=== PATIENT | male | born 1950 | race Caucasian/White ===

== ENCOUNTER → 2025-01-23 | Outpatient (CLI) | payer MEDICARE, SELFPAY ==
--- NOTE | 2025-01-23 08:01 | EKG12_ITS ---
Test Reason : PREOP Blood Pressure : */* mmHG Vent. Rate : 66 BPM Atrial Rate : 66 BPM P-R Int : 200 ms QRS Dur : 144 ms QT Int : 432 ms P-R-T Axes : 62 -61 56 degrees QTcB Int : 452 ms Normal sinus rhythm Right bundle branch block Left anterior fascicular block Bifascicular block Left ventricular hypertrophy with QRS widening Cannot rule out Septal infarct , age undetermined Abnormal ECG Confirmed by Job Cruz ([id number]), television news video editor PATTI LARIOS ([id number]) on 01/23/2025 11:05:52 AM Referred By: Son Calderon Confirmed By: Job Cruz
--- NOTE | 2025-01-23 08:02 | CT_ITS ---
PROCEDURE: EXTREMITY LOWER WITHOUT CONTRA 01/23/2025 REASON FOR EXAM: KNEE PAIN TECHNIQUE: Procedure Code: CTELWO Modality: CT Procedure: EXTREMITY LOWER WITHOUT CONTRA Coronal and Sagittal reconstruction series were provided. CONTRAST: Knee pain One or more dose reduction techniques were used (e.g., Automated exposure control, adjustment of the mA and/or kV according to patient size, use of iterative reconstruction technique). RADIATION DOSE SUMMARY: DLP: 1517 mGycm COMPARISON: None FINDINGS: There is osteoarthritis which is most severe in the medial compartment with a 1.3 x 2.1 cm developing osteochondral defect in the medial femoral condyle. There is no acute fracture or dislocation. There is a moderate joint effusion. There is no visible soft tissue abnormality or atherosclerosis. CT/Extremity Lower without Contra IMPRESSION: There is osteoarthritis which is most severe in the medial compartment with a 1 .3 x 2.1 cm developing osteochondral defect in the medial femoral condyle. There is a moderate joint effusion. Reading Location: [facility]
== END | disposition home or self-care (01) ==
PROVIDERS: PCP Internal Medicine; Referring Provider Orthopaedic Surgery; Visit Provider Orthopaedic Surgery
DX: Z01.818 Encounter for other preprocedural examination (principal); M17.12 Unilateral primary osteoarthritis, left knee
CPT/HCPCS: 73700; 93005

== ENCOUNTER 2025-02-24 09:20 | Emergency (ER) | payer MEDICARE, SELFPAY ==
[2025-02-24 09:20] VITALS: BP 125/100; PULSE 79; RESP 14; TEMP 36.6; O2SAT 99
[2025-02-24 09:33] VITALS: BMI 36.6
--- NOTE | 2025-02-24 09:45 | VDLE_ITS ---
Reason For Study Reason For Study: LLE PAIN Procedure LEFT This is a venous duplex using B-mode, color flow and GSV is normal. spectral Doppler. CFV is compressible, spontaneous, phasic, competent, A preliminary report was called and/or faxed to , and demonstrates normal augmentation. Danette @ 10:30 am. FV is compressible, spontaneous, phasic, competent and demonstrates normal augmentation. POP V is compressible, spontaneous, phasic, competent and demonstrates normal augmentation. T/P Trunk is compressible. PTV is compressible. LT PerV is compressible. VL/Venous Duplex US, Unilateral Interpretation Summary Deep veins of the left lower extremity are patent and compressible segmentally. There is no evidence of left lower extremity deep vein thrombosis. Valvular competence appears intact within the p roximal deep venous system on the left . The left great saphenous vein appears patent and compressible segmentally. Ordering Physician: Yevgeniy Samaniego Referring Physician: Mark Nova Performed By: Yolanda Rangel, RDCS, RVT
--- NOTE | 2025-02-24 09:47 | EX.ED.DYSGE1 ---
HPI History of Present Illness Chief Complaint: Lower Extremity Injury Narrative Narrative: Chief complaint and HPI: 74-year-old male with past medical history of depression, HTN, chronic pain presents for evaluation of pain in the left posterior thigh. Pain started after getting out of bed. States it feels like his muscle. He denies any trauma or fall. Patient states that he is scheduled to have a left knee replacement soon with Dr. Calderon. He takes gabapentin, baclofen, and recently started on Journavx by Dr. Calderon. Triage note states that he is having pain in the left leg and foot. He denies this to me. States it is all located in the left posterior thigh. States that 2 days ago he did have some shooting pain from the knee and to the left ankle and foot however this has resolved. He does have an excoriation proximal to the lateral malleolus which he states he has obtained due to itching. He denies any fever, chills, nausea, vomiting, lower extremity swelling, lower extremity redness or warmth. Did not take anything for the pain. Review of systems: See HPI Medications: As listed on the chart Allergies: As listed on the chart PFSH: Per chart Vital signs: As listed on the chart. Reviewed. Physical exam: Gen: A&O x3, NAD-sitting comfortably in the bed, chatty Head: Normocephalic, atraumatic Eyes: No sclera icterus, conjunctiva clear ENT: Moist mucous membranes CV: Regular rate Resp: Nonlabored respiration GI: Abd soft, non-distended, non-tender, no r/r/g Musc: Full ROM, no deformity, patient has mild tenderness to palpation of the left lower posterior thigh-no erythema/warmth/ecchymosis/crepitus, joints with full range of motion without any warmth or erythema, femoral/DP/PT pulses +2 bilaterally, no pulsatile masses, compartments soft, good capillary refill, sensation intact, varicose veins to the left lower calf, calf nontender, noninfectious excoriation to the left lateral lower calf above the malleolus-no lesions. No edema. Skin: Warm, dry Psych: Cooperative, appropriate mood and affect [facility] Medical History (Updated 02/24/25 @ 09:34 by Kevin Ford) Hypertension Depression Home Medications ?Medication ?Instructions ?Recorded ?Last Taken ?Type atorvastatin 20 mg tablet 20 mg PO DAILY 02/24/25 Unknown History baclofen 10 mg tablet 10 mg PO TID 02/24/25 Unknown History bupropion HCl 300 mg 24 hr tablet, 300 mg PO DAILY 02/24/25 Unknown History extended release diclofenac sodium 75 mg 75 mg PO BID 02/24/25 Unknown History tablet,delayed release duloxetine 60 mg capsule,delayed 60 mg PO DAILY 02/24/25 Unknown History release gabapentin 100 mg capsule 200 mg PO Q8H 02/24/25 Unknown History hydrochlorothiazide 25 mg tablet 25 mg PO DAILY 02/24/25 Unknown History lamotrigine 100 mg tablet 100 mg PO DAILY 02/24/25 Unknown History ofloxacin 0.3 % eye drops 1 drp LEFT EYE Q6H 02/24/25 Unknown History tizanidine 4 mg tablet 4 mg PO TID 02/24/25 Unknown History Allergy/AdvReac Type Severity Reaction Status Date / Time diphenhydramine (From AdvReac Other Verified 02/24/25 09:21 Benadryl) Social History Smoking Status: Former smoker EXAM Physical Exam Const Vital Signs: 02/24/25 09:20 Temperature 98 F Temperature Source Temporal Pulse Rate 79 Respiratory Rate 14 Blood Pressure 125/100 H Blood Pressure Mean 108 Pulse Ox 99 Oxygen Delivery Method Room Air MDM MDM MDM Narrative Medical decision making narrative: 74-year-old male with past medical history of depression, HTN, chronic pain presents for evaluation of pain in the left posterior thigh. Pain started after getting out of bed. States it feels like his muscle. He denies any trauma or fall. Patient states that he is scheduled to have a left knee replacement soon with Dr. Calderon. He takes gabapentin, baclofen, and recently started on Journavx by Dr. Calderon. Triage note states that he is having pain in the left leg and foot. He denies this to me. States it is all located in the left posterior thigh. States that 2 days ago he did have some shooting pain from the knee and to the left ankle and foot however this has resolved. He does have an excoriation proximal to the lateral malleolus which he states he has obtained due to itching. On presentation, patient no acute distress. Sitting comfortably in the bed. Chatty. Full range of motion of all the extremities. No signs of cellulitis. No signs of septic arthritis. Pulses palpable and intact bilaterally. Differential diagnosis includes but is not limited to myofascial spasm, muscle strain, DVT. IM Toradol ordered. Will obtain venous duplex ultrasound to assess for DVT. Given there was no trauma I do not think any imaging is needed at this time otherwise. Venous duplex ultrasound negative for DVT. Patient's pain is likely secondary to myofascial spasm or strain. Recommend Tylenol and ibuprofen as needed for pain. Gentle stretching. Heating pad as needed. RICE education. Follow-up with primary care physician and orthopedic physician as needed. He confirmed understand the plan. Take home pain medicine. Impression: 1. Left posterior thigh pain, suspect muscular Discharge Plan Triage Chief Complaint: Lower Extremity Injury ED Provider: Yevgeniy Samaniego Dx/Rx/DC Orders Prescriptions: No Action atorvastatin 20 mg tablet 20 mg PO DAILY baclofen 10 mg tablet 10 mg PO TID diclofenac sodium 75 mg tablet,delayed release (DR/EC) 75 mg PO BID gabapentin 100 mg capsule 200 mg PO Q8H bupropion HCl 300 mg tablet extended release 24 hr 300 mg PO DAILY duloxetine 60 mg capsule,delayed release(DR/EC) 60 mg PO DAILY ofloxacin 0.3 % drops 1 drp LEFT EYE Q6H hydrochlorothiazide 25 mg tablet 25 mg PO DAILY lamotrigine 100 mg tablet 100 mg PO DAILY tizanidine 4 mg tablet 4 mg PO TID Primary Care Provider: Mark Nova Referrals: Mark Nova MD [Primary Care Provider, Internal Medicine] Print Language: Syriac
--- OUTSIDE RECORDS SUMMARY | 2025-02-24 10:36 | XMS RPT_ITS | CCD ---
Author Organization [facility] Care Team Providers Care Chief Design Engineer Name Role Phone Avtar AVILA, Mark Pena Primary Care Provider Mark Nova MD Primary Care Provider [phone] Gena TURNER.Alexia RECINOS Unavailable MALENA DUKE Attending Unavailable AVTAR, MARK Pena Primary Care Unavailable AVTAR, MARK Pena Primary Care Unavailable PREBISH, MAUDE Attending Unavailable AVTAR, MARK Pena Primary Care Unavailable PREBISH, MAUDE Referring Unavailable LEI CLINTON Attending Unavailable AVTAR, MARK Pena Referring Unavailable NOVA, MARK Pena Primary Care Unavailable PREBISH, MAUDE Attending Unavailable ATVAR, MARK Pena Primary Care Unavailable PREOJSHMAUDE Attending Unavailable MARK NOVA Attending Unavailable MARK NOVA Primary Care Unavailable SELF Referring Unavailable ALEXIA COLEMAN Referring Unavailable AVTAR, MARK Pena Primary Care Unavailable AVTAR, MARK Pena Primary Care Unavailable MARK NOVA Primary Care Unavailable ALEXIA COLEMAN Referring Unavailable AVTAR, MARK Pena Primary Care Unavailable AVTAR, MARK Pena Attending Unavailable MARK NOVA Attending Unavailable AVTAR, MARK Pena Primary Care Unavailable AVTAR, MARK Pena Primary Care Unavailable MELINA BRITT Attending Unavailable AVTAR, MARK Pena Primary Care Unavailable AVTAR, MARK Pena Attending Unavailable AVTAR, MARK Pena Primary Care Unavailable DANA PAT Attending Unavailable AVTAR, MARK Pena Primary Care Unavailable MELINA BRITT Referring Unavailable MELINA BRITT Attending Unavailable MARK NOVA Referring Unavailable AVTAR, MARK Pena Primary Care Unavailable AVTAR, MARK Pena Primary Care Unavailable KATRINA WHYTE Attending Unavailable NOVA, OSMAN Primary Care Unavailable TALKARQUAN Referring Unavailable NOVA, OSMAN Primary Care Unavailable QUAN JEFFERS Attending Unavailable ALEXIA COLEMAN Attending Unavailable NOVA, OSMAN Primary Care Unavailable NOVA, OSMAN Attending Unavailable NOVA, OSMAN Primary Care Unavailable SELF Referring Unavailable NOVA, OSMAN Primary Care Unavailable NOVA, OSMAN Attending Unavailable NOVA, OSMAN Attending Unavailable NOVA, OSMAN Primary Care Unavailable NOVA, OSMAN Primary Care Unavailable NOVA, OSMAN Primary Care Unavailable NOVA, OSMAN Referring Unavailable SANDY LUZ Attending Unavailable NOVA, OSMAN Referring Unavailable NOVA, OSMAN Primary Care Unavailable NOVA, OSMAN Attending Unavailable MALENA DUKE Referring Unavailable NOVA, OSMAN Primary Care Unavailable NOVA, OSMAN Primary Care Unavailable NOVA, OSMAN Referring Unavailable NOVA, OSMAN Primary Care Unavailable NOVA, OSMAN Referring Unavailable Nova, Mark Primary Care Unavailable Son Calderon Referring Unavailable Son Calderon Attending Unavailable Allergies Allergy Classification Reported Allergen(s) Allergy Type Date of Onset Reaction(s) Facility diphenhydrAMINE (2 sources) diphenhydrAMINE Drug Allergy 2 Mental Status Change [facility] Work Phone: (20 sources) diphenhydrAMINE; Translations: [DIPHENHYDRAMINE] Drug Allergy 2 Mental Status Change [facility] Work Phone: Medications Current Medications Medication Drug Class(es) Dates Sig (Normalized) Sig (Original) atorvastatin 20 mg oral tablet (20 sources) HMG-CoA Reductase Inhibitor Start: 01-30-2022 End: 08-16-2024 take 1 tablet by mouth once daily at bedtime for hyperlipidemia atorvastatin (LIPITOR) 20 mg tablet Take 1 tablet by mouth daily at bedtime. For cholesterol. 90 tablet 1 08/16/2024 Active Comment on above: Take 1 tablet by dima th daily at bedtime. For cholesterol. baclofen 10 mg oral tablet (5 sources) gamma-Aminobutyr ic Acid-ergic Agonist Start: 11-16-2024 End: 11-21-2024 take 1 tablet by mouth three times daily baclofen 10 mg tablet Indications: Acute on chronic low back pain Take 1 tablet by mouth three times a day for 5 days. 15 tablet 11/16/2024 11/21/2024 Active Start: 06-16-2024 End: 06-23-2024 take 1 tablet by mouth three times daily baclofen 10 mg tablet Indications: Acute pain of left thigh Take 1 tablet by mouth three times a day for 7 days. 21 tablet 06/16/2024 06/20/2024 Discontinued (Lack of Efficacy) 24 hr buPROPion hydrochloride 300 mg extended release oral tablet (20 sources) Aminoketone Start: 06-29-2023 End: 06-03-2025 take 1 tablet by mouth once daily buPROPion XL (WELLBUTRIN XL) 300 mg 24 hr tablet Take 1 tablet by mouth once daily. 90 tablet 1 12/05/2024 06/03/2025 Active Start: 10-28-2021 take 1 tablet by dima th every twenty-four hours buPROPion XL (WELLBUTRIN XL) 300 mg 24 hr tablet Take 300 mg by mouth. 0 10/28/2021 Active Comment on above: Take 300 mg by mouth . Take 1 tablet by dima th once daily. diclofenac sodium 75 mg delayed release oral tablet (20 sources) Nonsteroidal Anti-inflammatory Drug Start: End: apply 2 g topically twice daily as needed diclofenac (VOLTAREN) 1 % topical gel Indications: Left leg pain Apply 2 g to affected area two times a day as needed for up to 7 days. 28 g 10/24/2024 10/31/2024 Active Start: 09-27-2024 End: 11-23-2024 take 1 tablet by mouth twice daily diclofenac, EC, (VOLTAREN) 75 mg EC tablet Indications: Primary osteoarthritis of left knee , Left low back pain, unspecified chronicity, unspecified whether sciatica present Take 1 tablet by mouth two times a day. 60 tablet 2 11/23/2024 Active Start: 06-26-2024 End: 09-25-2024 take 1 tablet by mouth twice daily diclofenac, EC, (VOLTAREN) 75 mg EC tablet Indications: Left low back pain, unspecified chronicity, unspecified whether sciatica present Take 1 tablet by mouth two times a day. 60 tablet 1 08/01/2024 09/25/2024 Discontinued DULoxetine 60 mg delayed release oral capsule (20 sources) Serotonin and Norepinephrine Reuptake Inhibitor Start: 06-29-2023 End: 06-03-2025 take 1 capsule by mouth once daily at bedtime DULoxetine DR (CYMBALTA) 60 mg capsule Take 1 capsule by mouth daily at bedtime. 90 capsule 1 12/05/2024 06/03/2025 Active Start: 06-29-2023 End: 12-06-2023 take 1 capsule by mouth once daily DULoxetine (CYMBALTA) 30 mg capsule Take 1 capsule by mouth once daily. Take with 60 mg dose. 90 capsule 0 09/07/2023 11/02/2023 Discontinued (Lack of Efficacy) Start: 10-28-2021 take 1 capsule by mo uth once daily DULoxetine (CYMBALTA) 60 mg capsule Take 60 mg by mouth once daily. 0 10/28/2021 Active Start: 10-27-2021 take 1 capsule by mo uth once daily DULoxetine (CYMBALTA) 30 mg capsule Take 30 mg by mouth once daily. 0 10/27/2021 Active Comment on above: Take 30 mg by mouth once daily. Take 60 mg by mouth once daily. Take 1 capsule by mo uth daily at bedtime. Take with 30 mg dose. Take 1 capsule by mo uth once daily. Take with 60 mg dose. gabapentin 100 mg oral capsule (20 sources) Anti-epileptic Agent Start: 08-16-2024 End: 02-12-2025 take 2 capsules by mouth three times daily gabapentin (NEURONTIN) 100 mg capsule Indications: Left low back pain, unspecified chronicity, unspecified whether sciatica present Take 2 capsules by mouth three times a day for 180 days. 180 capsule 5 08/16/2024 02/12/2025 Active Start: 06-20-2024 End: 09-18-2024 take 1 capsule by mouth three times daily gabapentin (NEURONTIN) 100 mg capsule Indications: Left low back pain, unspecified chronicity, unspecified whether sciatica present Take 1 capsule by mouth three times a day for 90 days. 90 capsule 2 06/20/2024 08/16/2024 Discontinued hydroCHLOROthiazide 25 mg oral tablet (20 sources) Thiazide Diuretic Start: 08-11-2021 End: 08-16-2024 take 1 tablet by mouth once daily hydroCHLOROthiazide 25 mg tablet Indications: Primary hypertension Take 1 tablet by mouth once daily. 90 tablet 1 08/16/2024 Active Comment on above: Take 1 tablet by dima th once daily. Take 25 mg by mouth once daily. hydrocortisone 5 mg/ml topical cream (2 sources) Corticosteroid Start: 11-02-2023 End: 12-02-2023 hydrocortisone 0.5 % cream Apply to affected area three times a day as needed (for itching). 28.4 g 1 11/02/2023 12/02/2023 Active lamoTRIgine 100 mg oral tablet (20 sources) Mood Stabilizer, Anti-epileptic Agent Start: 08-03-2023 End: 12-05-2024 take 1 tablet by mouth once daily lamoTRIgine (LAMICTAL) 100 mg tablet Take 1 tablet by mouth once daily. 90 tablet 1 12/05/2024 Active Start: 06-29-2023 End: 08-10-2023 take 1 tablet by mouth once daily, then take 2 tablets by mouth once daily, then take 3 tablets by mouth once daily lamoTRIgine (LAMICTAL) 25 mg tablet Take 1 tablet by mouth once daily for 14 days, THEN 2 tablets once daily for 14 days, THEN 3 tablets once daily for 14 days. 84 tablet 0 06/29/2023 08/03/2023 Discontinued Comment on above: Take 1 tablet by dima once daily for 14 days, THEN 2 tablets once daily for 14 days, THEN 3 tablets once daily for 14 days. tiZANidine 4 mg oral tablet (1 source) Central alpha-2 Adrenergic Agonist Start: take 1 tablet by mouth every eight hours as needed tiZANidine (ZANAFLEX) 4 mg tablet Take 1 tablet by mouth every 8 hours as needed. 30 tablet 12/12/2024 Active traMADol hydrochloride 50 mg oral tablet (2 sources) Opioid Agonist Start: End: take 1 tablet by mouth every six hours as needed for pain traMADol (ULTRAM) 50 mg tablet Indications: Fall, initial encounter , Acute pain of right shoulder , Acute midline low back pain without sciatica Take 1 tablet by mouth every 6 hours as needed for pain for up to 3 days. 12 tablet 06/07/2024 06/10/2024 Active Completed/Discontinued Medications Medication Drug Class(es) Dates Sig (Normalized) Sig (Original) ARIPiprazole 5 mg oral tablet (17 sources) Atypical Antipsychotic Start: 08-03-2023 End: 09-07-2023 take 0.5 tablet by mouth once daily ARIPiprazole (ABILIFY) 5 mg tablet Take 0.5 tablets by mouth once daily. 15 tablet 0 08/03/2023 09/07/2023 Discontinued (Side Effects) Start: 06-29-2023 End: 09-27-2023 take 1 tablet by mouth once daily ARIPiprazole (ABILIFY) 5 mg tablet Take 1 tablet by mouth once daily. 30 tablet 2 06/29/2023 08/03/2023 Discontinued Start: 10-28-2021 take 1 tablet by dima th once daily, then take 5 mg by mouth once daily ARIPiprazole (ABILIFY) 2 mg tablet Take 2 mg by mouth once daily. 5 mg per day 0 10/28/2021 Active Comment on above: Take 2 mg by mouth o nce daily. Take 2 mg by mouth o nce daily. 5 mg per day Take 1 tablet by dima th once daily. iohexol 300 mg injection (OMNIPAQUE 300) (2 sources) Start: 09-15-2024 End: 09-15-2024 iohexol 300 mg injection (OMNIPAQUE 300) Start: 09-15-2024 End: 09-15-2024 300 mg, OTHER, ONCE, 1 dose, On Wed09/15/24 at 0830 2 ml ketorolac tromethamine 30 mg/ml injection (4 sources) Nonsteroidal Anti-inflammatory Drug, Cyclooxygenase Inhibitor Start: 11-16-2024 End: 11-16-2024 keTORolac 60 mg injection (Toradol) Start: 11-16-2024 End: 11-16-2024 60 mg, INTRAMUSCULAR, ONCE, 1 dose, On Wed11/16/24 at 1700, Ketorolac (Toradol) is indicated for the short-term (up to 5 days) management of moderately severe acute pain. Continuation of ketorolac (Toradol) beyond 5 days increases the risk of developing serious adverse events. Please verify the duration of therapy for ketorolac (Toradol). Start: 06-05-2024 End: 06-05-2024 keTORolac 60 mg injection (T oradol) Start: 06-05-2024 End: 06-05-2024 60 mg, INTRAMUSCULAR, ONCE, 1 dose, On Wed06/05/24 at 1930, Ketorolac (Toradol) is indicated for the short-term (up to 5 days) management of moderately severe acute pain. Continuation of ketorolac (Toradol) beyond 5 days increases the risk of developing serious adverse events. Please verify the duration of therapy for ketorolac (Toradol). Lidocaine (2 sources) Antiarrhythmic, Amide Local Anesthetic Start: 09-15-2024 End: 09-15-2024 lidocaine 10 mg/mL (1 %) 100 mg injection (XYLOCAINE) Start: 09-15-2024 End: 09-15-2024 100 mg (10 mL), OTHER, ONCE, 1 dose, On Wed09/15/24 at 0830 methocarbamol 500 mg oral tablet (1 source) Muscle Relaxant Start: 12-12-2024 End: 12-12-2024 take 1 tablet by mouth three times daily methocarbamol (ROBAXIN) 500 mg tablet Take 1 tablet by mouth three times a day. 30 tablet 12/12/2024 12/12/2024 Discontinued (Other) 1 ml methylPREDNISolone acetate 40 mg/ml injection (2 sources) Corticosteroid Start: 09-15-2024 End: 09-15-2024 methylPREDNISolone acetate 40 mg injection (DEPO-Medrol) Start: 09-15-2024 End: 09-15-2024 40 mg, OTHER, ONCE, 1 dose, On Wed09/15/24 at 0830 5 ml sodium chloride 9 mg/ml injection (2 sources) Start: 09-15-2024 End: 09-15-2024 NaCl (PF) 0.9% 5 mL injectio n Start: 09-15-2024 End: 09-15-2024 5 mL, OTHER, ONCE, 1 dose, O n Wed09/15/24 at 0830 Problems Active Problems Problem Classification Problem Date Documented Date Episodic/Chronic Administrative/social admission (1 source) Encounter for issue of other medical certificate; Translations: [Encounter for issue of other medical certificate] Onset: 11-23-2024 Episodic Crushing injury or internal injury (1 source) Contusion of lung, unilateral, initial encounter; Translations: [Contusion of right lung, initial encounter] Onset: 06-07-2024 Episodic Disorders of lipid metabolism (20 sources) Hyperlipidemia; Translations: [Hyperlipidemia, unspecified] Onset: 08-12-2022 Chronic E Codes: Fall (2 sources) Fall; Translations: [Unspecified fall, initial encounter] Onset: 06-07-2024 06-05-2024 Episodic Essential hypertension (20 sources) Essential hypertension; Translations: [Essential (primary) hypertension] Onset: 10-30-2021 Chronic Mood disorders (20 sources) Major depressive disorder; Translations: [Major depressive disorder, single episode, unspecified] Onset: 10-30-2021 Chronic Nausea and vomiting (1 source) Nausea and vomiting; Translations: [Nausea with vomiting, unspecified] 07-12-2024 Episodic Osteoarthritis (20 sources) Osteoarthritis of left knee joint; Translations: [Unilateral primary osteoarthritis, left knee] Onset: 06-22-2024 06-22-2024 Chronic Other aftercare (2 sources) Long-term current use of drug therapy; Translations: [Other retirement (current) drug therapy] 06-20-2024 Episodic Other connective tissue disease (3 sources) Thigh pain; Translations: [Pain in left thigh] 06-16-2024 Episodic Other connective tissue disease (4 sources) Pain in left lower limb; Translations: [Pain in left leg] 10-24-2024 Episodic Other connective tissue disease (1 source) Spasm; Translations: [Other muscle spasm] 12-12-2024 Episodic Other connective tissue disease (1 source) Other muscle spasm; Translations: [Muscle spasm] Onset: 12-12-2024 Episodic Other ear and sense organ disorders (1 source) Hearing loss of right ear; Translations: [Impacted cerumen, right ear] 02-01-2024 Episodic Other inflammatory condition of skin (2 sources) Pruritus caused by drug; Translations: [Other pruritus] 11-02-2023 Episodic Other injuries and conditions due to external causes (1 source) Contusion; Translations: [Unspecified multiple injuries, initial encounter] 06-05-2024 Episodic Other lower respiratory disease (1 source) Snoring; Translations: [Snoring] Onset: 01-12-2025 Episodic Other nervous system disorders (2 sources) Other chronic pain; Translations: [Chronic pain of left knee] Onset: 11-16-2024 Chronic Other non-traumatic joint disorders (1 source) Pain in right shoulder; Translations: [Acute pain of right shoulder] Onset: 06-07-2024 Episodic Other non-traumatic joint disorders (2 sources) Pain in left knee; Translations: [Pain in joint, lower leg] Onset: 12-03-2024 12-03-2024 Episodic Other nutritional; endocrine; and metabolic disorders (20 sources) Obese class I; Translations: [Obesity, unspecified] Onset: 10-30-2021 Chronic Other nutritional; endocrine; and metabolic disorders (1 source) Body mass index 30+ - obesity; Translations: [Body mass index (BMI) 30.0-30.9, adult] 12-12-2024 Chronic Other nutritional; endocrine; and metabolic disorders (1 source) Body mass index (BMI) 30.0-30.9, adult; Translations: [Body mass index (BMI) 30.0-30.9, adult] Onset: 12-12-2024 Chronic Residual codes; unclassified (1 source) Other amnesia; Translations: [Memory disturbance] Onset: 01-12-2025 Episodic Screening and history of mental health and substance abuse codes (1 source) Encounter for screening examination for other mental health and behavioral disorders; Translations: [Encounter for screening examination for other mental health and behavioral disorders] Onset: 01-12-2025 Episodic Spondylosis; intervertebral disc disorders; other back problems (5 sources) Degeneration of lumbar intervertebral disc; Translations: [Degeneration of intervertebral disc of lumbar region with discogenic back pain and lower extremity pain] Onset: 10-12-2024 08-10-2024 Chronic Sprains and strains (1 source) Sprain of shoulder rotator cuff; Translations: [Sprain of right rotator cuff capsule, initial encounter] 11-25-2023 Episodic Superficial injury; contusion (1 source) Contusion of lower back and pelvis, initial encounter; Translations: [Lumbar contusion, initial encounter] Onset: 06-07-2024 Episodic Unclassified (1 source) Acute midline low back pain without sciatica; Translations: [Acute midline low back pain without sciatica] Onset: 06-07-2024 Unclassified (2 sources) Long-term current use of drug therapy 06-20-2024 Unclassified (1 source) Degeneration of intervertebral disc of lumbar region with discogenic back pain and lower extremity pain; Translations: [Degeneration of intervertebral disc of lumbar region with discogenic back pain and lower extremity pain] Onset: 10-12-2024 Unclassified (2 sources) Left low back pain, unspecified chronicity, unspecified whether sciatica present; Translations: [Left low back pain, unspecified chronicity, unspecified whether sciatica present] Onset: 06-26-2024 Unclassified (1 source) Acute bilateral low back pain without sciatica; Translations: [Acute bilateral low back pain without sciatica] Onset: 12-12-2024 Unclassified (1 source) Acute on chronic low back pain; Translations: [Acute on chronic low back pain] Onset: 11-16-2024 Viral infection (1 source) Disease caused by 2019-nCoV; Translations: [COVID-19] Episodic Past or Other Problems Problem Classification Problem Date Documented Da te Episodic/Chronic Heart valve disorders (20 sources) Heart murmur; Translations: [Cardiac murmur, unspecified] Onset: 10-30-2021 Episodic Other aftercare (1 source) Other retirement (current) drug therapy; Translations: [Encounter for long-term (current) use of medications] Onset: 06-20-2024 Episodic Other connective tissue disease (1 source) Pain in left leg; Translations: [Left leg pain] Onset: 10-24-2024 Episodic Other connective tissue disease (1 source) Pain in left thigh; Translations: [Acute pain of left thigh] Onset: 06-16-2024 Episodic Other screening for suspected conditions (not mental disorders or infectious disease) (6 sources) Patient encounter status; Translations: [Encounter for screening for malignant neoplasm of colon] Onset: 06-16-2024 Episodic Residual codes; unclassified (20 sources) Tobacco use and exposure - finding; Translations: [Tobacco use] Onset: 08-13-2022 Resolved: 05-26-2023 Episodic Spondylosis; intervertebral disc disorders; other back problems (20 sources) Acute low back pain; Translations: [Acute bilateral low back pain without sciatica] Onset: 06-26-2024 06-05-2024 Episodic Unclassified (2 sources) Patient encounter status 06-06-2024 Results Test Name Value Interpretation Reference Range Facility CT BRAIN WO IVCONon 01-25-20 CT BRAIN WO IVCON * * *Final Report* * * DATE OF EXAM: Jan 24 2025 12:10PM [facility] 0504 - CT BRAIN WO IVCON / PROCEDURE REASON: Memory disturbance * * * * Physician Interpretation * * * * EXAMINATION: CT BRAIN WO IVCON CLINICAL HISTORY: Memory disturbance. TECHNIQUE: Serial axial images without IV contrast were obtained from the vertex to the foramen magnum. MQ: CTBWO_3 CT Radiation dose: Integrated Dose-Length Product (DLP) for this visit = 719 mGy*cm CT Dose Reduction Employed: Automated exposure control(AEC) and iterative recon COMPARISON: None. RESULT: Localizer images: Noncontributory. Post-operative change: None. Acute change: No evidence of an acute infarct or other acute parenchymal process. Hemorrhage: No evidence of acute intracranial hemorrhage. ECASS hemorrhagic transformation score: Not Applicable Mass Lesion / Mass Effect: There is no evidence of an intracranial mass or extraaxial fluid collection. No significant mass effect. Chronic change: Minimal chronic change. Small remote lacunar infarct within LEFT basal ganglia. Parenchyma: There is moderate generalized volume loss. The brain parenchyma is otherwise within normal limits for age. Ventricles: Ventricular enlargement concordant with the degree of parenchymal volume loss. Paranasal sinuses and skull base: The visualized paranasal sinuses are grossly clear. The skull base and imaged soft tissues are unremarkable. IMPRESSION: No acute findings. Chronic changes. Press Pipe Inspector: PSCLola Transcribe Date/Time: Jan 24 2025 1:28P Dictated by : RUBEN BARBER MD This examination was interpreted and the report reviewed and electronically signed by: RUBEN BARBER MD on Jan 24 2025 1:31PM EST [id number] Normal [facility] 12 Lead EKGon 01-23-2025 12 Lead EKG [facility] Cardiovascular Services [address] [place] [address] 12 Lead EKG 01/23/25 0803 MR#: [id number] Acct: [id number] Name: JUAN KILLIAN Rep #: [id number] : 1950 74 From: Quan Cruz MD Attending Dr: Dr. Son Calderon MD Status: REG CLI Ordering Dr: Son Calderon MD Date: 01/23/25 Location: CT Sex: M C Admitted: Test Reason : PREOP Blood Pressure : */* mmHG Vent. Rate : 66 BPM Atrial Rate : 66 BPM P-R Int : 200 ms QRS Dur : 144 ms QT Int : 432 ms P-R-T Axes : 62 -61 56 degrees QTcB Int : 452 ms Normal sinus rhythm Right bundle branch block Left anterior fascicular block Bifascicular block Left ventricular hypertrophy with QRS widening Cannot rule out Septal infarct , age undetermined Abnormal ECG Confirmed by Quan Cruz ([id number]), editor newspaper PATTI LARIOS ([id number]) on 01/23/2025 11:05:52 AM Referred By: Son Calderon Confirmed By: Quan Cruz 01/23/25 1105 Date Quan Cruz MD CC: Dr. Son Calderon MD; Dr. Mark Nova MD Signed Normal [facility] Extremity Lower without Cont raon 01-23-2025 Extremity Lower without Contra [facility] Imaging Services [address] [place] [id number] Extremity Lower without Contra MR#: [id number] Acct: [id number] Name: JUAN KILLIAN Rep #: [id number] : 1950 M 74 From: Alex Harman MD PCP: Dr. Mark Nova MD Status: REG CLI Study: Extremity Lower without Contra Date of Exam: Exam# [id number] Ordering Dr: Son Calderon MD PROCEDURE: EXTREMITY LOWER WITHOUT CONTRA 01/23/2025 REASON FOR EXAM: KNEE PAIN TECHNIQUE: Procedure Code: CTELWO Modality: CT Procedure: EXTREMITY LOWER WITHOUT CONTRA Coronal and Sagittal reconstruction series were provided. CONTRAST: Knee pain One or more dose reduction techniques were used (e.g., Automated exposure control, adjustment of the mA and/or kV according to patient size, use of iterative reconstruction technique). RADIATION DOSE SUMMARY: DLP: 1517 mGycm COMPARISON: None FINDINGS: There is osteoarthritis which is most severe in the medial compartment with a 1.3 x 2.1 cm developing osteochondral defect in the medial femoral condyle. There is no acute fracture or dislocation. There is a moderate joint effusion. There is no visible soft tissue abnormality or atherosclerosis. CT/Extremity Lower without Contra IMPRESSION: There is osteoarthritis which is most severe in the medial compartment with a 1.3 x 2.1 cm developing osteochondral defect in the medial femoral condyle. There is a moderate joint effusion. Reading Location: [facility] CC: Dr. Son Calderon MD; Dr. Mark Nova MD Press Pipe Inspector: Signed Normal [facility] CBC panel Auto (Bld)on 01-12 Erythrocyte distribution width (RBC) [Ratio] 14.2 % Normal 11.5-15.0 [facility] Comment on above: Order Comment: Speci men Type: BLOOD SPECIMENOrdering Facility: [facility] Address: [address] [place] [address] Performed By: #### [id number] ####[facility] LABIA [id number] [place] [address] [place] Hematocrit (Bld) [Volume fraction] 37.5 % Low 39.0-51.0 [place] [facility] Comment on above: Order Comment: Speci men Type: BLOOD SPECIMENOrdering Facility: [facility] Address: [address] [place] [address] Performed By: #### 5 8410-2 ####[facility] LABIA [id number] [place] [address] [place] Hemoglobin (Bld) [Mass/Vol] 12.7 g/dL Low 13.0-17.0 [facility] Comment on above: Order Comment: Speci men Type: BLOOD SPECIMENOrdering Facility: [facility] Address: [address] [place] [address] Performed By: #### 5 8410-2 ####[facility] LABIA [id number] [place] [address] [place] MCH (RBC) [Entitic mass] 30.0 pg Normal 26.0-34.0 [facility] Comment on above: Order Comment: Speci men Type: BLOOD SPECIMENOrdering Facility: [facility] Address: [address] [place] [address] Performed By: #### 5 8410-2 ####[facility] LABIA [id number] [place] [address] [place] MCHC (RBC) [Mass/Vol] 33.9 g/dL Normal 30.5-36.0 [facility] Comment on above: Order Comment: Speci men Type: BLOOD SPECIMENOrdering Facility: [facility] Address: [address] [place] [address] Performed By: #### 5 8410-2 ####[facility] [id number] [place] [address] [place] MCV (RBC) [Entitic vol] 88.7 fL Normal 80.0-100.0 [facility] Comment on above: Order Comment: Speci men Type: BLOOD SPECIMENOrdering Facility: [facility] Address: [address] [place] [address] Performed By: #### 5 8410-2 ####[facility] [id number] [place] [address] [place] Nucleated RBC (Bld) [#/Vol] 10*3/uL Normal <0.01 [facility] Comment on above: Order Comment: Speci men Type: BLOOD SPECIMENOrdering Facility: [facility] Address: [address] [place] [address] Performed By: #### 5 8410-2 ####[facility] [id number] [place] [address] [place] Platelet mean volume (Bld) [Entitic vol] 9.8 fL Normal 9.0-12.7 [facility] Comment on above: Order Comment: Speci men Type: BLOOD SPECIMENOrdering Facility: [facility] Address: [address] [place] [address] Performed By: #### 5 8410-2 ####[facility] LABCLIA [id number] [place] [address] [place] Platelets (Bld) [#/Vol] 334 10*3/uL Normal 150-400 [facility] Comment on above: Order Comment: Speci men Type: BLOOD SPECIMENOrdering Facility: [facility] Address: [address] [place] [address] Performed By: #### 5 8410-2 ####[facility] LABIA [id number] [place] [address] [place] RBC (Bld) [#/Vol] 4.23 10*6/uL Normal 4.20-6.00 [facility] Comment on above: Order Comment: Speci men Type: BLOOD SPECIMENOrdering Facility: [facility] Address: [address] [place] [address] Performed By: #### 5 8410-2 ####[facility] LABIA [id number] [place] [address] [place] WBC (Bld) [#/Vol] 8.48 10*3/uL Normal 3.70-11.00 [facility] Comment on above: Order Comment: Speci men Type: BLOOD SPECIMENOrdering Facility: [facility] Address: [address] [place] [address] Performed By: #### 5 8410-2 ####[facility] LABIA [id number] [place] [address] [place] CNOVon 01-12-2025 CNOV Office Visit (INTMWS ) JUAN KILLIAN Bernard ([id number]) 1950 Date Time Provider Department 01/12/25 11:00 AM MARK NOVA INTTIA During your visit today, we recorded the following information about you: Temperature Pulse Respiration Blood pressure Normal [facility] JUAN KILLIAN Bernard ([id number]) 1950 Date Time Provider Department 01/12/25 MARK NOVA During your visit today, we recorded the following information about you: Ruth Callahan 01/12/2025 10:54 AM Signed Patient presented to the [facility] stating he has been having bouts of dementia - and they have been much worse today. I offered to get him an appointment and patient replied with the following: Please prescribe the strongest Vitamin E as well as any other medications that you think are proper. Convinced patient to take same day appointment with Dr. Nova. Allergies As of Date: 01/12/2025 Noted Allergy Reaction BENADRYL (DIPHENHYDRAMINE) 10/30/2021 1 - Mental Status Change Comments: Sends into severe depression Date Reviewed: 12/12/2024 Reviewed by: Sobeida Garcia MA - Fully Assessed Prescriptions as of 01/12/2025 - hydroCHLOROthiazide 25 mg tablet Take 1 tablet by mouth once daily. - tiZANidine (ZANAFLEX) 4 mg tablet Take 1 tablet by mouth every 8 hours as needed. - buPROPion XL (WELLBUTRIN XL) 300 mg 24 hr tablet Take 1 tablet by mouth once daily. - DULoxetine DR (CYMBALTA) 60 mg capsule Take 1 capsule by mouth daily at bedtime. - lamoTRIgine (LAMICTAL) 100 mg tablet Take 1 tablet by mouth once daily. - diclofenac, EC, (VOLTAREN) 75 mg EC tablet Take 1 tablet by mouth two times a day. - atorvastatin (LIPITOR) 20 mg tablet Take 1 tablet by mouth daily at bedtime. For cholesterol. - gabapentin (NEURONTIN) 100 mg capsule Take 2 capsules by mouth three times a day for 180 days. Problem List As Of Date 01/12/2025 Noted Resolved Major depression, chronic [F32.9] 10/30/2021 Primary hypertension [I10] 10/30/2021 Obesity, Class I, BMI 30-34.9 [E66.811] 10/30/2021 Heart murmur [R01.1] 10/30/2021 Hyperlipidemia [E78.5] 08/12/2022 Tobacco use [Z72.0] 08/13/2022 05/26/2023 Major depressive disorder, recurrent episode, m*06/06/2024 Primary osteoarthritis of left knee [M17.12] 06/22/2024 Left low back pain [M54.50] 06/26/2024 Encounter Status:Closed by MIHAELA CARNES on 01/12/25 Normal [facility] Comprehensive metabolic 2000 panelon 01-12-2025 Albumin [Mass/Vol] 4.6 g/dL Normal 3.9-4.9 [facility] Comment on above: Order Comment: Speci men Type: BLOOD SPECIMENOrdering Facility: [facility] Address: [address] [place] [address] Performed By: #### 2 4323-8, 2131-12 ####[facility] LABCLIA [id number] [place] [address] [place] ALP [Catalytic activity/Vol] 59 U/L Normal 38-113 [facility] Comment on above: Order Comment: Speci men Type: BLOOD SPECIMENOrdering Facility: [facility] Address: [address] [place] [address] Performed By: #### 2 432-8, 2131-12 ####[facility] LABCLIA [id number] [facility] [address] [place] [address] [place] ALT [Catalytic activity/Vol] 37 U/L Normal 10-54 [facility] Comment on above: Order Comment: Speci men Type: BLOOD SPECIMENOrdering Facility: [facility] Address: [address] [place] [address] Performed By: #### 2 4322-11, 2131-12 ####[facility] LABCLIA [id number] [facility] [address] [place] [address] [place] Anion gap [Moles/Vol] 15 mmol/L Normal 8-15 [facility] Comment on above: Order Comment: Speci men Type: BLOOD SPECIMENOrdering Facility: [facility] Address: [address] [place] [address] Performed By: #### 2 4322-11, 2131-12 ####[facility] LABCLIA [id number] [facility] [address] [place] [address] [place] AST [Catalytic activity/Vol] 27 U/L Normal 14-40 [facility] Comment on above: Order Comment: Speci men Type: BLOOD SPECIMENOrdering Facility: [facility] Address: [address] [place] [address] Performed By: #### 2 4328, 2131-12 ####[facility] LABCLIA [id number] [facility] [address] [place] [address] [place] Bilirubin [Mass/Vol] 0.4 mg/dL Normal 0.2-1.3 [facility] Comment on above: Order Comment: Speci men Type: BLOOD SPECIMENOrdering Facility: [facility] Address: [address] [place] [address] Performed By: #### 2 4323-8, 2131-12 ####[facility] LABCLIA [id number] [facility] [address] [place] [address] [place] Calcium [Mass/Vol] 9.9 mg/dL Normal 8.5-10.2 [facility] Comment on above: Order Comment: Speci men Type: BLOOD SPECIMENOrdering Facility: [facility] Address: [address] [place] [address] Performed By: #### 2 4328, 2131-12 ####[facility] LABCLIA [id number] [place] [facility] [address] [address] [place] Chloride [Moles/Vol] 103 mmol/L Normal 98-107 [facility] Comment on above: Order Comment: Speci men Type: BLOOD SPECIMENOrdering Facility: [facility] Address: [address] [place] [address] Performed By: #### 2 4322-11, 2131-12 ####[facility] LABCLIA [id number] [facility] [place] [id number] [place] CO2 [Moles/Vol] 21 mmol/L Low 22-30 [facility] Comment on above: Order Comment: Speci men Type: BLOOD SPECIMENOrdering Facility: [facility] Address: [address] [place] [address] Performed By: #### 2 4322-11, 2131-12 ####[facility] LABCLIA [id number] [facility] [address] [place] [address] [place] Creatinine [Mass/Vol] 1.14 mg/dL Normal 0.73-1.22 [facility] Comment on above: Order Comment: Speci men Type: BLOOD SPECIMENOrdering Facility: [facility] Address: [address] [place] [address] Performed By: #### 2 4322-11, 2131-12 ####[facility] LABCLIA [id number] [facility] [id number] [address] [place] eGFRcr SerPlBld CKD-EPI 2020 68 mL/min/1.73m??? Normal >=60 [facility] Comment on above: Order Comment: Speci men Type: BLOOD SPECIMENOrdering Facility: [facility] Address: [address] [place] [address] Result Comment: Shikha mated Glomerular Filtration Rate (eGFR) is calculated using the 2020 CKD-EPI creatinine equation. This equation utilizes serum creatinine, sex, and age as parameters. The creatinine assay has traceable calibration to isotope dilution-mass spectrometry. Refer to KDIGO guidelines for clinical interpretation. In patients with unstable renal function, e.g. those with acute kidney injury, the eGFR may not accurately reflect actual GFR. Performed By: #### 2 432-8, 2131-12 ####[facility] [id number] [address] [address] [place] Glucose [Mass/Vol] 102 mg/dL High 74-99 [facility] Comment on above: Order Comment: Kimberly lawrence Type: BLOOD SPECIMENOrdering Facility: [facility] Address: [address] [place] [address] Result Comment: The [place] Diabetes Association (ADA) provides guidance for cutoff values for fasting glucose and random glucose. The ADA defines fasting as no caloric intake for at least 8 hours. Fasting plasma glucose results between 100 to 125 mg/dL indicate increased risk for diabetes (prediabetes). Fasting plasma glucose results greater than or equal to 126 mg/dL meet the criteria for diagnosis of diabetes. In the absence of unequivocal hyperglycemia, results should be confirmed by repeat testing. In a patient with classic symptoms of hyperglycemia or hyperglycemic crisis, random plasma glucose results greater than or equal to 200 mg/dL meet the criteria for diagnosis of diabetes. Reference: Standards of Medical Care in Diabetes 2016, [place] [employer]. Diabetes Care. 2016.39(Suppl 1). Performed By: #### 2 4323-8, 2131-12 ####[facility] [id number] [address] [address] [place] Potassium [Moles/Vol] 4.4 mmol/L Normal 3.7-5.1 [facility] Comment on above: Order Comment: Kimberly lawrence Type: BLOOD SPECIMENOrdering Facility: [facility] Address: [address] [place] [address] Performed By: #### 2 4323-8, 2131-12 ####[facility] LABCLIA [id number] [place] [id number] [place] Protein [Mass/Vol] 7.2 g/dL Normal 6.3-8.0 [facility] Comment on above: Order Comment: Speci men Type: BLOOD SPECIMENOrdering Facility: [facility] Address: [address] [place] [address] Performed By: #### 2 4328, 2131-12 ####[facility] LABIA [id number] [place] [address] [place] Sodium [Moles/Vol] 139 mmol/L Normal 136-144 [facility] Comment on above: Order Comment: Speci men Type: BLOOD SPECIMENOrdering Facility: [facility] Address: [address] [place] [address] Performed By: #### 2 4328, 2131-12 ####[facility] LABIA [id number] [place] [address] [place] Urea nitrogen [Mass/Vol] 26 mg/dL High 9-24 [facility] Comment on above: Order Comment: Speci men Type: BLOOD SPECIMENOrdering Facility: [facility] Address: [address] [place] [address] Performed By: #### 2 43206-10, 2131-12 ####[facility] LABIA [id number] [place] [id number] [place] Gabapentin SerPlBld-mCncon 1 Gabapentin (S/P/Bld) [Mass/Vol] 3.8 ug/mL Normal 2.0-20.0 [facility] Comment on above: Order Comment: Speci men Type: BLOOD SPECIMENOrdering Facility: [facility] Address: [address] [place] [address] Result Comment: This test was developed, and its performance characteristics determined by the [facility] Department of Pathology and Laboratory Medicine. It has not been cleared or approved by the FDA. The [facility] Department of Pathology and Laboratory Medicine is regulated under CLIA as qualified to perform high-complexity testing. This test is used for clinical purposes. It should not be regarded as investigational or for research. Performed By: #### 9 738-6, 6948-4 ####[facility] LABIA [id number] [place] [id number] [place] Vit B12 SerPl-ncon 025 Cobalamin (Vitamin B12) [Mass/Vol] 460 pg/mL Normal 232-1245 [facility] Comment on above: Order Comment: Kimberly lawrence Type: BLOOD SPECIMENOrdering Facility: [facility] Address: [address] [place] [address] Performed By: #### 2 4323-8, 2132-9 ####[facility] [id number] [address] lamoTRIgine [facility] lamoTRIgine [Mass/Vol] 1.5 ug/mL Normal 1.0-13.0 [facility] Comment on above: Order Comment: Kimberly lawrence Type: BLOOD SPECIMENOrdering Facility: [facility] Address: [address] [place] [address] Result Comment: This test was developed, and its performance characteristics determined by the [facility] Department of Pathology and Laboratory Medicine. It has not been cleared or approved by the FDA. The [facility] Department of Pathology and Laboratory Medicine is regulated under CLIA as qualified to perform high-complexity testing. This test is used for clinical purposes. It should not be regarded as investigational or for research. Performed By: #### 9 738-6, 6948-4 ####[facility] [id number] [place] [id number] [facility] CNOVon 01-11-2025 CNOV Office Visit (SPAGWO ) MARIA DJUAN Lovelace ([id number]) 1950 M Date Time Provider Department 01/11/25 2:30 PM MAUDE TOWNSEND During your visit today, we recorded the following information about you: Pulse Respiration 80/minute 16/minute Krystal Cates LPN 01/11/2025 2:45 PM Signed Review of Systems Constitutional: Positive for activity change. Negative for chills, fever and unexpected weight change. Genitourinary: Negative for difficulty urinating. Musculoskeletal: Positive for arthralgias, back pain, gait problem, joint swelling and myalgias. Negative for neck pain. Neurological: Negative for weakness, numbness and headaches. Psychiatric/Behavioral: Positive for dysphoric mood. Negative for sleep disturbance and suicidal ideas. The patient is not nervous/anxious. Maude Townsend APRN.CNP 01/11/2025 2:45 PM Signed [facility] General Today's Date: 01/11/2025 Name: Juan Killian : 1950 Purpose: Follow-up Patient Evaluation - This is an established patient, returning today for continued evaluation and management of the chief complaint noted below Chief complaint: low back pain Referring Clinician: Mark Nova Pertinent Past Medical History: HTN, HLD, depression Pertinent Past Surgeries: none Plan at last visit: (Seen on 10/2024 by Maude Townsend CNP) IMPRESSION: 74 year old male presents with complaint(s) of Low back pain as described above. Patient stating his pain is better managed now after the injection stating that he is still is limited with some of his activities that he feels as long as he avoids things that increase his pain he does well. Diagnoses: (M48.062) Spinal stenosis, lumbar region with neurogenic claudication (primary encounter diagnosis) (M51.362) Degeneration of intervertebral disc of lumbar region with discogenic back pain and lower extremity pain (M54.50) Left low back pain, unspecified chronicity, unspecified whether sciatica present (M47.816) Lumbar spondylosis PLAN: Juan Killian would benefit from the following to reach personal goals for decreasing pain, improving function and work participation, and/or improving quality of life: Medications: No Changes - Continue Current Medications Interventional Procedures: none Studies: None Functional Mandaeism: NONE He Does Well. She Referrals: No additional considerations at present Follow-up: 1 month after injection Depending on response to the above plan, consider: TBD Interval History: Overall pain and functional disability since last visit: Better New Complaints since last visit: Susan Martinez is a 74-year-old male presenting for follow-up after a prior injection for back pain. Juan was last seen in October, at which time he reported that the injection had significantly improved his pain. He states that his upper back is 100% better, though his lower back has always been a problem. He reports that his pain is currently bearable, except for his knee. He rates his current back pain as none. He has been avoiding lifting heavy objects. 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 He reports that turning and twisting causes significant pain. He is currently temporarily disabled from work due to his knee pain. He reports that he is planning to have knee replacement surgery and is currently seeing a surgeon. He previously had an injection for his knee, which he believes was for his meniscus. - (October) - Knee X-ray: Mild to moderate arthritis with joint space narrowing. - Injection for lower back: Pain improved with better pain control. Current Pain Medications: Neuropathics: gabapentin NSAIDS: diclofenac Muscle Relaxants: Topicals: Other Prescription or OTC Pain Medications: Opioids (when applicable): Anti-depressants or Mood-Stabilizers: Cymbalta, Wellbutrin Anti-Coagulants: None Therapies Attended (Current or Most Recent): No Current Therapies 08/10/2024 [facility] Questionnaire GREENLIGHT Completed Date 08/10/2024 Questionnaire Opiod Risk Tool Completed Date 08/10/2024 Comments 1 - Low Risk No question data found. (All drug screens are appropriate unless indicated otherwise) Notable Events During Course of Treatment: History of Present Illness (HPI): 08/09/2024 - Initial HPI (Obtained by Maude Townsend [facility]). DURATION AND ONSET: The pain complaint has been present for approximately 2 months. The pain had a sudden onset. The mechanism of injury is known and is as follows: a fall. RED FLAG SYMPTOMS: denies red flags. PAIN (more content not included)... Normal [facility] 01-05-2025 [facility] Telephone (INTMWS) JUAN KILLIAN ([id number]) 1950 M Date Time Provider Department 01/05/25 MARK NOVA INTWS During your visit today, we recorded the following information about you: Bernard Cuellar, CLAUDE 01/05/2025 2:30 PM Signed [facility] [employer] [facility] asking if patient has been released to full duty for the allowed conditions. Please phone Jaida with reply: [phone] extension [phone]. Asking provider office to fax any medical notes related to this to fax # [phone] Mark Nova MD 01/05/2025 4:28 PM Signed Send copies of notes and letter for work. Mihaela Carnes MA 01/05/2025 5:20 PM Signed Faxed office note and letter from provider from 11/23/24 Mihaela Carnes MA Allergies As of Date: 01/05/2025 Noted Allergy Reaction BENADRYL (DIPHENHYDRAMINE) 10/30/2021 1 - Mental Status Change Comments: Sends into severe depression Date Reviewed: 12/12/2024 Reviewed by: Sobeida Garcia MA - Fully Assessed Reason for Visit: Workers Comp question [Other] Prescriptions as of 01/05/2025 - hydroCHLOROthiazide 25 mg tablet Take 1 tablet by mouth once daily. - tiZANidine (ZANAFLEX) 4 mg tablet Take 1 tablet by mouth every 8 hours as needed. - buPROPion XL (WELLBUTRIN XL) 300 mg 24 hr tablet Take 1 tablet by mouth once daily. - DULoxetine DR (CYMBALTA) 60 mg capsule Take 1 capsule by mouth daily at bedtime. - lamoTRIgine (LAMICTAL) 100 mg tablet Take 1 tablet by mouth once daily. - diclofenac, EC, (VOLTAREN) 75 mg EC tablet Take 1 tablet by mouth two times a day. - atorvastatin (LIPITOR) 20 mg tablet Take 1 tablet by mouth daily at bedtime. For cholesterol. - gabapentin (NEURONTIN) 100 mg capsule Take 2 capsules by mouth three times a day for 180 days. Problem List As Of Date 01/05/2025 Noted Resolved Major depression, chronic [F32.9] 10/30/2021 Primary hypertension [I10] 10/30/2021 Obesity, Class I, BMI 30-34.9 [E66.811] 10/30/2021 Heart murmur [R01.1] 10/30/2021 Hyperlipidemia [E78.5] 08/12/2022 Tobacco use [Z72.0] 08/13/2022 05/26/2023 Major depressive disorder, recurrent episode, m*06/06/2024 Primary osteoarthritis of left knee [M17.12] 06/22/2024 Left low back pain [M54.50] 06/26/2024 Encounter Status:Closed by MIHAELA CARNES on 01/05/25 [facility] 12-20-2024 CNPN Telephone (INTMWS) JUAN KILLIAN ([id number]) 1950 M Date Time Provider Department 12/20/24 MARK NOVA INTMWS During your visit today, we recorded the following information about you: Mihaela Carnes MA 12/20/2024 9:42 AM Signed [facility]. Forms were placed on provider desk INDER Oliver Victor H, MD 12/30/2024 1:47 PM Signed Done. Vickie Montelongo LPN 01/01/2025 8:35 AM Signed Completed and [facility] Allergies As of Date: 12/20/2024 Noted Allergy Reaction BENADRYL (DIPHENHYDRAMINE) 10/30/2021 1 - Mental Status Change Comments: Sends into severe depression Date Reviewed: 12/12/2024 Reviewed by: Sobeida Garcia MA - Fully Assessed Reason for Visit: Forms [913] Cmt: [facility] Prescriptions as of 01/01/2025 - hydroCHLOROthiazide 25 mg tablet Take 1 tablet by mouth once daily. - tiZANidine (ZANAFLEX) 4 mg tablet Take 1 tablet by mouth every 8 hours as needed. - buPROPion XL (WELLBUTRIN XL) 300 mg 24 hr tablet Take 1 tablet by mouth once daily. - DULoxetine DR (CYMBALTA) 60 mg capsule Take 1 capsule by mouth daily at bedtime. - lamoTRIgine (LAMICTAL) 100 mg tablet Take 1 tablet by mouth once daily. - diclofenac, EC, (VOLTAREN) 75 mg EC tablet Take 1 tablet by mouth two times a day. - atorvastatin (LIPITOR) 20 mg tablet Take 1 tablet by mouth daily at bedtime. For cholesterol. - gabapentin (NEURONTIN) 100 mg capsule Take 2 capsules by mouth three times a day for 180 days. Problem List As Of Date 12/20/2024 Noted Resolved Major depression, chronic [F32.9] 10/30/2021 Primary hypertension [I10] 10/30/2021 Obesity, Class I, BMI 30-34.9 [E66.811] 10/30/2021 Heart murmur [R01.1] 10/30/2021 Hyperlipidemia [E78.5] 08/12/2022 Tobacco use [Z72.0] 08/13/2022 05/26/2023 Major depressive disorder, recurrent episode, m*06/06/2024 Primary osteoarthritis of left knee [M17.12] 06/22/2024 Left low back pain [M54.50] 06/26/2024 Encounter Status:Closed by VICKIE MONTELONGO on 01/01/25 [facility] CNOVon 12-12-2024 CNOV Office Visit (FAMPWS ) JUAN KILLIAN ([id number]) 1950 M Date Time Provider Department 12/12/24 10:00 AM DANA PAT FAMPWS During your visit today, we recorded the following information about you: Pulse Blood pressure Weight 70/minute 126/74 93.2 kg Dana Pat PA-C 12/12/2024 10:29 AM Signed - Take the prescribed tizanidine (Xanaflex) for muscle tightness as needed, up to one dose every 8 hours (three times a day); take it when you?re at home and can rest--it may cause drowsiness and dizziness, so use your cane and avoid driving or operating machinery until you know how it affects you. - Continue your diclofenac (Voltaren) as directed for inflammation. - Use acetaminophen (Tylenol) as needed for extra pain relief. - Apply ice then heat (or heat then ice) to your lower back for 20 minutes each; always place ice over a towel or shirt and never fall asleep with a heating pad on. - Do gentle back stretches throughout the day: While sitting, slowly rotate your torso left and right. In bed, pull each knee toward your chest as far as comfortable. - Walk briefly around your home with Christie (dog) to keep your muscles moving and prevent stiffness. - Keep your physical therapy appointment tomorrow to address both your back and knee. - Follow a balanced weight-loss diet: Drink water instead of soda. Choose lean proteins like chicken or fish. Include non-starchy vegetables (fresh or low-sodium canned) roasted with a bit of olive oil. Limit chips, sweets, cookies, and frequent sandwiches--occasional treats are fine but avoid daily indulgences. - Continue using your cane for support to protect your knee and back. Dana Pat PA-C 12/13/2024 9:11 AM Signed Recording using [employer] software for draft documentation of the visit was discussed with the patient/authorized telephone services sales representative; all questions welcomed and answered. Patient/authorized telephone services sales representative agreed to proceed 12/13/2024 Lower Back Pain: - Diffuse lower back pain, described as tight. - Juan believes pain is due to compensatory mechanisms from using a cane for left knee pain. - Denies known trauma or injury to the back. - Pain is exacerbated by movement; avoids moving due to discomfort. - Has not tried stretching exercises. - Scheduled for physical therapy for both knee and back pain. - Using heat and ice on the knee; taking Tylenol and diclofenac with some relief for knee swelling. - Currently taking gabapentin 200 mg TID; tolerating well - Has a [place] Terrier that keeps him active, named Christie denies numbness/tingling, bladder retention, bowel or bladder incontinence. Left Knee Pain: - Diagnosed with a torn meniscus. - Seen by a surgeon recently; advised to address dental issues before scheduling a full knee replacement. Weight Gain: - Juan expresses concern about recent weight gain. - Previously consumed soda regularly; has recently switched to drinking water. room for improvement in his diet. limited with activity due to knee pain/torn meniscus Current Outpatient Medications on File Prior to Visit Medication Sig buPROPion XL (WELLBUTRIN XL) 300 mg 24 hr tablet Take 1 tablet by mouth once daily. DULoxetine DR (CYMBALTA) 60 mg capsule Take 1 capsule by mouth daily at bedtime. lamoTRIgine (LAMICTAL) 100 mg tablet Take 1 tablet by mouth once daily. diclofenac, EC, (VOLTAREN) 75 mg EC tablet Take 1 tablet by mouth two times a day. atorvastatin (LIPITOR) 20 mg tablet Take 1 tablet by mouth daily at bedtime. For cholesterol. gabapentin (NEURONTIN) 100 mg capsule Take 2 capsules by mouth three times a day for 180 days. hydroCHLOROthiazide 25 mg tablet Take 1 tablet by mouth once daily. No current facility-administered medications on file prior to visit. PAST MEDICAL HISTORY Diagnosis Date Anxiety 2008 Depressive type psychosis 2008 Diastasis of rectus abdominis 08/01/2012 Heart murmur 10/30/2021 Hydrocele 2009 Impaired fasting blood sugar 09/05/2013 Major depression, chronic 10/30/2021 Obesity, Class I, BMI 30-34.9 10/30/2021 Physiological tremor 11/14/2009 Primary hypertension 10/30/2021 Sleep apnea 2012 Tobacco use 08/13/2022 Allergies: Benadryl [Diphenhyd* Mental Status Change Comment:Sends into severe depression Constitutional: (+) weight gain Musculoskeletal: (+) lower back pain, (+) lumbar muscle tightness, (+) left knee pain, (+) left knee pain Neurological:(-) radiating leg pain BP 126/74 (BP Site: Left Arm, BP Position: Sitting, BP Cuff Size: Large Adult) Pulse 70 Wt 93.2 kg (205 lb 6.4 oz) SpO2 98% BMI 37.57 kg/m? GENERAL: NAD, alert and oriented. EXTREMITIES: Normal, no deformities, no skin discoloration, no edema. BACK: Tenderness noted in the paraspinal muscles of the lower back. no vertebral TTP. negative seated SLR WENDY. NEUR (more content not included)... Normal [facility] CNOVon 12-05-2024 CNOV Office Visit (PSWSTR ) JUAN KILLIAN ([id number]) 1950 [place] Date Time Provider Department 12/05/24 8:00 AM MELINA BRITT PSWSTR During your visit today, we recorded the following information about you: Pulse Respiration Blood pressure Weight 66/minute 16/minute 152/77 91.5 kg Melina Britt, DIRECTOR MEDICAL WRITING.COPY CENTER OPERATOR 12/05/2024 8:41 AM Signed FOLLOW UP - PSYCHIATRIC PROGRESS NOTE Visit Type:In person Recording using [employer] software for draft documentation of the visit was discussed with the patient/authorized telephone services sales representative; all questions welcomed and answered. Patient/authorized telephone services sales representative agreed to proceed CC: Outpatient follow-up and safety monitoring of previously prescribed psychiatric medication, psychotherapy or other treatment HPI: Juan Killian is a 74-year-old male with a history of depression, presenting for follow-up on psychiatric medication management. Juan reports chronic pain in his left knee and lower back, which has progressively worsened over the past 2-2.5 years. He describes the pain as constant but with intermittent exacerbations. He notes that twisting his knee results in audible cracking sounds and a sensation of heat and pain. He is scheduled to see a surgeon in two days for his knee pain, which he attributes to a torn meniscus diagnosed about 6-12 months ago. He also mentions arthritis visible on X-rays. For his back pain, he received an epidural injection that alleviated his upper back pain, but he continues to experience chronic lower back pain. 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 He has become accustomed to the discomfort and does not quantify it on a pain scale. Despite his chronic pain, Juan reports that his mood remains stable. He tries not to be overly introspective and deals with the pain as it comes. He is currently taking lamotrigine 100 mg, duloxetine 60 mg, and Wellbutrin 300 mg, and reports that these medications are effective in maintaining his stability. He denies any concerns with his current medication regimen and wishes to continue it. He mentions a persistent rash on his left arm that becomes itchy, particularly when his allergies flare up. He does not attribute this to his medications and describes it as manageable. Juan enjoys outdoor activities such as camping and canoeing, which he finds to be sources of relaxation and happiness. However, his knee pain has limited his ability to engage in these activities fully. He is currently on medical leave from work due to his inability to stand for extended periods, a requirement of his job. He has a doctor's note excusing him from work until after his upcoming surgical consultation. He expresses a desire to return to work if his condition improves post-surgery. Risks and benefits of the medication, including any black box warnings, were discussed with the patient. Interval Progress: Same PATIENT DATA: Generalized Anxiety Disorder Scale (GI-7) 11/02/2023 12/21/2023 08/10/2024 GI - 7 SCORES Score 0 0 2 (0-4) minimal anxiety, (5-9) mild anxiety, (10-14) moderate anxiety, (15-21) severe anxiety Patient Health Questionnaire (PHQ-9) 11/02/2023 12/21/2023 08/10/2024 PHQ-9 Score 4 2 2 (0-4) minimal depression, (5-9) mild depression, (10-14) moderate depression, (15-19) moderately severe depression, (20-27) severe depression PROMIS Global Health No data to display PAST MEDICAL HISTORY Diagnosis Date Anxiety 2009 Depressive type psychosis 2009 Diastasis of rectus abdominis 08/01/2012 Heart murmur 10/30/2021 Hydrocele 2010 Impaired fasting blood sugar 09/05/2013 Major depression, chronic 10/30/2021 Obesity, Class I, BMI 30-34.9 10/30/2021 Physiological tremor 11/14/2009 Primary hypertension 10/30/2021 Sleep apnea 2013 Tobacco use 08/13/2022 PAST SURGICAL HISTORY Procedure Laterality Date SEPTOPLASTY 1970 Current Outpatient Medications Medication Sig Dispense Refill diclofenac, EC, (VOLTAREN) 75 mg EC tablet Take 1 tablet by mouth two times a day. 60 tablet 2 atorvastatin (LIPITOR) 20 mg tablet Take 1 tablet by mouth daily at bedtime. For cholesterol. 90 tablet 1 gabapentin (NEURONTIN) 100 mg capsule Take 2 capsules by mouth three times a day for 180 days. 180 capsule 5 hydroCHLOROthiazide 25 mg tablet Take 1 tablet by mouth once daily. 90 tablet 1 buPROPion XL (WELLBUTRIN XL) 300 mg 24 hr tablet Take 1 tablet by mouth once daily. [address] (CYMBALTA) 60 mg capsule Take 1 capsule by mouth daily at bedtime. 90 capsule 1 lamoTRIgine (LAMICTAL) 100 mg tablet Take 1 tablet by mouth once daily. 90 tablet 1 No current facility-administered medications for this visit. ROS: See HPI PFSH: See HPI VITAL SIGNS: 12/05/24 0815 BP: 152/77 Pulse: 66 Resp: 16 SpO2: 97% Weigh (more content not included)... Normal [facility] CNOVon 12-03-2024 CNOV Office Visit (WODAVID) JUAN KILLIAN ([id number]) 1950 M Date Time Provider Department 12/03/24 9:45 AM KATRINA WHYTE During your visit today, we recorded the following information about you: Temperature Pulse Respiration Blood pressure 98.1 degrees 86/minute 16/minute 124/76 Weight 91.3 kg Katrina Whyte APRN.[facility] 12/03/2024 10:11 AM Signed [facility] Subjective Juan Killian is a 74 year old male. Patient presents with: Left Knee Pain HPI The patient is a 74-year-old male presenting for worsening knee pain. Knee Pain: - Chronic knee pain x1.5 years, progressively worsening. - Scheduled for a surgical consult on December 07. - Acute exacerbation today with shooting pains causing dizziness. - Knee occasionally kicks out, feeling like it will give way. - No new injuries or falls reported. - Began using a cane consistently x1-2 weeks; previously used intermittently 3-4 months ago. - Knee brace provided relief in the past, but not currently effective. 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 - History of a fall on ice in May, leading to back pain that was treated and is now resolved. Review of Systems Musculoskeletal: (+) knee pain, (+) knee instability, (+) gait difficulty Neurological: (+) dizziness PAST MEDICAL HISTORY Diagnosis Date Anxiety 2009 Depressive type psychosis 2009 Diastasis of rectus abdominis 08/01/2012 Heart murmur 10/30/2021 Hydrocele 2009 Impaired fasting blood sugar 09/05/2013 Major depression, chronic 10/30/2021 Obesity, Class I, BMI 30-34.9 10/30/2021 Physiological tremor 11/14/2009 Primary hypertension 10/30/2021 Sleep apnea 2012 Tobacco use 08/13/2022 PAST SURGICAL HISTORY Procedure Laterality Date SEPTOPLASTY 1970 ALLERGIES Benadryl [Diphenhydramine] MEDICATIONS diclofenac, EC, (VOLTAREN) 75 mg EC tablet Take 1 tablet by mouth two times a day. atorvastatin (LIPITOR) 20 mg tablet Take 1 tablet by mouth daily at bedtime. For cholesterol. gabapentin (NEURONTIN) 100 mg capsule Take 2 capsules by mouth three times a day for 180 days. hydroCHLOROthiazide 25 mg tablet Take 1 tablet by mouth once daily. lamoTRIgine (LAMICTAL) 100 mg tablet Take 1 tablet by mouth once daily. buPROPion XL (WELLBUTRIN XL) 300 mg 24 hr tablet Take 1 tablet by mouth once daily. DULoxetine (CYMBALTA) 60 mg capsule Take 1 capsule by mouth daily at bedtime. FAMILY HISTORY Problem Relation Age of Onset Lung Cancer Mother Colon Cancer Mother Dementia Father Heart Father murmur Hepatitis C Sister Pancreatic Cancer Brother No Known Problems Brother Obesity Brother SOCIAL HISTORY[1] Objective BP 124/76 Pulse 86 Temp 36.7 ?C (98.1 ?F) (Tympanic) Resp 16 Wt 91.3 kg (201 lb 4.5 oz) SpO2 97% BMI 36.81 kg/m? Physical Exam Constitutional: General: He is not in acute distress. Appearance: Normal appearance. He is normal weight. He is not ill-appearing or toxic-appearing. Cardiovascular: Rate and Rhythm: Normal rate and regular rhythm. Pulses: Normal pulses. Heart sounds: Normal heart sounds. Musculoskeletal: Left knee: Bony tenderness and crepitus present. No swelling, deformity, effusion, erythema, ecchymosis or lacerations. Decreased range of motion. Tenderness present over the medial joint line, MCL and patellar tendon. No lateral joint line tenderness. Legs: Neurological: Mental Status: He is alert. General: Ambulating with a cane. { 1. Chronic pain of left knee (M25.562) 2. Osteoarthritis of knee, unspecified (M17.9) - Chronic left knee pain worsening over 1.5 years; currently requiring cane for ambulation. - No recent injury or swelling reported; knee occasionally gives out. - Orthopedic surgery consult scheduled for December 07. - Provided work excuse for absence from today through December 08. - No concerns of neurovascular deficits, acute fracture, septic bursitis or joint effusion. - Continue cane, and keep schedule appointment with orthopedic. and Recording using [employer] software for draft documentation of the visit was discussed with the patient/authorized telephone services sales representative; all questions welcomed and answered. Patient/authorized telephone services sales representative agreed to proceed Disposition The patient was discharged. [1] Social History Tobacco Use Smoking status: Former Current packs/day: 1.00 Average packs/day: 1 pack/day for 3.0 years (3.0 ttl pk-yrs) Types: Cigarettes Smokeless tobacco: Never Tobacco comments: quit 15 years ago. Started age 30. Vaping Use Vaping status: Never Used Substance Use Topics Alcohol use: Not Currently Comment: 1 drink per year Drug use: Not Currently Types: Marijuana Comment: 16-23 years old Allergies As of Date: 12/03/2024 Noted Allergy Reaction BENADRYL (DIPHENHYDRAMINE) 10/04 (more content not included)... Normal [facility] Colin 11-27-2024 JORJEN Telephone (4CQ) JUAN KILLIAN ([id number]) 1950 M Date Time Provider Department 11/27/24 MARK NOVA 4CQ During your visit today, we recorded the following information about you: Julia Ballesteros 11/27/2024 2:13 PM Signed Pt states he lost all of his paperwork from last visit on 11/23. After visit summary, list of upcomming appointments, list of meds, and letter for work with restrictions. Pt is coming in tonight at 6:20 for another apts and would like for those to be printed for him again. Please advise, Thank you Naida Morrison LPN 11/28/2024 10:58 AM Signed AVS and letter taken to Medical Records for Patient to pickup. Naida Morrison LPN Allergies As of Date: 11/27/2024 Noted Allergy Reaction BENADRYL (DIPHENHYDRAMINE) 10/30/2021 1 - Mental Status Change Comments: Sends into severe depression Date Reviewed: 11/23/2024 Reviewed by: Evonne Mayo LPN - Fully Assessed Reason for Visit: Patient Question [7296] Prescriptions as of 11/28/2024 - diclofenac, EC, (VOLTAREN) 75 mg EC tablet Take 1 tablet by mouth two times a day. - atorvastatin (LIPITOR) 20 mg tablet Take 1 tablet by mouth daily at bedtime. For cholesterol. - gabapentin (NEURONTIN) 100 mg capsule Take 2 capsules by mouth three times a day for 180 days. - hydroCHLOROthiazide 25 mg tablet Take 1 tablet by mouth once daily. - lamoTRIgine (LAMICTAL) 100 mg tablet Take 1 tablet by mouth once daily. - buPROPion XL (WELLBUTRIN XL) 300 mg 24 hr tablet Take 1 tablet by mouth once daily. - DULoxetine (CYMBALTA) 60 mg capsule Take 1 capsule by mouth daily at bedtime. Problem List As Of Date 11/27/2024 Noted Resolved Major depression, chronic [F32.9] 10/30/2021 Primary hypertension [I10] 10/30/2021 Obesity, Class I, BMI 30-34.9 [E66.811] 10/30/2021 Heart murmur [R01.1] 10/30/2021 Hyperlipidemia [E78.5] 08/12/2022 Tobacco use [Z72.0] 08/13/2022 05/26/2023 Major depressive disorder, recurrent episode, m*06/06/2024 Primary osteoarthritis of left knee [M17.12] 06/22/2024 Left low back pain [M54.50] 06/26/2024 Encounter Status:Closed by NAIDA MORRISON on 11/28/24 Normal [facility] CNOVon 11-23-2024 CNOV Office Visit (INTMWS ) JUAN KILLIAN ([id number]) 1950 M Date Time Provider Department 11/23/24 6:00 PM MARK NOVA INTMWS During your visit today, we recorded the following information about you: Temperature Pulse Respiration Blood pressure 97.8 degrees 88/minute 14/minute 120/70 Weight Height 90.3 kg 1.575 m Mark Nova MD 11/24/2024 4:13 AM Signed Subjective Juan Killian is a 74 year old male. Patient presents with: Same Day Appointment: left knee pain Recording using [employer] software for draft documentation of the visit was discussed with the patient/authorized telephone services sales representative; all questions welcomed and answered. Patient/authorized telephone services sales representative agreed to proceed HPI Left Knee Pain: - Juan reports a meniscal tear diagnosed by a knee specialist in [place], who administered an injection. - Describes the knee as failing and expresses a desire for surgical intervention. - Pain is localized to the medial aspect of the knee, with associated swelling. - Denies knee instability or giving out. - Pain is exacerbated by bending the knee. - Utilizes a cane for ambulation. - Denies known trauma or injury. 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 - Requires frequent breaks during work due to pain. Review of Systems Constitutional: Negative for fever and unexpected weight change. Gastrointestinal: Negative. Genitourinary: Negative. Musculoskeletal: Positive for back pain and gait problem. Objective BP 120/70 Pulse 88 Temp 36.6 ?C (97.8 ?F) (Temporal) Resp 14 Ht 157.5 cm (5' 2) Wt 90.3 kg (199 lb 1.2 oz) SpO2 95% BMI 36.41 kg/m? Physical Exam Musculoskeletal: Right knee: Normal. Left knee: Swelling present. No deformity, effusion, erythema, bony tenderness or crepitus. Normal range of motion. Tenderness present over the medial joint line. No LCL laxity or MCL laxity.Normal alignment, normal meniscus and normal patellar mobility. Neurological: General: No focal deficit present. Mental Status: He is alert. Sensory: No sensory deficit. Motor: No weakness. Gait: Gait abnormal. Comments: Using a cane for stability. A/P 1. Primary osteoarthritis of left knee (M17.12) - Chronic, worsening left knee pain with known meniscal tear; prior intra-articular injection provided by knee specialist in [place]. - Refer to Dr. Son Calderon at [facility] for surgical evaluation. - Advised patient to avoid kneeling, bending the left knee, and picking up objects from the floor; instructed to use cane for ambulatory support until surgical intervention. - Recommended standing for no more than one hour at a time, followed by a 5-minute seated break. - Work restrictions to remain in place for one month, with extension as needed pending surgical evaluation and treatment. 2. Left low back pain, unspecified chronicity, unspecified whether sciatica present (M54.50) 3. Encounter for issue of other medical certificate (Z02.79) The following approved medication requests have been transmitted electronically. Requested Prescriptions Signed Prescriptions Disp Refills diclofenac, EC, (VOLTAREN) 75 mg EC tablet 60 tablet 2 Sig: Take 1 tablet by mouth two times a day. MD Avtar Montero Victor H, MD 11/23/2024 7:04 PM Signed Allergies As of Date: 11/23/2024 Noted Allergy Reaction BENADRYL (DIPHENHYDRAMINE) 10/30/2021 1 - Mental Status Change Comments: Sends into severe depression Date Reviewed: 11/23/2024 Reviewed by: Evonne Mayo LPN - Fully Assessed Reason for Visit: Same Day Appointment [255] Cmt: left knee pain Primary Visit Diagnosis:Primary osteoarthritis of left knee [M17.12] Other Visit Diagnoses:Left low back pain, unspecified chronicity, unspecified whether sciatica present [M54.50] Encounter for issue of other medical certificate [Z02.79] Order(s):CONSULT TO ORTHOPAEDICS [4599] Order #: [id number]: 1 FUTURE diclofenac, EC, (VOLTAREN) 75 mg EC tabletTake 1 tablet by mouth two times a day.Disp: 60 tabletRfl: 2 Prescriptions as of 11/24/2024 - diclofenac, EC, (VOLTAREN) 75 mg EC tablet Take 1 tablet by mouth two times a day. - atorvastatin (LIPITOR) 20 mg tablet Take 1 tablet by mouth daily at bedtime. For cholesterol. - gabapentin (NEURONTIN) 100 mg capsule Take 2 capsules by mouth three times a day for 180 days. - hydroCHLOROthiazide 25 mg tablet Take 1 tablet by mouth once daily. - lamoTRIgine (LAMICTAL) 100 mg tablet Take 1 tablet by mouth once daily. - buPROPion XL (WELLBUTRIN XL) 300 mg 24 hr tablet Take 1 tablet by mouth once daily. - DULoxetine (CYMBALTA) 60 mg capsule Take 1 capsule by mouth daily at bedtime. Problem List As Of Date 11/23/2024 Noted Resolved Major depression, chronic [F32.9] 10/30/2021 (more content not included)... Normal [facility] 11-22-2024 [facility] Telephone (INTMWS) JUAN KILLIAN ([id number]) 1950 M Date Time Provider Department 11/22/24 MARK NOVA INTMWS During your visit today, we recorded the following information about you: Benita Beltran 11/22/2024 4:41 PM Signed Patient called said his left knee is really hurting asking if there is anything that can be done to help Patient has apt for Mon 11/27 Please advise Naida Morrison LPN 11/23/2024 8:27 AM Signed Patient scheduled, 11/23/2024. Naida Morrison LPN Allergies As of Date: 11/22/2024 Noted Allergy Reaction BENADRYL (DIPHENHYDRAMINE) 10/30/2021 1 - Mental Status Change Comments: Sends into severe depression Date Reviewed: 11/16/2024 Reviewed by: Naida Morrison LPN - Fully Assessed Reason for Visit: Patient Question [5086] Cmt: Left knee pain Prescriptions as of 11/23/2024 - diclofenac, EC, (VOLTAREN) 75 mg EC tablet Take 1 tablet by mouth two times a day. - atorvastatin (LIPITOR) 20 mg tablet Take 1 tablet by mouth daily at bedtime. For cholesterol. - gabapentin (NEURONTIN) 100 mg capsule Take 2 capsules by mouth three times a day for 180 days. - hydroCHLOROthiazide 25 mg tablet Take 1 tablet by mouth once daily. - lamoTRIgine (LAMICTAL) 100 mg tablet Take 1 tablet by mouth once daily. - buPROPion XL (WELLBUTRIN XL) 300 mg 24 hr tablet Take 1 tablet by mouth once daily. - DULoxetine (CYMBALTA) 60 mg capsule Take 1 capsule by mouth daily at bedtime. Problem List As Of Date 11/22/2024 Noted Resolved Major depression, chronic [F32.9] 10/30/2021 Primary hypertension [I10] 10/30/2021 Obesity, Class I, BMI 30-34.9 [E66.811] 10/30/2021 Heart murmur [R01.1] 10/30/2021 Hyperlipidemia [E78.5] 08/12/2022 Tobacco use [Z72.0] 08/13/2022 05/26/2023 Major depressive disorder, recurrent episode, m*06/06/2024 Primary osteoarthritis of left knee [M17.12] 06/22/2024 Left low back pain [M54.50] 06/26/2024 Encounter Status:Closed by NAIDA MORRISON on 11/23/24 [facility] 11-16-2024 CNOV Office Visit (INTMWS ) JUAN KILLIAN ([id number]) 1950 M Date Time Provider Department 11/16/24 4:20 PM MARK NOVA INTMWS During your visit today, we recorded the following information about you: Pulse Blood pressure Weight 88/minute 124/74 90.6 kg Mark Nova MD 11/16/2024 5:09 PM Signed Subjective Juan Killian is a 74 year old male. Patient presents with: Back Pain Recording using [employer] software for draft documentation of the visit was discussed with the patient/authorized telephone services sales representative; all questions welcomed and answered. Patient/authorized telephone services sales representative agreed to proceed Back Pain:- Acute onset of back pain last night while sleeping.- Pain is localized to the lower back, described as sore and intense, rated 8/10.- Pain is radiating on each side of the spine, covering a pretty big area.- Aggravated by reaching up to put a samuels away.- Denies radiation of pain to other areas.- Denies fever.- Bowel movements are okay, with mild constipation noted.- Urination is normal.- Denies any strange long shooting pains experienced previously.- Has not taken any medication for the current pain episode.- Previous Toradol injection for back pain about 6-12 months ago.- Has taken muscle relaxers in the past, which were somewhat helpful.- Under the care of pain coordinator Maude.- Scheduled to start physical therapy soon but expresses fear due to the complexity of his condition.- Recent procedure on the left knee about 3-4 weeks ago. Review of Systems Constitutional: (-) fever Gastrointestinal: (+) constipation Genitourinary: (-) urinary difficulty Musculoskeletal: (+) low back pain Neurological: (-) radiating lower extremity pain ACTIVE PROBLEM LIST Major Depression, Chronic Primary Hypertension Obesity, Class I, Bmi 30-34.9 Heart Murmur Hyperlipidemia Major Depressive Disorder, Recurrent Episode, Moderate (Hcc) Primary Osteoarthritis of Left Knee Left Low Back Pain Current Outpatient Medications Medication Sig diclofenac, EC, (VOLTAREN) 75 mg EC tablet Take 1 tablet by mouth two times a day. atorvastatin (LIPITOR) 20 mg tablet Take 1 tablet by mouth daily at bedtime. For cholesterol. gabapentin (NEURONTIN) 100 mg capsule Take 2 capsules by mouth three times a day for 180 days. hydroCHLOROthiazide 25 mg tablet Take 1 tablet by mouth once daily. lamoTRIgine (LAMICTAL) 100 mg tablet Take 1 tablet by mouth once daily. buPROPion XL (WELLBUTRIN XL) 300 mg 24 hr tablet Take 1 tablet by mouth once daily. DULoxetine (CYMBALTA) 60 mg capsule Take 1 capsule by mouth daily at bedtime. baclofen 10 mg tablet Take 1 tablet by mouth three times a day for 5 days. No current facility-administered medications for this visit. Objective BP 124/74 (BP Site: Left Arm, BP Position: Standing, BP Cuff Size: Large Adult) Pulse 88 Wt 90.6 kg (199 lb 11.8 oz) BMI 36.53 kg/m? Physical Exam Constitutional: General: He is not in acute distress. Appearance: He is not ill-appearing or diaphoretic. Pulmonary: Effort: Pulmonary effort is normal. Abdominal: General: There is no distension. Palpations: Abdomen is soft. Musculoskeletal: Lumbar back: Spasms and tenderness present. No deformity or bony tenderness. Decreased range of motion. Negative right straight leg raise test and negative left straight leg raise test. Right hip: Normal strength. Left hip: Normal strength. Neurological: General: No focal deficit present. Mental Status: He is alert. Sensory: No sensory deficit. Motor: No weakness. Gait: Gait normal. 1. Acute on chronic low back pain (M54.50) - Acute exacerbation of chronic low back pain after twisting injury; pain rated 8/10, localized to bilateral paraspinal region at belt line, described as intense and sore. - No radicular symptoms, bowel or bladder dysfunction, or fever. - Previously received Toradol injection approximately 6-12 months ago with relief. - Administer Toradol injection for acute pain relief. - Start baclofen for muscle spasm; advised patient of potential sedation and to use caution with driving or operating machinery. - Patient under ongoing pain management with Maude and is scheduled to start physical therapy. ASSESSMENT/PLAN: 1. Acute on chronic low back pain - ICD9: 724.2, 338.19, 338.29, ICD10: M54.50, G89.29 - Acute exacerbation of chronic low back pain after twisting injury; pain rated 8/10, localized to bilateral paraspinal region at belt line, described as intense and sore. - No radicular symptoms, bowel or bladder dysfunction, or fever. - Previously received Toradol injection approximately 6-12 months ago with relief. - Administer Toradol injection for acute pain relief. - Start baclofen for muscle spasm; advised patient of potential sedation and to use caution with driving or ope (more content not included)... Normal [facility] CNOVon 11-10-2024 CNOV Office Visit (ORMDNA ) MARIA DJUAN Lovelace ([id number]) 1950 M Date Time Provider Department 11/10/24 11:30 AM SANDY LUZ During your visit today, we recorded the following information about you: Sandy Luz PA-C 11/10/2024 12:50 PM Signed HISTORY OF PRESENT ILLNESS: Juan is a 74 year old male. He is here for evaluation of Left knee pain. Patient was seen in [place] urgent care on 10/24/2024. At that time he reported left leg pain specifically in the popliteal fossa. Imaging showed moderate arthritis in the medial compartment. Patient was ordered an ultrasound which was not completed. Medial knee pain with radiation into distal thigh. Mild swelling. Wearing knee sleeve currently for support. Takes voltaren 75mg BID. PAIN EVALUATION 11/10/2024 1149 Pain Level: 8 Pain Location: Knee-Left Description: Stiffness;Dull;Aching Duration Amount of Time: 6 Duration Units: Months Frequency: Continuous Intervention/Comfort measure: Reposition;Relaxation;O ther: See comment KNEE BRACE MEDICATIONS Current Outpatient Medications on File Prior to Visit Medication Sig - diclofenac, EC, (VOLTAREN) 75 mg EC tablet Take 1 tablet by mouth two times a day. - atorvastatin (LIPITOR) 20 mg tablet Take 1 tablet by mouth daily at bedtime. For cholesterol. - gabapentin (NEURONTIN) 100 mg capsule Take 2 capsules by mouth three times a day for 180 days. - hydroCHLOROthiazide 25 mg tablet Take 1 tablet by mouth once daily. - lamoTRIgine (LAMICTAL) 100 mg tablet Take 1 tablet by mouth once daily. - buPROPion XL (WELLBUTRIN XL) 300 mg 24 hr tablet Take 1 tablet by mouth once daily. - DULoxetine (CYMBALTA) 60 mg capsule Take 1 capsule by mouth daily at bedtime. No current facility-administered medications on file prior to visit. ALLERGIES ALLERGIES Allergen Reactions - Benadryl [Diphenhyd* Mental Status Change Sends into severe depression PAST MEDICAL HISTORY PAST MEDICAL HISTORY Diagnosis Date - Anxiety 2008 - Depressive type psychosis 2008 - Diastasis of rectus abdominis 08/01/2012 - Heart murmur 10/30/2021 - Hydrocele 2009 - Impaired fasting blood sugar 09/05/2013 - Major depression, chronic 10/30/2021 - Obesity, Class I, BMI 30-34.9 10/30/2021 - Physiological tremor 11/14/2009 - Primary hypertension 10/30/2021 - Sleep apnea 2012 - Tobacco use 08/13/2022 PAST SURGICAL HISTORY PAST SURGICAL HISTORY Procedure Laterality Date - SEPTOPLASTY 1971 SOCIAL HISTORY Tobacco: Ex-smoker FAMILY HISTORY Does a similar condition to what you are experiencing run in your family? No REVIEW OF SYSTEMS: All other systems negative. PHYSICAL EXAM: PE: All other systems deferred. GENERAL: Appears healthy, well-nourished, no deformities. HABITUS: Normal Gait: Antalgic to the left Left: Alignment: Varus deformity, Correctable Range of motion is 0 degrees in extension and 120 degrees of flexion. Extension La degrees Pain with ROM: Yes Effusion: Mild Tender to the palpation of Medial femoral condyle and Medial joint line Pain with patellar compression: Yes Stability: Anterior/Posterior stable and Varus/Valgus stable Hip Exam: flexion to 100+ degrees, full extension, internal/external rotation adequate, and no pain with log roll Neurovascular Status: Sensation Intact, Moves foot and ankle up AND down, and 2+ dorsalis pedis Notable medial click/pop with valgus stress Strength: 5 Skin: Normal RADIOGRAPHS (personally reviewed): moderate medial compartment OA of left knee with small effusion MRI: none DIAGNOSIS Encounter Diagnosis ICD-10-CM 1. Primary osteoarthritis of left knee M17.12 PLAN Patient has left knee OA. Discussed ice, bracing, nsaids, and injections. Will move forward with left knee CSI today. Follow up PRN. I spent a total of approximately 35 minutes on the date of the service which included preparing to see the patient, [id number] patient care, completing clinical documentation, obtaining and/or reviewing separately obtained history, performing a medically appropriate examination, counseling and educating the patient/family/caregive r, ordering medications, tests, or procedures, communicating with other HCPs (not separately reported), independently interpreting results (not separately reported), communicating results to the patient/family/caregive r, and care coordination (not separately reported). PROCEDURE: Large Joint Arthro/Inj: L knee joint 11/10/2024 12:49 PM The procedure site was prepped in the usual sterile fashion. Site: L knee joint Medications: 12 mg betamethasone acetate-betamethasone sodium phosphate 6 mg/mL Anesthetics: 3 mL lidocaine (PF) 10 mg/mL (1 %) Outcome: Tolerated well, no immediate complications Post-injection instructions were reviewed with the patient and the patient voiced understanding of these (more content not included)... Normal [facility] CNOVon 10-24-2024 CNOV Office Visit (WOUCA) JUAN KILLIAN ([id number]) 1950 M Date Time Provider Department 10/24/24 10:30 AM QUAN JEFFERS During your visit today, we recorded the following information about you: Temperature Pulse Respiration Blood pressure 97.5 degrees 90/minute 16/minute 136/82 Weight 89.8 kg Quan Jeffers MD 10/24/2024 11:04 AM Signed [facility] Subjective Juan Bernard Killian is a 74 year old male. Patient presents with: left leg pain: X 1 day-behind knee Pt here with left anterior distal thigh pain above knee no injury has had in past seen by pcp now recurrence also some pain in popliteal area no swelling of knee no warmth no redness no calf pain or swelling no hx of Dvt no travel no surgeries hx of left sided LBP workmans comp Review of Systems Constitutional: Negative for fatigue and fever. Musculoskeletal: Positive for myalgias. Negative for arthralgias and joint swelling. Neurological: Negative for weakness and numbness. Objective BP 136/82 Pulse 90 Temp 36.4 ?C (97.5 ?F) (Tympanic) Resp 16 Wt 89.8 kg (197 lb 15.6 oz) SpO2 98% BMI 36.21 kg/m? Physical Exam Vitals and nursing note reviewed. Constitutional: Appearance: Normal appearance. He is not ill-appearing. Cardiovascular: Pulses: Normal pulses. Musculoskeletal: General: Tenderness present. No swelling or signs of injury. Normal range of motion. Skin: Capillary Refill: Capillary refill takes less than 2 seconds. Findings: No erythema or rash. Neurological: Mental Status: He is alert and oriented to person, place, and time. Sensory: No sensory deficit. Motor: No weakness. Coordination: Coordination normal. Deep Tendon Reflexes: Reflexes normal. {ASSESSMENT/PLAN: 1. Left leg pain - ICD9: 729.5, ICD10: M79.605 Will obtain an US assure no DVT pt is low risk - XR KNEE GENERAL 4V AP BOTH/PA BOTH/LAT/MERC LEFT - US DVT LOWER LEFT - US LEG VEIN DVT UNL VAS LAB Initial read of xray appears ok No appt available for US today so will need to send pt to the Ed for eval Quan Jeffers MD PT DECLINES TO GO TO THE ED ACCEPTS RESPONSIBILITY OF BAD OUTCOME OF FROM A PE WHICH WAS EXPLAINED IN DETAIL History and Record Review External record(s) reviewed: prior outpatient record. Differential Diagnoses - DVT is more likely for the following reason(s): suggested by HANDP - sprain is less likely for the following reason(s): HANDP not suggestive Disposition The patient was discharged. Procedures Quan Jeffers MD 10/24/2024 10:55 AM Signed YOU WILL NEED EVALUATION IN THE ED TO ASSURE THERE IS NO BLOOD CLOT Allergies As of Date: 10/24/2024 Noted Allergy Reaction BENADRYL (DIPHENHYDRAMINE) 10/30/2021 1 - Mental Status Change Comments: Sends into severe depression Date Reviewed: 10/24/2024 Reviewed by: Sheree Meza LPN - Fully Assessed Reason for Visit: left leg pain [Other] Cmt: X 1 day-behind knee Primary Visit Diagnosis:Left leg pain [M79.605] Order(s):XR KNEE GENERAL 4V AP BOTH/PA BOTH/LAT/MERC LEFT [[id number]] Order #: [id number]. #:[id number] US DVT LOWER LEFT [[id number]] Order #: [id number] US LEG VEIN DVT UNL VAS LAB [[id number]] Order #: [id number] diclofenac (VOLTAREN) 1 % topical gelApply 2 g to affected area two times a day as needed for up to 7 days.Disp: 28 gRfl: 0 Prescriptions as of 10/24/2024 - diclofenac (VOLTAREN) 1 % topical gel Apply 2 g to affected area two times a day as needed for up to 7 days. - diclofenac, EC, (VOLTAREN) 75 mg EC tablet Take 1 tablet by mouth two times a day. - atorvastatin (LIPITOR) 20 mg tablet Take 1 tablet by mouth daily at bedtime. For cholesterol. - gabapentin (NEURONTIN) 100 mg capsule Take 2 capsules by mouth three times a day for 180 days. - hydroCHLOROthiazide 25 mg tablet Take 1 tablet by mouth once daily. - lamoTRIgine (LAMICTAL) 100 mg tablet Take 1 tablet by mouth once daily. - buPROPion XL (WELLBUTRIN XL) 300 mg 24 hr tablet Take 1 tablet by mouth once daily. - DULoxetine (CYMBALTA) 60 mg capsule Take 1 capsule by mouth daily at bedtime. Problem List As Of Date 10/24/2024 Noted Resolved Major depression, chronic [F32.9] 10/30/2021 Primary hypertension [I10] 10/30/2021 Obesity, Class I, BMI 30-34.9 [E66.811] 10/30/2021 Heart murmur [R01.1] 10/30/2021 Hyperlipidemia [E78.5] 08/12/2022 Tobacco use [Z72.0] 08/13/2022 05/26/2023 Major depressive disorder, recurrent episode, m*06/06/2024 Primary osteoarthritis of left knee [M17.12] 06/22/2024 Left low back pain [M54.50] 06/26/2024 Other instructions from your clinician: YOU WILL NEED EVALUATION IN THE ED TO ASSURE THERE IS NO BLOOD CLOT Prescriptions ordered this encounter Disp Refills Start End DICLOFENAC 1 % TOPICAL GEL 28 g 0 10/24/2024 10/31/2024 Route: TOP Sig: Apply 2 g to affected area two times a day as needed for up to 7 days. (more content not included)... Normal [facility] XR KNEE 4V AP/PA BOTH+LAT/ME R LTon 10-24-2024 XR KNEE 4V AP/PA BOTH+LAT/JEANNINE LT * * *Final Report* * * DATE OF EXAM: Oct 24 2024 10:59AM WOX 5202 - XR KNEE 4V AP/PA BOTH+LAT/JEANNINE LT / PROCEDURE REASON: Left leg pain * * * * Physician Interpretation * * * * EXAMINATION: XR KNEE 4V AP/PA BOTH+LAT/JEANNINE LT TECHNOLOGIST PROVIDED HISTORY: Chronic worsening pain surrounding left knee, no known injury. CLINICAL INFORMATION: 74 years old Male with Left leg pain TECHNIQUE: XR KNEE 4V AP/PA BOTH+LAT/JEANNINE LT Laterality: LEFT Number of different views (projections): 4 COMPARISON: None RESULT: Small tricompartmental osteophytes with mild-moderate medial compartment joint space narrowing. Small joint effusion. No fracture. IMPRESSION: Mild-moderate medial compartment osteoarthritis LEFT knee. Press Pipe Inspector: SANKET Transcribe Date/Time: Oct 24 2024 11:10A Dictated by : AARTI HUNT DO This examination was interpreted and the report reviewed and electronically signed by: AARTI HUNT DO on Oct 24 2024 11:11AM EST [id number] Normal [facility] XR Knee - left 4 Viewson IMPRESSION: Mild-moderate medial compartment osteoarthritis LEFT knee. Press Pipe Inspector: SANKET Transcribe Date/Time: Oct 24 2024 11:10A Dictated by : AARTI HUNT DO This examination was interpreted and the report reviewed and electronically signed by: AARTI HUNT DO on Oct 24 2024 11:11AM EST DIVISION OF RADIOLOGY * * *Final Report* * * DATE OF EXAM: Oct 24 2024 10:59AM WOX 5202 - XR KNEE 4V AP/PA BOTH+LAT/JEANNINE LT / PROCEDURE REASON: Left leg pain * * * * Physician Interpretation * * * * EXAMINATION: XR KNEE 4V AP/PA BOTH+LAT/JEANNINE LT TECHNOLOGIST PROVIDED HISTORY: Chronic worsening pain surrounding left knee, no known injury. CLINICAL INFORMATION: 74 years old Male with Left leg pain TECHNIQUE: XR KNEE 4V AP/PA BOTH+LAT/JEANNINE LT Laterality: LEFT Number of different views (projections): 4 COMPARISON: None RESULT: Small tricompartmental osteophytes with mild-moderate medial compartment joint space narrowing. Small joint effusion. No fracture. DIVISION OF RADIOLOGY Provider, [facility] - 10/24/2024 * * *Final Report* * * DATE OF EXAM: Oct 24 2024 10:59AM WOX 5202 - XR KNEE 4V AP/PA BOTH+LAT/JEANNINE LT / PROCEDURE REASON: Left leg pain * * * * Physician Interpretation * * * * EXAMINATION: XR KNEE 4V AP/PA BOTH+LAT/JEANNINE LT TECHNOLOGIST PROVIDED HISTORY: Chronic worsening pain surrounding left knee, no known injury. CLINICAL INFORMATION: 74 years old Male with Left leg pain TECHNIQUE: XR KNEE 4V AP/PA BOTH+LAT/JEANNINE LT Laterality: LEFT Number of different views (projections): 4 COMPARISON: None RESULT: Small tricompartmental osteophytes with mild-moderate medial compartment joint space narrowing. Small joint effusion. No fracture. IMPRESSION IMPRESSION: Mild-moderate medial compartment osteoarthritis LEFT knee. Press Pipe Inspector: PSCB Transcribe Date/Time: Oct 24 2024 11:10A Dictated by : AARTI HUNT DO This examination was interpreted and the report reviewed and electronically signed by: AARTI HUNT DO on Oct 24 2024 11:11AM EST [facility] Radiology Study observation (narrative) [facility] XR Knee - left 4 ViewsOrdere d By: [facility] Provider on 10-24-2024 [facility] CNOVon 10-12-2024 CNOV Office Visit (SPAGWO ) MARIA DJUAN Lovelace ([id number]) 1950 M Date Time Provider Department 10/12/24 9:45 AM MAUDE TOWNSEND During your visit today, we recorded the following information about you: Pulse Respiration 77/minute 18/minute Yousif Stewart LPN 10/12/2024 12:41 PM Signed Review of Systems Constitutional: Negative for activity change, chills, fever and unexpected weight change. Genitourinary: Negative for difficulty urinating. Musculoskeletal: Positive for back pain. Negative for arthralgias, gait problem, joint swelling, myalgias, neck pain and neck stiffness. Neurological: Negative for weakness, numbness and headaches. Psychiatric/Behavioral: Negative for dysphoric mood, sleep disturbance and suicidal ideas. The patient is not nervous/anxious. Maude Townsend APRN.CNP 10/12/2024 12:41 PM Signed [facility] General Today's Date: 10/12/2024 Name: Juan Killian : 1950 Purpose: Follow-up Patient Evaluation - This is an established patient, returning today for continued evaluation and management of the chief complaint noted below Chief complaint: low back pain Referring Clinician: Mark Nova Pertinent Past Medical History: HTN, HLD, depression Pertinent Past Surgeries: none Plan at last visit: (Seen on 08/10/2024 by Maude Townsend CNP) IMPRESSION: 74 year old male presents with complaint(s) of Low back pain as described above. After review of the MRI the patient's pain pattern and his assessment, I am going to order an interlaminar epidural steroid injection from L4-L5 to see if the patient received relief. I also feel due to the patient's lack of exercise physical therapy would benefit this patient as well and he is in agreement to going to physical therapy. Diagnoses: (M54.50) Left low back pain, unspecified chronicity, unspecified whether sciatica present PLAN: Juan Killian would benefit from the following to reach personal goals for decreasing pain, improving function and work participation, and/or improving quality of life: Medications: No Changes - Continue Current Medications Interventional Procedures: Epidural Steroid Injection - Interlaminar Approach (ILESI) under fluoroscopic guidance NONE at L4-5 Digital Performance Analyst Needed: Epidural - YES Anticoagulant - Hold Needed: Lumbar Epidural (HOLD) Anticoagulant - Currently Taking: None Allergies (relevant): None Scheduling - Mobility (Can Patient independently transfer on/off an OR or Procedure table?): YES (May schedule at any location) Scheduling - Additional Info: None Studies: None Functional Mandaeism: Physical Therapy Consultation (Land-Based) Referrals: No additional considerations at present Follow-up: 1 month after injection Depending on response to the above plan, consider: TBD Interval History: Overall pain and functional disability since last visit: Better New Complaints since last visit: No On 09/15/2024 pt had a ILESI L4-L5. Patient reports 96% relief from procedure with pain score of 1/10 Patient reports improved quality of life and increase in ability to perform ADL's. Juan Killian is a 74-year-old male presenting for follow-up regarding back pain. Juan reports significant improvement in back pain following a recent injection, describing a 95-96% reduction in pain. He notes increased mobility and overall well-being. However, he experiences pain when reaching above arm's length, particularly when standing on tiptoe, which he describes as pulling on the nerves. He also reports fleeting pain when rising from a seated position. He is currently taking gabapentin and diclofenac, prescribed by Dr. Mercado, and is running low on diclofenac. He inquires about the continuation of this medication. 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 He requests a note for work to excuse him from reaching above arm's length. He mentions that a previous note advised him to avoid twisting movements. Current Pain Medications: Neuropathics: gabapentin NSAIDS: diclofenac Muscle Relaxants: Topicals: Other Prescription or OTC Pain Medications: Opioids (when applicable): Anti-depressants or Mood-Stabilizers: Cymbalta, Wellbutrin Anti-Coagulants: None Therapies Attended (Current or Most Recent): No Current Therapies 08/10/2024 [facility] Questionnaire GREENLIGHT Completed Date 08/10/2024 Questionnaire Opiod Risk Tool Completed Date 08/10/2024 Comments 1 - Low Risk No question data found. (All drug screens are appropriate unless indicated otherwise) Notable Events Du (more content not included)... [facility] 09-18-2024 [facility] Telephone (AGSPHWS) JUAN KILLIAN ([id number]) 1950 M Date Time Provider Department 09/18/24 [facility] During your visit today, we recorded the following information about you: Sary Durbin LPN 09/18/2024 11:50 AM Signed Spoke with patient following up from procedure. Patient states they are doing well, no questions or concerns at this time. Sary Durbin LPN Allergies As of Date: 09/18/2024 Noted Allergy Reaction BENADRYL (DIPHENHYDRAMINE) 10/30/2021 1 - Mental Status Change Comments: Sends into severe depression Date Reviewed: 09/15/2024 Reviewed by: Glory Cannon LPN - Fully Assessed Reason for Visit: Patient Update [1234] Cmt: RFA Prescriptions as of 12/11/2024 - buPROPion XL (WELLBUTRIN XL) 300 mg 24 hr tablet Take 1 tablet by mouth once daily. - DULoxetine DR (CYMBALTA) 60 mg capsule Take 1 capsule by mouth daily at bedtime. - lamoTRIgine (LAMICTAL) 100 mg tablet Take 1 tablet by mouth once daily. - diclofenac, EC, (VOLTAREN) 75 mg EC tablet Take 1 tablet by mouth two times a day. - atorvastatin (LIPITOR) 20 mg tablet Take 1 tablet by mouth daily at bedtime. For cholesterol. - gabapentin (NEURONTIN) 100 mg capsule Take 2 capsules by mouth three times a day for 180 days. - hydroCHLOROthiazide 25 mg tablet Take 1 tablet by mouth once daily. Problem List As Of Date 09/18/2024 Noted Resolved Major depression, chronic [F32.9] 10/30/2021 Primary hypertension [I10] 10/30/2021 Obesity, Class I, BMI 30-34.9 [E66.811] 10/30/2021 Heart murmur [R01.1] 10/30/2021 Hyperlipidemia [E78.5] 08/12/2022 Tobacco use [Z72.0] 08/13/2022 05/26/2023 Major depressive disorder, recurrent episode, m*06/06/2024 Primary osteoarthritis of left knee [M17.12] 06/22/2024 Left low back pain [M54.50] 06/26/2024 Encounter Status:Closed by SARY DURBIN on 12/11/24 [facility] Colin 09-06-2024 [facility] Telephone (INTMWS) JUAN KILLIAN ([id number]) 1950 M Date Time Provider Department 09/06/24 MARK NOVA INTMWS During your visit today, we recorded the following information about you: Vickie Montelongo LPN 09/06/2024 2:43 PM Signed Pcp rec'd and completed a physician's report of work ability (MEDCO 14) This was faxed back to [facility] pre access Allergies As of Date: 09/06/2024 Noted Allergy Reaction BENADRYL (DIPHENHYDRAMINE) 10/30/2021 1 - Mental Status Change Comments: Sends into severe depression Date Reviewed: 08/16/2024 Reviewed by: Naida Morrison LPN - Fully Assessed Reason for Visit: Forms [913] Cmt: [facility] Prescriptions as of 09/06/2024 - atorvastatin (LIPITOR) 20 mg tablet Take 1 tablet by mouth daily at bedtime. For cholesterol. - gabapentin (NEURONTIN) 100 mg capsule Take 2 capsules by mouth three times a day for 180 days. - hydroCHLOROthiazide 25 mg tablet Take 1 tablet by mouth once daily. - diclofenac, EC, (VOLTAREN) 75 mg EC tablet Take 1 tablet by mouth two times a day. - lamoTRIgine (LAMICTAL) 100 mg tablet Take 1 tablet by mouth once daily. - buPROPion XL (WELLBUTRIN XL) 300 mg 24 hr tablet Take 1 tablet by mouth once daily. - DULoxetine (CYMBALTA) 60 mg capsule Take 1 capsule by mouth daily at bedtime. Problem List As Of Date 09/06/2024 Noted Resolved Major depression, chronic [F32.9] 10/30/2021 Primary hypertension [I10] 10/30/2021 Obesity, Class I, BMI 30-34.9 [E66.811] 10/30/2021 Heart murmur [R01.1] 10/30/2021 Hyperlipidemia [E78.5] 08/12/2022 Tobacco use [Z72.0] 08/13/2022 05/26/2023 Major depressive disorder, recurrent episode, m*06/06/2024 Primary osteoarthritis of left knee [M17.12] 06/22/2024 Left low back pain [M54.50] 06/26/2024 Encounter Status:Closed by VICKIE MONTELONGO on 09/06/24 [facility] CNPNon 08-31-20[facility] (AGSPINE3[facility] MARIA DJUAN ([id number]) 1950 M Date Time Provider Department 08/31/24 MAUDE TOWNSENDPINE3 During your visit today, we recorded the following information about you: Lela Hogan 08/31/2024 3:45 PM Signed 08/31/24- Patient is approved for procedure , he is asking for it to be submit through workers comp . Workers comp said they wanted a C9 and/or referral for injection for them to approve it . Can anyone review this? Aba Werner 09/05/2024 1:47 PM Signed Until this patient has this changed over with billing for [facility] there is nothing more we can do. I had left him a message on 08/18/24 to call the billing department. Aba Bustillo Allergies As of Date: 08/31/2024 Noted Allergy Reaction BENADRYL (DIPHENHYDRAMINE) 10/30/2021 1 - Mental Status Change Comments: Sends into severe depression Date Reviewed: 08/16/2024 Reviewed by: Naida Morrison LPN - Fully Assessed Reason for Visit: Patient Question [9207] Prescriptions as of 09/05/2024 - atorvastatin (LIPITOR) 20 mg tablet Take 1 tablet by mouth daily at bedtime. For cholesterol. - gabapentin (NEURONTIN) 100 mg capsule Take 2 capsules by mouth three times a day for 180 days. - hydroCHLOROthiazide 25 mg tablet Take 1 tablet by mouth once daily. - diclofenac, EC, (VOLTAREN) 75 mg EC tablet Take 1 tablet by mouth two times a day. - lamoTRIgine (LAMICTAL) 100 mg tablet Take 1 tablet by mouth once daily. - buPROPion XL (WELLBUTRIN XL) 300 mg 24 hr tablet Take 1 tablet by mouth once daily. - DULoxetine (CYMBALTA) 60 mg capsule Take 1 capsule by mouth daily at bedtime. Problem List As Of Date 08/31/2024 Noted Resolved Major depression, chronic [F32.9] 10/30/2021 Primary hypertension [I10] 10/30/2021 Obesity, Class I, BMI 30-34.9 [E66.811] 10/30/2021 Heart murmur [R01.1] 10/30/2021 Hyperlipidemia [E78.5] 08/12/2022 Tobacco use [Z72.0] 08/13/2022 05/26/2023 Major depressive disorder, recurrent episode, m*06/06/2024 Primary osteoarthritis of left knee [M17.12] 06/22/2024 Left low back pain [M54.50] 06/26/2024 Encounter Status:Closed by LELA HOGAN on 08/31/24 [facility] CNPN Telephone (INTMWS) JUAN KILLIAN ([id number]) 1950 Date Time Provider Department 08/31/24 MARK NOVA INTMWS During your visit today, we recorded the following information about you: Tracy Marrero RN 08/31/2024 3:19 PM Signed Pt called in and wanted AVS brought to Medical records so he could pick it up. Took to medical records and let Pt know he would need to stop by the front end manager and let them know his name and birthday to get it for him. Tracy Marrero RN Allergies As of Date: 08/31/2024 Noted Allergy Reaction BENADRYL (DIPHENHYDRAMINE) 10/30/2021 1 - Mental Status Change Comments: Sends into severe depression Date Reviewed: 08/16/2024 Reviewed by: Naida Morrison LPN - Fully Assessed Reason for Visit: Patient Question [5505] Prescriptions as of 08/31/2024 - atorvastatin (LIPITOR) 20 mg tablet Take 1 tablet by mouth daily at bedtime. For cholesterol. - gabapentin (NEURONTIN) 100 mg capsule Take 2 capsules by mouth three times a day for 180 days. - hydroCHLOROthiazide 25 mg tablet Take 1 tablet by mouth once daily. - diclofenac, EC, (VOLTAREN) 75 mg EC tablet Take 1 tablet by mouth two times a day. - lamoTRIgine (LAMICTAL) 100 mg tablet Take 1 tablet by mouth once daily. - buPROPion XL (WELLBUTRIN XL) 300 mg 24 hr tablet Take 1 tablet by mouth once daily. - DULoxetine (CYMBALTA) 60 mg capsule Take 1 capsule by mouth daily at bedtime. Problem List As Of Date 08/31/2024 Noted Resolved Major depression, chronic [F32.9] 10/30/2021 Primary hypertension [I10] 10/30/2021 Obesity, Class I, BMI 30-34.9 [E66.811] 10/30/2021 Heart murmur [R01.1] 10/30/2021 Hyperlipidemia [E78.5] 08/12/2022 Tobacco use [Z72.0] 08/13/2022 05/26/2023 Major depressive disorder, recurrent episode, m*06/06/2024 Primary osteoarthritis of left knee [M17.12] 06/22/2024 Left low back pain [M54.50] 06/26/2024 Encounter Status:Closed by TRACY MARRERO on 08/31/24 [facility] 08-17-2024 [facility] Telephone (AGSPINE3) JUAN KILLIAN ([id number]) 1950 M Date Time Provider Department 08/17/24 MAUDE TOWNSEND3 During your visit today, we recorded the following information about you: Aba Bustillo 08/17/2024 9:41 AM Signed Received a request from [employer] on this patient. The request has been scanned into this patient's chart. It will need to be filled out and sent to [facility] to send out the Medical records. Aba Bustillo Aba 08/17/2024 10:15 AM Signed The message from Noemi has been sent back out to Anthony. Aba Pacheco 08/18/2024 11:17 AM Signed Received another fax back from [employer] stating that this is supposed to be under [facility]. I have scanned this into this patient's chart. I have attempted to contact this patient by phone, Left brief message on cell voicemail stating that it this is truly is under [facility] then he will need to call the billing department and have this changed over. I have given this patient the phone number for billing. Aba Keny Maude Townsend APRN.JORJE 08/29/2024 9:42 AM Signed Is there anything more I have to do with this issues at this time? Keny Aba 09/05/2024 1:46 PM Signed Until this patient has this changed over with billing for [facility] there is nothing more we can do. I had left him a message on 08/18/24 to call the billing department. Aba Bustillo Allergies As of Date: 08/17/2024 Noted Allergy Reaction BENADRYL (DIPHENHYDRAMINE) 10/30/2021 1 - Mental Status Change Comments: Sends into severe depression Date Reviewed: 08/16/2024 Reviewed by: Naida Morrison LPN - Fully Assessed Reason for Visit: Patient Update [1234] [facility] (Worker's Comp) [4136] Prescriptions as of 09/05/2024 - atorvastatin (LIPITOR) 20 mg tablet Take 1 tablet by mouth daily at bedtime. For cholesterol. - gabapentin (NEURONTIN) 100 mg capsule Take 2 capsules by mouth three times a day for 180 days. - hydroCHLOROthiazide 25 mg tablet Take 1 tablet by mouth once daily. - diclofenac, EC, (VOLTAREN) 75 mg EC tablet Take 1 tablet by mouth two times a day. - lamoTRIgine (LAMICTAL) 100 mg tablet Take 1 tablet by mouth once daily. - buPROPion XL (WELLBUTRIN XL) 300 mg 24 hr tablet Take 1 tablet by mouth once daily. - DULoxetine (CYMBALTA) 60 mg capsule Take 1 capsule by mouth daily at bedtime. Problem List As Of Date 08/17/2024 Noted Resolved Major depression, chronic [F32.9] 10/30/2021 Primary hypertension [I10] 10/30/2021 Obesity, Class I, BMI 30-34.9 [E66.811] 10/30/2021 Heart murmur [R01.1] 10/30/2021 Hyperlipidemia [E78.5] 08/12/2022 Tobacco use [Z72.0] 08/13/2022 05/26/2023 Major depressive disorder, recurrent episode, m*06/06/2024 Primary osteoarthritis of left knee [M17.12] 06/22/2024 Left low back pain [M54.50] 06/26/2024 Encounter Status:Closed by ABA BUSTILLO on 08/17/24 [facility] CNOVon 08-16-2024 CNOV Office Visit (INTMWS ) MARIA DJUAN ([id number]) 1950 M Date Time Provider Department 08/16/24 1:00 PM MARK NOVA INTMWS During your visit today, we recorded the following information about you: Pulse Respiration Blood pressure Weight 72/minute 12/minute 114/64 85.5 kg Mark Nova MD 08/16/2024 1:42 PM Signed This note was created using [employer]. Subjective Patient presents with: Back Pain Recording using [employer] software for draft documentation of the visit was discussed with the patient/authorized telephone services sales representative; all questions welcomed and answered. Patient/authorized telephone services sales representative agreed to proceed Juan is a 74-year-old male with a history of chronic pain, presenting for evaluation of inadequate pain control. Juan reports that his current pain management regimen, which includes diclofenac and gabapentin 100 mg TID, is insufficient to control his pain throughout the workday. He notes that while his pain is manageable in the mornings, it significantly increases by noon, particularly with activities such as lifting trays of glasses, leaning, and twisting. He estimates that he can only rotate his torso approximately 20-23 degrees before experiencing pain. He states, I can only do 15% of the job, I wrote out the other 85% of the job that gives me the pain. He expresses concern about increasing his pain medication, fearing it may mask symptoms and potentially cause further damage to the underlying issue. He is scheduled for a spinal procedure on September 15 and requests an increase in his pain medication to maintain his job until then. He denies experiencing any side effects from his current medication regimen. He also denies any recent illness, fever, or other new symptoms. Juan also reports ongoing arthritis pain in his left leg and mentions missing a recent physical therapy appointment. He has difficulty lifting objects weighing more than 20 pounds due to pain. Recent blood work showed a slight increase in cholesterol and blood glucose levels. He indicated his high consumption of regular soda. Review of Systems Constitutional: Negative for fatigue, fever and unexpected weight change. Respiratory: Negative. Gastrointestinal: Negative for abdominal pain, constipation and diarrhea. Genitourinary: Negative for difficulty urinating. Musculoskeletal: Positive for back pain. Neurological: Negative for weakness and numbness. ACTIVE PROBLEM LIST Major Depression, Chronic Primary Hypertension Obesity, Class I, Bmi 30-34.9 Heart Murmur Hyperlipidemia Major Depressive Disorder, Recurrent Episode, Moderate (Hcc) Primary Osteoarthritis of Left Knee Left Low Back Pain Social History Tobacco Use Smoking status: Former Current packs/day: 1.00 Average packs/day: 1 pack/day for 3.0 years (3.0 ttl pk-yrs) Types: Cigarettes Smokeless tobacco: Never Tobacco comments: quit 15 years ago. Started age 30. Vaping Use Vaping status: Never Used Substance Use Topics Alcohol use: Not Currently Comment: 1 drink per year Drug use: Not Currently Types: Marijuana Comment: 16-23 years old Current Outpatient Medications Medication Sig diclofenac, EC, (VOLTAREN) 75 mg EC tablet Take 1 tablet by mouth two times a day. lamoTRIgine (LAMICTAL) 100 mg tablet Take 1 tablet by mouth once daily. buPROPion XL (WELLBUTRIN XL) 300 mg 24 hr tablet Take 1 tablet by mouth once daily. DULoxetine (CYMBALTA) 60 mg capsule Take 1 capsule by mouth daily at bedtime. gabapentin (NEURONTIN) 100 mg capsule Take 1 capsule by mouth three times a day for 90 days. hydroCHLOROthiazide 25 mg tablet Take 1 tablet by mouth once daily. atorvastatin (LIPITOR) 20 mg tablet Take 1 tablet by mouth daily at bedtime. For cholesterol. No current facility-administered medications for this visit. Objective BP 114/64 (BP Site: Left Arm, BP Position: Sitting, BP Cuff Size: Large Adult) Pulse 72 Resp 12 Wt 85.5 kg (188 lb 7.9 oz) BMI 34.48 kg/m? Physical Exam Constitutional: General: He is not in acute distress. Pulmonary: Effort: Pulmonary effort is normal. Musculoskeletal: Lumbar back: Tenderness present. Decreased range of motion. Negative right straight leg raise test and negative left straight leg raise test. No scoliosis. Neurological: Mental Status: He is alert. Sensory: No sensory deficit. Motor: No weakness. Gait: Gait normal. Assessment and Plan 1. Left low back pain, unspecified chronicity, unspecified whether sciatica present - ICD9: 724.2, ICD10: M54.50 (primary diagnosis) - GABAPENTIN 100 MG CAPSULE. Dose increased to 200 MG TID. Discussed medication dosage, usage, goals of therapy, and side effects. 2. Primary hypertension - ICD9: 401.9, ICD10: I10 - Controlled - Continue current medications - HYDROCHLOROTHIAZIDE 25 MG TABLET 3. Hyperli (more content not included)... Normal [facility] 08-14-2024 JORJE Telephone (AGSPINE3) JUAN KILLIAN ([id number]) 1950 M Date Time Provider Department 08/14/24 MAUDE TOWNSEND3 During your visit today, we recorded the following information about you: Aba Bustillo 08/14/2024 1:00 PM Signed Received a voicemail from this patient's sister Mihaela asking for a call back from Maude at [phone]. Mihaela wanted to know what was discussed during this patient's appointment and what Maude thoughts were. We do not have a HIPAA signed by this patient to speak with anyone. I have left Mihaela a voicemail informing her of this and that until this is signed by the patient allowing us to speak with her we will not be able to give her any information. Aba Bustillo Allergies As of Date: 08/14/2024 Noted Allergy Reaction BENADRYL (DIPHENHYDRAMINE) 10/30/2021 1 - Mental Status Change Comments: Sends into severe depression Date Reviewed: 08/10/2024 Reviewed by: Maude Townsend APRN.COPY CENTER OPERATOR - Fully Assessed Reason for Visit: Patient Update [1234] Prescriptions as of 08/14/2024 - diclofenac, EC, (VOLTAREN) 75 mg EC tablet Take 1 tablet by mouth two times a day. - lamoTRIgine (LAMICTAL) 100 mg tablet Take 1 tablet by mouth once daily. - buPROPion XL (WELLBUTRIN XL) 300 mg 24 hr tablet Take 1 tablet by mouth once daily. - DULoxetine (CYMBALTA) 60 mg capsule Take 1 capsule by mouth daily at bedtime. - gabapentin (NEURONTIN) 100 mg capsule Take 1 capsule by mouth three times a day for 90 days. - hydroCHLOROthiazide 25 mg tablet Take 1 tablet by mouth once daily. - atorvastatin (LIPITOR) 20 mg tablet Take 1 tablet by mouth daily at bedtime. For cholesterol. Problem List As Of Date 08/14/2024 Noted Resolved Major depression, chronic [F32.9] 10/30/2021 Primary hypertension [I10] 10/30/2021 Obesity, Class I, BMI 30-34.9 [E66.811] 10/30/2021 Heart murmur [R01.1] 10/30/2021 Hyperlipidemia [E78.5] 08/12/2022 Tobacco use [Z72.0] 08/13/2022 05/26/2023 Major depressive disorder, recurrent episode, m*06/06/2024 Primary osteoarthritis of left knee [M17.12] 06/22/2024 Left low back pain [M54.50] 06/26/2024 Encounter Status:Closed by ABA BUSTILLO on 08/14/24 [facility] CNCOon 08-10-2024 CNCO Letter Text [facility] CNOVon 08-10-2024 CNOV Office Visit (SPAGWO ) JUAN KILLIAN ([id number]) 1950 Date Time Provider Department 08/10/24 10:00 AM MAUDE TOWNSEND During your visit today, we recorded the following information about you: Pulse Respiration [facility] CNPLauren 08-10-2024 JORJEN Telephone (SPAGWO) JUAN KILLIAN ([id number]) 1950 Date Time Provider Department 08/10/24 MAUDE TOWNSEND During your visit today, we recorded the following information about you: Scarlet Hoffman 08/10/2024 10:28 AM Signed Procedure(s) being scheduled: Lumbar ILESI 1.Are you diabetic No 2. Are you on any blood thinners? No 3. Are you taking any aspirin? No 4. Are you currently taking any antibiotics? No 5. Do you have any allergies to latex? No 6. Do you have any allergies to seafood or shellfish? No 7. Do you have any allergies to x-ray dye? No 8. Does this procedure require a electric mule driver? Yes If yes, has patient been notified that a electric mule driver is needed and must be present at check in? yes 9. Were the pre-procedure instructions explained and provided to the patient? Yes 10. Do you have a pacemaker? No 11. Do you have an internal stimulator of any kind? No Scarlet Hoffman Allergies As of Date: 08/10/2024 Noted Allergy Reaction BENADRYL (DIPHENHYDRAMINE) 10/30/2021 1 - Mental Status Change Comments: Sends into severe depression Date Reviewed: 08/10/2024 Reviewed by: Maude Townsend APRN.COPY CENTER OPERATOR - Fully Assessed Reason for Visit: Injection Questions [Other] Prescriptions as of 08/10/2024 - diclofenac, EC, (VOLTAREN) 75 mg EC tablet Take 1 tablet by mouth two times a day. - lamoTRIgine (LAMICTAL) 100 mg tablet Take 1 tablet by mouth once daily. - buPROPion XL (WELLBUTRIN XL) 300 mg 24 hr tablet Take 1 tablet by mouth once daily. - DULoxetine (CYMBALTA) 60 mg capsule Take 1 capsule by mouth daily at bedtime. - gabapentin (NEURONTIN) 100 mg capsule Take 1 capsule by mouth three times a day for 90 days. - hydroCHLOROthiazide 25 mg tablet Take 1 tablet by mouth once daily. - atorvastatin (LIPITOR) 20 mg tablet Take 1 tablet by mouth daily at bedtime. For cholesterol. Problem List As Of Date 08/10/2024 Noted Resolved Major depression, chronic [F32.9] 10/30/2021 Primary hypertension [I10] 10/30/2021 Obesity, Class I, BMI 30-34.9 [E66.811] 10/30/2021 Heart murmur [R01.1] 10/30/2021 Hyperlipidemia [E78.5] 08/12/2022 Tobacco use [Z72.0] 08/13/2022 05/26/2023 Major depressive disorder, recurrent episode, m*06/06/2024 Primary osteoarthritis of left knee [M17.12] 06/22/2024 Left low back pain [M54.50] 06/26/2024 Encounter Status:Closed by SCARLET HOFFMAN on 08/10/24 [facility] Colin 08-04-2024 JORJEN Telephone (INTMWS) JUAN KILLIAN ([id number]) 1950 M Date Time Provider Department 08/04/24 MARK NOVA During your visit today, we recorded the following information about you: Donna Arora RN 08/04/2024 3:04 PM Signed Krystal calling from [employer] requesting pt's completed [facility] C-9 form be faxed to them at FAX # [phone]. This triage nurse unable to locate this form. Will send message to provider's office for further assistance. Donna Arora RN Allergies As of Date: 08/04/2024 Noted Allergy Reaction BENADRYL (DIPHENHYDRAMINE) 10/30/2021 1 - Mental Status Change Comments: Sends into severe depression Date Reviewed: 07/12/2024 Reviewed by: Naida Morrison LPN - Fully Assessed Reason for Visit: C9 Form Request [Other] Prescriptions as of 08/16/2024 - diclofenac, EC, (VOLTAREN) 75 mg EC tablet Take 1 tablet by mouth two times a day. - lamoTRIgine (LAMICTAL) 100 mg tablet Take 1 tablet by mouth once daily. - buPROPion XL (WELLBUTRIN XL) 300 mg 24 hr tablet Take 1 tablet by mouth once daily. - DULoxetine (CYMBALTA) 60 mg capsule Take 1 capsule by mouth daily at bedtime. - gabapentin (NEURONTIN) 100 mg capsule Take 1 capsule by mouth three times a day for 90 days. - hydroCHLOROthiazide 25 mg tablet Take 1 tablet by mouth once daily. - atorvastatin (LIPITOR) 20 mg tablet Take 1 tablet by mouth daily at bedtime. For cholesterol. Problem List As Of Date 08/04/2024 Noted Resolved Major depression, chronic [F32.9] 10/30/2021 Primary hypertension [I10] 10/30/2021 Obesity, Class I, BMI 30-34.9 [E66.811] 10/30/2021 Heart murmur [R01.1] 10/30/2021 Hyperlipidemia [E78.5] 08/12/2022 Tobacco use [Z72.0] 08/13/2022 05/26/2023 Major depressive disorder, recurrent episode, m*06/06/2024 Primary osteoarthritis of left knee [M17.12] 06/22/2024 Left low back pain [M54.50] 06/26/2024 Encounter Status:Closed by DONNA ARORA on 08/16/24 [facility] CNPLauren 07-18-2024 CNP Telephone (INTMWS) JUAN KILLIAN ([id number]) 1950 Date Time Provider Department 07/18/24 MARK NOVA INTWS During your visit today, we recorded the following information about you: Naida Morrison LPN 07/18/2024 11:42 AM Signed Patient stopped into office, his company is working with Worker's Comp, they want to comply with Dr. Nova's instructions. Needs a letter saying that he CAN NOT lift 50 lbs, he CAN lift 40,30 or 20 lbs. Please send updated weight restrictions please contact Patient to pickup. Please notify Patient when letter is ready for pickup. Barbara Cortes LPN 07/18/2024 6:45 PM Signed Pt called in asking if the note was completed. I let them know that Dr. Nova had just gotten it today and paperwork needs to have at least 3-5 business days. Mark Nova MD 07/20/2024 8:15 AM Signed Letter printed. Naida Morrison LPN 07/20/2024 8:52 AM Signed Patient notified, letter is ready for pickup after noon today in Medical Records. Naida Morrison LPN Allergies As of Date: 07/18/2024 Noted Allergy Reaction BENADRYL (DIPHENHYDRAMINE) 10/30/2021 1 - Mental Status Change Comments: Sends into severe depression Date Reviewed: 07/12/2024 Reviewed by: Naida Morrison LPN - Fully Assessed Prescriptions as of 07/20/2024 - diclofenac, EC, (VOLTAREN) 75 mg EC tablet Take 1 tablet by mouth two times a day. - lamoTRIgine (LAMICTAL) 100 mg tablet Take 1 tablet by mouth once daily. - buPROPion XL (WELLBUTRIN XL) 300 mg 24 hr tablet Take 1 tablet by mouth once daily. - DULoxetine (CYMBALTA) 60 mg capsule Take 1 capsule by mouth daily at bedtime. - gabapentin (NEURONTIN) 100 mg capsule Take 1 capsule by mouth three times a day for 90 days. - hydroCHLOROthiazide 25 mg tablet Take 1 tablet by mouth once daily. - atorvastatin (LIPITOR) 20 mg tablet Take 1 tablet by mouth daily at bedtime. For cholesterol. Problem List As Of Date 07/18/2024 Noted Resolved Major depression, chronic [F32.9] 10/30/2021 Primary hypertension [I10] 10/30/2021 Obesity, Class I, BMI 30-34.9 [E66.811] 10/30/2021 Heart murmur [R01.1] 10/30/2021 Hyperlipidemia [E78.5] 08/12/2022 Tobacco use [Z72.0] 08/13/2022 05/26/2023 Major depressive disorder, recurrent episode, m*06/06/2024 Primary osteoarthritis of left knee [M17.12] 06/22/2024 Left low back pain [M54.50] 06/26/2024 Letter Text Encounter Status:Closed by NAIDA MORRISON on 07/20/24 [facility] Colin 07-13-2024 [facility] Telephone (INTMWS) JUAN KILLIAN ([id number]) 1950 M Date Time Provider Department 07/13/24 MARK NOVA INTMWS During your visit today, we recorded the following information about you: Bernard Cuellar, RN 07/13/2024 2:34 PM Signed Pt reports pcp wrote him a work excuse, and 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 Pt asking office to phone Julianna Artur @ [phone] with pcp reply. Mark Nova MD 07/13/2024 7:35 PM Signed There is no weight restriction stated in his letter. Shelby Palacios LPN 07/14/2024 8:44 AM Signed Phoned patient went over notes from Dr Nova with understanding. 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 Patient needs current excuse note to list weight lifting restrictions (documented on the note form the patient. Note and business card will be put on nurse's desk momentarily. Please assist. Ruth Callahan Allergies As of Date: 07/13/2024 Noted Allergy Reaction BENADRYL (DIPHENHYDRAMINE) 10/30/2021 1 - Mental Status Change Comments: Sends into severe depression Date Reviewed: 07/12/2024 Reviewed by: Naida Morrison LPN - Fully Assessed Reason for Visit: Patient Question [0277] Prescriptions as of 07/18/2024 - diclofenac, EC, (VOLTAREN) 75 mg EC tablet Take 1 tablet by mouth two times a day. - lamoTRIgine (LAMICTAL) 100 mg tablet Take 1 tablet by mouth once daily. - buPROPion XL (WELLBUTRIN XL) 300 mg 24 hr tablet Take 1 tablet by mouth once daily. - DULoxetine (CYMBALTA) 60 mg capsule Take 1 capsule by mouth daily at bedtime. - gabapentin (NEURONTIN) 100 mg capsule Take 1 capsule by mouth three times a day for 90 days. - hydroCHLOROthiazide 25 mg tablet Take 1 tablet by mouth once daily. - atorvastatin (LIPITOR) 20 mg tablet Take 1 tablet by mouth daily at bedtime. For cholesterol. Problem List As Of Date 07/13/2024 Noted Resolved Major depression, chronic [F32.9] 10/30/2021 Primary hypertension [I10] 10/30/2021 Obesity, Class I, BMI 30-34.9 [E66.811] 10/30/2021 Heart murmur [R01.1] 10/30/2021 Hyperlipidemia [E78.5] 08/12/2022 Tobacco use [Z72.0] 08/13/2022 05/26/2023 Major depressive disorder, recurrent episode, m*06/06/2024 Primary osteoarthritis of left knee [M17.12] 06/22/2024 Left low back pain [M54.50] 06/26/2024 Encounter Status:Closed by SHELBY PALACIOS on 07/14/24 [facility] CNOVmer 07-12-2024 CNOV Office Visit (INTMWS ) JUAN KILLIAN ([id number]) 1950 M Date Time Provider Department 07/12/24 11:20 AM MARK NOVA INTMWS During your visit today, we recorded the following information about you: Temperature Pulse Respiration Blood pressure 98.7 degrees 76/minute 12/minute 118/64 Weight 83.9 kg Mark Nova MD 07/12/2024 1:00 PM Signed This note was created using [employer]. Subjective Patient presents with: Vomiting Back Pain Juan Killian is a 74 year old male. The patient consented to the use of [employer] software for draft documentation of the visit consistent with [facility]?s Notice of Privacy Practices. Juan is a 74-year-old male, with a history of chronic low back pain, presenting for evaluation of exacerbated low back pain and discussion of work restrictions. Juan reports an exacerbation of chronic low back pain secondary to overexertion at work today. 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 Today, he performed the work of 2-3 people for 2 hours, which involved repetitive twisting and lifting, leading to increased pain. His job had short-staffing issues. The pain became so severe that it induced emesis, prompting him to leave work early. He denies fever or abdominal pain, attributing the emesis to pain. Juan is currently taking gabapentin and diclofenac for pain management. He reported taking an extra tablet daily once in a while for pain, but seemed to be taking medications as needed. He was vague if he took an extra gabapentin or diclofenac. He is unsure of the prescribed dosage and requests clarification. He has a scheduled appointment with a pain specialist on September 18 at 0930. He inquires about the possibility of work restrictions, specifically requesting longer breaks to manage his pain. He currently receives a 10-minute break at 0830, a 30 minute lunch break at 1100, and another 10-minute break between 1300 and 1430. He suggests that extending these breaks to 15 minutes would allow him to recuperate better. Review of Systems Constitutional: Negative for chills and fever. HENT: Negative for congestion. Respiratory: Positive for cough. Negative for shortness of breath and wheezing. Gastrointestinal: Negative for abdominal pain, blood in stool, constipation and diarrhea. Genitourinary: Negative for difficulty urinating and dysuria. Neurological: Negative for weakness and numbness. ACTIVE PROBLEM LIST Major Depression, Chronic Primary Hypertension Obesity, Class I, Bmi 30-34.9 Heart Murmur Hyperlipidemia Major Depressive Disorder, Recurrent Episode, Moderate (Hcc) Primary Osteoarthritis of Left Knee Left Low Back Pain Social History Tobacco Use Smoking status: Former Current packs/day: 1.00 Average packs/day: 1 pack/day for 3.0 years (3.0 ttl pk-yrs) Types: Cigarettes Smokeless tobacco: Never Tobacco comments: quit 15 years ago. Started age 30. Vaping Use Vaping status: Never Used Substance Use Topics Alcohol use: Not Currently Comment: 1 drink per year Drug use: Not Currently Types: Marijuana Comment: 16-23 years old Current Outpatient Medications Medication Sig diclofenac, EC, (VOLTAREN) 75 mg EC tablet Take 1 tablet by mouth two times a day. lamoTRIgine (LAMICTAL) 100 mg tablet Take 1 tablet by mouth once daily. buPROPion XL (WELLBUTRIN XL) 300 mg 24 hr tablet Take 1 tablet by mouth once daily. DULoxetine (CYMBALTA) 60 mg capsule Take 1 capsule by mouth daily at bedtime. gabapentin (NEURONTIN) 100 mg capsule Take 1 capsule by mouth three times a day for 90 days. hydroCHLOROthiazide 25 mg tablet Take 1 tablet by mouth once daily. atorvastatin (LIPITOR) 20 mg tablet Take 1 tablet by mouth daily at bedtime. For cholesterol. No current facility-administered medications for this visit. Objective BP 118/64 (BP Site: Left Arm, BP Position: Sitting, BP Cuff Size: Large Adult) Pulse 76 Temp 37.1 ?C (98.7 ?F) (Temporal) Resp 12 Wt 83.9 kg (184 lb 15.5 oz) BMI 33.83 kg/m? Physical Exam Constitutional: General: He is not in acute distress. Appearance: He is not ill-appearing. HENT: Mouth/Throat: Mouth: Mucous membranes are moist. Eyes: Conjunctiva/sclera: Conjunctivae normal. Cardiovascular: Heart sounds: Normal heart sounds. Pulmonary: Breath sounds: Normal breath sounds. No wheezing, rhonchi or rales. Abdominal: General: There is no distension. Palpations: Abdomen is soft. There is no mass. Tenderness: There is no abdominal tenderness. Musculoskeletal: Lumbar back: No spasms or tenderness. Decreased range of motion. Negative right straight leg raise test and negative left straight leg raise test. Neurological: General: No focal deficit present. Mental Status: He is eze (more content not included)... 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 Patient states that PCP office can give any information to [employer] company. Donna Arora RN Allergies As of Date: 07/03/2024 Noted Allergy Reaction BENADRYL (DIPHENHYDRAMINE) 10/30/2021 1 - Mental Status Change Comments: Sends into severe depression Date Reviewed: 06/20/2024 Reviewed by: Leticia Conde MA - Fully Assessed Reason for Visit: Worker's Compensation: Update [Other] Prescriptions as of 07/03/2024 - diclofenac, EC, (VOLTAREN) 75 mg EC tablet Take 1 tablet by mouth two times a day. - lamoTRIgine (LAMICTAL) 100 mg tablet Take 1 tablet by mouth once daily. - buPROPion XL (WELLBUTRIN XL) 300 mg 24 hr tablet Take 1 tablet by mouth once daily. - DULoxetine (CYMBALTA) 60 mg capsule Take 1 capsule by mouth daily at bedtime. - gabapentin (NEURONTIN) 100 mg capsule Take 1 capsule by mouth three times a day for 90 days. - hydroCHLOROthiazide 25 mg tablet Take 1 tablet by mouth once daily. - atorvastatin (LIPITOR) 20 mg tablet Take 1 tablet by mouth daily at bedtime. For cholesterol. Problem List As Of Date 07/03/2024 Noted Resolved Major depression, chronic [F32.9] 10/30/2021 Primary hypertension [I10] 10/30/2021 Obesity, Class I, BMI 30-34.9 [E66.811] 10/30/2021 Heart murmur [R01.1] 10/30/2021 Hyperlipidemia [E78.5] 08/12/2022 Tobacco use [Z72.0] 08/13/2022 05/26/2023 Major depressive disorder, recurrent episode, m*06/06/2024 Primary osteoarthritis of left knee [M17.12] 06/22/2024 Left low back pain [M54.50] 06/26/2024 Encounter Status:Closed by DONNA ARORA on 07/03/24 [facility] MARIA DJUAN ([id number]) 1950 M Date Time Provider Department 06/26/24 MARK NOVA INTMWS During your visit today, we recorded the following information about you: Merry Casas 06/26/2024 9:15 AM Signed Juan is calling Mark Nova MD today to request Medication Request. Patient is requesting a pain medication for his back. Patient has been identified by name and birthdate. Duration of symptoms: N/A Person calling: self Call patient at: at home [phone] (home) [phone] (cell) Was an appointment scheduled: No Closing statement: Merry Bernard Mark Kemp MD 06/26/2024 7:22 PM Signed The following approved medication requests have been transmitted electronically. Requested Prescriptions Signed Prescriptions Disp Refills diclofenac, EC, (VOLTAREN) 75 mg EC tablet 60 tablet 0 Sig: Take 1 tablet by mouth two times a day. Authorizing Provider: MARK NOVA MD Zollinger, Helen E, LPN 06/26/2024 7:24 PM Signed Patient notified. Naida Morrison LPN Allergies As of Date: 06/26/2024 Noted Allergy Reaction BENADRYL (DIPHENHYDRAMINE) 10/30/2021 1 - Mental Status Change Comments: Sends into severe depression Date Reviewed: 06/20/2024 Reviewed by: Leticia Conde MA - Fully Assessed Reason for Visit: Medication Request [138] Primary Visit Diagnosis:Left low back pain, unspecified chronicity, unspecified whether sciatica present [M54.50] Order(s):diclofenac, EC, (VOLTAREN) 75 mg EC tabletTake 1 tablet by mouth two times a day.Disp: 60 tabletRfl: 0 Prescriptions as of 06/26/2024 - diclofenac, EC, (VOLTAREN) 75 mg EC tablet Take 1 tablet by mouth two times a day. - lamoTRIgine (LAMICTAL) 100 mg tablet Take 1 tablet by mouth once daily. - buPROPion XL (WELLBUTRIN XL) 300 mg 24 hr tablet Take 1 tablet by mouth once daily. - DULoxetine (CYMBALTA) 60 mg capsule Take 1 capsule by mouth daily at bedtime. - gabapentin (NEURONTIN) 100 mg capsule Take 1 capsule by mouth three times a day for 90 days. - hydroCHLOROthiazide 25 mg tablet Take 1 tablet by mouth once daily. - atorvastatin (LIPITOR) 20 mg tablet Take 1 tablet by mouth daily at bedtime. For cholesterol. Problem List As Of Date 06/26/2024 Noted Resolved Major depression, chronic [F32.9] 10/30/2021 Primary hypertension [I10] 10/30/2021 Obesity, Class I, BMI 30-34.9 [E66.811] 10/30/2021 Heart murmur [R01.1] 10/30/2021 Hyperlipidemia [E78.5] 08/12/2022 Tobacco use [Z72.0] 08/13/2022 05/26/2023 Major depressive disorder, recurrent episode, m*06/06/2024 Primary osteoarthritis of left knee [M17.12] 06/22/2024 Left low back pain [M54.50] 06/26/2024 Prescriptions ordered this encounter Disp Refills Start End DICLOFENAC SODIUM 75 MG TABLET,DELAY* 60 t* 0 06/26/2024 Route: ORAL Sig: Take 1 tablet by mouth two times a day. Encounter Status:Closed by NAIDA MORRISON on 06/26/24 [facility] Izaiah 06-20-2024 CNOV Office Visit (INTMWS ) JUAN KILLIAN ([id number]) 1950 Bernard Date Time Provider Department 06/20/24 10:40 AM MARK NOVA INTMWS During your visit today, we recorded the following information about you: Temperature Pulse Blood pressure Weight 98.2 degrees 88/minute 102/62 80.2 kg Height 1.575 m Mark Nova MD 06/21/2024 1:18 AM Signed This note was created using [employer]. Subjective Patient presents with: Pain Juan Killian is a 74 year old male. His left low back pain was worse again and 01/12. His left leg pain was less but they seem to alternate in severity. Baclofen lost its efficacy. Ibuprofen was not helping. Pain started when he fell on ice mid May. His sacro coocygeal xray was negative. He was seen in the ED as well and CT of the chest and lumbar spine showed no acute process. US for abdominal aortic aneurysm was negative. I was waiting on xray of his femur. His left leg pain was not referred pain. He felt some relief using a cane. Review of Systems Constitutional: Negative for chills, diaphoresis and fever. Respiratory: Negative for shortness of breath. Cardiovascular: Negative. Gastrointestinal: Negative for abdominal pain, constipation and diarrhea. Genitourinary: Negative for difficulty urinating. Musculoskeletal: Positive for arthralgias, back pain and gait problem. Skin: Negative for rash. Neurological: Negative for weakness and numbness. ACTIVE PROBLEM LIST Major Depression, Chronic Primary Hypertension Obesity, Class I, Bmi 30-34.9 Heart Murmur Hyperlipidemia Major Depressive Disorder, Recurrent Episode, Moderate (Hcc) Social History Tobacco Use Smoking status: Former Current packs/day: 1.00 Average packs/day: 1 pack/day for 3.0 years (3.0 ttl pk-yrs) Types: Cigarettes Smokeless tobacco: Never Tobacco comments: quit 15 years ago. Started age 30. Vaping Use Vaping status: Never Used Substance Use Topics Alcohol use: Not Currently Comment: 1 drink per year Drug use: Not Currently Types: Marijuana Comment: 16-23 years old Current Outpatient Medications Medication Sig lamoTRIgine (LAMICTAL) 100 mg tablet Take 1 tablet by mouth once daily. buPROPion XL (WELLBUTRIN XL) 300 mg 24 hr tablet Take 1 tablet by mouth once daily. DULoxetine (CYMBALTA) 60 mg capsule Take 1 capsule by mouth daily at bedtime. baclofen 10 mg tablet Take 1 tablet by mouth three times a day for 7 days. hydroCHLOROthiazide 25 mg tablet Take 1 tablet by mouth once daily. atorvastatin (LIPITOR) 20 mg tablet Take 1 tablet by mouth daily at bedtime. For cholesterol. No current facility-administered medications for this visit. Objective BP 102/62 Pulse 88 Temp 36.8 ?C (98.2 ?F) Ht 157.5 cm (5' 2) Wt 80.2 kg (176 lb 12.9 oz) SpO2 97% BMI 32.34 kg/m? Physical Exam Constitutional: General: He is not in acute distress. Appearance: He is not diaphoretic. Cardiovascular: Heart sounds: Normal heart sounds. Pulmonary: Breath sounds: Normal breath sounds. Abdominal: General: There is no distension. Palpations: Abdomen is soft. There is no mass. Tenderness: There is no abdominal tenderness. There is no right CVA tenderness or left CVA tenderness. Musculoskeletal: Lumbar back: Tenderness present. No deformity, spasms or bony tenderness. Decreased range of motion. Negative right straight leg raise test and negative left straight leg raise test. Right hip: No deformity. Normal range of motion. Left hip: No deformity, tenderness, bony tenderness or crepitus. Normal range of motion. Normal strength. Right upper leg: Normal. Left upper leg: Tenderness present. No swelling, edema or deformity. Left knee: No swelling or deformity. No tenderness. Neurological: Mental Status: He is alert. Sensory: No sensory deficit. Motor: No weakness. Gait: Gait abnormal. Deep Tendon Reflexes: Reflexes normal. Comments: Ambulatory with cane. Psychiatric: Attention and Perception: Attention normal. Mood and Affect: Mood is depressed. Speech: Speech normal. Assessment and Plan 1. Left low back pain, unspecified chronicity, unspecified whether sciatica present - ICD9: 724.2, ICD10: M54.50 Shared medical decision making was done. - CONSULT TO PAIN MGT - GABAPENTIN 100 MG CAPSULE Discussed medication dosage, usage, goals of therapy, and side effects. Mark Nova MD Allergies As of Date: 06/20/2024 Noted Allergy Reaction BENADRYL (DIPHENHYDRAMINE) 10/30/2021 1 - Mental Status Change Comments: Sends into severe depression Date Reviewed: 06/20/2024 Reviewed by: Leticia Conde MA - Fully Assessed Reason for Visit: Pain [78] Primary Visit Diagnosis:Left low back pain, unspecified chronicity, unspecified whether sciatica present [M54.50] Order(s):CONSULT TO PAIN MGT [[id number]] Order #: [id number]: 1 FUTURE gabape (more content not included)... Normal [facility] CNOV Office Visit (PSWSTR ) JUAN KILLIAN ([id number]) 1950 M Date Time Provider Department 06/20/24 8:00 AM MELINA BRITT PSWSTR During your visit today, we recorded the following information about you: Pulse Respiration Blood pressure Weight 75/minute 16/minute 140/78 80.2 kg Melina Britt, DIRECTOR MEDICAL WRITING.COPY CENTER OPERATOR 06/20/2024 8:31 AM Signed FOLLOW UP - PSYCHIATRIC PROGRESS NOTE PATIENT: Juan Killian DATE: June 20, 2024 Visit Type:In person All information is from Patient report except when noted. This evaluation is NOT intended for forensic, disability or child custody purposes. CC: Presenting today for follow up regarding psychiatric medication management. HPI: Treatment Plan from Last Visit on 12/21/2023: TREATMENT PLAN: Continue psychiatric medications at the same dose. Reviewed medications in detail. Provided information in writing per patient request. Encouraged patient to utilize topical anti-histamine to manage any itching on the hand. He reports adjusting more to the Lamictal at the 100 mg dose. Lab work has been ordered by PCP for the patient to complete prior to the next appointment. Continue engagement in coping skills. Follow up in 6 months Today Juan shares that he fell on ice 5 weeks ago. Has been struggling with pain in left leg. He didn't go to the ED the day of the fall but then gradually his pain became worse. Reports that he continues to experience pain in his back and left leg. Has noticed just some minor benefit from the baclofen. Patient thought that he had an appointment scheduled this week with this PCP but he doesn't till November. Was encouraged to schedule an appointment today. Sleeping on the floor is no longer helping him manage the back pain. His mood is still good. He is still going to work. Discussed how he is going to try to work as long as he can. Shares that it is good for his mental health. Discusses that he needs to get a new couch as it is not helpful for his pain. Enjoys spending time with his dog. Shares that he is no longer experiencing itching or rashes related to Lamictal. Appears that his body has gotten used to the medication. Consistent in taking his psychiatric medications and reports getting the same level of benefit without any new side effects. The lab work was reviewed and it was WNL. Interval Progress: Slightly worse due to the pain. PATIENT DATA: Generalized Anxiety Disorder Scale (GI-7) 09/07/2023 11/02/2023 12/21/2023 GI - 7 SCORES Score 1 0 0 (0-4) minimal anxiety, (5-9) mild anxiety, (10-14) moderate anxiety, (15-21) severe anxiety Patient Health Questionnaire (PHQ-9) 09/07/2023 11/02/2023 12/21/2023 PHQ-9 Score 1 4 2 (0-4) minimal depression, (5-9) mild depression, (10-14) moderate depression, (15-19) moderately severe depression, (20-27) severe depression PAST MEDICAL HISTORY Diagnosis Date Anxiety 2009 Depressive type psychosis 2009 Diastasis of rectus abdominis 08/01/2012 Heart murmur 10/30/2021 Hydrocele 2010 Impaired fasting blood sugar 09/05/2013 Major depression, chronic 10/30/2021 Obesity, Class I, BMI 30-34.9 10/30/2021 Physiological tremor 11/14/2009 Primary hypertension 10/30/2021 Sleep apnea 2013 Tobacco use 08/13/2022 PAST SURGICAL HISTORY Procedure Laterality Date SEPTOPLASTY 1970 ALLERGIES Allergen Reactions Benadryl [Diphenhyd* Mental Status Change Sends into severe depression Current Outpatient Medications on File Prior to Visit Medication Sig baclofen 10 mg tablet Take 1 tablet by mouth three times a day for 7 days. buPROPion XL (WELLBUTRIN XL) 300 mg 24 hr tablet Take 1 tablet by mouth once daily. hydroCHLOROthiazide 25 mg tablet Take 1 tablet by mouth once daily. atorvastatin (LIPITOR) 20 mg tablet Take 1 tablet by mouth daily at bedtime. For cholesterol. lamoTRIgine (LAMICTAL) 100 mg tablet Take 1 tablet by mouth once daily. DULoxetine (CYMBALTA) 60 mg capsule Take 1 capsule by mouth daily at bedtime. No current facility-administered medications on file prior to visit. ROS: See HPI PFSH: See HPI VITAL SIGNS: 06/20/24 0756 BP: 140/78 Pulse: 75 Resp: 16 SpO2: 99% Weight: 80.2 kg (176 lb 12.8 oz) Last 3 Encounter BP Readings: Date: BP: 06/20/2024 140/78 06/16/2024 114/62 06/07/2024 111/56 MENTAL STATUS EXAMINATION: Appearance: Casually dressed and groomed Behavior: Behaves appropriately during the encounter Social relatedness: Euthymic Speech/Language: The patient demonstrates appropriate tone, prosody, jacobo, phonetics, and syntax Mood: euthymic Affect: Full and appropriate to topic Orientation: Person, Place, Time and Situation Associations: Intact and linear Hallucinations: None Delusions: None Suicidal Ideation: No suicidal ideation, intent or plan. Homicidal Ideation: No homicidal ideation, intent or (more content not included)... Normal [facility] CNOVon 06-16-2024 CNOV Office Visit (INTMWS ) JUAN KILLIAN ([id number]) 1950 M Date Time Provider Department 06/16/24 1:20 PM MARK NOVA INTMWS During your visit today, we recorded the following information about you: Temperature Pulse Respiration Blood pressure 98.2 degrees 73/minute 18/minute 114/62 Weight 80.1 kg Mark Nova MD 06/16/2024 1:51 PM Signed This note was created using [employer]. Subjective Patient presents with: ED Follow-up: [facility] 06/07/2024 after fall; continues with pain to left leg and tailbone Juan Killian is a 74 year old male. His back and tailbone pain was much better. His US of the aorta was negative for abdominal aortic aneurysm, and CT of his lumbar spine showed no acute injury. He was now experiencing moderate to severe sharp pain of his left thigh above the knee. This was aggravated by walking. Review of Systems Constitutional: Negative for fever. Cardiovascular: Negative for leg swelling. Musculoskeletal: Negative for gait problem and joint swelling. Skin: Negative for color change. Neurological: Negative for weakness and numbness. ACTIVE PROBLEM LIST Major Depression, Chronic Primary Hypertension Obesity, Class I, Bmi 30-34.9 Heart Murmur Hyperlipidemia Major Depressive Disorder, Recurrent Episode, Moderate (Hcc) Social History Tobacco Use Smoking status: Former Current packs/day: 1.00 Average packs/day: 1 pack/day for 3.0 years (3.0 ttl pk-yrs) Types: Cigarettes Smokeless tobacco: Never Tobacco comments: quit 15 years ago. Started age 30. Vaping Use Vaping status: Never Used Substance Use Topics Alcohol use: Not Currently Comment: 1 drink per year Drug use: Not Currently Types: Marijuana Comment: 16-23 years old Current Outpatient Medications Medication Sig buPROPion XL (WELLBUTRIN XL) 300 mg 24 hr tablet Take 1 tablet by mouth once daily. hydroCHLOROthiazide 25 mg tablet Take 1 tablet by mouth once daily. atorvastatin (LIPITOR) 20 mg tablet Take 1 tablet by mouth daily at bedtime. For cholesterol. lamoTRIgine (LAMICTAL) 100 mg tablet Take 1 tablet by mouth once daily. DULoxetine (CYMBALTA) 60 mg capsule Take 1 capsule by mouth daily at bedtime. No current facility-administered medications for this visit. Objective BP 114/62 Pulse 73 Temp 36.8 ?C (98.2 ?F) Resp 18 Wt 80.1 kg (176 lb 9.4 oz) SpO2 95% BMI 31.68 kg/m? Physical Exam Constitutional: General: He is not in acute distress. Appearance: He is not ill-appearing. Cardiovascular: Pulses: Normal pulses. Musculoskeletal: Right shoulder: No tenderness. Left shoulder: No tenderness. Cervical back: No tenderness. Lumbar back: No deformity, spasms or tenderness. Negative right straight leg raise test and negative left straight leg raise test. Right hip: No tenderness or crepitus. Normal range of motion. Left hip: No tenderness or crepitus. Normal range of motion. Left upper leg: Tenderness present. No swelling, deformity or bony tenderness. Left knee: Normal. No deformity or effusion. No tenderness. Left lower leg: No swelling or tenderness. Neurological: Mental Status: He is alert. Sensory: No sensory deficit. Motor: No weakness. Gait: Gait normal. ER results reviewed. Assessment and Plan 1. Acute pain of left thigh - ICD9: 729.5, ICD10: M79.652 Likely muscular. - XR FEMUR GENERAL 2V AP/LAT LEFT - BACLOFEN 10 MG TABLET Mark Nova MD Referring Provider: MALENA DUKE [[id number]] Allergies As of Date: 06/16/2024 Noted Allergy Reaction BENADRYL (DIPHENHYDRAMINE) 10/30/2021 1 - Mental Status Change Comments: Sends into severe depression Date Reviewed: 06/16/2024 Reviewed by: Rola Santoro LPN - Fully Assessed Reason for Visit: ED Follow-up [821] Cmt: [facility] 06/07/2024 after fall; continues with pain to left leg and tailbone Primary Visit Diagnosis:Acute pain of left thigh [M79.652] Order(s):XR FEMUR GENERAL 2V AP/LAT LEFT [[id number]] Order #: [id number] FUTURE baclofen 10 mg tabletTake 1 tablet by mouth three times a day for 7 days.Disp: 21 tabletRfl: 0 Prescriptions as of 06/16/2024 - baclofen 10 mg tablet Take 1 tablet by mouth three times a day for 7 days. - buPROPion XL (WELLBUTRIN XL) 300 mg 24 hr tablet Take 1 tablet by mouth once daily. - hydroCHLOROthiazide 25 mg tablet Take 1 tablet by mouth once daily. - atorvastatin (LIPITOR) 20 mg tablet Take 1 tablet by mouth daily at bedtime. For cholesterol. - lamoTRIgine (LAMICTAL) 100 mg tablet Take 1 tablet by mouth once daily. - DULoxetine (CYMBALTA) 60 mg capsule Take 1 capsule by mouth daily at bedtime. Problem List As Of Date 06/16/2024 Noted Resolved Major depression, chronic [F32.9] 10/30/2021 Primary hypertension [I10] 10/30/2021 Obesity, Class I, BMI 30-34.9 [E66.811] 10/30/2021 Heart murmur [R01.1] 10/30/2021 Hyperlip (more content not included)... Normal [facility] Abdominal Aorta for babar baeza 06-16-2024 IMPRESSION: Negative study for abdominal aortic aneurysm. Press Pipe Inspector: SANKET Transcribe Date/Time: Jun 16 2024 8:48A Dictated by : GODFREY BARNES MD This examination was interpreted and the report reviewed and electronically signed by: GODFREY BARNES MD on Jun 16 2024 8:49AM [facility] DIVISION OF RADIOLOGY * * *Final Report* * * DATE OF EXAM: Jun 16 2024 7:56AM WRU 1028 - US SCREENING AAA / PROCEDURE REASON: Screening for abdominal aortic aneurysm * * * * Physician Interpretation * * * * EXAMINATION: SCREENING ABDOMINAL AORTA ULTRASOUND HISTORY: Screening evaluation for abdominal aortic aneurysm. Risk factor for aortic aneurysm. TECHNIQUE: Sonography of the abdominal aorta was performed. Images were obtained and stored in a permanent archive. MQ: USAOS_1 COMPARISON: None RESULT: AORTA (AP x TV): Proximal: 1.9 cm x 2.3 cm Mid (level of renal arteries): 1.6 cm x 1.9 cm Distal:1.5 cm x 1.9 cm Common Iliac Arteries (AP x TV): Right:1.2 cm x 1.3 cm Left: 1.4 cm x 1.1 cm Atherosclerotic plaque: present DIVISION OF RADIOLOGY Provider, [facility] - 06/16/2024 * * *Final Report* * * DATE OF EXAM: Jun 16 2024 7:56AM WRU 1028 - US SCREENING AAA / PROCEDURE REASON: Screening for abdominal aortic aneurysm * * * * Physician Interpretation * * * * EXAMINATION: SCREENING ABDOMINAL AORTA ULTRASOUND HISTORY: Screening evaluation for abdominal aortic aneurysm. Risk factor for aortic aneurysm. TECHNIQUE: Sonography of the abdominal aorta was performed. Images were obtained and stored in a permanent archive. MQ: USAOS_1 COMPARISON: None RESULT: AORTA (AP x TV): Proximal: 1.9 cm x 2.3 cm Mid (level of renal arteries): 1.6 cm x 1.9 cm Distal:1.5 cm x 1.9 cm Common Iliac Arteries (AP x TV): Right:1.2 cm x 1.3 cm Left: 1.4 cm x 1.1 cm Atherosclerotic plaque: present IMPRESSION IMPRESSION: Negative study for abdominal aortic aneurysm. Press Pipe Inspector: [facility] Transcribe Date/Time: Jun 16 2024 8:48A Dictated by : GODFREY BARNES MD This examination was interpreted and the report reviewed and electronically signed by: GODFREY BARNES MD on Jun 16 2024 8:49AM EST [facility] Radiology Study observation (narrative) [facility] US Abdominal Aorta for babar Barrientosrdered By: [facility] Provider on 06-16-2024 [facility] US SCREENING AAAon US SCREENING AAA * * *Final Report* * * DATE OF EXAM: Jun 16 2024 7:56AM WRU 1028 - US SCREENING AAA / PROCEDURE REASON: Screening for abdominal aortic aneurysm * * * * Physician Interpretation * * * * EXAMINATION: SCREENING ABDOMINAL AORTA ULTRASOUND HISTORY: Screening evaluation for abdominal aortic aneurysm. Risk factor for aortic aneurysm. TECHNIQUE: Sonography of the abdominal aorta was performed. Images were obtained and stored in a permanent archive. MQ: USAOS_1 COMPARISON: None RESULT: AORTA (AP x TV): Proximal: 1.9 cm x 2.3 cm Mid (level of renal arteries): 1.6 cm x 1.9 cm Distal:1.5 cm x 1.9 cm Common Iliac Arteries (AP x TV): Right:1.2 cm x 1.3 cm Left: 1.4 cm x 1.1 cm Atherosclerotic plaque: present IMPRESSION: Negative study for abdominal aortic aneurysm. Press Pipe Inspector: [facility] Transcribe Date/Time: Jun 16 2024 8:48A Dictated by : GODFREY BARNES MD This examination was interpreted and the report reviewed and electronically signed by: GODFREY BARNES MD on Jun 16 2024 8:49AM EST [id number] Normal [facility] XR FEMUR 2V AP/LAT LTon 06-03 XR FEMUR 2V AP/LAT LT * * *Final Report* * * DATE OF EXAM: Jun 16 2024 1:59PM WOX [id number] - XR FEMUR 2V AP/LAT LT / PROCEDURE REASON: Acute pain of left thigh * * * * Physician Interpretation * * * * EXAMINATION: XR FEMUR 2V AP/LAT LT HISTORY: slipped on ice 4-5 weeks ago pain lower third of left femur Acute pain of left thigh . TECHNIQUE: XR FEMUR 2V AP/LAT LT Laterality: LEFT Number of different views (projections): 2 M: XB_1 COMPARISON: None RESULT/ IMPRESSION: Moderate left knee osteoarthritis with medial joint compartment narrowing and osteophytes. Mild left hip osteoarthritis is also noted. No acute fracture or dislocation. No other significant abnormality. Press Pipe Inspector: PSCB Transcribe Date/Time: Jun 21 2024 12:55P Dictated by : JAZZ MEZA MD This examination was interpreted and the report reviewed and electronically signed by: JAZZ MEZA MD on Jun 21 2024 1:38PM EST [id number] Normal [facility] CNOVon 06-07-2024 CNOV Office Visit (WSTR ) JUAN KILLIAN ([id number]) 1950 M Date Time Provider Department 06/07/24 7:00 AM DEVON THOMAS [facility] During your visit today, we recorded the following information about you: Temperature Pulse Respiration Blood pressure 98.6 degrees 86/minute 16/minute 122/86 Weight 83.5 kg Devon Thomas MD 06/07/2024 2:46 PM Addendum Patient presents with: Low Back Pain: right side injection yesterday HPI: Back pain: Duration: slipped on ice and fell 2-3 weeks ago and landed on the right hip. He started having pain the next day which has progressively worsened since. He was seen by his PCP for this 2 days ago had imaging and a Toradol shot. He had a wellness visit with primary care yesterday. Pain was so intense he almost called the ambulance last night. Character: 01/12 the last 3 days, radiating ache Location: point at left sacrum Radiation: some into the right lumbosacral junction, sometimes between the upper shoulder blades. No radiation to the legs Aggravating: sitting, lying down, bending Relieving: Pain relievers: taking 400mg ibuprofen per dose up to 1200mg/day, linament, pain patch Associated: mild constipation, bruise right hip Pertinent negatives: Denies numbness or weakness, fever, loss of bladder or bowel control, blood in stool, chest pain, shortness of breath, palpitations, cough, blood in stool, muscle spasms. Imaging: Had x-ray of sacrum 2 days ago final report is not complete MEDICATIONS: buPROPion XL (WELLBUTRIN XL) 300 mg 24 hr tablet Take 1 tablet by mouth once daily. hydroCHLOROthiazide 25 mg tablet Take 1 tablet by mouth once daily. atorvastatin (LIPITOR) 20 mg tablet Take 1 tablet by mouth daily at bedtime. For cholesterol. lamoTRIgine (LAMICTAL) 100 mg tablet Take 1 tablet by mouth once daily. DULoxetine (CYMBALTA) 60 mg capsule Take 1 capsule by mouth daily at bedtime. ALLERGIES: ALLERGIES Allergen Reactions Benadryl [Diphenhyd* Mental Status Change Sends into severe depression VITALS: BP 122/86 Pulse 86 Temp 37 ?C (98.6 ?F) Resp 16 Wt 83.5 kg (184 lb 1.4 oz) SpO2 98% BMI 33.03 kg/m? PHYSICAL EXAM: GEN: somewhat nervous but otherwise pleasant, alert, no acute distress, standing for comfort HEENT: PERRL, EOMI, MMM HEART: regular rate, regular rhythm, systolic murmurs LUNGS: clear to auscultation, no wheezes or crackles, no increased WOB ABD: Soft, non-distended, non-tender, no masses BACK: Normal curvature of spine. Discomfort at left sacral border. No coccyx pain. No midline tenderness. No paraspinal tenderness. Normal gait and lower extremity strength. ASSESSMENT/PLAN: 1. Acute left-sided low back pain without sciatica - ICD9: 724.2, ICD10: M54.50 Pain out of proportion to exam. I see no severe abnormality on plain film of the sacrum and coccyx. I requested radiologist read to be completed this morning. CT imaging may be indicated to rule out compression fracture or pelvic source of pain such as retrocardiac bleed or dissection. He will drive himself to [facility]; report called. Devon Thomas MD Allergies As of Date: 06/07/2024 Noted Allergy Reaction BENADRYL (DIPHENHYDRAMINE) 10/30/2021 1 - Mental Status Change Comments: Sends into severe depression Date Reviewed: 06/07/2024 Reviewed by: Sobia Caldera RN - Fully Assessed Reason for Visit: Low Back Pain [126] Cmt: right side injection yesterday Primary Visit Diagnosis:Acute left-sided low back pain without sciatica [M54.50] Prescriptions as of 06/07/2024 - traMADol (ULTRAM) 50 mg tablet Take 1 tablet by mouth every 6 hours as needed for pain for up to 3 days. - buPROPion XL (WELLBUTRIN XL) 300 mg 24 hr tablet Take 1 tablet by mouth once daily. - hydroCHLOROthiazide 25 mg tablet Take 1 tablet by mouth once daily. - atorvastatin (LIPITOR) 20 mg tablet Take 1 tablet by mouth daily at bedtime. For cholesterol. - lamoTRIgine (LAMICTAL) 100 mg tablet Take 1 tablet by mouth once daily. - DULoxetine (CYMBALTA) 60 mg capsule Take 1 capsule by mouth daily at bedtime. Problem List As Of Date 06/07/2024 Noted Resolved Major depression, chronic [F32.9] 10/30/2021 Primary hypertension [I10] 10/30/2021 Obesity, Class I, BMI 30-34.9 [E66.811] 10/30/2021 Heart murmur [R01.1] 10/30/2021 Hyperlipidemia [E78.5] 08/12/2022 Tobacco use [Z72.0] 08/13/2022 05/26/2023 Major depressive disorder, recurrent episode, m*06/06/2024 Level of Service: OFFICE/OUTPATIENT ESTABLISHED MOD [facility] 30 MIN [10355] Encounter Status:Closed by DEVON THOMAS on 06/07/24 Normal [facility] CT CHEST WO IVCONon 06-08-19 CT CHEST WO IVCON * * *Final Report* * * DATE OF EXAM: Jun 07 2024 9:32AM [facility] [place] / PROCEDURE REASON: Chest trauma, blunt * * * * Physician Interpretation * * * * EXAMINATION: CHEST CT WITHOUT CONTRAST HISTORY: Clinical information: Chest trauma, blunt 10/10 back pain. Had a slip on the ice 2 weeks ago pain is middle to lower back pain. Was seen at [facility] and they sent him here for MRI he states. His pain began 2 days after he fall and has gotten worse. He denies loss of bowel or bladder Technique: Spiral CT acquisition of the chest from the thoracic inlet to the upper abdomen without contrast. MQ: CTCWO_ CT Radiation dose: Integrated Dose-length product (DLP) for this visit = 1412 mGy*cm CT Dose Reduction Employed: Automated exposure control(AEC) and iterative recon Comparison: None RESULT: Limitations: None. Lines, tubes, and devices: None. Lung parenchyma and airways: * Patchy alveolar consolidation throughout the RIGHT midlung field.: No other consolidation. No suspicious pulmonary nodule. The central airways are patent. Pleural space: No pleural effusion. No pleural thickening. Lower neck, lymph nodes, and mediastinum: The imaged thyroid gland is normal. No lymphadenopathy in the supraclavicular, axillary, mediastinal, or hilar regions. Heart, pericardium, and thoracic vessels: The thoracic aorta and main pulmonary artery are normal in caliber. The cardiac chambers are normal in size. No coronary artery atherosclerotic calcifications are noted, although the study is not optimized for coronary assessment. No pericardial effusion or thickening. Bones and soft tissues: * Remote healed rib fracture RIGHT third rib anteriorly No destructive bone lesion. Chest wall is unremarkable. Upper abdomen: No abnormality in the imaged upper abdomen. Localizer images: No additional findings. IMPRESSION: 1. Patchy alveolar consolidation RIGHT midlung field this could be on an infectious or inflammatory basis. Could possibly also be due to contusion. 2. No other acute findings are seen Press Pipe Inspector: SANKET Transcribe Date/Time: Jun 07 2024 9:51A Dictated by : TYRESE TOMLIN DO This examination was interpreted and the report reviewed and electronically signed by: TYRESE TOMLIN DO on Jun 07 2024 10:05AM EST [id number] [facility] CT LUMBAR SPINE WO IVCONon 0 06-07-2024 CT LUMBAR SPINE WO IVCON * * *Final Report* * * DATE OF EXAM: Jun 07 2024 9:32AM [facility] [place] LUMBAR SPINE WO IVCON / PROCEDURE REASON: Spine fracture, lumbar, traumatic * * * * Physician Interpretation * * * * EXAMINATION: CT LUMBAR SPINE WO IVCON CLINICAL HISTORY: Fall, concern for fracture. TECHNIQUE: Spiral, high resolution axial unenhanced images were obtained from the thoracolumbar junction to the sacrum with sagittal and coronal planar reconstructions. MQ: [id number]_3 CT Radiation dose: Integrated Dose-Length Product (DLP) for this visit = 1412 mGy*cm. CT Dose Reduction Employed: Automated exposure control(AEC) and iterative recon COMPARISON: None. RESULT: Counting reference: Lumbosacral junction. For the purposes of this report, L4-5 is considered the level of the iliac crest and assume there are 5 lumbar-type vertebrae. Anatomic variant: None. Switchboard Mechanic (topogram) images: None provided Alignment: Alignment is anatomic. Minimal dextroscoliotic curve. Minimal retrolisthesis of L4 on L5 and L1-L2. Bone marrow /fracture: No evidence of a lytic or blastic process in the visualized spine. No evidence of acute or chronic fracture or traumatic subluxations. Vertebral body heights are maintained. Multilevel disc space height loss, moderate at sequential levels L1-L4, and severe at L5-S1. Endplate degenerative changes with bulky osteophytes. Paraspinal soft tissues: The paraspinal soft tissues planes are maintained. Lower thoracic spine: The visualized lower thoracic bony canal and foramina are patent. L1-L2: Slight retrolisthesis of L1-L2, with posterior disc bulge resulting in mild foraminal stenosis bilaterally. The canal is patent. L2-L3: Posterior disc bulging with ligamentum hypertrophy and facet arthropathic change resulting in moderate bilateral foraminal stenosis. The canal is patent. L3-L4: Posterior disc bulging, ligamentum flavum hypertrophy, facet arthropathic changes resulting in moderate right and mild left foraminal stenosis, and mild canal stenosis. L4-L5: Posterior disc bulging, ligamentum flavum hypertrophy, facet arthropathic changes resulting in moderate right and mild left foraminal stenosis and mild canal stenosis. L5-S1: Posterior disc bulging with posteriorly directed osteophytes, ligamentum hypertrophy, facet arthropathic changes resulting in mild right foraminal stenosis. The canal and left neural foramen is patent. Sacrum and iliac wings: The visualized sacrum and iliac wings are within normal limits. IMPRESSION: No acute osseous abnormalities. Degenerative changes of the lumbar spine resulting in up to mild canal stenosis at L3-L4 and L4-L5, and up to moderate foraminal stenosis at L2-L3, right L3-L4 neural foramen, and right L4-L5 neural foramen. Anatomic Lumbar Variant: None. L4-5 is considered the level of the iliac crest and assume there are 5 lumbar-type vertebrae. Press Pipe Inspector: SANKET Transcribe Date/Time: Jun 07 2024 9:52A Dictated by : BABAK CURRY DO This examination was interpreted and the report reviewed and electronically signed by: LINDY REEVES MD on Jun 07 2024 10:34AM EST [id number] [facility] ED NOTEon 06-07-2024 ED NOTE HNO ID: [id number] Author: DEWEY TAN RN Service: ? Author Type: Registered Nurse Type: ED Notes Filed: 06/07/2024 10:43 Note Text: Pt lying on right side. Sts this is lowest pain has been. Sts finally found more comfortable position [facility] ED PROV NOTEon 06-07-2024 ED PROV NOTE HNO ID: [id number] Author: MALENA DUKE MD Service: Emergency Medicine Author Type: Physician Type: ED Provider Notes Filed: 06/07/2024 10:46 Note Text: ED Provider Note Patient Name: Juan Killian : 1950 SERVICE DATE: 06/07/24 History Patient presents with: Back Pain: 10/10 back pain. Had a slip on the ice 2 weeks ago pain is middle to lower back pain. Was seen at [facility] and they sent him here for MRI he states. His pain began 2 days after he fall and has gotten worse. He denies loss of bowel or bladder This is a 74-year-old male who fell about 2 weeks ago. He was walking with his girlfriend. He slipped on ice and fell backwards. He is complaining of right scapular pain and lower lumbar pain. Patient had a sacrococcygeal x-ray yesterday which was reviewed is negative. Patient had a CBC on 26 May as well as a CMP and a lipid panel yesterday which were negative. Patient was seen in urgent care. Patient was sent here by the urgent care physician Dr. Thomas for further evaluation. Patient states he has been taking ibuprofen. Has been taking approximately 1400 mg a day. He denies any loss of bowel or bladder function. No numbness or weakness. 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 08/01/2012 Heart murmur 10/30/2021 Hydrocele 2009 Impaired fasting blood sugar 09/05/2013 Major depression, chronic 10/30/2021 Obesity, Class I, BMI 30-34.9 10/30/2021 Physiological tremor 11/14/2009 Primary hypertension 10/30/2021 Sleep apnea 2012 Tobacco use 08/13/2022 PAST SURGICAL HISTORY Procedure Laterality Date SEPTOPLASTY 1971 FAMILY HISTORY Problem Relation Age of Onset Lung Cancer Mother Colon Cancer Mother Dementia Father Heart Father murmur Hepatitis C Sister Pancreatic Cancer Brother No Known Problems Brother Obesity Brother Social History Tobacco Use Smoking status: Former Current packs/day: 1.00 Average packs/day: 1 pack/day for 3.0 years (3.0 ttl pk-yrs) Types: Cigarettes Smokeless tobacco: Never Tobacco comments: quit 15 years ago. Started age 30. Vaping Use Vaping status: Never Used Substance and Sexual Activity Alcohol use: Not Currently Comment: 1 drink per year Drug use: Not Currently Types: Marijuana Comment: 16-23 years old Sexual activity: Not Currently Partners: Female ALLERGIES Allergen Reactions Benadryl [Diphenhyd* Mental Status Change Sends into severe depression Review of Systems Musculoskeletal: Positive for back pain. Physical Exam Vitals [06/07/24 0846] BP Pulse Temp Temp src Resp SpO2 Weight Height 149/66 (!) 91 36.7 ?C (98.1 ?F) Oral 18 97 % 83.4 kg (183 lb 13.8 oz) -- Physical Exam Vitals and nursing note reviewed. Constitutional: Comments: Pupils are 5 mm round react light extraocular movements tact there is no Guo's or raccoon sign there is no hemotympanums there is no evidence of facial or skull trauma. He has no midline cervical or thoracic pain he has some lower lumbar pain. He has pain in the medial aspect of the right scapula but full range of motion about the shoulder. He has 5-5 strength in the arms and the legs. DTRs are 2+ and equal patellar and Achilles tendons. 2+ radial DP pulses. He complains of some xiphoid pain. No abdominal pain tenderness rebound guarding bruising or ecchymosis is noted. He has no pain on palpation of pelvis. He has full flexion extension internal/external rotation of the hips. The patient is ambulatory without any difficulty. GCS is 15. There is no facial drooping. His speech is fluent. Sensation is intact. Motor strength and coordination are intact. The patient was ambulated today without any difficulty. Diagnostic Testing ED Labs Ordered and Reviewed - No data to display Procedures ED Course / Clinical Impression Clinical Impressions as of 06/07/24 1046 Fall, initial encounter Acute pain of right shoulder Acute midline low back pain without sciatica Contusion of right lung, initial encounter Lumbar contusion, initial encounter MDM / Disposition / Plan This is a male with a fall with a possible posterior right thoracic rib fracture scapular fracture. He could have a lumbar sacral compression. He has no signs of an VT PE or dissection. I do not think this is a AAA. History and Record Review External record(s) reviewed: prior labs/imaging. Findings from review of prior labs/imaging: Sacral x-ray from yesterday negative Previous Renal Function Panel Reviewed 06/06/2024: BUN 27 (H); Creatinine 0.87; Estimated Glomerular Filtration Rate 92 Previous CBC Reviewed No results within last 365 days. Differential Diagnoses - Fall is more likely for the following reason(s): suggested by HANDP - Lumbar contusion is more likely for the following reason(s): suggested by HANDP - Right shoulder contusi (more content not included)... [facility] JUAN KILLIAN ([id number]) 1950 M Date Time Provider Department 06/06/24 8:00 AM ALEXIA COLEMAN IN[facility] During your visit today, we recorded the following information about you: Pulse Respiration Blood pressure Weight 95/minute 16/minute 134/71 83 kg Height 1.59 m Alexia Coleman APRN.CNP 06/06/2024 8:48 AM Signed Juan Killian is a 74 year old male here for a Medicare wellness visit. Medicare Health Risk Assessment General Health Very good Exercise: Minutes/Day 30 min Exercise: Days/Week 7 days Alcohol: Daily Use Never Alcohol: Drinks/Day Patient does not drink Alcohol: 6 or more drinks Never Feel off balance No Concerns: Teeth/Dentures No Concerns: Sexual function No Troubled by feelings None of the above Frequency: Eating healthy diet Nearly every day ADLs requiring help None of the above Safety precautions in home/vehicle Yes Smoke, vape, chews tobacco No Difficulty hearing No Difficulty seeing No Current Providers Specialists: I have reviewed specialist-related care of the patient in the medical record. Current care team: Patient Care Team: Mark Nova MD as PCP - General (Internal Medicine) Alexia Coleman APRN.CNP as Conference Producer (Internal Medicine) Melina Britt APRN-psychiatry [facility] Medical/Family history review Reviewed and updated problem list, medical/surgical/family /social history, medications, and allergies. Opioid use review Opioid Medications (last 90 days) No data to display Anxiety/Depression screening PHQ-2 Score: 0 (Lower risk for depression) Recommendation: no further intervention at this time Cognitive screening Mini Cog Score: 5 Cognitive screening reviewed and No further action needed (score 3-5). Functional Observation Was the patient's Timed Up AND Go test unsteady or >= 12 seconds? No Advance Care Planning Patient was not able to provide a surrogate decision maker or written advance directives Measurements BP 134/71 Pulse 95 Resp 16 Ht 159 cm (5' 2.6) Wt 83 kg (182 lb 15.7 oz) BMI 32.83 kg/m? Vision Screening: Follows with optometry/ophthalmology Assessment/Plan Medicare annual wellness visit, subsequent () - Counseled on healthy diet and regular exercise - Fall avoidance information provided - Personalized prevention plan provided - Discussed need for and benefit of weight loss. BMI 32.83 kg/(m2) Additional Concerns The following concerns were also discussed with the patient: HTN-Medication changes:No Taking all medications as prescribed: Yes Side effects: No Home BP's: No Denies: headache, chest pain, palpitations, dyspnea, and peripheral edema. Last 3 Encounter BP Readings: Date: BP: 06/06/2024 134/71 06/05/2024 130/74 02/01/2024 130/78 Anxiety/depression: Patient is currently taking Cymbalta, Wellbutrin, Lamictal; medications managed by psychiatry Feels medication is working well: yes Persistent/bothersome symptoms: none Side effects: None Denies suicidal thoughts or plan. Taking statin as prescribed. Denies side effects. BP 134/71 Pulse 95 Resp 16 Ht 159 cm (5' 2.6) Wt 83 kg (182 lb 15.7 oz) BMI 32.83 kg/m? Physical Exam Vitals reviewed. Constitutional: Appearance: Normal appearance. Cardiovascular: Rate and Rhythm: Normal rate and regular rhythm. Heart sounds: Murmur heard. Pulmonary: Effort: Pulmonary effort is normal. Breath sounds: No wheezing, rhonchi or rales. Skin: General: Skin is warm and dry. Neurological: Mental Status: He is alert. Psychiatric: Mood and Affect: Mood normal. ASSESSMENT/PLAN: 1. Medicare annual wellness visit, subsequent - ICD9: V70.0, ICD10: Z.00 (primary diagnosis) See medicare wellness plan 2. Major depressive disorder, recurrent episode, moderate (HCC) - ICD9: 296.32, ICD10: F33.1 Stable on medication. Follow-up with psychiatry as scheduled 3. Hyperlipidemia, unspecified hyperlipidemia type - ICD9: 272.4, ICD10: E78.5 - Control undetermined, due for labs - Continue current medications - LIPID PANEL, NONFASTING 4. Primary hypertension - ICD9: 401.9, ICD10: I10 - Controlled - Continue current medications - Recommend home blood pressure monitoring, to bring results to next visit - Encouraged sodium restriction, DASH or Mediterranean diet 5. Screening for abdominal aortic aneurysm - ICD9: V81.2, ICD10: Z13.6 - US SCREENING FOR AAA Alexia Coleman APRN.CNP Medical Decision Making: Problems: Moderate: 2+ stable chronic illnesses Data: Unique test result(s) reviewed: 1 Unique test(s) ordered: 1 Risk: Low: Low risk from testing/treatment Moderate: Drug management Medical Decision Making Level: 4 - Moderate Alexia Coleman APRN.CNP 06/06/2024 8:21 AM Addendum Screening schedule The following prevention plan is recommended: (more content not included)... [facility] JUAN KILLIAN ([id number]) 1950 M Date Time Provider Department 06/06/24 [facility] During your visit today, we recorded the following information about you: Cece Shaikh LPN 06/06/2024 11:48 AM Signed Pt is calling to ask if he can take Aleve for his lower back pain. Pt reports tylenol is not helping and he needs something stronger. Pt reports provider knows all about him falling on the ice and lower back hurting. Pt had appt with pcp yesterday. ASHIA Lora Naz M, APRN.CNP 06/06/2024 3:21 PM Signed Yes he can take Aleve (naproxen) or ibuprofen (Motrin, Advil) JOSE FRANCISCO Newberry Elizabeth, MA 06/07/2024 8:39 AM Signed Left detailed message on Mihaela Carnes MA Allergies As of Date: 06/06/2024 Noted Allergy Reaction BENADRYL (DIPHENHYDRAMINE) 10/30/2021 1 - Mental Status Change Comments: Sends into severe depression Date Reviewed: 06/06/2024 Reviewed by: Alexia Coleman APRN.COPY CENTER OPERATOR - Fully Assessed Reason for Visit: medication question [Other] Prescriptions as of 06/07/2024 - buPROPion XL (WELLBUTRIN XL) 300 mg 24 hr tablet Take 1 tablet by mouth once daily. - hydroCHLOROthiazide 25 mg tablet Take 1 tablet by mouth once daily. - atorvastatin (LIPITOR) 20 mg tablet Take 1 tablet by mouth daily at bedtime. For cholesterol. - lamoTRIgine (LAMICTAL) 100 mg tablet Take 1 tablet by mouth once daily. - DULoxetine (CYMBALTA) 60 mg capsule Take 1 capsule by mouth daily at bedtime. Problem List As Of Date 06/06/2024 Noted Resolved Major depression, chronic [F32.9] 10/30/2021 Primary hypertension [I10] 10/30/2021 Obesity, Class I, BMI 30-34.9 [E66.811] 10/30/2021 Heart murmur [R01.1] 10/30/2021 Hyperlipidemia [E78.5] 08/12/2022 Tobacco use [Z72.0] 08/13/2022 05/26/2023 Major depressive disorder, recurrent episode, m*06/06/2024 Encounter Status:Closed by MIHAELA CARNES on 06/07/24 Normal [facility] Comprehensive metabolic 2000 panelon 06-06-2024 Albumin [Mass/Vol] 4.2 g/dL Normal 3.9-4.9 [facility] Comment on above: Order Comment: Speci men Type: BLOOD SPECIMENOrdering Facility: [facility] Address: [address] [place], [place] [address] [address] Performed By: #### 2 4323-8 ####[facility] [id number] [place] [address] [place]#### 30805-9 ####[facility]ORATORYCLIA [id number] [place] [address] [place] [facility] ALIREZA MILLTOWNCLIA [id number] [place] [address] [place] ALP [Catalytic activity/Vol] 56 U/L Normal 38-113 [facility] Comment on above: Order Comment: Speci men Type: BLOOD SPECIMENOrdering Facility: [facility] Address: [address] [place] [address] Performed By: #### 2 4323-8 ####[facility] MILLTOWNCLIA [id number] [place] [address] [place]#### 38964-2 ####[facility]ORATORYCLIA [id number] [place] [address] [place] [facility]IT[facility] [id number] [place] [address] [place] ALT [Catalytic activity/Vol] 30 U/L Normal 10-54 [facility] Comment on above: Order Comment: Speci men Type: BLOOD SPECIMENOrdering Facility: [facility] Address: [address] [place] [address] Performed By: #### 2 4323-8 ####[facility] CENTERLIA [id number] [place] [address] [place]#### 47091-0 ####[facility]ATORYCLIA [id number] [place] [address] [place] AMERICAPHYSICIANS REG[facility] BOULEVARDWMDLIA [id number] [place] [address] [place] Anion gap [Moles/Vol] 11 mmol/L Normal 8-15 [facility] Comment on above: Order Comment: Speci men Type: BLOOD SPECIMENOrdering Facility: [facility] Address: [address] [place] [address] Performed By: #### 2 4323-8 ####[facility]UL[facility]OWNCLIA [id number] [place] [address] [place]#### 45136-1 ####[facility]ORATORYCLIA [id number] [place], [place] [address] [place] [address] OF [facility] MILLTOWNCLIA [id number] [place] [address] [place] AST [Catalytic activity/Vol] 27 U/L Normal 14-40 [facility] Comment on above: Order Comment: Speci men Type: BLOOD SPECIMENOrdering Facility: [facility] Address: [address] [place] [address] Performed By: #### 2 4323-8 ####[facility] MILLTOWNCLIA [id number] [place] [address] [place]#### 11610-9 ####[facility]ATORYCLIA [id number] [address] STATES OF [facility]ITALL[facility] [id number] [place] [address] [place] Bilirubin [Mass/Vol] 0.5 mg/dL Normal 0.2-1.3 [facility] Comment on above: Order Comment: Speci men Type: BLOOD SPECIMENOrdering Facility: [facility] Address: [address] [place] [address] Performed By: #### 2 4323-8 ####[facility] MILLTOWNCLIA [id number] [place] [address] [place]#### 77321-2 ####[facility]ORATORYCLIA [id number] [address] STATES OF AMERICAWILSON HEALTH MILLTOWNCLIA [id number] [place] [address] [place] Calcium [Mass/Vol] 9.4 mg/dL Normal 8.5-10.2 [facility] Comment on above: Order Comment: Speci men Type: BLOOD SPECIMENOrdering Facility: [facility] Address: [address] [facility] [place] [address] Performed By: #### 2 4323-8 ####[facility] MILLTOWNCLIA [id number] [place] [address] [place]#### 33432-9 ####[facility]ORATORYCLIA [id number] [place] [address] [place] [facility]OH[facility] ALIREZA MILLWMDLIA [id number] [place] [address] [place] Chloride [Moles/Vol] 102 mmol/L Normal 98-107 [facility] Comment on above: Order Comment: Speci men Type: BLOOD SPECIMENOrdering Facility: [facility] Address: [facility] [place] [address] Performed By: #### 2 4323-8 ####[facility] MILLTOWNCLIA [id number] [place] [address] [place]#### 66230-3 ####[facility]ORATORYCLIA [id number] [place] [address] [place] [facility] ALIREZA MILLTOWNCLIA [id number] [place] [address] [place] CO2 [Moles/Vol] 23 mmol/L Normal 22-30 [facility] Comment on above: Order Comment: Speci men Type: BLOOD SPECIMENOrdering Facility: [facility] Address: [address] [place] [address] Performed By: #### 2 4323-8 ####[facility] MILLTOWNCLIA [id number] [place] [address] [place]#### 43783-3 ####[facility]ORATORYCLIA [id number] [address] [id number] [place] [address] [place] Creatinine [Mass/Vol] 0.87 mg/dL Normal 0.73-1.22 [facility] Comment on above: Order Comment: Speci men Type: BLOOD SPECIMENOrdering Facility: [facility] Address: [address] [place] [address] Performed By: #### 2 4323-8 ####[facility] CENTERLIA [id number] [address]#### 64[address]-6 ####[facility] HOSPITALCLIA [id number] [address] [id number] [place] [address] STATES [facility] Creatinine and Glomerular filtration rate.predicted panel (S/P/Bld) 92 mL/min/1.73m??? Normal >=60 [facility] Comment on above: Order Comment: Speci men Type: BLOOD SPECIMENOrdering Facility: [facility] Address: [address] [place] [address] Result Comment: Shikha mated Glomerular Filtration Rate (eGFR) is calculated using the 2020 CKD-EPI creatinine equation. This equation utilizes serum creatinine, sex, and age as parameters. The creatinine assay has traceable calibration to isotope dilution-mass spectrometry. Refer to KDIGO guidelines for clinical interpretation. In patients with unstable renal function, e.g. those with acute kidney injury, the eGFR may not accurately reflect actual GFR. Performed By: #### 2 4323-8 ####[facility] BOULEVARDWMDLIA [id number] [address]#### [address]-5 ####[facility] LABORATORYCLIA [id number] [address] [id number] [place] [address] [place] Glucose [Mass/Vol] 102 mg/dL High 74-99 [facility] Comment on above: Order Comment: Speci men Type: BLOOD SPECIMENOrdering Facility: [facility] Address: [address] [place] [address] Result Comment: The [place] Diabetes Association (ADA) provides guidance for cutoff values for fasting glucose and random glucose. The ADA defines fasting as no caloric intake for at least 8 hours. Fasting plasma glucose results between 100 to 125 mg/dL indicate increased risk for diabetes (prediabetes). Fasting plasma glucose results greater than or equal to 126 mg/dL meet the criteria for diagnosis of diabetes. In the absence of unequivocal hyperglycemia, results should be confirmed by repeat testing. In a patient with classic symptoms of hyperglycemia or hyperglycemic crisis, random plasma glucose results greater than or equal to 200 mg/dL meet the criteria for diagnosis of diabetes. Reference: Standards of Medical Care in Diabetes 2016, [place] Diabetes Association. Diabetes Care. 2016.39(Suppl 1). Performed By: #### 2 4323-8 ####[facility] B[facility]ARDWMDLIA [id number] [place] [address] [place]#### 78202-0 ####[facility]ORATORYCLIA [id number] [place] [address] [place] AMERICAOHIOHEALTH NELSONVILLE HEALTH CENTERLIA [id number] [place] [address] [place] Potassium [Moles/Vol] 4.2 mmol/L Normal 3.7-5.1 [facility] Comment on above: Order Comment: Speci men Type: BLOOD SPECIMENOrdering Facility: [facility] Address: [address] [place] [address] Performed By: #### 2 4323-8 ####[facility] BOULEVARDWNCLIA [id number] [place] [address] [place]#### 08635-6 ####[facility]ORATORYCLIA [id number] [place] [address] [place] [facility] MILLTOWNCLIA [id number] [place] [address] [place] Protein [Mass/Vol] 7.0 g/dL Normal 6.3-8.0 [facility] Comment on above: Order Comment: Speci men Type: BLOOD SPECIMENOrdering Facility: [facility] Address: [address] [place] [address] Performed By: #### 2 4323-8 ####[facility] MILLTOWNCLIA [id number] [place] [address] [place]#### 72604-0 ####[facility] LABORATORYCLIA [id number] [address] STATES OF [facility]ITALLIA [id number] [place] [address] [place] Sodium [Moles/Vol] 136 mmol/L Normal 136-144 [facility] Comment on above: Order Comment: Speci men Type: BLOOD SPECIMENOrdering Facility: [facility] Address: [address] [place] [address] Performed By: #### 2 4323-8 ####[facility] BOULEVARDWNCLIA [id number] [place] [address] [place]#### 97901-4 ####[facility]ORATORYCLIA [id number] [place] [address] [place] AMERICAW[facility] MILLTOWNCLIA [id number] [place] [address] [place] Urea nitrogen [Mass/Vol] 27 mg/dL High 9-24 [facility] Comment on above: Order Comment: Speci men Type: BLOOD SPECIMENOrdering Facility: [facility] Address: [address] [place] [address] Performed By: #### 2 4323-8 ####[facility] EMERGENCYNCLIA [id number] [place] [address] [place]#### 27601-5 ####[facility]ORATORYCLIA [id number] [address] [id number] [place] [address] [place] Lipid 1996 panelon 5 Cholesterol [Mass/Vol] 155 mg/dL Normal <200 [facility] Comment on above: Order Comment: Speci men Type: BLOOD SPECIMENOrdering Facility: [facility] Address: [address] [place] [address] Result Comment: <200 mg/dL, Desirable 200-239 mg/dL, Borderline high >239 mg/dL, High Performed By: #### 2 4323-8 ####[facility] CENTERLIA [id number] [place] [address] [place]#### 82764-0 ####[facility]ORATORYCLIA [id number] [address] [id number] [place] [address] [place] Cholesterol in HDL [Mass/Vol] 49 mg/dL Normal >39 [facility] Comment on above: Order Comment: Speci men Type: BLOOD SPECIMENOrdering Facility: [facility] Address: [address] [place] [address] Result Comment: 40-5 9 mg/dL, Acceptable >59 mg/dL, High: Negative risk factor for coronary heart disease <40 mg/dL, Low: Positive risk factor for coronary heart disease Performed By: #### 2 4323-8 ####[facility]ILLTOWNCLIA [id number] [address] STATES [place]#### 83523-0 ####[facility]ORATORYCLIA [id number] [address] [id number] [address] STATES [facility] Cholesterol in LDL [Mass/Vol] 89 mg/dL Normal <100 [facility] Comment on above: Order Comment: Speci men Type: BLOOD SPECIMENOrdering Facility: [facility] Address: [address] [place] [address] Result Comment: <100 mg/dL, Optimal 100-129 mg/dL, Near optimal/above optimal 130-159 mg/dL, Borderline high 160-189 mg/dL, High >189 mg/dL, Very high Secondary prevention optimal LDL Cholesterol levels are recommended to be < 70 mg/dL Performed By: #### 2 4323-8 ####[facility] [id number] [address] OF [place]#### 98154-5 ####[facility] LABORATORYCLIA [id number] [address] [id number] [place] [address] [place] Cholesterol in LDL/Cholesterol in HDL [Mass ratio] 1.82 {ratio} Normal <2.54 [facility] Comment on above: Order Comment: Speci men Type: BLOOD SPECIMENOrdering Facility: [facility] Address: [address] [place] [address] Result Comment: Leatha pineda: 1. National Cholesterol Education Program ATP III Guideline At-A-Glance Quick Desk Reference: National Heart, Lung, and Blood [place]. National Institutes of Health. 2001: NIH Publication No. 01-3305. 2. An International Atherosclerosis Society position paper: global recommendations for the management of dyslipidemia: executive summary, Atherosclerosis. 2014: 232(2):410-413. Performed By: #### 2 4323-8 ####[facility] [id number] [address] STATES [place]#### 84577-5 ####[facility]ORATORYCLIA [id number] [place], [place] [address] [place] [id number] Cholesterol in VLDL [Mass/Vol] 17 mg/dL Normal <30 [facility] Comment on above: Order Comment: Speci men Type: BLOOD SPECIMENOrdering Facility: [facility] Address: [address] [place] [address] Performed By: #### 2 4323-8 ####[facility] HOSPITALA [id number] [address]#### 50280-3 ####[facility]ORATORYCLIA [id number] [address] [id number] [address] [place] Cholesterol non HDL [Mass/Vol] 106 mg/dL Normal <130 [facility] Comment on above: Order Comment: Speci men Type: BLOOD SPECIMENOrdering Facility: [facility] Address: [address] [place] [address] Result Comment: <130 mg/dL, Optimal 130-159 mg/dL, Near optimal/above optimal 160-189 mg/dL, Borderline high 190-219 mg/dL, High >219 mg/dL, Very high Secondary prevention optimal non HDL Cholesterol levels are recommended to be <100 mg/dL Performed By: #### 2 4323-8 ####[facility] BOU[facility]ARDWNCLIA [id number] [address] [place]#### 99926-6 ####[facility]ATORYCLIA [id number] [place], [place] [address] [place] [id number] [place] Cholesterol.total/Cho lesterol in HDL [Mass ratio] 3.16 {ratio} Normal <5.10 [facility] Comment on above: Order Comment: Speci men Type: BLOOD SPECIMENOrdering Facility: [facility] Address: [address] [place] [address] Performed By: #### 2 4323-8 ####[facility] MILLTOWNCLIA [id number] [place] [address] [place]#### 13146-2 ####[facility]ORATORYCLIA [id number] [address] [id number] [address] OF [place] FASTING TIME 12 hrs Normal [facility] Comment on above: Order Comment: Speci men Type: BLOOD SPECIMENOrdering Facility: [facility] Address: [address] [place] [address] Performed By: #### 2 4323-8 ####[facility] MILLWNCLIA [id number] [address] [place]#### 63509-0 ####[facility]ORATORYCLIA [id number] [address] ALIREZA MILLWNCLIA [id number] [address] [place] Triglyceride [Mass/Vol] 87 mg/dL Normal <150 [facility] Comment on above: Order Comment: Speci men Type: BLOOD SPECIMENOrdering Facility: [facility] Address: [address] [place] [address] Result Comment: <150 mg/dL, Normal 150-199 mg/dL, Borderline high 200-499 mg/dL, High >499 mg/dL, Very high Performed By: #### 2 4323-8 ####[facility]ILLTOWNCLIA [id number] [address] [place]#### 43229-3 ####[facility] LABORATORYCLIA [id number] [place] [address] [place] OF [facility] ALIREZA MILLTOWNCLIA [id number] [place] [address] [place] [address] STATES OF [facility] XR SACRUM/COCCYX 3V AP/LATon 06-06-2024 XR SACRUM/COCCYX 3V AP/LAT * * *Final Report* * * DATE OF EXAM: Jun 06 2024 8:49AM WOX [id number] - XR SACRUM/COCCYX 3V AP/LAT / PROCEDURE REASON: Acute bilateral low back pain without sciatica * * * * Physician Interpretation * * * * EXAMINATION: XR SACRUM/COCCYX 3V AP/LAT PATIENT/TECHNOLOGIST PROVIDED HISTORY: Pt fell on ice 2 weeks ago, tailbone pain ever since. CLINICAL INFORMATION: 74 years old Male with Acute bilateral low back pain without sciatica TECHNIQUE: XR SACRUM/COCCYX 3V AP/LAT Laterality: NOT APPLICABLE Number of different views (projections): 3 COMPARISON: None RESULT: No definite radiographic evidence of acute fracture. Sacroiliac joints are symmetric and maintained. Mild degenerative change at the pubic symphysis. Hip joint spaces appear maintained. Degenerative changes in the lumbar spine. IMPRESSION: No definite radiographic evidence of acute fracture. Press Pipe Inspector: PSCB Transcribe Date/Time: Jun 07 2024 8:15A Dictated by : AARTI HUNT DO This examination was interpreted and the report reviewed and electronically signed by: AARTI HUNT DO on Jun 07 2024 8:18AM EST [id number] Normal [facility] CNOVon 06-05-2024 CNOV Office Visit (INTMWS ) JUAN KILLIAN ([id number]) 1950 M Date Time Provider Department 06/05/24 6:40 PM MARK NOVA INTMWS During your visit today, we recorded the following information about you: Temperature Pulse Respiration Blood pressure 98.4 degrees 76/minute 16/minute 130/74 Weight 83.2 kg Mark Nova MD 06/05/2024 7:18 PM Signed FASTING BLOOD WORK ORDERED. Mark Nova MD 06/05/2024 7:37 PM Signed This note was created using [employer]. Subjective Patient presents with: Candis Killian is a 74 year old male. 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 He landed on his right buttock, right hip, and right upper back. He continued to work but pain has worsened with time, associated with general stiffness and insomnia. He was taking ibuprofen 1000 to 1200 mg daily and applying pain patches with decreasing relief. He denied head injury. He gave a history of a welt on his right hip. He had a pain patch in the right upper back, and 2 pain patches left sacral area. Review of Systems Constitutional: Negative for appetite change, fatigue and fever. HENT: Negative. Respiratory: Negative for cough, chest tightness and shortness of breath. Cardiovascular: Negative for chest pain and palpitations. Gastrointestinal: Negative for abdominal pain, nausea and vomiting. Genitourinary: Negative for difficulty urinating and dysuria. ACTIVE PROBLEM LIST Major Depression, Chronic Primary Hypertension Obesity, Class I, Bmi 30-34.9 Heart Murmur Hyperlipidemia Social History Tobacco Use Smoking status: Former Current packs/day: 1.00 Average packs/day: 1 pack/day for 3.0 years (3.0 ttl pk-yrs) Types: Cigarettes Smokeless tobacco: Never Tobacco comments: quit 15 years ago. Started age 30. Vaping Use Vaping status: Never Used Substance Use Topics Alcohol use: Yes Comment: 1 drink per year Drug use: Not Currently Types: Marijuana Comment: 16-23 years old Current Outpatient Medications Medication Sig buPROPion XL (WELLBUTRIN XL) 300 mg 24 hr tablet Take 1 tablet by mouth once daily. hydroCHLOROthiazide 25 mg tablet Take 1 tablet by mouth once daily. atorvastatin (LIPITOR) 20 mg tablet Take 1 tablet by mouth daily at bedtime. For cholesterol. lamoTRIgine (LAMICTAL) 100 mg tablet Take 1 tablet by mouth once daily. DULoxetine (CYMBALTA) 60 mg capsule Take 1 capsule by mouth daily at bedtime. No current facility-administered medications for this visit. Objective BP 130/74 (BP Site: Left Arm, BP Position: Sitting, BP Cuff Size: Large Adult) Pulse 76 Temp 36.9 ?C (98.4 ?F) (Temporal) Resp 16 Wt 83.2 kg (183 lb 6.8 oz) BMI 30.52 kg/m? Physical Exam Constitutional: General: He is not in acute distress. Appearance: He is not ill-appearing or diaphoretic. HENT: Head: Atraumatic. Pulmonary: Breath sounds: Normal breath sounds. Chest: Chest wall: No tenderness. Abdominal: Palpations: Abdomen is soft. Tenderness: There is no abdominal tenderness. Musculoskeletal: Right shoulder: Tenderness present. No deformity or bony tenderness. Normal range of motion. Left shoulder: Normal. Right upper arm: Normal. Left upper arm: Normal. Right elbow: Normal. Left elbow: Normal. Cervical back: Neck supple. No rigidity or tenderness. Thoracic back: No deformity or tenderness. Normal range of motion. Lumbar back: Bony tenderness present. No deformity, signs of trauma or tenderness. Negative right straight leg raise test and negative left straight leg raise test. Right hip: No deformity, tenderness or crepitus. Normal range of motion. Normal strength. Left hip: No deformity, tenderness or crepitus. Normal range of motion. Normal strength. Right upper leg: Normal. Right knee: Normal. Left knee: Normal. Comments: 1) Right medial upper scapular soft tissue tenderness. 2) Sacral tenderness. No coccygeal tenderness. Skin: Findings: No bruising, erythema or rash. Neurological: Mental Status: He is alert. Sensory: No sensory deficit. Motor: No weakness. Gait: Gait abnormal. Assessment and Plan 1. Fall, initial encounter - ICD9: E888.9, ICD10: W19.XXXA (primary diagnosis) 2. Multiple contusions - ICD9: 924.8, ICD10: T07.XXXA - KETOROLAC 60 MG/2 ML INTRAMUSCULAR SOLUTION Discussed medication dosage, usage, goals of therapy, and side effects. 3. Acute bilateral low back pain without sciatica - ICD9: 724.2, 338.19, ICD10: M54.50 Mainly in sacral area. - KETOROLAC 60 MG/2 ML INTRAMUSCULAR SOLUTION - XR SACRUM/COCCYX 3V AP/LAT Mark Nova MD Referring Provider: SELF [[id number]] Allergies As of Date: 06/05/2024 Noted Allergy Reaction BENADRYL (DIPHENHYDRAMINE) 10/30/2021 1 - Mental Status Change Comments: Sends into severe depression Date Reviewed: 06/05/2024 Reviewed by: Brayan (more content not included)... Normal [facility] CNPNon 04-27-2024 CNPN Telephone (INTMWS) JUAN KILLIAN ([id number]) 1950 Date Time Provider Department 04/27/24 MARK NOVA INTALYSSIA During your visit today, we recorded the following information about you: Tracy Marrero, CLAUDE 04/27/2024 5:50 PM Signed Pt called in asking about getting his medications refilled. I let Pt know he has refills on them. I removed [facility] from his pharmacy list for the future. I told Pt to call [facility] and have them transfer all of his prescriptions to [facility]. Allergies As of Date: 04/27/2024 Noted Allergy Reaction BENADRYL (DIPHENHYDRAMINE) 10/30/2021 1 - Mental Status Change Comments: Sends into severe depression Date Reviewed: 12/21/2023 Reviewed by: Monica Conteh LPN - Fully Assessed Reason for Visit: Medication Question [6058] Prescriptions as of 04/27/2024 - lamoTRIgine (LAMICTAL) 100 mg tablet Take 1 tablet by mouth once daily. - buPROPion XL (WELLBUTRIN XL) 300 mg 24 hr tablet Take 1 tablet by mouth once daily. - DULoxetine (CYMBALTA) 60 mg capsule Take 1 capsule by mouth daily at bedtime. - hydroCHLOROthiazide 25 mg tablet Take 1 tablet by mouth once daily. - atorvastatin (LIPITOR) 20 mg tablet Take 1 tablet by mouth daily at bedtime. For cholesterol. Problem List As Of Date 04/27/2024 Noted Resolved Major depression, chronic [F32.9] 10/30/2021 Primary hypertension [I10] 10/30/2021 Obesity, Class I, BMI 30-34.9 [E66.811] 10/30/2021 Heart murmur [R01.1] 10/30/2021 Hyperlipidemia [E78.5] 08/12/2022 Tobacco use [Z72.0] 08/13/2022 05/26/2023 Encounter Status:Closed by TRACY MARRERO on 04/27/24 [facility] ([id number]) 1950 M Date Time Provider Department 03/09/24 MELINA BRITT PSWSTR During your visit today, we recorded the following information about you: Monica Conteh LPN 03/09/2024 8:15 AM Signed Message left notifying patient of Jury Duty 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 Monica Conteh LPN Allergies As of Date: 03/09/2024 Noted Allergy Reaction BENADRYL (DIPHENHYDRAMINE) 10/30/2021 1 - Mental Status Change Comments: Sends into severe depression Date Reviewed: 12/21/2023 Reviewed by: Monica Conteh LPN - Fully Assessed Prescriptions as of 03/09/2024 - lamoTRIgine (LAMICTAL) 100 mg tablet Take 1 tablet by mouth once daily. - buPROPion XL (WELLBUTRIN XL) 300 mg 24 hr tablet Take 1 tablet by mouth once daily. - DULoxetine (CYMBALTA) 60 mg capsule Take 1 capsule by mouth daily at bedtime. - hydroCHLOROthiazide 25 mg tablet Take 1 tablet by mouth once daily. - atorvastatin (LIPITOR) 20 mg tablet Take 1 tablet by mouth daily at bedtime. For cholesterol. Problem List As Of Date 03/09/2024 Noted Resolved Major depression, chronic [F32.9] 10/30/2021 Primary hypertension [I10] 10/30/2021 Obesity, Class I, BMI 30-34.9 [E66.811] 10/30/2021 Heart murmur [R01.1] 10/30/2021 Hyperlipidemia [E78.5] 08/12/2022 Tobacco use [Z72.0] 08/13/2022 05/26/2023 Encounter Status:Closed by MONICA CONTEH on 03/09/24 [facility] CNCOon 03-07-2024 CNCO Letter Text [facility]03[facility]20[facility] ([id number]) 1950 M Date Time Provider Department 03/03/24 MARK NOVA [facility] During your visit today, we recorded the following information about you: Nery Bridges LPN 03/03/2024 9:27 AM Signed Pt would like letter for Jury duty. He states he has memory issues and cannot serve. Please advise. Shelby Palacios LPN 03/03/2024 3:21 PM Signed Patient would like called when letter is ready for him to citrus picker. Patient did not remember that he had called already for this note. Melina Britt APRN.COPY CENTER OPERATOR 03/06/2024 4:24 PM Signed Please provide the patient with a letter to excuse him from Jury Duty. I can sign the letter tomorrow when I am in the office. Hough[place]oyda 03/08/2024 3:59 PM Signed Patient arriving tomorrow, 03/09/24, to citrus picker jury duty excuse letter. Please notify provider if letter is still needing to be signed. Allergies As of Date: 03/03/2024 Noted Allergy Reaction BENADRYL (DIPHENHYDRAMINE) 10/30/2021 1 - Mental Status Change Comments: Sends into severe depression Date Reviewed: 12/21/2023 Reviewed by: Monica Conteh LPN - Fully Assessed Reason for Visit: Excuse Letter [Other] Cmt: Jury Duty Prescriptions as of 04/11/2024 - lamoTRIgine (LAMICTAL) 100 mg tablet Take 1 tablet by mouth once daily. - buPROPion XL (WELLBUTRIN XL) 300 mg 24 hr tablet Take 1 tablet by mouth once daily. - DULoxetine (CYMBALTA) 60 mg capsule Take 1 capsule by mouth daily at bedtime. - hydroCHLOROthiazide 25 mg tablet Take 1 tablet by mouth once daily. - atorvastatin (LIPITOR) 20 mg tablet Take 1 tablet by mouth daily at bedtime. For cholesterol. Problem List As Of Date 03/03/2024 Noted Resolved Major depression, chronic [F32.9] 10/30/2021 Primary hypertension [I10] 10/30/2021 Obesity, Class I, BMI 30-34.9 [E66.811] 10/30/2021 Heart murmur [R01.1] 10/30/2021 Hyperlipidemia [E78.5] 08/12/2022 Tobacco use [Z72.0] 08/13/2022 05/26/2023 Encounter Status:Closed by NERY BRIDGES LPN on 04/11/24 [facility] Colin 02-16-2024 RIYA Telephone (FAMPWS) JUAN KILLIAN ([id number]) 1950 Date Time Provider Department 02/16/24 MARK NOVA During your visit today, we recorded the following information about you: Aram Garcia 02/16/2024 7:13 PM Signed Patient called in to alert [facility] providers of change of pharmacy to [facility] in [facility]. He would like all future prescriptions to be sent there. Naida Morrison LPN 02/17/2024 8:49 AM Signed [facility] pharmacy selected for future. Naida Morrison LPN Allergies As of Date: 02/16/2024 Noted Allergy Reaction BENADRYL (DIPHENHYDRAMINE) 10/30/2021 1 - Mental Status Change Comments: Sends into severe depression Date Reviewed: 12/21/2023 Reviewed by: Monica Conteh LPN - Fully Assessed Reason for Visit: Medication Problem [65] Cmt: Patient just calling to alert change of pharmacy Prescriptions as of 02/17/2024 - lamoTRIgine (LAMICTAL) 100 mg tablet Take 1 tablet by mouth once daily. - buPROPion XL (WELLBUTRIN XL) 300 mg 24 hr tablet Take 1 tablet by mouth once daily. - DULoxetine (CYMBALTA) 60 mg capsule Take 1 capsule by mouth daily at bedtime. - hydroCHLOROthiazide 25 mg tablet Take 1 tablet by mouth once daily. - atorvastatin (LIPITOR) 20 mg tablet Take 1 tablet by mouth daily at bedtime. For cholesterol. Problem List As Of Date 02/16/2024 Noted Resolved Major depression, chronic [F32.9] 10/30/2021 Primary hypertension [I10] 10/30/2021 Obesity, Class I, BMI 30-34.9 [E66.811] 10/30/2021 Heart murmur [R01.1] 10/30/2021 Hyperlipidemia [E78.5] 08/12/2022 Tobacco use [Z72.0] 08/13/2022 05/26/2023 Encounter Status:Closed by NAIDA MORRISON on 02/17/24 [facility] CNOVon 02-01-2024 CNOV Office Visit (UCWSTR ) JUAN KILLIAN ([id number]) 1950 M Date Time Provider Department 02/01/24 3:45 PM TRENT JONES [facility] During your visit today, we recorded the following information about you: Temperature Pulse Respiration Blood pressure 98.5 degrees 85/minute 16/minute 130/78 Weight 84.6 kg Trent Jones, MILIND 02/01/2024 4:10 PM Signed This note was created using [employer]. Subjective Juan Killian is a 73 year old male. HPI Presents with right ear pain and hearing loss over the past 4 to 5 hours. He had a similar thing happen last year and had cerumen impaction in the left ear. Denies headache. No cough or runny nose. No sore throat. No fever. No recent swimming. No drainage out of the ear. Review of Systems HENT: Positive for ear pain and hearing loss. Negative for congestion, ear discharge, rhinorrhea, sinus pain, sneezing and sore throat. Cardiovascular: Negative. Gastrointestinal: Negative. Genitourinary: Negative. Musculoskeletal: Negative. All other systems reviewed and are negative. 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 90 tablet 1 buPROPion XL (WELLBUTRIN XL) 300 mg 24 hr tablet Take 1 tablet by mouth once daily. 90 tablet 1 DULoxetine (CYMBALTA) 60 mg capsule Take 1 capsule by mouth daily at bedtime. 90 capsule 1 hydroCHLOROthiazide 25 mg tablet Take 1 tablet by mouth once daily. 90 tablet 3 atorvastatin (LIPITOR) 20 mg tablet Take 1 tablet by mouth daily at bedtime. For cholesterol. 90 tablet 3 No current facility-administered medications for this visit. PAST SURGICAL HISTORY Procedure Laterality Date SEPTOPLASTY 1971 FAMILY HISTORY Problem Relation Age of Onset Lung Cancer Mother Colon Cancer Mother Dementia Father Heart Father murmur Hepatitis C Sister Pancreatic Cancer Brother No Known Problems Brother Obesity Brother Social History Tobacco Use Smoking status: Former Current packs/day: 1.00 Average packs/day: 1 pack/day for 3.0 years (3.0 ttl pk-yrs) Types: Cigarettes Smokeless tobacco: Never Tobacco comments: quit 15 years ago. Started age 30. Vaping Use Vaping status: Never Used Substance Use Topics Alcohol use: Yes Comment: 1 drink per year Drug use: Not Currently Types: Marijuana Comment: 16-23 years old Objective BP 130/78 Pulse 85 Temp 36.9 ?C (98.5 ?F) (Tympanic) Resp 16 Wt 84.6 kg (186 lb 8.2 oz) SpO2 96% BMI 31.04 kg/m? Physical Exam Vitals reviewed. Constitutional: Appearance: Normal appearance. HENT: Head: Normocephalic and atraumatic. Right Ear: There is impacted cerumen. Left Ear: Tympanic membrane, ear canal and external ear normal. Nose: Nose normal. Mouth/Throat: Mouth: Mucous membranes are moist. Pharynx: Oropharynx is clear. Skin: General: Skin is warm and dry. Neurological: General: No focal deficit present. Mental Status: He is alert and oriented to person, place, and time. Assessment and Plan ASSESSMENT/PLAN: 1. Hearing loss due to cerumen impaction, right - ICD9: 389.8, 380.4, ICD10: H61.21 Patient cerumen impaction flushed by nursing staff. Upon reexamination he is able to hear and feels improved. No TM perforation on reexamination. SUSHANT Ortiz-C Allergies As of Date: 02/01/2024 Noted Allergy Reaction BENADRYL (DIPHENHYDRAMINE) 10/30/2021 1 - Mental Status Change Comments: Sends into severe depression Date Reviewed: 12/21/2023 Reviewed by: Weeman, Monica, BOARDING KENNEL OR CATTERY OPERATOR - Fully Assessed Reason for Visit: Ear Pain [817] Cmt: Right ear pain x 4 hours Primary Visit Diagnosis:Hearing loss due to cerumen impaction, right [H61.21] Prescriptions as of 02/01/2024 - lamoTRIgine (LAMICTAL) 100 mg tablet Take 1 tablet by mouth once daily. - buPROPion XL (WELLBUTRIN XL) 300 mg 24 hr tablet Take 1 tablet by mouth once daily. - DULoxetine (CYMBALTA) 60 mg capsule Take 1 capsule by mouth daily at bedtime. - hydroCHLOROthiazide 25 mg tablet Take 1 tablet by mouth once daily. - atorvastatin (LIPITOR) 20 mg tablet Take 1 tablet by mouth daily at bedtime. For cholesterol. Problem List As Of Date 02/01/2024 Noted Resolved Major depression, chronic [F32.9] 10/30/2021 Primary hypertension [I10] 10/30/2021 Obesity, Class I, BMI 30-34.9 [E66.811] 10/30/2021 Heart murmur [R01.1] 10/30/2021 Hyperlipidemia [E78.5] 08/12/2022 Tobacco use [Z72.0] 08/13/2022 05/26/2023 (more content not included)... Normal [facility] CBC panel Auto (Bld)on 05-26 Erythrocyte distribution width (RBC) [Ratio] 13.7 % 11.5 - 15.0 % [facility] Hematocrit (Bld) [Volume fraction] 42.4 % 39.0 - 51.0 % [facility] Hemoglobin (Bld) [Mass/Vol] 14.8 g/dL 13.0 - 17.0 g/dL [facility] MCH (RBC) [Entitic mass] 30.2 pg 26.0 - 34.0 pg [facility] MCHC (RBC) [Mass/Vol] 34.9 g/dL 30.5 - 36.0 g/dL [facility] MCV (RBC) [Entitic vol] 86.5 fL 80.0 - 100.0 fL [facility] Nucleated RBC (Bld) [#/Vol] <0.01 k/uL [facility] Platelet mean volume (Bld) [Entitic vol] 9.6 fL 9.0 - 12.7 fL [facility] Platelets (Bld) [#/Vol] 306 10*3/uL 150 - 400 k/uL [facility] RBC (Bld) [#/Vol] 4.90 10*6/uL 4.20 - 6.0 0 m/uL [facility] WBC (Bld) [#/Vol] 7.84 10*3/uL 3.70 - 11. 00 k/uL [facility] Comprehensive metabolic 2000 panelon 05-26-2023 Albumin [Mass/Vol] 4.4 g/dL 3.9 - 4.9 g/dL [facility] ALP [Catalytic activity/Vol] 60 U/L 38 - 113 U/L [facility] ALT [Catalytic activity/Vol] 35 U/L 10 - 54 U/L [facility] Anion gap [Moles/Vol] 13 mmol/L 9 - 18 mmol/L [facility] AST [Catalytic activity/Vol] 34 U/L 14 - 40 U/L [facility] Bilirubin [Mass/Vol] 0.6 mg/dL 0.2 - 1 .3 mg/dL [facility] Calcium [Mass/Vol] 10.2 mg/dL 8.5 - 10. 2 mg/dL [facility] Chloride [Moles/Vol] 101 mmol/L 97 - 10 5 mmol/L [facility] CO2 [Moles/Vol] 26 mmol/L 22 - 30 mmol/L [facility] Creatinine [Mass/Vol] 0.86 mg/dL 0.73 - 1.22 mg/dL [facility] Estimated Glomerular Filtration Rate 93 mL/min/1.73m >=60 mL/min/1.73m [facility] Glucose [Mass/Vol] 95 mg/dL 74 - 99 mg/dL [facility] Potassium [Moles/Vol] 4.1 mmol/L 3.7 - 5.1 mmol/L [facility] Protein [Mass/Vol] 7.2 g/dL 6.3 - 8.0 g/dL [facility] Sodium [Moles/Vol] 140 mmol/L 136 - 144 mmol/L [facility] Urea nitrogen [Mass/Vol] 20 mg/dL 9 - 24 mg/dL [facility] Lipid 1996 panelon Cholesterol [Mass/Vol] 127 mg/dL <200 mg/dL [facility] Cholesterol in HDL [Mass/Vol] 45 mg/dL >39 mg/dL [facility] Cholesterol in LDL [Mass/Vol] 68 mg/dL <100 mg/dL [facility] Cholesterol in LDL/Cholesterol in HDL [Mass ratio] 1.51 {ratio} <2.54 [facility] Cholesterol in VLDL [Mass/Vol] 14 mg/dL <30 mg/dL [facility] Cholesterol non HDL [Mass/Vol] 82 mg/dL <130 mg/dL [facility] Cholesterol.total/Cho lesterol in HDL [Mass ratio] 2.82 {ratio} <5.10 [facility] Fasting Time 8 hrs [facility] Triglyceride [Mass/Vol] 70 mg/dL <150 mg/dL [facility] LIPID PANEL - EXTERNALon Cholesterol - Intl [facility] HDL Cholesterol Bld - Intl 48 [facility] LDL Chol Calc - Intl 131 [facility] Non-HDL Cholesterol PL - Intl [facility] Total Chol/HDL Ratio - Intl [facility] Triglycerides Bld - Intl 109 [facility] VITAMIN D 25 (OH)on 07-19-19 20 Vitamin D 25 [place] 56.6 ng/mL 30 - 100 ng/mL [facility] LIPID PANEL - EXTERNALon Cholesterol - Intl 217 [facility] HDL Cholesterol Bld - Intl 48 [facility] LDL Chol Calc - Intl 148 [facility] Non-HDL Cholesterol PL - Intl [facility] Total Chol/HDL Ratio - Intl [facility] Triglycerides Bld - Intl 106 [facility] TSH (EXTERNAL)on 01-21-2019 TSH 1.130 IU/ml 0.2 - 5.6 IU/ml [facility] Vital Signs Date Time Vital Sign Value Performing Clinician Yonny goodson 12-12-2024 10:05040 Body mass index (BMI) [Ratio] 37.57 kg/m2 Dana Pat PA-C Work Phone: [facility] 12-12-2024 10:05040 Body weight 93.17 kg Dana Pat PA-C Work Phone: [facility] 12-12-2024 10:05040 Diastolic blood pressure 74 mm[Hg] Dana Pat PA-C Work Phone: [facility] 12-12-2024 10:05-0400 Heart rate 70 /min Dana Bogner PA-C Work Phone: [facility] 12-12-2024 10:05-0400 SaO2% (BldA) [Mass fraction] 98 % Dana Bogner PA-C Work Phone: [facility] 12-12-2024 10:05-0400 Systolic blood pressure 126 mm[Hg] Dana Bogner PA-C Work Phone: [facility] 12-05-2024 08:15-0400 Body mass index (BMI) [Ratio] 36.91 kg/m2 Melina Rajguru DIRECTOR MEDICAL WRITING.COPY CENTER OPERATOR Work Phone: [facility] 12-05-2024 08:15-0400 Body weight 91.54 kg Melina Maritaru DIRECTOR MEDICAL WRITING.COPY CENTER OPERATOR Work Phone: [facility] 12-05-2024 08:15-0400 Diastolic blood pressure 77 mm[Hg] Melina Ilyaguru DIRECTOR MEDICAL WRITING.COPY CENTER OPERATOR Work Phone: [facility] 12-05-2024 08:15-0400 Heart rate 66 /min Melina Rajguru DIRECTOR MEDICAL WRITING.COPY CENTER OPERATOR Work Phone: [facility] 12-05-2024 08:15-0400 Respiratory rate 16 /min Melina Rajguru DIRECTOR MEDICAL WRITING.COPY CENTER OPERATOR Work Phone: [facility] 12-05-2024 08:15-0400 SaO2% (BldA) [Mass fraction] 97 % Melina Maritaru DIRECTOR MEDICAL WRITING.COPY CENTER OPERATOR Work Phone: [facility] 12-05-2024 08:15-0400 Systolic blood pressure 152 mm[Hg] Melina Rajguru DIRECTOR MEDICAL WRITING.COPY CENTER OPERATOR Work Phone: [facility] 12-03-2024 09:49-0400 Body mass index (BMI) [Ratio] 36.81 kg/m2 Katrina Whyte DIRECTOR MEDICAL WRITING.COPY CENTER OPERATOR Work Phone: [facility] 12-03-2024 09:49-0400 Body temperature 98.1 [degF] Katrina Swank DIRECTOR MEDICAL WRITING.COPY CENTER OPERATOR Work Phone: [facility] 12-03-2024 09:49-0400 Body weight 91.3 kg Katrina Swank DIRECTOR MEDICAL WRITING.COPY CENTER OPERATOR Work Phone: [facility] 12-03-2024 09:49-0400 Diastolic blood pressure 76 mm[Hg] Katrina Swank DIRECTOR MEDICAL WRITING.COPY CENTER OPERATOR Work Phone: [facility] 12-03-2024 09:49-0400 Heart rate 86 /min Katrina Swank DIRECTOR MEDICAL WRITING.COPY CENTER OPERATOR Work Phone: [facility] 12-03-2024 09:49-0400 Respiratory rate 16 /min Katrina Swank DIRECTOR MEDICAL WRITING.COPY CENTER OPERATOR Work Phone: [facility] 12-03-2024 09:49-0400 SaO2% (BldA) [Mass fraction] 97 % Katrina Swank DIRECTOR MEDICAL WRITING.COPY CENTER OPERATOR Work Phone: [facility] 12-03-2024 09:49-0400 Systolic blood pressure 124 mm[Hg] Katrina Swank DIRECTOR MEDICAL WRITING.COPY CENTER OPERATOR Work Phone: [facility] 11-23-2024 18:14-0400 Body height 157.5 cm Mark Nova MD Work Phone: [facility] 11-23-2024 18:14-0400 Body mass index (BMI) [Ratio] 36.41 kg/m2 Mark Nova MD Work Phone: [facility] 11-23-2024 18:14-0400 Body temperature 97.81 [degF] Mark Nova MD Work Phone: [facility] 11-23-2024 18:14-0400 Body weight 90.3 kg Mark Nova MD Work Phone: [facility] 11-23-2024 18:14-0400 Diastolic blood pressure 70 mm[Hg] Mark Nova MD Work Phone: [facility] 11-23-2024 18:14-0400 Heart rate 88 /min Mark Nova MD Work Phone: [facility] 11-23-2024 18:14-0400 Respiratory rate 14 /min Mark Nova MD Work Phone: [facility] 11-23-2024 18:14-0400 SaO2% (BldA) [Mass fraction] 95 % Mark Nova MD Work Phone: [facility] 11-23-2024 18:14-0400 Systolic blood pressure 120 mm[Hg] Mark Nova MD Work Phone: [facility] 11-16-2024 16:26-0400 Body mass index (BMI) [Ratio] 36.53 kg/m2 Mark Nova MD Work Phone: [facility] 11-16-2024 16:26-0400 Body weight 90.6 kg Mark Nova MD Work Phone: [facility] 11-16-2024 16:26-0400 Diastolic blood pressure 74 mm[Hg] Mark Nova MD Work Phone: [facility] 11-16-2024 16:26-0400 Heart rate 88 /min Mark Nova MD Work Phone: [facility] 11-16-2024 16:26-0400 Systolic blood pressure 124 mm[Hg] Mark Nova MD Work Phone: [facility] 10-24-2024 10:27-0400 Body mass index (BMI) [Ratio] 36.21 kg/m2 Quan Jeffers MD Work Phone: [facility] 10-24-2024 10:27-0400 Body temperature 97.5 [degF] Quan Jeffers MD Work Phone: [facility] 10-24-2024 10:27-0400 Body weight 89.8 kg Quan Jeffers MD Work Phone: [facility] 10-24-2024 10:27-0400 Diastolic blood pressure 82 mm[Hg] Quan Jeffers MD Work Phone: [facility] 10-24-2024 10:27-0400 Heart rate 90 /min Quan Jeffers MD Work Phone: [facility] 10-24-2024 10:27-0400 Respiratory rate 16 /min Quan Jeffers MD Work Phone: [facility] 10-24-2024 10:27-0400 SaO2% (BldA) [Mass fraction] 98 % Quan Jeffers MD Work Phone: [facility] 10-24-2024 10:27-0400 Systolic blood pressure 136 mm[Hg] Quan Jeffers MD Work Phone: [facility] 10-12-2024 09:35-0400 Heart rate 77 /min Maude Prebish DIRECTOR MEDICAL WRITING.COPY CENTER OPERATOR Work Phone: [facility] 10-12-2024 09:35-0400 Respiratory rate 18 /min Maude Prebish DIRECTOR MEDICAL WRITING.COPY CENTER OPERATOR Work Phone: [facility] 10-12-2024 09:35-0400 SaO2% (BldA) [Mass fraction] 96 % Maude Prebish DIRECTOR MEDICAL WRITING.COPY CENTER OPERATOR Work Phone: [facility] 09-15-2024 08:36-0400 Diastolic blood pressure 68 mm[Hg] Lei Clinton MD, PhD Work Phone: [facility] 09-15-2024 08:36-0400 Heart rate 57 /min Lei Clinton MD, PhD Work Phone: [facility] 09-15-2024 08:36-0400 Respiratory rate 18 /min Lei Clinton MD, PhD Work Phone: [facility] 09-15-2024 08:36-0400 SaO2% (BldA) [Mass fraction] 98 % Lei Clinton MD, PhD Work Phone: [facility] 09-15-2024 08:36-0400 Systolic blood pressure 114 mm[Hg] Lei Clinton MD, PhD Work Phone: [facility] 08-16-2024 13:00-0400 Body mass index (BMI) [Ratio] 34.48 kg/m2 Mark Nova MD Work Phone: [facility] 08-16-2024 13:00-0400 Body weight 85.5 kg Mark Nova MD Work [facility] [facility] 08-16-2024 13:00-0400 Diastolic blood pressure 64 mm[Hg] Mark Nova MD Work Phone: [facility] 08-16-2024 13:00-0400 Heart rate 72 /min Mark Nova MD Work Phone: [facility] 08-16-2024 13:00-0400 Respiratory rate 12 /min Mark Nova MD Work Phone: [facility] 08-16-2024 13:00-0400 Systolic blood pressure 114 mm[Hg] Mark Nova MD Work Phone: [facility] 08-10-2024 09:56-0400 Heart rate 87 /min Maude Prebish DIRECTOR MEDICAL WRITING.COPY CENTER OPERATOR Work Phone: [facility] 08-10-2024 09:56-0400 Respiratory rate 14 /min Maude Prebish DIRECTOR MEDICAL WRITING.COPY CENTER OPERATOR Work Phone: [facility] 08-10-2024 09:56-0400 SaO2% (BldA) [Mass fraction] 97 % Maude Prebish DIRECTOR MEDICAL WRITING.COPY CENTER OPERATOR Work Phone: [facility] 07-12-2024 11:06-0400 Body mass index (BMI) [Ratio] 33.83 kg/m2 Mark Nova MD Work Phone: [facility] 07-12-2024 11:06-0400 Body temperature 98.71 [degF] Mark Nova MD Work Phone: [facility] 07-12-2024 11:06-0400 Body weight 83.9 kg Mark Nova MD Work Phone: [facility] 07-12-2024 11:06-0400 Diastolic blood pressure 64 mm[Hg] Mark Nova MD Work Phone: [facility] 07-12-2024 11:06-0400 Heart rate 76 /min Mark Nova MD Work Phone: [facility] 07-12-2024 11:06-0400 Respiratory rate 12 /min Mark Nova MD Work Phone: [facility] 07-12-2024 11:06-0400 Systolic blood pressure 118 mm[Hg] Mark Nova MD Work Phone: [facility] 06-20-2024 10:38-0400 Body height 157.5 cm Mark Nova MD Work Phone: [facility] 06-20-2024 10:38-0400 Body mass index (BMI) [Ratio] 32.34 kg/m2 Mark Nova MD Work Phone: [facility] 06-20-2024 10:38-0400 Body temperature 98.2 [degF] Mark Nova MD Work Phone: [facility] 06-20-2024 10:38-0400 Body weight 80.2 kg Mark Nova MD Work Phone: [facility] 06-20-2024 10:38-0400 Diastolic blood pressure 62 mm[Hg] Mark Nova MD Work Phone: [facility] 06-20-2024 10:38-0400 Heart rate 88 /min Mark Nova MD Work Phone: [facility] 06-20-2024 10:38-0400 SaO2% (BldA) [Mass fraction] 97 % Mark Nova MD Work Phone: [facility] 06-20-2024 10:38-0400 Systolic blood pressure 102 mm[Hg] Mark Nova MD Work Phone: [facility] 06-20-2024 07:56-0400 Body mass index (BMI) [Ratio] 31.72 kg/m2 Melina Kirklandru DIRECTOR MEDICAL WRITING.COPY CENTER OPERATOR Work Phone: [facility] 06-20-2024 07:56-0400 Body weight 80.2 kg Melina Rajguru DIRECTOR MEDICAL WRITING.COPY CENTER OPERATOR Work Phone: [facility] 06-20-2024 07:56-0400 Diastolic blood pressure 78 mm[Hg] Melina Rajguru DIRECTOR MEDICAL WRITING.COPY CENTER OPERATOR Work Phone: [facility] 06-20-2024 07:56-0400 Heart rate 75 /min Melina Rajguru DIRECTOR MEDICAL WRITING.COPY CENTER OPERATOR Work Phone: [facility] 06-20-2024 07:56-0400 Respiratory rate 16 /min Melina Rajguru DIRECTOR MEDICAL WRITING.COPY CENTER OPERATOR Work Phone: [facility] 06-20-2024 07:56-0400 SaO2% (BldA) [Mass fraction] 99 % Melina Rajguru DIRECTOR MEDICAL WRITING.COPY CENTER OPERATOR Work Phone: [facility] 06-20-2024 07:56-0400 Systolic blood pressure 140 mm[Hg] Melina Rajguru DIRECTOR MEDICAL WRITING.COPY CENTER OPERATOR Work Phone: [facility] 06-16-2024 13:13-0400 Body mass index (BMI) [Ratio] 31.68 kg/m2 Mark Nova MD Work Phone: [facility] 06-16-2024 13:13-0400 Body temperature 98.2 [degF] Mark Nova MD Work Phone: [facility] 06-16-2024 13:13-0400 Body weight 80.1 kg Mark Nova MD Work Phone: [facility] 06-16-2024 13:13-0400 Diastolic blood pressure 62 mm[Hg] Mark Nova MD Work Phone: [facility] 06-16-2024 13:13-0400 Heart rate 73 /min Mark Nova MD Work Phone: [facility] 06-16-2024 13:13-0400 Respiratory rate 18 /min Mark Nova MD Work Phone: [facility] 06-16-2024 13:13-0400 SaO2% (BldA) [Mass fraction] 95 % Mark Nova MD Work Phone: [facility] 06-16-2024 13:13-0400 Systolic blood pressure 114 mm[Hg] Mark Nova MD Work Phone: [facility] 06-07-2024 07:14-0500 Body mass index (BMI) [Ratio] 33.03 kg/m2 Devon Thomas MD Work Phone: [facility] 06-07-2024 07:14-0500 Body temperature 98.6 [degF] Devon Thomas MD Work Phone: [facility] 06-07-2024 07:14-0500 Body weight 83.5 kg Devon Thomas MD Work Phone: [facility] 06-07-2024 07:14-0500 Diastolic blood pressure 86 mm[Hg] Devon Thomas MD Work Phone: [facility] 06-07-2024 07:14-0500 Heart rate 86 /min Devon Thomas MD Work Phone: [facility] 06-07-2024 07:14-0500 Respiratory rate 16 /min Devon Thomas MD Work Phone: [facility] 06-07-2024 07:14-0500 SaO2% (BldA) [Mass fraction] 98 % Devon Thomas MD Work Phone: [facility] 06-07-2024 07:14-0500 Systolic blood pressure 122 mm[Hg] Devon Thomas MD Work Phone: [facility] 06-06-2024 08:03-0500 Diastolic blood pressure 71 mm[Hg] Alexia Coleman DIRECTOR MEDICAL WRITING.COPY CENTER OPERATOR Work Phone: [facility] 06-06-2024 08:03-0500 Heart rate 95 /min Alexia Gena DIRECTOR MEDICAL WRITING.COPY CENTER OPERATOR Work Phone: [facility] 06-06-2024 08:03-0500 Systolic blood pressure 134 mm[Hg] Alexia Gena DIRECTOR MEDICAL WRITING.COPY CENTER OPERATOR Work Phone: [facility] 06-06-2024 08:00-0500 Body height 159 cm Alexia Gena DIRECTOR MEDICAL WRITING.COPY CENTER OPERATOR Work Phone: [facility] 06-06-2024 08:00-0500 Body mass index (BMI) [Ratio] 32.83 kg/m2 Alexia Gena DIRECTOR MEDICAL WRITING.COPY CENTER OPERATOR Work Phone: [facility] 06-06-2024 08:00-0500 Body weight 83 kg Alexia Gena DIRECTOR MEDICAL WRITING.COPY CENTER OPERATOR Work Phone: [facility] 06-06-2024 08:00-0500 Respiratory rate 16 /min Alexia Gena DIRECTOR MEDICAL WRITING.COPY CENTER OPERATOR Work Phone: [facility] 06-05-2024 18:44-0500 Body mass index (BMI) [Ratio] 30.52 kg/m2 Mark Nova MD Work Phone: [facility] 06-05-2024 18:44-0500 Body temperature 98.4 [degF] Mark Nova MD Work Phone: [facility] 06-05-2024 18:44-0500 Body weight 83.2 kg Mark Nova MD Work Phone: [facility] 06-05-2024 18:44-0500 Diastolic blood pressure 74 mm[Hg] Mark Nova MD Work Phone: [facility] 06-05-2024 18:44-0500 Heart rate 76 /min Mark Nova MD Work Phone: [facility] 06-05-2024 18:44-0500 Respiratory rate 16 /min Mark Nova MD Work Phone: [facility] 06-05-2024 18:44-0500 Systolic blood pressure 130 mm[Hg] Mark Nova MD Work Phone: [facility] 02-01-2024 15:40-0400 Body mass index (BMI) [Ratio] 31.04 kg/m2 Trent Athy PA-C Work Phone: [facility] 02-01-2024 15:40-0400 Body temperature 98.49 [degF] Trent Athy PA-C Work Phone: [facility] 02-01-2024 15:40-0400 Body weight 84.6 kg Trent Athy PA-C Work Phone: [facility] 02-01-2024 15:40-0400 Diastolic blood pressure 78 mm[Hg] Trent Athy PA-C Work Phone: [facility] 02-01-2024 15:40-0400 Heart rate 85 /min Trent Athy PA-C Work Phone: [facility] 02-01-2024 15:40-0400 Respiratory rate 16 /min Trent Athy PA-C Work Phone: [facility] 02-01-2024 15:40-0400 SaO2% (BldA) [Mass fraction] 96 % Trent Athy PA-C Work Phone: [facility] 02-01-2024 15:40-0400 Systolic blood pressure 130 mm[Hg] Trent Athy PA-C Work Phone: [facility] 12-21-2023 08:04-0400 Body mass index (BMI) [Ratio] 31.82 kg/m2 Melina Britt APRN.COPY CENTER OPERATOR Work Phone: [facility] 12-21-2023 08:04-0400 Body weight 86.73 kg Melina Britt APRN.COPY CENTER OPERATOR Work Phone: [facility] 12-21-2023 08:04-0400 Diastolic blood pressure 62 mm[Hg] Melina Britt APRN.COPY CENTER OPERATOR Work Phone: [facility] 12-21-2023 08:04-0400 Heart rate 76 /min Melina Rajguru DIRECTOR MEDICAL WRITING.COPY CENTER OPERATOR Work Phone: [facility] 12-21-2023 08:04-0400 Respiratory rate 20 /min Melina Britt DIRECTOR MEDICAL WRITING.COPY CENTER OPERATOR Work Phone: [facility] 12-21-2023 08:04-0400 Systolic blood pressure 118 mm[Hg] Melina Britt DIRECTOR MEDICAL WRITING.COPY CENTER OPERATOR Work Phone: [facility] 11-25-2023 08:45-0400 Body mass index (BMI) [Ratio] 30.96 kg/m2 Mark Nova MD Work Phone: [facility] 11-25-2023 08:45-0400 Body temperature 97.59 [degF] Mark Nova MD Work Phone: [facility] 11-25-2023 08:45-0400 Body weight 84.4 kg Mark Nova MD Work Phone: [facility] 11-25-2023 08:45-0400 Diastolic blood pressure 64 mm[Hg] Mark Nova MD Work Phone: [facility] 11-25-2023 08:45-0400 Heart rate 80 /min Mark Nova MD Work Phone: [facility] 11-25-2023 08:45-0400 Respiratory rate 16 /min Mark Nova MD Work Phone: [facility] 11-25-2023 08:45-0400 Systolic blood pressure 114 mm[Hg] Mark Nova MD Work Phone: [facility] 11-02-2023 13:26-0400 Body mass index (BMI) [Ratio] 30.95 kg/m2 Melina Britt DIRECTOR MEDICAL WRITING.COPY CENTER OPERATOR Work Phone: [facility] 11-02-2023 13:26-0400 Body weight 84.37 kg Melina Britt DIRECTOR MEDICAL WRITING.COPY CENTER OPERATOR Work Phone: [facility] 11-02-2023 13:26-0400 Diastolic blood pressure 84 mm[Hg] Melina Rajguru DIRECTOR MEDICAL WRITING.COPY CENTER OPERATOR Work Phone: [facility] 11-02-2023 13:26-0400 Heart rate 88 /min Melina Rajguru DIRECTOR MEDICAL WRITING.COPY CENTER OPERATOR Work Phone: [facility] 11-02-2023 13:26-0400 Respiratory rate 16 /min Melina Rajguru DIRECTOR MEDICAL WRITING.COPY CENTER OPERATOR Work Phone: [facility] 11-02-2023 13:26-0400 Systolic blood pressure 122 mm[Hg] Melina Rajguru DIRECTOR MEDICAL WRITING.COPY CENTER OPERATOR Work Phone: [facility] 09-07-2023 11:16-0400 Body mass index (BMI) [Ratio] 31.12 kg/m2 Melina Rajguru DIRECTOR MEDICAL WRITING.COPY CENTER OPERATOR Work Phone: [facility] 09-07-2023 11:16-0400 Body weight 84.82 kg Melina Rajguru DIRECTOR MEDICAL WRITING.COPY CENTER OPERATOR Work Phone: [facility] 09-07-2023 11:16-0400 Diastolic blood pressure 68 mm[Hg] Melina Rajguru DIRECTOR MEDICAL WRITING.COPY CENTER OPERATOR Work Phone: [facility] 09-07-2023 11:16-0400 Heart rate 84 /min Melina Rajguru DIRECTOR MEDICAL WRITING.COPY CENTER OPERATOR Work Phone: [facility] 09-07-2023 11:16-0400 Systolic blood pressure 126 mm[Hg] Melina Rajguru DIRECTOR MEDICAL WRITING.COPY CENTER OPERATOR Work Phone: [facility] 08-03-2023 09:49-0400 Body mass index (BMI) [Ratio] 30.62 kg/m2 Melina Rajguru DIRECTOR MEDICAL WRITING.COPY CENTER OPERATOR Work Phone: [facility] 08-03-2023 09:49-0400 Body weight 83.46 kg Melina Rajguru DIRECTOR MEDICAL WRITING.COPY CENTER OPERATOR Work Phone: [facility] 08-03-2023 09:49-0400 Diastolic blood pressure 64 mm[Hg] Melina Rajguru DIRECTOR MEDICAL WRITING.COPY CENTER OPERATOR Work Phone: [facility] 08-03-2023 09:49-0400 Heart rate 80 /min Melina Raj DIRECTOR MEDICAL WRITING.COPY CENTER OPERATOR Work Phone: [facility] 08-03-2023 09:49-0400 Systolic blood pressure 122 mm[Hg] Melina Rajguru DIRECTOR MEDICAL WRITING.COPY CENTER OPERATOR Work Phone: [facility] 05-26-2023 09:52-0500 Body height 165.1 cm Alexia Gena DIRECTOR MEDICAL WRITING.COPY CENTER OPERATOR Work Phone: [facility] 05-26-2023 09:52-0500 Body weight 82.56 kg Alexia Gena DIRECTOR MEDICAL WRITING.COPY CENTER OPERATOR Work Phone: [facility] 05-26-2023 09:52-0500 Diastolic blood pressure 77 mm[Hg] Alexia Gena DIRECTOR MEDICAL WRITING.COPY CENTER OPERATOR Work Phone: [facility] 05-26-2023 09:52-0500 Heart rate 66 /min Alexia Gena DIRECTOR MEDICAL WRITING.COPY CENTER OPERATOR Work Phone: [facility] 05-26-2023 09:52-0500 Respiratory rate 16 /min Alexia Gena DIRECTOR MEDICAL WRITING.COPY CENTER OPERATOR Work Phone: [facility] 05-26-2023 09:52-0500 Systolic blood pressure 124 mm[Hg] Alexia Gena DIRECTOR MEDICAL WRITING.COPY CENTER OPERATOR Work Phone: [facility] 08-12-2022 11:13-0400 Body weight 85.28 kg Mark Nova MD Work Phone: [facility] 08-12-2022 11:13-0400 Diastolic blood pressure 74 mm[Hg] Mark Nova MD Work Phone: [facility] 08-12-2022 11:13-0400 Heart rate 68 /min Mark Nova MD Work Phone: [facility] 08-12-2022 11:13-0400 Respiratory rate 16 /min Mark Nova MD Work Phone: [facility] 08-12-2022 11:13-0400 Systolic blood pressure 126 mm[Hg] Mark Nova MD Work Phone: [facility] 01-30-2022 08:36-0400 Diastolic blood pressure 76 mm[Hg] Alexia Older DIRECTOR MEDICAL WRITING.COPY CENTER OPERATOR Work Phone: [facility] 01-30-2022 08:36-0400 Systolic blood pressure 122 mm[Hg] Alexia Older DIRECTOR MEDICAL WRITING.COPY CENTER OPERATOR Work Phone: [facility] 01-30-2022 08:17-0400 Body weight 90.27 kg Alexia Older DIRECTOR MEDICAL WRITING.COPY CENTER OPERATOR Work Phone: [facility] 01-30-2022 08:17-0400 Heart rate 67 /min Alexia Older DIRECTOR MEDICAL WRITING.COPY CENTER OPERATOR Work Phone: [facility] 01-30-2022 08:17-0400 Respiratory rate 16 /min Alexia Older DIRECTOR MEDICAL WRITING.COPY CENTER OPERATOR Work Phone: [facility] 12-19-2021 13:10-0400 Body temperature 97.11 [degF] Trent Athy PA-C Work Phone: [facility] 12-19-2021 13:10-0400 Body weight 88.54 kg Trent Athy PA-C Work Phone: [facility] 12-19-2021 13:10-0400 Diastolic blood pressure 74 mm[Hg] Trent Athy PA-C Work Phone: [facility] 12-19-2021 13:10-0400 Heart rate 89 /min Trent Athy PA-C Work Phone: [facility] 12-19-2021 13:10-0400 Respiratory rate 18 /min Trent Athy PA-C Work Phone: [facility] 12-19-2021 13:10-0400 SaO2% (BldA) [Mass fraction] 98 % Trent Athy PA-C Work Phone: [facility] 12-19-2021 13:10-0400 Systolic blood pressure 112 mm[Hg] Trent Athy PA-C Work Phone: [facility] 10-30-2021 15:34-0400 Body height 160 cm Mark Nova MD Work Phone: [facility] 10-30-2021 15:34-0400 Body temperature 97.2 [degF] Mark Nova MD Work Phone: [facility] 10-30-2021 15:34-0400 Body weight 89.18 kg Mark Nova MD Work Phone: [facility] 10-30-2021 15:34-0400 Diastolic blood pressure 74 mm[Hg] Mark Nova MD Work Phone: [facility] 10-30-2021 15:34-0400 Heart rate 76 /min Mark Nova MD Work Phone: [facility] 10-30-2021 15:34-0400 Respiratory rate 16 /min Mark Nova MD Work Phone: [facility] 10-30-2021 15:34-0400 Systolic blood pressure 130 mm[Hg] Mark Nova MD Work Phone: [facility] Encounters Encounter Date Encounter Type Care Provider Facility Start: 01-29-2025 Encounter for other preprocedural examination Son Calderon [facility] Start: 01-24-2025 ambulatory MARK NOVA Faci lity:[facility] Start: 01-23-2025 End: 01-23-2025 ambulatory Mark Nova Facility:[facility] Start: 01-12-2025 End: 01-12-2025 ambulatory MARK NOVA Facility:[facility] Start: 01-12-2025 End: 01-12-2025 ambulatory MARK NOVA Facility:[facility] Start: 01-11-2025 End: 01-11-2025 ambulatory MARK NOVA Facility:[facility] Start: 12-12-2024 End: 12-12-2024 Office outpatient visit 25 minutes Dana Pat PA-C Work Phone: [facility] [place] Comment on above: Acute bilateral low back pain without sciatica; Muscle spasm; Body mass index (BMI) 30.0-30.9, adult Start: 12-12-2024 End: 12-12-2024 ambulatory MARK NOVA Facility:[facility] Start: 12-05-2024 End: 12-05-2024 Office outpatient visit 25 minutes Melina Britt APRN.COPY CENTER OPERATOR Work Phone: Psychiatry Comment on above: Recurrent major depr essive disorder, in full remission; Encounter for long-term (current) use of medications Start: 12-05-2024 End: 12-05-2024 ambulatory MARK NOVA Facility:[facility] Start: 12-03-2024 End: 12-03-2024 Patient encounter procedure Katrina Whyte APRN.COPY CENTER OPERATOR Work Phone: [facility] [place] Comment on above: Chronic pain of left knee (Primary Dx); Osteoarthritis of knee, unspecified Start: 12-03-2024 End: 12-04-2024 ambulatory MARK NOVA Facility:[facility] Start: 11-27-2024 End: 11-28-2024 Telephone encounter Mark Nova MD Work Phone: [address] [place] [address] Comment on above: Patient Question Start: 11-23-2024 End: 11-23-2024 Patient encounter procedure Mark Nova MD Work Phone: [facility] [place] Comment on above: Primary osteoarthrit is of left knee (Primary Dx); Left low back pain, unspecified chronicity, unspecified whether sciatica present; Encounter for issue of other medical certificate Start: 11-23-2024 End: 11-23-2024 ambulatory MARK NOVA Facility:[facility] Start: 11-22-2024 End: 11-23-2024 Telephone encounter Mark Nova MD Work Phone: [facility] [place] Comment on above: Patient Question (Le ft knee pain) Start: 11-16-2024 End: 11-16-2024 Office outpatient visit 25 minutes Mark Nova MD Work Phone: [facility] [place] Comment on above: Acute on chronic low back pain (Primary Dx) Start: 11-16-2024 End: 11-16-2024 ambulatory MARK NOVA Facility:[facility] Start: 11-10-2024 End: 11-10-2024 ambulatory MARK NOVA Facility:[facility] Start: 10-24-2024 End: 10-24-2024 Subsequent hospital visit by physician Juventino [facility] Work Phone: Radiology Comment on above: Left leg pain [M79.6 05] Start: 10-24-2024 End: 10-24-2024 Office outpatient visit 40 minutes Quan Jeffers MD Work Phone: [facility] Comment on above: Left leg pain (Prima ry Dx) Start: 10-24-2024 End: 10-24-2024 ambulatory MARK NOVA Facility:[facility] Start: 10-12-2024 End: 10-12-2024 Patient encounter procedure Maude Townsend APRN.CNP Work Phone: [facility] Comment on above: Spinal stenosis, lum bar region with neurogenic claudication (Primary Dx); Degeneration of intervertebral disc of lumbar region with discogenic back pain and lower extremity pain; Left low back pain, unspecified chronicity, unspecified whether sciatica present; Lumbar spondylosis Start: 10-12-2024 End: 10-12-2024 ambulatory MARK NOVA Facility:[facility] Start: 09-25-2024 End: 09-27-2024 Refill Mark Nova MD Work Phone: [facility] [place] Comment on above: Refill Request Start: 09-18-2024 End: 12-11-2024 Telephone encounter Lei Clinton MD, PhD Work Phone: [facility] [place] Comment on above: Patient Update (RFA) Start: 09-15-2024 End: 09-15-2024 ambulatory Lei Clinton MD, PhD Work Phone: [facility] [place] Comment on above: Procedure (ILESI L4/ 5) Start: 09-15-2024 End: 09-15-2024 Patient encounter procedure Lei Clinton MD, PhD Work Phone: [facility] [place] Start: 09-15-2024 End: 09-15-2024 ambulatory MARK NOVA Facility:[facility] Start: 09-06-2024 End: 09-06-2024 Telephone encounter Mark Nova MD Work Phone: [facility] [place] Comment on above: Forms ([facility]) Start: 08-31-2024 End: 08-31-2024 Telephone encounter Mark Nova MD Work Phone: [facility] [place] Comment on above: Patient Question Start: 08-17-2024 End: 08-17-2024 Telephone encounter Maude Townsend APRN.COPY CENTER OPERATOR Work Phone: [facility] [place] Comment on above: Patient Update; [facility] (Worker's Comp) Start: 08-16-2024 End: 08-16-2024 Office outpatient visit 25 minutes Mark Nova MD Work Phone: [facility] [place] Comment on above: Left low back pain, unspecified chronicity, unspecified whether sciatica present (Primary Dx); Primary hypertension; Hyperlipidemia, unspecified hyperlipidemia type Start: 08-16-2024 End: 08-16-2024 ambulatory MARK NOVA Facility:[facility] Start: 08-14-2024 End: 08-14-2024 Telephone encounter Maude Townsend APRN.COPY CENTER OPERATOR Work Phone: [facility] [place] Comment on above: Patient Update Start: 08-10-2024 End: 08-10-2024 Telephone encounter Maude Townsend APRN.COPY CENTER OPERATOR Work Phone: [facility] Comment on above: Injection Questions Start: 08-10-2024 End: 08-10-2024 Patient encounter procedure Maude Townsend APRN.COPY CENTER OPERATOR Work Phone: [facility] Comment on above: Spinal stenosis, lum bar region with neurogenic claudication (Primary Dx); Left low back pain, unspecified chronicity, unspecified whether sciatica present; Degeneration of intervertebral disc of lumbar region with discogenic back pain and lower extremity pain; Lumbar spondylosis Start: 08-10-2024 End: 08-10-2024 ambulatory MARK NOVA Facility:[facility] Start: 08-04-2024 End: 08-16-2024 Telephone encounter Mark Nova MD Work Phone: [facility] [place] Comment on above: C9 Form Request Start: 08-01-2024 End: 08-01-2024 Refill Mark Nova MD Work Phone: [facility] [place] Comment on above: Refill Request Start: 07-18-2024 End: 07-20-2024 Telephone encounter Mark Nova MD Work Phone: [facility] [place] Start: 07-13-2024 End: 07-14-2024 Telephone encounter Mark Nova MD Work Phone: [facility] [place] Comment on above: Patient Question Start: 07-12-2024 End: 07-12-2024 ambulatory MARK NOVA Facility:[facility] Start: 07-12-2024 End: 07-12-2024 Office outpatient visit 15 minutes Mark Nova MD Work Phone: [facility] [place] Comment on above: Nausea and vomiting, unspecified vomiting type (Primary Dx); Left low back pain, unspecified chronicity, unspecified whether sciatica present Start: 07-03-2024 End: 07-03-2024 Telephone encounter Mark Nova MD Work Phone: [facility] [place] Comment on above: Worker's Compensatio n: Update Start: 06-26-2024 End: 06-26-2024 Telephone encounter Mark Nova MD Work Phone: [facility] [place] Comment on above: Medication Request Start: 06-22-2024 End: 08-22-2024 Follow-up encounter Mark Nova MD Work Phone: [facility] [place] Start: 06-20-2024 End: 06-20-2024 ambulatory MARK NOVA Facility:[facility] Start: 06-20-2024 End: 06-20-2024 Office outpatient visit 25 minutes Melina Britt APRN.COPY CENTER OPERATOR Work Phone: Psychiatry Comment on above: Recurrent major depr essive disorder, in full remission (HCC) (Primary Dx); Encounter for long-term (current) use of medications Left low back pain, unspecified chronicity, unspecified whether sciatica present (Primary Dx) Start: 06-20-2024 End: 06-20-2024 ambulatory MARK NOVA Facility:[facility] Start: 06-16-2024 End: 08-16-2024 Follow-up encounter Alexia Coleman APRN.COPY CENTER OPERATOR Work Phone: Internal Medicine [place] Start: 06-16-2024 End: 06-16-2024 Subsequent hospital visit by physician [facility] [place] Work Phone: Radiology Comment on above: Acute pain of left t high [M79.652] Start: 06-16-2024 End: 06-16-2024 ambulatory MARK NOVA Facility:[facility] Start: 06-16-2024 End: 06-16-2024 Office outpatient visit 25 minutes Mark Nova MD Work Phone: Internal Medicine [place] Comment on above: Acute pain of left t high (Primary Dx) Start: 06-16-2024 End: 06-16-2024 ambulatory ALEXIA COLEMAN Facility:[facility] Start: 06-16-2024 End: 06-16-2024 Subsequent hospital visit by physician [facility] [place] [facility] Work Phone: Radiology Comment on above: Screening for abdomi nal aortic aneurysm [Z13.6] Start: 06-09-2024 End: 06-09-2024 Follow-up encounter Mark Nova MD Work Phone: Internal Medicine [place] Start: 06-08-2024 End: 06-08-2024 Follow-up encounter Mark Nova MD Work Phone: Internal Medicine [place] Start: 06-07-2024 End: 06-07-2024 Patient encounter procedure Merry Elise RN NURSE RAIL SWITCHMAN Comment on above: Clinical Update Start: 06-07-2024 End: 06-07-2024 Emergency department patient visit MALENA REYES SRIKANTH Facility:[facility] Start: 06-07-2024 End: 06-07-2024 ambulatory Merry Olivares RN NURSE RAIL SWITCHMAN Start: 06-07-2024 End: 06-07-2024 Office outpatient visit 25 minutes Devon Thomas MD Work Phone: [facility] [facility] Comment on above: Acute left-sided low back pain without sciatica (Primary Dx) Start: 06-06-2024 End: 06-06-2024 Subsequent hospital visit by physician [facility] [place] Work Phone: Radiology Comment on above: Acute bilateral low back pain without sciatica [M54.50] Start: 06-06-2024 End: 06-06-2024 ambulatory MARK NOVA Facility:[facility] Start: 06-06-2024 End: 06-06-2024 Patient encounter procedure Alexia Coleman APRN.COPY CENTER OPERATOR Work Phone: Internal Medicine [place] Comment on above: Medicare annual well ness visit, subsequent (Primary Dx); Major depressive disorder, recurrent episode, moderate (HCC); Hyperlipidemia, unspecified hyperlipidemia type; Primary hypertension; Screening for abdominal aortic aneurysm Start: 06-05-2024 End: 06-05-2024 ambulatory MARK NOVA Facility:[facility] Start: 06-05-2024 End: 06-05-2024 Office outpatient visit 25 minutes Mark Nova MD Work Phone: Internal Medicine [place] Comment on above: Fall, initial encoun ter (Primary Dx); Multiple contusions; Acute bilateral low back pain without sciatica Start: 04-28-2024 End: 04-28-2024 Refill Mark Nova MD Work Phone: Internal Medicine [place] Comment on above: Refill Request Start: 04-27-2024 End: 04-27-2024 Telephone encounter Mark Nova MD Work Phone: Internal Medicine [place] Comment on above: Medication Question Start: 03-09-2024 End: 03-09-2024 Telephone encounter Melina Britt APRN.CNP Work Phone: Psychiatry Start: 03-05-2024 End: 03-05-2024 ambulatory Peri Wright RN NURSE RAIL SWITCHMAN Comment on above: Information Start: 03-03-2024 End: 04-11-2024 Telephone encounter Mark Nova MD Work Phone: Family Medicine [place] Comment on above: Excuse Letter (Jury Duty) Start: 02-16-2024 End: 02-17-2024 Telephone encounter Mark Nova MD Work Phone: Family [facility] [place] Comment on above: Medication Problem ( Patient just calling to alert change of pharmacy) Start: 02-01-2024 End: 02-01-2024 ambulatory MARK NOVA Facility:[facility] Start: 02-01-2024 End: 02-01-2024 Patient encounter procedure Trent Jones PA-C Work Phone: [place] [facility] Comment on above: Hearing loss due to cerumen impaction, right (Primary Dx) Start: 12-21-2023 End: 12-21-2023 Patient encounter procedure Melina Britt APRN.COPY CENTER OPERATOR Work Phone: Psychiatry Comment on above: Recurrent major depr essive disorder, in full remission (HCC) (Primary Dx); Itching due to drug Start: 11-25-2023 End: 11-25-2023 Office outpatient visit 15 minutes Mark Nova MD Work Phone: Internal Medicine [place] Comment on above: Primary hypertension (Primary Dx); Encounter for screening examination for other mental health and behavioral disorders; Hyperlipidemia, unspecified hyperlipidemia type; Sprain of right rotator cuff capsule, initial encounter Start: 11-02-2023 End: 11-02-2023 Patient encounter procedure Melina Britt APRN.COPY CENTER OPERATOR Work Phone: Psychiatry Comment on above: Itching due to drug (Primary Dx); Recurrent major depressive disorder, in partial remission (HCC) Start: 10-06-2023 Refill Mark lopez MD Work Phone: [facility] Comment on above: Refill Request Start: 09-07-2023 End: 09-07-2023 Patient encounter procedure Melina Britt DIRECTOR MEDICAL WRITING.COPY CENTER OPERATOR Work Phone: Psychiatry Comment on above: Recurrent major depr essive disorder, in partial remission (HCC) (Primary Dx) Start: 08-29-2023 Refill Melina thomas DIRECTOR MEDICAL WRITING.COPY CENTER OPERATOR Work Phone: Psychiatry Comment on above: Med Change Request Start: 08-03-2023 End: 08-03-2023 Patient encounter procedure Melina Britt DIRECTOR MEDICAL WRITING.COPY CENTER OPERATOR Work Phone: Psychiatry Comment on above: Recurrent major depr essive disorder, in partial remission (HCC) (Primary Dx) Start: 07-07-2023 Refill Mark lopez MD Work Phone: Internal Medicine [place] Comment on above: Refill Request Start: 05-28-2023 Telephone encounter Merry barajas [facility] Work Phone: Psychology Comment on above: bh consult Start: 05-26-2023 Telephone encounter Merry barajas [facility] Work Phone: Psychology Comment on above: bh consult Start: 05-26-2023 End: 05-26-2023 Patient encounter procedure Alexia Coleman DIRECTOR MEDICAL WRITING.COPY CENTER OPERATOR Work Phone: Internal Medicine [place] Comment on above: Medicare annual well ness visit, subsequent (Primary Dx); Major depression, chronic; Primary hypertension; Hyperlipidemia, unspecified hyperlipidemia type; Heart murmur Start: 08-12-2022 End: 08-12-2022 Patient encounter procedure Mark Nova MD Work Phone: Internal Medicine [place] Comment on above: Major depression, ch ronic (Primary Dx); Primary hypertension; Hyperlipidemia, unspecified hyperlipidemia type; Tobacco use Start: 07-22-2022 Refill Mark lopez MD Work Phone: Internal Medicine [place] Comment on above: Refill Request Start: 04-27-2022 Refill Mark lopez MD Work Phone: Internal [facility] [place] Comment on above: Refill Request Start: 01-30-2022 End: 01-30-2022 Patient encounter procedure Alexia Regalado DIRECTOR MEDICAL WRITING.COPY CENTER OPERATOR Work Phone: Internal Medicine [place] Comment on above: Primary hypertension (Primary Dx); Hyperlipidemia, unspecified hyperlipidemia type Start: 12-20-2021 Telephone encounter Krystal Kirk garcia DIRECTOR MEDICAL WRITING.COPY CENTER OPERATOR Work Phone: [place] [facility] Comment on above: Results Start: 12-19-2021 End: 12-19-2021 Patient encounter procedure Trent De Leon Alhaji PA-C Work Phone: [place] [facility] Comment on above: COVID-19 (Primary Dx ) Start: 11-10-2021 Telephone encounter Mark armenta MD Work Phone: Internal Medicine [place] Comment on above: Results Start: 11-05-2021 Chart abstracting Mark Villanueva MD Work Phone: Internal [facility] [place] Start: 10-30-2021 End: 10-30-2021 Patient encounter procedure Mark Nova MD Work Phone: Internal Medicine [place] Comment on above: Encounter for Medica re annual wellness exam (Primary Dx); Major depression, chronic; Primary hypertension; Obesity, Class I, BMI 30-34.9; Heart murmur; Screening for colon cancer Procedures Date Procedure Procedure Detail Performing Clinician Start: 10-24-2024 Radiologic exam knee complete 4/more views Quan Jeffers MD Work Phone: Start: 06-16-2024 Us abdominal aorta r eal time screen study aaa Alexia Coleman DIRECTOR MEDICAL WRITING.COPY CENTER OPERATOR Work Phone: Start: 06-06-2024 Lipid 1995 panel - S charly or Plasma Xr [place] Work Phone: Start: 05-26-2023 Lipid 1996 panel - S charly or Plasma Alexia Coleman APRN.COPY CENTER OPERATOR Work Phone: Start: 10-30-2021 Ecg routine ecg w/le ast 12 lds w/i&r [facility] Provider Start: 07-19-2019 LIPID PANEL - EXTERNAL [facility] Provider Start: 07-19-2019 VITAMIN D 25 ([place]) [facility] Astrid darryl Start: 01-21-2019 PSA screening [facility] Provi binh Start: 01-21-2019 Thyrotropin [Units/volume] in Serum or Plasma [facility] Provider Start: 01-12-2019 LIPID PANEL - EXTERNAL [facility] Provider Plan of Treatment Date Care Activity Detail Author Start: 06-06-2029 Lipid panel Lipid Screening [facility] Start: 05-26-2028 Lipid panel Lipid Screening [facility] Start: 06-07-2027 Diabetes Screening Diabetes Screenin g [facility] Start: 2027 RSV Vaccine (1 - 1-d ose 75+ series) RSV Vaccine (1 - 1-dose 75+ series) [facility] Start: 12-06-2026 Lipid panel Lipid Screening [facility] Start: 12-06-2026 LIPID SCREEN LIPID SCREEN [facility] Start: 05-26-2026 Diabetes Screening Diabetes Screenin g [facility] Start: 12-12-2025 Annual PCP Team Water Operator octavio Disease Visit Annual PCP Team Chronic Disease Visit [facility] Start: 11-23-2025 Annual PCP Team Water Operator octavio Disease Visit Annual PCP Team Chronic Disease Visit [facility] Start: 11-16-2025 Annual PCP Team Water Operator octavio Disease Visit Annual PCP Team Chronic Disease Visit [facility] Start: 08-16-2025 Annual PCP Team Water Operator octavio Disease Visit Annual PCP Team Chronic Disease Visit [facility] Start: 08-16-2025 BP Controlled (<130/80) BP Controlle d (<130/80) [facility] Start: 07-12-2025 Annual PCP Team Water Operator octavio Disease Visit Annual PCP Team Chronic Disease Visit [facility] Start: 07-12-2025 BP Controlled (<130/80) BP Controlle d (<130/80) [facility] Start: 06-20-2025 Annual PCP Team Water Operator octavio Disease Visit Annual PCP Team Chronic Disease Visit [facility] Start: 06-20-2025 BP Controlled (<130/80) BP Controlle d (<130/80) [facility] Start: 06-16-2025 Annual PCP Team Water Operator octavio Disease Visit Annual PCP Team Chronic Disease Visit [facility] Start: 06-16-2025 BP Controlled (<130/80) BP Controlle d (<130/80) [facility] Start: 06-06-2025 Annual PCP Team Water Operator octavio Disease Visit Annual PCP Team Chronic Disease Visit [facility] Start: 06-06-2025 BP Controlled (<130/80) BP Controlle d (<130/80) [facility] Start: 06-06-2025 Pneumococcal Vaccine : 50+ (1 of 1 - PCV) Pneumococcal Vaccine: 50+ (1 of 1 - PCV) [facility] Comment on above: Postponed from 04/25 (Declined at this time) Start: 06-06-2025 Shingrix Vaccine (2 of 2) Shingrix Vaccine (2 of 2) [facility] Comment on above: Postponed from 04/02 (Declined at this time) Start: 06-06-2025 Urine microalbumin profile DTaP,Tdap,Td Vaccine (1 - Tdap) [facility] Comment on above: Postponed from 02/06 (Declined at this time) Start: 06-05-2025 Annual PCP Team Water Operator octavio Disease Visit Annual PCP Team Chronic Disease Visit [facility] Start: 06-05-2025 Covid-19 Vaccine ( season) Covid-19 Vaccine ( season) [facility] Comment on above: Postponed from 12/04 (Declined at this time) Start: 05-22-2025 End: 05-22-2025 Patient encounter procedure 05/22/2025 8:00 AM EST Office Visit Psychiatry [address] [place] [address] Melina Britt, DIRECTOR MEDICAL WRITING.COPY CENTER OPERATOR [address] [place] [phone] Psychiatry Start: 02-26-2025 End: 02-26-2025 Patient encounter procedure 02/26/2025 5:20 PM EST Office Visit Internal Medicine [place] [address] [place], [place] [id number] Mark Nova MD [address] [place], [place] [id number] 3 month follow-up [facility] [place] Comment on above: 3 month follow-up Start: 01-11-2025 End: 01-11-2025 Patient encounter procedure 01/11/2025 2:30 PM EDT Office Visit [facility] [address] [place] [address] Maude Townsend APRN.COPY CENTER OPERATOR [address] [place] [address] 3 mo follow up [facility] Comment on above: 3 mo follow up Start: 01-11-2025 End: 01-11-2025 Patient encounter procedure 01/11/2025 9:30 AM EDT Office Visit [facility] [address] [place] [address] Maude Townsend, YUE.COPY CENTER OPERATOR [address] [place] [address] 3 mo follow up [facility] Comment on above: 3 mo follow up Start: 12-20-2024 BP Controlled (<130/80) BP Controlle d (<130/80) [facility] Start: 12-06-2024 DIABETES SCREEN DIABETES SCREEN [facility] Start: 12-06-2024 Diabetes Screening Diabetes Screenin g [facility] Start: 12-05-2024 End: 12-05-2024 Patient encounter procedure 12/05/2024 8:00 AM EDT Office Visit Psychiatry [address] [place] [phone] Melina Britt, DIRECTOR MEDICAL WRITING.COPY CENTER OPERATOR [address] [place] [phone] Psychiatry Start: 12-04-2024 Influenza vaccination [facility] Start: 11-27-2024 End: 11-27-2024 Patient encounter procedure 11/27/2024 6:20 PM EDT Office Visit Internal Medicine [place] [address] [facility] [place] [address] Mark Nova MD [address] [facility] [place], [place] [phone] 6 month follow-up [facility] [place] Comment on above: 6 month follow-up Start: 11-24-2024 Annual PCP Team Water Operator octavio Disease Visit Annual PCP Team Chronic Disease Visit [facility] Start: 11-24-2024 Anxiety Screening Anxiety Screening [facility] Start: 11-24-2024 BP Controlled (<130/80) BP Controlle d (<130/80) [facility] Start: 11-24-2024 End: 11-24-2024 Patient encounter procedure 11/24/2024 9:00 AM EDT Office Visit Internal Medicine [place] [address] [facility] [place] [address] Mark Nova MD [address] [place] [address] 6 month follow-up [facility] [place] Comment on above: 6 month follow-up Start: 11-23-2024 End: 11-23-2024 Patient encounter procedure 11/23/2024 6:00 PM EDT Office Visit [facility] [place] [address] [facility] [place] [address] Mark Nova MD [address] [facility] [place], [place] [phone] c/o left knee pain [facility] [place] Comment on above: c/o left knee pain Start: 11-18-2024 COLOGUARD (FIT-DNA) COLOGUARD (FIT-D NA) [facility] Start: 11-18-2024 COLORECTAL CANCER SCREENING COLORECTAL CANCER SCREENING [facility] Start: 11-18-2024 Screening for malign ant neoplasm of colon [facility] Start: 11-14-2024 End: 11-14-2024 ambulatory 11/14/2024 4:30 PM EDT [facility] [address] [place], [place] [phone] Pineda Caldera, PT [address] [place] [address] Spinal stenosis, lumbar region with neurogenic claudication [M48.062] [place] [facility] Comment on above: Spinal stenosis, lum bar region with neurogenic claudication [M48.062] Start: 10-12-2024 End: 10-12-2024 Patient encounter procedure 10/12/2024 9:45 AM EDT Office Visit [facility] [address] [place] [address] Maude Townsend APRN.COPY CENTER OPERATOR [address] [place] [address] ILESI follow up [facility] Comment on above: ILESI follow up Start: 10-02-2024 Influenza vaccination Influenza Vacc ine (#1) [facility] Comment on above: Postponed from 12/04 (Declined at this time) Start: 09-18-2024 End: 09-18-2024 Patient encounter procedure 09/18/2024 9:30 AM EDT Office Visit Orthopaedics [address] [place] [address] Tasha Jovel PA-C [address] [place] [address] Primary osteoarthritis of left knee [M17.12] Orthopaedics Comment on above: Primary osteoarthrit is of left knee [M17.12] Start: 09-15-2024 End: 09-15-2024 ambulatory [facility] [place] Comment on above: Epidural Steroid Inj ection - Interlaminar Approach (ILESI) under fluoroscopic guidance NONE at L4-5; no restrictions AUTH GOOD SR (ILESI) under fluoroscopic guidance NONE at L4-5; no restrictions Start: 09-06-2024 BP Controlled (<130/80) BP Controlle d (<130/80) [facility] Start: 08-25-2024 End: 08-25-2024 Patient encounter procedure 08/25/2024 8:40 AM EDT Office Visit [facility] [place] [address] [place] [address] Mark Nova MD [address] [place] [address] follow up 2 months [facility] [place] Comment on above: follow up 2 months Start: 08-15-2024 End: 08-15-2024 ambulatory 08/15/2024 10:00 AM EDT OT/PT/Speech Visit [facility] [address] [place] [address] Sami Bonds, PT M48.062 (ICD-10-CM) - Spinal stenosis, lumbar region with neurogenic claudication [facility] Comment on above: M48.062 (ICD-10-CM) - Spinal stenosis, lumbar region with neurogenic claudication Start: 08-10-2024 End: 08-10-2024 Patient encounter procedure [facility] Comment on above: Left low back pain, unspecified chronicity, unspecified whether sciatica present [M54.50] Start: 08-02-2024 BP Controlled (<130/80) BP Controlle d (<130/80) [facility] Start: 07-18-2024 LIPID SCREEN LIPID SCREEN [facility] Start: 06-28-2024 BP Controlled (<130/80) BP Controlle d (<130/80) [facility] Start: 06-20-2024 End: 06-20-2024 Patient encounter procedure Psychiatry Comment on above: 6 month follow up Start: 06-16-2024 End: 06-16-2024 Patient encounter procedure 06/16/2024 1:20 PM EDT Office Visit [facility] [place] [address] [facility] [place] [address] Mark Nova MD [address] [place] [address] ED follow up- Fall with back contusion [facility] [place] Comment on above: ED follow up- Fall w ith back contusion Start: 06-16-2024 End: 06-16-2024 Patient encounter procedure 06/16/2024 7:30 AM EDT Appointment Radiology [address] [place] [address] Screening for abdominal aortic aneurysm [Z13.6] Radiology Comment on above: Screening for abdomi nal aortic aneurysm [Z13.6] Start: 06-06-2024 End: 09-05-2024 LIPID PANEL, NONFASTING LIPID PANEL, NONFASTING Lab Routine Hyperlipidemia, unspecified hyperlipidemia type Expected: 06/06/2024, Expires: 09/05/2024 [facility] Comment on above: Expected: 06/06/2024 , Expires: 09/05/2024 Start: 06-06-2024 End: 06-06-2024 Patient encounter procedure 06/06/2024 8:00 AM EST Office Visit [facility] [place] [address] [place] [address] Alexia Coleman, DIRECTOR MEDICAL WRITING.COPY CENTER OPERATOR [address] [place] [address] Annual Medicare Wellness w/6 month follow-up [facility] [place] Comment on above: Annual Medicare Well ness w/6 month follow-up Start: 05-29-2024 End: 05-29-2024 Patient encounter procedure 05/29/2024 9:00 AM EST Office Visit [facility] [place] [address] [place] [address] Alexia Coleman, DIRECTOR MEDICAL WRITING.COPY CENTER OPERATOR [address] [place] [address] Annual Medicare Wellness w/6 month follow-up [facility] [place] Comment on above: Annual Medicare Well ness w/6 month follow-up Start: 05-26-2024 Abdominal aortic aneurysm screening Abdominal Aortic Aneurysm Screening [facility] Comment on above: Postponed from 04/25 (Declined at this time) Start: 05-26-2024 Annual PCP Team Water Operator octavio Disease Visit Annual PCP Team Chronic Disease Visit [facility] Start: 05-26-2024 BP Controlled (<130/80) BP Controlle d (<130/80) [facility] Start: 05-26-2024 Covid-19 Vaccine ( season) Covid-19 Vaccine ( season) [facility] Comment on above: Postponed from 12/04 (Declined at this time) Start: 05-26-2024 Pneumococcal Vaccine : 50+ (1 of 1 - PCV) Pneumococcal Vaccine: 50+ (1 of 1 - PCV) [facility] Comment on above: Postponed from 04/25 (Declined at this time) Start: 05-26-2024 Pneumococcal Vaccine : 65+ (1 of 1 - PCV) Pneumococcal Vaccine: 65+ (1 of 1 - PCV) [facility] Comment on above: Postponed from 04/25 (Declined at this time) Start: 05-26-2024 RSV Vaccine (1 - 1-d ose 60+ series) RSV Vaccine (1 - 1-dose 60+ series) [facility] Comment on above: Postponed from 04/25 (Declined at this time) Start: 05-26-2024 Shingrix Vaccine (2 of 2) Shingrix Vaccine (2 of 2) [facility] Comment on above: Postponed from 04/02 (Declined at this time) Start: 05-26-2024 Urine microalbumin profile DTaP,Tdap,Td Vaccine (1 - Tdap) [facility] Comment on above: Postponed from 02/06 (Declined at this time) Start: 05-15-2024 End: 08-14-2024 Comprehensive metabolic 2000 panel - Serum or Plasma COMPREHENSIVE METABOLIC PANEL Lab Routine Hyperlipidemia, unspecified hyperlipidemia type Expected: 05/15/2024, Expires: 08/14/2024 [facility] Work Phone: Comment on above: Expected: 05/15/2024 , Expires: 08/14/2024 Start: 05-15-2024 End: 08-14-2024 Lipid 1996 panel - Serum or Plasma LIPID PANEL BASIC Lab Routine Hyperlipidemia, unspecified hyperlipidemia type Expected: 05/15/2024, Expires: 08/14/2024 [facility] Comment on above: Expected: 05/15/2024 , Expires: 08/14/2024 Start: 04-05-2024 Advance Directive Discussion Advance Directive Discussion [facility] Start: 12-21-2023 End: 12-21-2023 Patient encounter procedure 12/21/2023 8:00 AM EDT Office Visit Psychiatry [address] [place] [phone] Melina Britt, DIRECTOR MEDICAL WRITING.COPY CENTER OPERATOR [address] [place] [phone] follow up Psychiatry Comment on above: follow up Start: 12-05-2023 Covid-19 Vaccine () Covid-19 Vaccine () [facility] Start: 12-05-2023 Covid-19 Vaccine () Covid-19 Vaccine () [facility] Start: 12-05-2023 Influenza vaccination [facility] Start: 11-24-2023 End: 11-24-2023 Patient encounter procedure 11/24/2023 11:00 AM EDT Office Visit [facility] [place] [address] [place], [place] [phone] Alexia Coleman, DIRECTOR MEDICAL WRITING.COPY CENTER OPERATOR [address], [place] [phone] 6 month follow up [facility] [place] Comment on above: 6 month follow up Start: 11-02-2023 End: 11-02-2023 Patient encounter procedure 11/02/2023 1:30 PM EDT Office Visit Psychiatry [address] [place] [phone] Melina Britt, DIRECTOR MEDICAL WRITING.COPY CENTER OPERATOR [address] [place] [phone] FOLLOW UP Psychiatry Comment on above: FOLLOW UP Start: 10-03-2023 Influenza vaccination Influenza Vacc ine (#1) [facility] Comment on above: Postponed from 12/04 (Declined at this time) Start: 09-07-2023 End: 09-07-2023 Patient encounter procedure 09/07/2023 11:30 AM EDT Office Visit Psychiatry [address] [place] [phone] Melina Britt, DIRECTOR MEDICAL WRITING.COPY CENTER OPERATOR [address] [place] [phone] FOLLOW UP Psychiatry Comment on above: FOLLOW UP Start: 08-13-2023 ANNUAL PCP TEAM HR RECRUITER OCTAVIO DISEASE VISIT ANNUAL PCP TEAM CHRONIC DISEASE VISIT [facility] [facility] Start: 08-13-2023 BP CONTROLLED (<130/80) BP CONTROLLE D (<130/80) [facility] Start: 01-30-2023 ABDOMINAL AORTIC ANEURYSM SCREENING ABDOMINAL AORTIC ANEURYSM SCREENING [facility] Comment on above: Postponed from 04/25 (Declined at this time) Start: 01-30-2023 ANNUAL PCP TEAM HR RECRUITER OCTAVIO DISEASE VISIT ANNUAL PCP TEAM CHRONIC DISEASE VISIT [facility] Start: 01-30-2023 BP CONTROLLED (<130/80) BP CONTROLLE D (<130/80) [facility] Start: 01-30-2023 COVID-19 VACCINE (4 - Booster for Pfizer series) COVID-19 VACCINE (4 - Booster for Pfizer series) [facility] Comment on above: Postponed from 06/06 (Declined at this time) Start: 01-30-2023 PNEUMOCOCCAL: 65+ (1 - PCV) PNEUMOCOCCAL: 65+ (1 - PCV) [facility] Comment on above: Postponed from 04/25 (Declined at this time) Start: 01-30-2023 SHINGRIX VACCINE (2 of 2) SHINGRIX VACCINE (2 of 2) [facility] Comment on above: Postponed from 04/02 (Declined at this time) Start: 01-30-2023 Urine microalbumin profile DTAP,TDAP,TD (1 - Tdap) [facility] Comment on above: Postponed from 02/06 (Declined at this time) Start: 12-19-2022 BP CONTROLLED (<130/80) BP CONTROLLE D (<130/80) [facility] Start: 12-13-2022 End: 02-12-2023 CBC panel - Blood by Automated count CBC Lab Routine Primary hypertension Expected: 12/13/2022, Expires: 02/12/2023 [facility] Work Phone: Comment on above: Expected: 12/13/2022 , Expires: 02/12/2023 Start: 12-13-2022 End: 02-12-2023 Comprehensive metabolic 2000 panel - Serum or Plasma COMP METABOLIC PANEL Lab Routine Hyperlipidemia, unspecified hyperlipidemia type Expected: 12/13/2022, Expires: 02/12/2023 [facility] Work Phone: Comment on above: Expected: 12/13/2022 , Expires: 02/12/2023 Start: 12-13-2022 End: 02-12-2023 Lipid 1996 panel - Serum or Plasma LIPID PANEL BASIC Lab Routine Hyperlipidemia, unspecified hyperlipidemia type Expected: 12/13/2022, Expires: 02/12/2023 [facility] Work Phone: Comment on above: Expected: 12/13/2022 , Expires: 02/12/2023 Start: 12-04-2022 Influenza vaccination INFLUENZ A (Season Ended) [facility] Start: 10-30-2022 ANNUAL PCP TEAM HR RECRUITER OCTAVIO DISEASE VISIT ANNUAL PCP TEAM CHRONIC DISEASE VISIT [facility] Start: 10-30-2022 COLORECTAL CANCER SCREENING COLORECTAL CANCER SCREENING [facility] Comment on above: Postponed from 04/25 (Declined at this time) Start: 10-02-2022 Influenza vaccination INFLUENZA (#1) [facility] Comment on above: Postponed from 12/04 (Declined at this time) Start: 05-02-2022 End: 07-02-2022 Lipid 1996 panel - Serum or Plasma LIPID PANEL BASIC Lab Routine Hyperlipidemia, unspecified hyperlipidemia type Expected: 05/02/2022 (Approximate), Expires: 07/02/2022 [facility] Work Phone: Comment on above: Expected: 05/02/2022 (Approximate), Expires: 07/02/2022 Start: 04-05-2022 ADVANCE DIRECTIVE DISCUSSION ADVANCE DIRECTIVE DISCUSSION [facility] Start: 12-19-2021 End: 01-02-2022 SARS-CoV-2 (COVID-19) RNA [Presence] in Respiratory specimen by DUYEN with probe detection [facility] Work Phone: Comment on above: Expected: 12/19/2021 , Expires: 01/02/2022 Start: 12-04-2021 Influenza vaccination INFLUENZA (#1) [facility] Start: 10-31-2021 End: 12-31-2021 CBC panel - Blood by Automated count CBC Lab Routine Primary hypertension Expected: 10/31/2021, Expires: 12/31/2021 [facility] Work Phone: Comment on above: Expected: 10/31/2021 , Expires: 12/31/2021 Start: 10-31-2021 End: 12-31-2021 Comprehensive metabolic 2000 panel - Serum or Plasma COMP METABOLIC PANEL Lab Routine Primary hypertension Expected: 10/31/2021, Expires: 12/31/2021 [facility] Work Phone: Comment on above: Expected: 10/31/2021 , Expires: 12/31/2021 Start: 10-31-2021 End: 12-31-2021 Lipid 1996 panel - Serum or Plasma LIPID PANEL BASIC Lab Routine Primary hypertension Expected: 10/31/2021, Expires: 12/31/2021 [facility] Work Phone: Comment on above: Expected: 10/31/2021 , Expires: 12/31/2021 Start: 08-09-2021 COVID-19 VACCINE (4 - Booster for Pfizer series) COVID-19 VACCINE (4 - Booster for Pfizer series) [facility] Start: 04-02-2018 SHINGRIX VACCINE (2 of 2) SHINGRIX VACCINE (2 of 2) [facility] Start: 02-07-2016 Urine microalbumin profile [facility] Start: 2002 Pneumococcal Vaccine : 50+ (1 of 1 - PCV) Pneumococcal Vaccine: 50+ (1 of 1 - PCV) [facility] Start: 2002 SHINGRIX VACCINE (1 of 2) SHINGRIX VACCINE (1 of 2) [facility] Start: 1997 COLOGUARD (FIT-DNA) COLOGUARD (FIT-D NA) [facility] Start: 1997 Colonoscopy COLONOSCOPY [facility] Start: [address] COLONOGRAPHY [facility] Start: 1997 DIABETES SCREEN DIABETES SCREEN [facility] Start: 1997 FECAL OCCULT BLOOD FECAL OCCULT BLOO D [facility] Start: 1997 Screening for malign ant neoplasm of colon [facility] Start: [address] [facility] Start: 1987 LIPID SCREEN LIPID SCREEN [facility] Start: 1971 Urine microalbumin profile DTAP,TDAP,TD (1 - Tdap) [facility] Start: 1970 Anxiety Screening Anxiety Screening [facility] Start: 1970 BP CONTROLLED (<130/80) BP CONTROLLE D (<130/80) [facility] Start: 1970 HEPATITIS C SCREENING HEPATITIS C SC REENING [facility] Start: 1958 PNEUMOCOCCAL: 65+ (1 - PCV) PNEUMOCOCCAL: 65+ (1 - PCV) [facility] Start: 1952 ABDOMINAL AORTIC ANEURYSM SCREENING ABDOMINAL AORTIC ANEURYSM SCREENING [facility] Start: 1950 Abdominal aortic aneurysm screening Abdominal Aortic Aneurysm Screening [facility] COLOGUARD COLOGUARD Lab Ro utine Screening for colon cancer Ordered: 10/30/2021 [facility] Work Phone: Comment on above: Ordered: 10/30/2021 End: 10-30-2022 ECG COMPLETE ECG COMPLETE ECG Routine Primary hypertension Heart murmur 1 Occurrences starting 10/30/2021 until 10/30/2022 [facility] Work Phone: Comment on above: 1 Occurrences starti ng 10/30/2021 until 10/30/2022 ECG COMPLETE ECG COMPLETE ECG 10/30/2021 4:20 PM EDT [facility] Njx dx/ther sbst intrlmnr lmbr/sac w/img gdn EPI LUMBAR OR SACRAL W/IMAGING Procedures Routine Spinal stenosis, lumbar region with neurogenic claudication Left low back pain, unspecified chronicity, unspecified whether sciatica present Ordered: 09/15/2024 [facility] Work Phone: Comment on above: Ordered: 09/15/2024 End: 07-06-2025 US Abdominal Aorta for screening US SCREENING FOR AAA Radiology Routine Screening for abdominal aortic aneurysm 1 Occurrences starting 06/06/2024 until 07/06/2025 [facility] Work Phone: Comment on above: 1 Occurrences starti ng 06/06/2024 until 07/06/2025 US Lower extremity vein US LEG V EIN DVT UNL VAS LAB Vascular Lab STAT Left leg pain Ordered: 10/24/2024 [facility] Comment on above: Ordered: 10/24/2024 US Lower extremity v ein - left US DVT LOWER LEFT Radiology STAT Left leg pain Ordered: 10/24/2024 [facility] Work Phone: Comment on above: Ordered: 10/24/2024 End: 07-16-2025 XR Femur - left AP and Lateral XR FEMUR GENERAL 2V AP/LAT LEFT Radiology Routine Acute pain of left thigh 1 Occurrences starting 06/16/2024 until 07/16/2025 [facility] Work Phone: Comment on above: 1 Occurrences starti ng 06/16/2024 until 07/16/2025 XR Femur - left AP a nd Lateral XR FEMUR GENERAL 2V AP/LAT LEFT Radiology Routine Acute pain of left thigh 06/16/2024 1:59 PM EDT [facility] End: 07-05-2025 XR Sacrum and Coccyx 3 Views XR SACRUM/COCCYX 3V AP/LAT Radiology Routine Acute bilateral low back pain without sciatica 1 Occurrences starting 06/05/2024 until 07/05/2025 [facility] Work Phone: Comment on above: 1 Occurrences starti ng 06/05/2024 until 07/05/2025 XR Sacrum and Coccyx 3 Views XR SACRUM/COCCYX 3V AP/LAT Radiology Routine Acute bilateral low back pain without sciatica 06/06/2024 8:49 AM EST [facility] Work Phone: [facility] Immunizations Immunization Date Immunization Notes Care Provider Fa cilismiley 04-11-2021 COVID-19 vaccine, ag e 12+ yr (Insiders@ Project-InfectiousNTNveloped - PURPLE TOP) Mark Nova MD Work Phone: [facility] Work Phone: 07-03-2020 COVID-19 vaccine, ag e 12+ yr (PFIZER-BIONTECH - PURPLE TOP) Mark Nova MD Work Phone: [facility] Work Phone: 06-11-2020 COVID-19 vaccine, ag e 12+ yr (PFIZER-BIONTECH - PURPLE TOP) Mark Nova MD Work Phone: [facility] Work Phone: 02-05-2018 zoster vaccine recombinant Mark Nova MD Work Phone: [facility] Work Phone: 08-10-2017 influenza, seasonal, injectable Mark Nova MD Work Phone: [facility] Work Phone: 08-10-2017 influenza virus vaccine, unspecified formulation Alexia Coleman APRN.COPY CENTER OPERATOR Work Phone: [facility] 02-06-2016 TD(adult) unspecifie d formulation Mark Nova MD Work Phone: [facility] Work Phone: Payers Date Payer Category Payer Self-pay 2024 [facility] (not [facility] or Medicaid) [facility] [place] [place] Address: [address] [place], [place] [id number] 2024 Medicare (Managed Care) O LEA DVANTAGE O [id number] 2024 Unknown [id number] 2023 Medicare [id number] 2021 Private Health Insurance [facility] AARP SUPPLEMENT [id number] 2021-Present [phone] [address] [place] [address] Indemnity [id number] 2021 Private Health Insurance [facility] AARP SUPPLEMENT [id number] 2021-Present [phone] [address] [place] [address] Indemnity [id number] 2017 Medicare MEDICARE MEDICAR E A AND B [id number] 2017-Present [phone] [place] [address] Medicare [id number] 2017 Medicare [id number] Unknown [id number] Social History Date Type Detail Facility Start: 10-30-2021 End: 12-19-2021 Tobacco smoking status NHIS Smokes tobacco daily [facility] Work Phone: History of tobacco use Cigarette Smoker [facility] Work Phone: Start: 10-30-2021 End: 08-12-2022 Cigarettes smoked current (pack per day) - Reported 1 [facility] Work Phone: Start: 10-30-2021 End: 11-25-2023 Tobacco use and exposure Smokeless tobacco non-user [facility] Work Phone: Start: 10-30-2021 End: 06-06-2024 Alcohol intake Current drinker of alcohol (finding) [facility] Start: 10-30-2021 History SDOH Alcohol Frequency 2 [facility] Start: 10-30-2021 History SDOH Alcohol Std Drinks 1 [facility] Start: 10-30-2021 History SDOH Alcohol Comment 1 drink per year [facility] Start: 10-30-2021 History SDOH Social Connections Phone 5 [facility] Start: 10-30-2021 History SDOH Physica l Activity DPW 7 [facility] Start: 10-30-2021 History SDOH Physica l Activity MPS 3 [facility] Start: 10-30-2021 End: 12-19-2021 Tobacco Comment quit 15 years ago. Started age 30. [facility] Start: 1950 Sex Assigned At Not on file [facility] Start: 10-20-2021 End: 12-19-2021 Exposure to SARS-CoV-2 (event) Not sure [facility] Work Phone: Start: 05-26-2023 End: 11-25-2023 Tobacco smoking status NHIS Ex-smoker [facility] Work Phone: History of tobacco use Current smoker [facility] Work Phone: Start: 10-30-2021 End: 08-12-2022 Social connection and isolation panel [facility] Work Phone: Do you belong to any clubs or organizations such as methodist groups, unions, fraternal or athletic groups, or school groups? No [facility] Work Phone: Are you now , , , , never or living with a partner? [facility] Work Phone: How often to you hav e a drink containing alcohol? Never [facility] Work Phone: Start: 04-11-[address] inks containing alcohol do you have on a typical day? Patient does not drink [facility] Work Phone: Do you feel stress - tense, restless, nervous, or anxious, or unable to sleep at night because your mind is troubled all the time - these days [OSQ] Only a little [facility] Work Phone: Start: 06-07-2024 End: 12-12-2024 Alcoholic beverage intake Ex-drinker (finding) [facility] octavio Functional Status Date Assessment Result Facility 06-06-2024 Total score [AUDIT-C] 0 06/07/19 8:04 AM EST Ligia Lomax LPN [facility] Clinical Notes 10-30-2021 to 01-24-2025 Dana Pat PA-C - 12/13/2024 9:11 AM EDTPatient InstructionsPatient InstructionsRaMelina hickman APRN.COPY CENTER OPERATOR - 12/05/2024 8:19 AM Katrina Valero APRN.COPY CENTER OPERATOR - 12/03/2024 9:59 AM EDT Note Date & Type Note Facility 01-24-2025 Note HNO ID: [id number] Author: FORTINO PALACIOS RT(R) Service: ? Author Type: Cath Lab Nurse Type: Progress Notes Filed: 01/24/2025 12:09 Note Text: Radiology Service Progress Note PATIENT NAME: Juan Killian DATE OF SERVICE: January 24, 2025 TIME: 12:09 PM PATIENT IDENTITY VERIFICATION COMPLETED USING TWO (2) IDENTIFIERS: Name and Date of confirmed by patient verbally. FALL SCREENING: Has the patient had 2 falls in the last year or 1 fall with injury or currently using an Ambulatory Assistive Device (Walker, Cane, Wheelchair, Crutches, etc.)? No PATIENT GENDER DATA: Assigned male at PATIENT RELEVANT IMPLANT DATA REVIEWED: Yes PATIENT PRESENTS WITH AN IMPLANTABLE OR ATTACHED DOUBLE END SEWER: No RADIOLOGY DEPARTMENT: CT; Exam(s) Completed: Brain . Anesthesia: No PERIPHERAL IV DATA: Not applicable SIGNED BY: CHAVO Estrada) January 24, 2025 12:09 PM [facility] 01-12-2025 Note HNO ID: [id number] Author: MARK NOVA MD Service: ? Author Type: Physician Type: Progress Notes Filed: 01/12/2025 14:08 Note Text: Subjective Juan Killian is a 74 year old male. He noted lapses in memory today. He described as wanting to do something then forgetting about it until a minute or two later. He had minor forgetful spells the past 2 years, but became concerned with dementia. He will go into a room and forget why he went there. He had no acute symptoms or recent illness. His medications were unchanged. He just saw Dr. Son Calderon and there was discussion about knee surgery. He also gave a longstanding history of loud snoring. He lived alone so no one has ever mentioned apnea. At times he work himself up from snoring. Review of Systems Constitutional: Negative for chills, fatigue and fever. HENT: Negative for congestion, hearing loss, sore throat and trouble swallowing. Eyes: Negative for pain and visual disturbance. Respiratory: Negative for cough, shortness of breath and wheezing. Cardiovascular: Negative for chest pain and palpitations. Gastrointestinal: Negative for diarrhea, nausea and vomiting. Genitourinary: Negative for dysuria. Musculoskeletal: Positive for arthralgias. Skin: Negative for rash and wound. Neurological: Negative for dizziness, tremors, seizures, syncope, facial asymmetry, speech difficulty, weakness, numbness and headaches. ACTIVE PROBLEM LIST Major Depression, Chronic Primary Hypertension Obesity, Class I, Bmi 30-34.9 Heart Murmur Hyperlipidemia Major Depressive Disorder, Recurrent Episode, Moderate (Hcc) Primary Osteoarthritis of Left Knee Left Low Back Pain Social History Tobacco Use Smoking status: Former Current packs/day: 1.00 Average packs/day: 1 pack/day for 3.0 years (3.0 ttl pk-yrs) Types: Cigarettes Smokeless tobacco: Never Tobacco comments: quit 15 years ago. Started age 30. Vaping Use Vaping status: Never Used Substance Use Topics Alcohol use: Not Currently Comment: 1 drink per year Drug use: Not Currently Types: Marijuana Comment: 16-23 years old Current Outpatient Medications Medication Sig hydroCHLOROthiazide 25 mg tablet Take 1 tablet by mouth once daily. tiZANidine (ZANAFLEX) 4 mg tablet Take 1 tablet by mouth every 8 hours as needed. buPROPion XL (WELLBUTRIN XL) 300 mg 24 hr tablet Take 1 tablet by mouth once daily. DULoxetine DR (CYMBALTA) 60 mg capsule Take 1 capsule by mouth daily at bedtime. lamoTRIgine (LAMICTAL) 100 mg tablet Take 1 tablet by mouth once daily. diclofenac, EC, (VOLTAREN) 75 mg EC tablet Take 1 tablet by mouth two times a day. atorvastatin (LIPITOR) 20 mg tablet Take 1 tablet by mouth daily at bedtime. For cholesterol. gabapentin (NEURONTIN) 100 mg capsule Take 2 capsules by mouth three times a day for 180 days. No current facility-administered medications for this visit. 1) Snoring? Yes. 2) Tired? No. 3) Observed apnea? No. 4) Pressure (Hypertension)? Yes. 5) BMI>45? No. 6) Age>50? Yes. 7) Neck circumference >40cm? Yes. 8) Gender male? Yes. Conclude: Total 3 or more positive responses? Yes.. Objective BP 128/78 Pulse 86 Temp 36.8 ?C (98.3 ?F) Resp 16 Wt 91.6 kg (201 lb 15.1 oz) BMI 36.94 kg/m? Physical Exam Constitutional: General: He is not in acute distress. Appearance: He is not ill-appearing or diaphoretic. HENT: Head: Atraumatic. Right Ear: Tympanic membrane normal. Left Ear: Tympanic membrane normal. Nose: No congestion or rhinorrhea. Mouth/Throat: Mouth: Mucous membranes are moist. Pharynx: Oropharynx is clear. Eyes: General: No scleral icterus. Extraocular Movements: Extraocular movements intact. Conjunctiva/sclera: Conjunctivae normal. Pupils: Pupils are equal, round, and reactive to light. Neck: Vascular: No carotid bruit. Cardiovascular: Rate and Rhythm: Normal rate and regular rhythm. Heart sounds: No murmur heard. No gallop. Pulmonary: Breath sounds: Normal breath sounds. No wheezing or rales. Abdominal: Palpations: Abdomen is soft. There is no mass. Tenderness: There is no abdominal tenderness. Musculoskeletal: Cervical back: Neck supple. Right lower leg: No edema. Left lower leg: No edema. Lymphadenopathy: Cervical: No cervical adenopathy. Neurological: General: No focal deficit present. Mental Status: He is alert and oriented to person, place, and time. Cranial Nerves: No cranial nerve deficit. Sensory: No sensory deficit. Motor: No weakness. Coordination: Coordination normal. Gait: Gait normal. Deep Tendon Reflexes: Reflexes normal. Comments: Ambulatory with cane. Psychiatric: Mood and Affect: Mood normal. 01/12/[address] 5 Registration 3 ATTENTION AND CALCULATION 4 Recall 2 Language 2 Repeat 1 FOLLOW 3-STEP COMMAND 3 Read AND Obey 1 WRITE A SENTENCE 1 Copy Pentagons 1 Score: 27 ASSESSMENT/PL (more content not included)... [facility] 01-11-2025 Note HNO ID: [id number] Author: MAUDE TOWNSEND APRN.JORJE Service: ? Author Type: Nurse Practitioner Type: Progress Notes Filed: 01/11/2025 14:45 Note Text: [facility] Today's Date: 01/11/2025 Name: Juan Killian : 1950 Purpose: Follow-up Patient Evaluation - This is an established patient, returning today for continued evaluation and management of the chief complaint noted below Chief complaint: low back pain Referring Clinician: Mark Nova Pertinent Past Medical History: HTN, HLD, depression Pertinent Past Surgeries: none Plan at last visit: (Seen on 10/2024 by Maude Townsend CNP) IMPRESSION: 74 year old male presents with complaint(s) of Low back pain as described above. Patient stating his pain is better managed now after the injection stating that he is still is limited with some of his activities that he feels as long as he avoids things that increase his pain he does well. Diagnoses: (M48.062) Spinal stenosis, lumbar region with neurogenic claudication (primary encounter diagnosis) (M51.362) Degeneration of intervertebral disc of lumbar region with discogenic back pain and lower extremity pain (M54.50) Left low back pain, unspecified chronicity, unspecified whether sciatica present (M47.816) Lumbar spondylosis PLAN: Juan Killian would benefit from the following to reach personal goals for decreasing pain, improving function and work participation, and/or improving quality of life: Medications: No Changes - Continue Current Medications Interventional Procedures: none Studies: None Functional Mandaeism: NONE He Does Well. She Referrals: No additional considerations at present Follow-up: 1 month after injection Depending on response to the above plan, consider: TBD Interval History: Overall pain and functional disability since last visit: Better New Complaints since last visit: Susan Martinez is a 74-year-old male presenting for follow-up after a prior injection for back pain. Juan was last seen in October, at which time he reported that the injection had significantly improved his pain. He states that his upper back is 100% better, though his lower back has always been a problem. He reports that his pain is currently bearable, except for his knee. He rates his current back pain as none. He has been avoiding lifting heavy objects. 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 He reports that turning and twisting causes significant pain. He is currently temporarily disabled from work due to his knee pain. He reports that he is planning to have knee replacement surgery and is currently seeing a surgeon. He previously had an injection for his knee, which he believes was for his meniscus. - (October) - Knee X-ray: Mild to moderate arthritis with joint space narrowing. - Injection for lower back: Pain improved with better pain control. Current Pain Medications: Neuropathics: gabapentin NSAIDS: diclofenac Muscle Relaxants: Topicals: Other Prescription or OTC Pain Medications: Opioids (when applicable): Anti-depressants or Mood-Stabilizers: Cymbalta, Wellbutrin Anti-Coagulants: None Therapies Attended (Current or Most Recent): No Current Therapies 08/10/2024 [facility] SPINE COMBINATION Questionnaire GREENLIGHT Completed Date 08/10/2024 Questionnaire Opiod Risk Tool Completed Date 08/10/2024 Comments 1 - Low Risk No question data found. (All drug screens are appropriate unless indicated otherwise) Notable Events During Course of Treatment: History of Present Illness (HPI): 08/09/2024 - Initial HPI (Obtained by Maude Townesnd CNP). DURATION AND ONSET: The pain complaint has been present for approximately 2 months. The pain had a sudden onset. The mechanism of injury is known and is as follows: a fall. RED FLAG SYMPTOMS: denies red flags. PAIN DESCRIPTION: Timing: Intermittent Character: Shooting, Stabbing, Throbbing Primary Location: low back Radiation: down left leg and into left groin Exacerbating factors: twisting and lifting Relieving factors: Sitting with his feet elevated Interferes with: physical activity and work Juan is a 74-year-old male with a history of hypertension, hyperlipidemia, and depression, presenting for evaluation of back pain following a fall. Juan reports that he fell on June 22, 2022, when he slipped on ice in a parking lot. He describes the fall as a karate chop to the blacktop. Two days later, he began experiencing back pain, which progressively worsened to a 10/10 intensity. He describes the pain as stabbing and intermittent, with episodes lasti (more content not included)... [facility] 01-11-2025 Note HNO ID: [id number] Author: KRYSTAL CATES LPN Service: ? Author Type: Licensed Nurse Type: Progress Notes Filed: 01/11/2025 14:45 Note Text: Review of Systems Constitutional: Positive for activity change. Negative for chills, fever and unexpected weight change. Genitourinary: Negative for difficulty urinating. Musculoskeletal: Positive for arthralgias, back pain, gait problem, joint swelling and myalgias. Negative for neck pain. Neurological: Negative for weakness, numbness and headaches. Psychiatric/Behavioral: Positive for dysphoric mood. Negative for sleep disturbance and suicidal ideas. The patient is not nervous/anxious. [facility] 12-13-2024 Note HNO ID: [id number] Author: DANA PAT PA-C Service: ? 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 Patient/authorized telephone services sales representative agreed to proceed 12/13/2024 Lower Back Pain: - Diffuse lower back pain, described as tight. - Juan believes pain is due to compensatory mechanisms from using a cane for left knee pain. - Denies known trauma or injury to the back. - Pain is exacerbated by movement; avoids moving due to discomfort. - Has not tried stretching exercises. - Scheduled for physical therapy for both knee and back pain. - Using heat and ice on the knee; taking Tylenol and diclofenac with some relief for knee swelling. - Currently taking gabapentin 200 mg TID; tolerating well - Has a [facility] Terrier that keeps him active, named Winter denies numbness/tingling, bladder retention, bowel or bladder incontinence. Left Knee Pain: - Diagnosed with a torn meniscus. - Seen by a surgeon recently; advised to address dental issues before scheduling a full knee replacement. Weight Gain: - Juan expresses concern about recent weight gain. - Previously consumed soda regularly; has recently switched to drinking water. room for improvement in his diet. limited with activity due to knee pain/torn meniscus Current Outpatient Medications on File Prior to Visit Medication Sig buPROPion XL (WELLBUTRIN XL) 300 mg 24 hr tablet Take 1 tablet by mouth once daily. DULoxetine DR (CYMBALTA) 60 mg capsule Take 1 capsule by mouth daily at bedtime. lamoTRIgine (LAMICTAL) 100 mg tablet Take 1 tablet by mouth once daily. diclofenac, EC, (VOLTAREN) 75 mg EC tablet Take 1 tablet by mouth two times a day. atorvastatin (LIPITOR) 20 mg tablet Take 1 tablet by mouth daily at bedtime. For cholesterol. gabapentin (NEURONTIN) 100 mg capsule Take 2 capsules by mouth three times a day for 180 days. hydroCHLOROthiazide 25 mg tablet Take 1 tablet by mouth once daily. No current facility-administered medications on file prior to visit. PAST MEDICAL HISTORY Diagnosis Date Anxiety 2008 Depressive type psychosis 2008 Diastasis of rectus abdominis 08/01/2012 Heart murmur 10/30/2021 Hydrocele 2010 Impaired fasting blood sugar 09/05/2013 Major depression, chronic 10/30/2021 Obesity, Class I, BMI 30-34.9 10/30/2021 Physiological tremor 11/14/2009 Primary hypertension 10/30/2021 Sleep apnea 2012 Tobacco use 08/13/2022 Allergies: Benadryl [Diphenhyd* Mental Status Change Comment:Sends into severe depression Constitutional: (+) weight gain Musculoskeletal: (+) lower back pain, (+) lumbar muscle tightness, (+) left knee pain, (+) left knee pain Neurological:(-) radiating leg pain BP 126/74 (BP Site: Left Arm, BP Position: Sitting, BP Cuff Size: Large Adult) Pulse 70 Wt 93.2 kg (205 lb 6.4 oz) SpO2 98% BMI 37.57 kg/m? GENERAL: NAD, alert and oriented. EXTREMITIES: Normal, no deformities, no skin discoloration, no edema. BACK: Tenderness noted in the paraspinal muscles of the lower back. no vertebral TTP. negative seated SLR WENDY. NEURO: Awake, alert and oriented x3, 1. Acute bilateral low back pain without sciatica (M54.50) 2. Muscle spasm (M62.838) - Low back pain and muscle tightness likely secondary to altered gait and increased right-sided weight-bearing due to left knee meniscal tear. - No history of recent trauma or falls. - Continue diclofenac (Voltaren) as prescribed. - Continue Tylenol as needed for additional pain control. - Start tizanidine (Zanaflex) TID PRN for muscle spasm; advised to take at bedtime initially due to potential drowsiness and to avoid activities requiring alertness until effects are known. - Apply ice followed by heat to lower back (20 minutes each); avoid direct contact of ice with skin and do not fall asleep with heating pad. - Encourage gentle stretching and regular movement to prevent further muscle tightening; advised to avoid prolonged sitting. - Continue with scheduled physical therapy appointment for both back and knee. 3. Body mass index (BMI) 30.0-30.9, adult (Z68.30) - Discussed dietary modifications to support weight loss, including portion control, avoiding snacks between meals, increasing water intake, and focusing on lean proteins and vegetables. - Advised to avoid high-calorie foods and beverages, such as soda, chips, and sweets. - Encouraged patient to roast vegetables with olive oil for improved taste and to utilize canned low-sodium, non-starchy vegetables for convenience. - Discussed potential benefits of weight loss on overall health and stress reduction. The patient indicates understanding of these issues and agrees with the plan. Reviewed red flags and when to seek care soon (more content not included)... [facility] 12-13-2024 History of Present illness Narrative Recording using [employer] software for draft documentation of the visit was discussed with the patient/authorized telephone services sales representative; all questions welcomed and answered. Patient/authorized telephone services sales representative agreed to proceed 12/13/2024 Lower Back Pain: - Diffuse lower back pain, described as tight. - Juan believes pain is due to compensatory mechanisms from using a cane for left knee pain. - Denies known trauma or injury to the back. - Pain is exacerbated by movement; avoids moving due to discomfort. - Has not tried stretching exercises. - Scheduled for physical therapy for both knee and back pain. - Using heat and ice on the knee; taking Tylenol and diclofenac with some relief for knee swelling. - Currently taking gabapentin 200 mg TID; tolerating well - Has a [facility] Terrier that keeps him active, named Winter denies numbness/tingling, bladder retention, bowel or bladder incontinence. Left Knee Pain: - Diagnosed with a torn meniscus. - Seen by a surgeon recently; advised to address dental issues before scheduling a full knee replacement. Weight Gain: - Juan expresses concern about recent weight gain. - Previously consumed soda regularly; has recently switched to drinking water. room for improvement in his diet. limited with activity due to knee pain/torn meniscus Current Outpatient Medications on File Prior to Visit Medication Sig buPROPion XL (WELLBUTRIN XL) 300 mg 24 hr tablet Take 1 tablet by mouth once daily. DULoxetine DR (CYMBALTA) 60 mg capsule Take 1 capsule by mouth daily at bedtime. lamoTRIgine (LAMICTAL) 100 mg tablet Take 1 tablet by mouth once daily. diclofenac, EC, (VOLTAREN) 75 mg EC tablet Take 1 tablet by mouth two times a day. atorvastatin (LIPITOR) 20 mg tablet Take 1 tablet by mouth daily at bedtime. For cholesterol. gabapentin (NEURONTIN) 100 mg capsule Take 2 capsules by mouth three times a day for 180 days. hydroCHLOROthiazide 25 mg tablet Take 1 tablet by mouth once daily. No current facility-administered medications on file prior to visit. PAST MEDICAL HISTORY Diagnosis Date Anxiety 2008 Depressive type psychosis 2008 Diastasis of rectus abdominis 08/01/2012 Heart murmur 10/30/2021 Hydrocele 2009 Impaired fasting blood sugar 09/05/2013 Major depression, chronic 10/30/2021 Obesity, Class I, BMI 30-34.9 10/30/2021 Physiological tremor 11/14/2009 Primary hypertension 10/30/2021 Sleep apnea 2012 Tobacco use 08/13/2022 Allergies: Benadryl [Diphenhyd* Mental Status Change Comment:Sends into severe depression Constitutional: (+) weight gain Musculoskeletal: (+) lower back pain, (+) lumbar muscle tightness, (+) left knee pain, (+) left knee pain Neurological:(-) radiating leg pain BP 126/74 (BP Site: Left Arm, BP Position: Sitting, BP Cuff Size: Large Adult) Pulse 70 Wt 93.2 kg (205 lb 6.4 oz) SpO2 98% BMI 37.57 kg/m GENERAL: NAD, alert and oriented. EXTREMITIES: Normal, no deformities, no skin discoloration, no edema. BACK: Tenderness noted in the paraspinal muscles of the lower back. no vertebral TTP. negative seated SLR WENDY. NEURO: Awake, alert and oriented x3, 1. Acute bilateral low back pain without sciatica (M54.50) 2. Muscle spasm (M62.838) - Low back pain and muscle tightness likely secondary to altered gait and increased right-sided weight-bearing due to left knee meniscal tear. - No history of recent trauma or falls. - Continue diclofenac (Voltaren) as prescribed. - Continue Tylenol as needed for additional pain control. - Start tizanidine (Zanaflex) TID PRN for muscle spasm; advised to take at bedtime initially due to potential drowsiness and to avoid activities requiring alertness until effects are known. - Apply ice followed by heat to lower back (20 minutes each); avoid direct contact of ice with skin and do not fall asleep with heating pad. - Encourage gentle stretching and regular movement to prevent further muscle tightening; advised to avoid prolonged sitting. - Continue with scheduled physical therapy appointment for both back and knee. 3. Body mass index (BMI) 30.0-30.9, adult (Z68.30) - Discussed dietary modifications to support weight loss, including portion control, avoiding snacks between meals, increasing water intake, and focusing on lean proteins and vegetables. - Advised to avoid high-calorie foods and beverages, such as soda, chips, and sweets. - Encouraged patient to roast vegetables with olive oil for improved taste and to utilize canned low-sodium, non-starchy vegetables for convenience. - Discussed potential benefits of weight loss on overall health and stress reduction. The patient indicates understanding of these issues and agrees with the plan. Reviewed red flags and when to seek care sooner. Dana Pat PA-C 12/13/2024 documented in this encounter [facility] 12-12-2024 Instructions Dana Pat PA-C - 12/12/2024 10:29 AM EDT - Take the prescribed tizanidine (Xanaflex) for muscle tightness as needed, up to one dose every 8 hours (three times a day); take it when you re at home and can rest--it may cause drowsiness and dizziness, so use your cane and avoid driving or operating machinery until you know how it affects you. - Continue your diclofenac (Voltaren) as directed for inflammation. - Use acetaminophen (Tylenol) as needed for extra pain relief. - Apply ice then heat (or heat then ice) to your lower back for 20 minutes each; always place ice over a towel or shirt and never fall asleep with a heating pad on. - Do gentle back stretches throughout the day: While sitting, slowly rotate your torso left and right. In bed, pull each knee toward your chest as far as comfortable. - Walk briefly around your home with Winter (dog) to keep your muscles moving and prevent stiffness. - Keep your physical therapy appointment tomorrow to address both your back and knee. - Follow a balanced weight-loss diet: Drink water instead of soda. Choose lean proteins like chicken or fish. Include non-starchy vegetables (fresh or low-sodium canned) roasted with a bit of olive oil. Limit chips, sweets, cookies, and frequent sandwiches--occasional treats are fine but avoid daily indulgences. - Continue using your cane for support to protect your knee and back. documented in this encounter [facility] 12-05-2024 Instructions Melina Britt APRN.CNP - 12/05/2024 8:41 AM EDT - Continue your current psychiatric medications as prescribed: Lamictal (lamotrigine) 100 mg, duloxetine 60 mg, and Wellbutrin (bupropion) 300 mg daily. A 90-day supply with refills for six months has been sent to [facility]. - Keep your appointment with the orthopedic surgeon in two days to evaluate your knee and discuss possible treatment or surgery. - Return to this clinic on May 22, 2025 at 8:00 AM for follow-up on your medications and overall care plan. For those experiencing a suicidal crisis: --call the National Suicide Prevention Lifeline at 024 (017-932-5576) --text the Crisis Text Line (text HOME to 922996) --call 911 and let them know you are having a mental health crisis or go to your nearest Emergency Room for stabilization. --You can also call Mobile Crisis at [phone]. -- You may call the department appointment line at [phone] to schedule your appointment. -- Please call my nurse at [phone] or send me a message in [employer] with any questions or concerns between appointments. documented in this encounter [facility] 12-05-2024 Note HNO ID: [id number] Author: MELINA BRITT APRN.CNP Service: ? Author Type: Nurse Practitioner Type: Progress Notes Filed: 12/05/2024 08:41 Note Text: FOLLOW UP - PSYCHIATRIC PROGRESS NOTE Visit Type:In person Recording using [employer] software for draft documentation of the visit was discussed with the patient/authorized telephone services sales representative; all questions welcomed and answered. Patient/authorized telephone services sales representative agreed to proceed CC: Outpatient follow-up and safety monitoring of previously prescribed psychiatric medication, psychotherapy or other treatment HPI: Juan Killian is a 74-year-old male with a history of depression, presenting for follow-up on psychiatric medication management. Juan reports chronic pain in his left knee and lower back, which has progressively worsened over the past 2-2.5 years. He describes the pain as constant but with intermittent exacerbations. He notes that twisting his knee results in audible cracking sounds and a sensation of heat and pain. He is scheduled to see a surgeon in two days for his knee pain, which he attributes to a torn meniscus diagnosed about 6-12 months ago. He also mentions arthritis visible on X-rays. For his back pain, he received an epidural injection that alleviated his upper back pain, but he continues to experience chronic lower back pain. 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 He has become accustomed to the discomfort and does not quantify it on a pain scale. Despite his chronic pain, Juan reports that his mood remains stable. He tries not to be overly introspective and deals with the pain as it comes. He is currently taking lamotrigine 100 mg, duloxetine 60 mg, and Wellbutrin 300 mg, and reports that these medications are effective in maintaining his stability. He denies any concerns with his current medication regimen and wishes to continue it. He mentions a persistent rash on his left arm that becomes itchy, particularly when his allergies flare up. He does not attribute this to his medications and describes it as manageable. Juan enjoys outdoor activities such as camping and canoeing, which he finds to be sources of relaxation and happiness. However, his knee pain has limited his ability to engage in these activities fully. He is currently on medical leave from work due to his inability to stand for extended periods, a requirement of his job. He has a doctor's note excusing him from work until after his upcoming surgical consultation. He expresses a desire to return to work if his condition improves post-surgery. Risks and benefits of the medication, including any black box warnings, were discussed with the patient. Interval Progress: Same PATIENT DATA: Generalized Anxiety Disorder Scale (GI-7) 11/02/2023 12/21/2023 08/10/2024 GI - 7 SCORES Score 0 0 2 (0-4) minimal anxiety, (5-9) mild anxiety, (10-14) moderate anxiety, (15-21) severe anxiety Patient Health Questionnaire (PHQ-9) 11/02/2023 12/21/2023 08/10/2024 PHQ-9 Score 4 2 2 (0-4) minimal depression, (5-9) mild depression, (10-14) moderate depression, (15-19) moderately severe depression, (20-27) severe depression [employer] No data to display PAST MEDICAL HISTORY Diagnosis Date Anxiety 2009 Depressive type psychosis 2008 Diastasis of rectus abdominis 08/01/2012 Heart murmur 10/30/2021 Hydrocele 2009 Impaired fasting blood sugar 09/05/2013 Major depression, chronic 10/30/2021 Obesity, Class I, BMI 30-34.9 10/30/2021 Physiological tremor 11/14/2009 Primary hypertension 10/30/2021 Sleep apnea 2012 Tobacco use 08/13/2022 PAST SURGICAL HISTORY Procedure Laterality Date SEPTOPLASTY 1970 Current Outpatient Medications Medication Sig Dispense Refill diclofenac, EC, (VOLTAREN) 75 mg EC tablet Take 1 tablet by mouth two times a day. 60 tablet 2 atorvastatin (LIPITOR) 20 mg tablet Take 1 tablet by mouth daily at bedtime. For cholesterol. 90 tablet 1 gabapentin (NEURONTIN) 100 mg capsule Take 2 capsules by mouth three times a day for 180 days. 180 capsule 5 hydroCHLOROthiazide 25 mg tablet Take 1 tablet by mouth once daily. 90 tablet 1 buPROPion XL (WELLBUTRIN XL) 300 mg 24 hr tablet Take 1 tablet by mouth once daily. [address] (CYMBALTA) 60 mg capsule Take 1 capsule by mouth daily at bedtime. 90 capsule 1 lamoTRIgine (LAMICTAL) 100 mg tablet Take 1 tablet by mouth once daily. 90 tablet 1 No current facility-administered medications for this visit. ROS: See HPI PFSH: See HPI VITAL SIGNS: 12/05/24 0815 BP: 152/77 Pulse: 66 Resp: 16 SpO2: 97% Weight: 91.5 kg (201 lb 12.8 oz) MENTAL STATUS EXAM: Mental Status Exam General/Sensorium: Alert Orientation: AAOx3 Appearance: Appears stated age and casually dressed Eye contact: Appropriate Demeanor: Appropriately interactive Motor activity: Calm Sp (more content not included)... [facility] 12-05-2024 History of Present illness Narrative Images from the original note were not included. FOLLOW UP - PSYCHIATRIC PROGRESS NOTE Visit Type:In person Recording using [employer] software for draft documentation of the visit was discussed with the patient/authorized telephone services sales representative; all questions welcomed and answered. Patient/authorized telephone services sales representative agreed to proceed CC: Outpatient follow-up and safety monitoring of previously prescribed psychiatric medication, psychotherapy or other treatment HPI: Juan Killian is a 74-year-old male with a history of depression, presenting for follow-up on psychiatric medication management. Juan reports chronic pain in his left knee and lower back, which has progressively worsened over the past 2-2.5 years. He describes the pain as constant but with intermittent exacerbations. He notes that twisting his knee results in audible cracking sounds and a sensation of heat and pain. He is scheduled to see a surgeon in two days for his knee pain, which he attributes to a torn meniscus diagnosed about 6-12 months ago. He also mentions arthritis visible on X-rays. For his back pain, he received an epidural injection that alleviated his upper back pain, but he continues to experience chronic lower back pain. 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 He has become accustomed to the discomfort and does not quantify it on a pain scale. Despite his chronic pain, Juan reports that his mood remains stable. He tries not to be overly introspective and deals with the pain as it comes. He is currently taking lamotrigine 100 mg, duloxetine 60 mg, and Wellbutrin 300 mg, and reports that these medications are effective in maintaining his stability. He denies any concerns with his current medication regimen and wishes to continue it. He mentions a persistent rash on his left arm that becomes itchy, particularly when his allergies flare up. He does not attribute this to his medications and describes it as manageable. Juan enjoys outdoor activities such as camping and canoeing, which he finds to be sources of relaxation and happiness. However, his knee pain has limited his ability to engage in these activities fully. He is currently on medical leave from work due to his inability to stand for extended periods, a requirement of his job. He has a doctor's note excusing him from work until after his upcoming surgical consultation. He expresses a desire to return to work if his condition improves post-surgery. Risks and benefits of the medication, including any black box warnings, were discussed with the patient. Interval Progress: Same PATIENT DATA: Generalized Anxiety Disorder Scale (GI-7) 11/02/2023 12/21/2023 08/10/2024 GI - 7 SCORES Score 0 0 2 (0-4) minimal anxiety, (5-9) mild anxiety, (10-14) moderate anxiety, (15-21) severe anxiety Patient Health Questionnaire (PHQ-9) 11/02/2023 12/21/2023 08/10/2024 PHQ-9 Score 4 2 2 (0-4) minimal depression, (5-9) mild depression, (10-14) moderate depression, (15-19) moderately severe depression, (20-27) severe depression PROMIS [employer] No data to display PAST MEDICAL HISTORY Diagnosis Date Anxiety 2009 Depressive type psychosis 2009 Diastasis of rectus abdominis 08/01/2012 Heart murmur 10/30/2021 Hydrocele 2010 Impaired fasting blood sugar 09/05/2013 Major depression, chronic 10/30/2021 Obesity, Class I, BMI 30-34.9 10/30/2021 Physiological tremor 11/14/2009 Primary hypertension 10/30/2021 Sleep apnea 2012 Tobacco use 08/13/2022 PAST SURGICAL HISTORY Procedure Laterality Date SEPTOPLASTY 1970 Current Outpatient Medications Medication Sig Dispense Refill diclofenac, EC, (VOLTAREN) 75 mg EC tablet Take 1 tablet by mouth two times a day. 60 tablet 2 atorvastatin (LIPITOR) 20 mg tablet Take 1 tablet by mouth daily at bedtime. For cholesterol. 90 tablet 1 gabapentin (NEURONTIN) 100 mg capsule Take 2 capsules by mouth three times a day for 180 days. 180 capsule 5 hydroCHLOROthiazide 25 mg tablet Take 1 tablet by mouth once daily. 90 tablet 1 buPROPion XL (WELLBUTRIN XL) 300 mg 24 hr tablet Take 1 tablet by mouth once daily. [address] (CYMBALTA) 60 mg capsule Take 1 capsule by mouth daily at bedtime. 90 capsule 1 lamoTRIgine (LAMICTAL) 100 mg tablet Take 1 tablet by mouth once daily. 90 tablet 1 No current facility-administered medications for this visit. ROS: See HPI PFSH: See HPI VITAL SIGNS: 12/05/24 0815 BP: 152/77 Pulse: 66 Resp: 16 SpO2: 97% Weight: 91.5 kg (201 lb 12.8 oz) MENTAL STATUS EXAM: Mental Status Exam General/Sensorium: Alert Orientation: AAOx3 Appearance: Appears stated age and casually dressed Eye contact: Appropriate Demeanor: Appropriately interactive Motor activity: Calm Speech: Articulate with appropriate rhythm and volume Mood: Euthymic Affect: Congruent with mood Thought process: Linear, logical, and goal-directed Associations: Normal Thought content: Discussing stressors and future goals or plans Suicidal ideation: SI: no Plan: no Intent: no Homicidal ideation: HI: no Plan: no Intent: no Abnormal/psychotic thoughts: Absent Perceptions: He does not appear internally stimulated. Attention: Intact Memory: Short-term: Intact Long-term: Intact Language: Intact Fund of knowledge: Appropriate Insight: Good Judgment: Good DATA REVIEWED: Psychiatric scales, Labs, and Electronic medical record ASSESSMENT & PLAN: 1. 1. Recurrent major depressive disorder, in full remission (F33.42) 2. Encounter for long-term (current) use of medications (Z79.899) - Depression remains in full remission on current regimen. - No concerns with current psychiatric medications; patient reports stability and efficacy. - Continue lamotrigine 100 mg, duloxetine 60 mg, and Wellbutrin 300 mg as prescribed. - Refill all psychiatric medications for 6 months. - Follow-up in 6 months on May 22 at 8:00 AM. Current medication regimen unchanged. Prescriptions given - Reviewed Lamictal titration & risk of severe rash. Instructed to call [facility] if this occurs. Patient denies any history of experiencing seizures. Aware that Wellbutrin can lower seizure threshold and is contraindicated in someone who has a seizure disorder. Medical Decision Making: Problems: Moderate: 2+ stable chronic illnesses Risk: Moderate: Moderate risk from testing/treatment and Drug management Medical Decision Making Level: 4 - Moderate ADD ON PSYCHOTHERAPY CODE : No SIGNATURE: Melina Britt APRN.CNP PATIENT NAME: Juan Killian DATE: December 05, 2024 TIME: 8:19 AM documented in this encounter [facility] 12-03-2024 Note HNO ID: [id number] Author: KATRINA WHYET APRN.JORJE Service: ? Author Type: Nurse Practitioner Type: Progress Notes Filed: 12/03/2024 10:11 Note Text: [facility] Toño Killian is a 74 year old male. Patient presents with: Left Knee Pain HPI The patient is a 74-year-old male presenting for worsening knee pain. Knee Pain: - Chronic knee pain x1.5 years, progressively worsening. - Scheduled for a surgical consult on December 07. - Acute exacerbation today with shooting pains causing dizziness. - Knee occasionally kicks out, feeling like it will give way. - No new injuries or falls reported. - Began using a cane consistently x1-2 weeks; previously used intermittently 3-4 months ago. - Knee brace provided relief in the past, but not currently effective. 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 - History of a fall on ice in May, leading to back pain that was treated and is now resolved. Review of Systems Musculoskeletal: (+) knee pain, (+) knee instability, (+) gait difficulty Neurological: (+) dizziness PAST MEDICAL HISTORY Diagnosis Date Anxiety 2009 Depressive type psychosis 2009 Diastasis of rectus abdominis 08/01/2012 Heart murmur 10/30/2021 Hydrocele 2010 Impaired fasting blood sugar 09/05/2013 Major depression, chronic 10/30/2021 Obesity, Class I, BMI 30-34.9 10/30/2021 Physiological tremor 11/14/2009 Primary hypertension 10/30/2021 Sleep apnea 2013 Tobacco use 08/13/2022 PAST SURGICAL HISTORY Procedure Laterality Date SEPTOPLASTY 1970 ALLERGIES Benadryl [Diphenhydramine] MEDICATIONS diclofenac, EC, (VOLTAREN) 75 mg EC tablet Take 1 tablet by mouth two times a day. atorvastatin (LIPITOR) 20 mg tablet Take 1 tablet by mouth daily at bedtime. For cholesterol. gabapentin (NEURONTIN) 100 mg capsule Take 2 capsules by mouth three times a day for 180 days. hydroCHLOROthiazide 25 mg tablet Take 1 tablet by mouth once daily. lamoTRIgine (LAMICTAL) 100 mg tablet Take 1 tablet by mouth once daily. buPROPion XL (WELLBUTRIN XL) 300 mg 24 hr tablet Take 1 tablet by mouth once daily. DULoxetine (CYMBALTA) 60 mg capsule Take 1 capsule by mouth daily at bedtime. FAMILY HISTORY Problem Relation Age of Onset Lung Cancer Mother Colon Cancer Mother Dementia Father Heart Father murmur Hepatitis C Sister Pancreatic Cancer Brother No Known Problems Brother Obesity Brother SOCIAL HISTORY[1] Objective BP 124/76 Pulse 86 Temp 36.7 ?C (98.1 ?F) (Tympanic) Resp 16 Wt 91.3 kg (201 lb 4.5 oz) SpO2 97% BMI 36.81 kg/m? Physical Exam Constitutional: General: He is not in acute distress. Appearance: Normal appearance. He is normal weight. He is not ill-appearing or toxic-appearing. Cardiovascular: Rate and Rhythm: Normal rate and regular rhythm. Pulses: Normal pulses. Heart sounds: Normal heart sounds. Musculoskeletal: Left knee: Bony tenderness and crepitus present. No swelling, deformity, effusion, erythema, ecchymosis or lacerations. Decreased range of motion. Tenderness present over the medial joint line, MCL and patellar tendon. No lateral joint line tenderness. Legs: Neurological: Mental Status: He is alert. General: Ambulating with a cane. { 1. Chronic pain of left knee (M25.562) 2. Osteoarthritis of knee, unspecified (M17.9) - Chronic left knee pain worsening over 1.5 years; currently requiring cane for ambulation. - No recent injury or swelling reported; knee occasionally gives out. - Orthopedic surgery consult scheduled for December 07. - Provided work excuse for absence from today through December 08. - No concerns of neurovascular deficits, acute fracture, septic bursitis or joint effusion. - Continue cane, and keep schedule appointment with orthopedic. and Recording using [employer] software for draft documentation of the visit was discussed with the patient/authorized telephone services sales representative; all questions welcomed and answered. Patient/authorized telephone services sales representative agreed to proceed Disposition The patient was discharged. [1] Social History Tobacco Use Smoking status: Former Current packs/day: 1.00 Average packs/day: 1 pack/day for 3.0 years (3.0 ttl pk-yrs) Types: Cigarettes Smokeless tobacco: Never Tobacco comments: quit 15 years ago. Started age 30. Vaping Use Vaping status: Never Used Substance Use Topics Alcohol use: Not Currently Comment: 1 drink per year Drug use: Not Currently Types: Marijuana Comment: 16-23 years old [facility] 12-03-2024 History of Present illness Narrative Images from the original note were not included. [facility] ALIRE[facility]AM Killian is a 74 year old male. Patient presents with: Left Knee Pain HPI The patient is a 74-year-old male presenting for worsening knee pain. Knee Pain: - Chronic knee pain x1.5 years, progressively worsening. - Scheduled for a surgical consult on December 07. - Acute exacerbation today with shooting pains causing dizziness. - Knee occasionally kicks out, feeling like it will give way. - No new injuries or falls reported. - Began using a cane consistently x1-2 weeks; previously used intermittently 3-4 months ago. - Knee brace provided relief in the past, but not currently effective. 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 - History of a fall on ice in May, leading to back pain that was treated and is now resolved. Review of Systems Musculoskeletal: (+) knee pain, (+) knee instability, (+) gait difficulty Neurological: (+) dizziness PAST MEDICAL HISTORY Diagnosis Date Anxiety 2009 Depressive type psychosis 2009 Diastasis of rectus abdominis 08/01/2012 Heart murmur 10/30/2021 Hydrocele 2010 Impaired fasting blood sugar 09/05/2013 Major depression, chronic 10/30/2021 Obesity, Class I, BMI 30-34.9 10/30/2021 Physiological tremor 11/14/2009 Primary hypertension 10/30/2021 Sleep apnea 2013 Tobacco use 08/13/2022 PAST SURGICAL HISTORY Procedure Laterality Date SEPTOPLASTY 1970 ALLERGIES Benadryl [Diphenhydramine] MEDICATIONS diclofenac, EC, (VOLTAREN) 75 mg EC tablet Take 1 tablet by mouth two times a day. atorvastatin (LIPITOR) 20 mg tablet Take 1 tablet by mouth daily at bedtime. For cholesterol. gabapentin (NEURONTIN) 100 mg capsule Take 2 capsules by mouth three times a day for 180 days. hydroCHLOROthiazide 25 mg tablet Take 1 tablet by mouth once daily. lamoTRIgine (LAMICTAL) 100 mg tablet Take 1 tablet by mouth once daily. buPROPion XL (WELLBUTRIN XL) 300 mg 24 hr tablet Take 1 tablet by mouth once daily. DULoxetine (CYMBALTA) 60 mg capsule Take 1 capsule by mouth daily at bedtime. FAMILY HISTORY Problem Relation Age of Onset Lung Cancer Mother Colon Cancer Mother Dementia Father Heart Father murmur Hepatitis C Sister Pancreatic Cancer Brother No Known Problems Brother Obesity Brother SOCIAL HISTORY[1] Objective BP 124/76 Pulse 86 Temp 36.7 C (98.1 F) (Tympanic) Resp 16 Wt 91.3 kg (201 lb 4.5 oz) SpO2 97% BMI 36.81 kg/m Physical Exam Constitutional: General: He is not in acute distress. Appearance: Normal appearance. He is normal weight. He is not ill-appearing or toxic-appearing. Cardiovascular: Rate and Rhythm: Normal rate and regular rhythm. Pulses: Normal pulses. Heart sounds: Normal heart sounds. Musculoskeletal: Left knee: Bony tenderness and crepitus present. No swelling, deformity, effusion, erythema, ecchymosis or lacerations. Decreased range of motion. Tenderness present over the medial joint line, MCL and patellar tendon. No lateral joint line tenderness. Legs: Neurological: Mental Status: He is alert. General: Ambulating with a cane. { 1. Chronic pain of left knee (M25.562) 2. Osteoarthritis of knee, unspecified (M17.9) - Chronic left knee pain worsening over 1.5 years; currently requiring cane for ambulation. - No recent injury or swelling reported; knee occasionally gives out. - Orthopedic surgery consult scheduled for December 07. - Provided work excuse for absence from today through December 08. - No concerns of neurovascular deficits, acute fracture, septic bursitis or joint effusion. - Continue cane, and keep schedule appointment with orthopedic. and Recording using [email or web address] software for draft documentation of the visit was discussed with the patient/authorized telephone services sales representative; all questions welcomed and answered. Patient/authorized telephone services sales representative agreed to proceed Disposition The patient was discharged. [1] Social History Tobacco Use Smoking status: Former Current packs/day: 1.00 Average packs/day: 1 pack/day for 3.0 years (3.0 ttl pk-yrs) Types: Cigarettes Smokeless tobacco: Never Tobacco comments: quit 15 years ago. Started age 30. Vaping Use Vaping status: Never Used Substance Use Topics Alcohol use: Not Currently Comment: 1 drink per year Drug use: Not Currently Types: Marijuana Comment: 16-23 years old documented in this encounter [facility] 11-28-2024 Telephone encounter Note AVS and letter taken to Medical Records for Patient to pickup. Naida Morrison LPN [facility] 11-28-2024 Miscellaneous Notes AVS and letter taken to Medical Records for Patient to pickup. Naida Morrison LPN Pt states he lost all of his paperwork from last visit on 11/23. After visit summary, list of upcomming appointments, list of meds, and letter for work with restrictions. Pt is coming in tonight at 6:20 for another apts and would like for those to be printed for him again. Please advise, Thank you documented in this encounter [facility] 11-27-2024 Telephone encounter Note Pt states he lost all of his paperwork from last visit on 11/23. After visit summary, list of upcomming appointments, list of meds, and letter for work with restrictions. Pt is coming in tonight at 6:20 for another apts and would like for those to be printed for him again. Please advise, Thank you [facility] 11-23-2024 Instructions Mark Nova MD - 11/23/2024 7:04 PM EDT documented in this encounter [facility] 11-23-2024 Note HNO ID: [id number] Author: MARK NOVA MD Service: ? Author Type: Physician Type: Progress Notes Filed: 11/24/2024 04:13 Note Text: Subjective Juan Killian is a 74 year old male. Patient presents with: Same Day Appointment: left knee pain Recording using [email or web address] software for draft documentation of the visit was discussed with the patient/authorized telephone services sales representative; all questions welcomed and answered. Patient/authorized telephone services sales representative agreed to proceed HPI Left Knee Pain: - Juan reports a meniscal tear diagnosed by a knee specialist in [place], who administered an injection. - Describes the knee as failing and expresses a desire for surgical intervention. - Pain is localized to the medial aspect of the knee, with associated swelling. - Denies knee instability or giving out. - Pain is exacerbated by bending the knee. - Utilizes a cane for ambulation. - Denies known trauma or injury. 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 - Requires frequent breaks during work due to pain. Review of Systems Constitutional: Negative for fever and unexpected weight change. Gastrointestinal: Negative. Genitourinary: Negative. Musculoskeletal: Positive for back pain and gait problem. Objective BP 120/70 Pulse 88 Temp 36.6 ?C (97.8 ?F) (Temporal) Resp 14 Ht 157.5 cm (5' 2) Wt 90.3 kg (199 lb 1.2 oz) SpO2 95% BMI 36.41 kg/m? Physical Exam Musculoskeletal: Right knee: Normal. Left knee: Swelling present. No deformity, effusion, erythema, bony tenderness or crepitus. Normal range of motion. Tenderness present over the medial joint line. No LCL laxity or MCL laxity.Normal alignment, normal meniscus and normal patellar mobility. Neurological: General: No focal deficit present. Mental Status: He is alert. Sensory: No sensory deficit. Motor: No weakness. Gait: Gait abnormal. Comments: Using a cane for stability. A/P 1. Primary osteoarthritis of left knee (M17.12) - Chronic, worsening left knee pain with known meniscal tear; prior intra-articular injection provided by knee specialist in [place]. - Refer to Dr. Son Calderon at [facility] for surgical evaluation. - Advised patient to avoid kneeling, bending the left knee, and picking up objects from the floor; instructed to use cane for ambulatory support until surgical intervention. - Recommended standing for no more than one hour at a time, followed by a 5-minute seated break. - Work restrictions to remain in place for one month, with extension as needed pending surgical evaluation and treatment. 2. Left low back pain, unspecified chronicity, unspecified whether sciatica present (M54.50) 3. Encounter for issue of other medical certificate (Z02.79) The following approved medication requests have been transmitted electronically. Requested Prescriptions Signed Prescriptions Disp Refills diclofenac, EC, (VOLTAREN) 75 mg EC tablet 60 tablet 2 Sig: Take 1 tablet by mouth two times a day. Mark Nova MD [facility] 11-23-2024 History of Present illness Narrative Subjective Juan Killian is a 74 year old male. Patient presents with: Same Day Appointment: left knee pain Recording using [employer] software for draft documentation of the visit was discussed with the patient/authorized telephone services sales representative; all questions welcomed and answered. Patient/authorized telephone services sales representative agreed to proceed HPI Left Knee Pain: - Juan reports a meniscal tear diagnosed by a knee specialist in [place], who administered an injection. - Describes the knee as failing and expresses a desire for surgical intervention. - Pain is localized to the medial aspect of the knee, with associated swelling. - Denies knee instability or giving out. - Pain is exacerbated by bending the knee. - Utilizes a cane for ambulation. - Denies known trauma or injury. 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 - Requires frequent breaks during work due to pain. Review of Systems Constitutional: Negative for fever and unexpected weight change. Gastrointestinal: Negative. Genitourinary: Negative. Musculoskeletal: Positive for back pain and gait problem. Objective BP 120/70 Pulse 88 Temp 36.6 C (97.8 F) (Temporal) Resp 14 Ht 157.5 cm (5' 2) Wt 90.3 kg (199 lb 1.2 oz) SpO2 95% BMI 36.41 kg/m Physical Exam Musculoskeletal: Right knee: Normal. Left knee: Swelling present. No deformity, effusion, erythema, bony tenderness or crepitus. Normal range of motion. Tenderness present over the medial joint line. No LCL laxity or MCL laxity.Normal alignment, normal meniscus and normal patellar mobility. Neurological: General: No focal deficit present. Mental Status: He is alert. Sensory: No sensory deficit. Motor: No weakness. Gait: Gait abnormal. Comments: Using a cane for stability. A/P 1. Primary osteoarthritis of left knee (M17.12) - Chronic, worsening left knee pain with known meniscal tear; prior intra-articular injection provided by knee specialist in [place]. - Refer to Dr. Son Calderon at [facility] for surgical evaluation. - Advised patient to avoid kneeling, bending the left knee, and picking up objects from the floor; instructed to use cane for ambulatory support until surgical intervention. - Recommended standing for no more than one hour at a time, followed by a 5-minute seated break. - Work restrictions to remain in place for one month, with extension as needed pending surgical evaluation and treatment. 2. Left low back pain, unspecified chronicity, unspecified whether sciatica present (M54.50) 3. Encounter for issue of other medical certificate (Z02.79) The following approved medication requests have been transmitted electronically. Requested Prescriptions Signed Prescriptions Disp Refills diclofenac, EC, (VOLTAREN) 75 mg EC tablet 60 tablet 2 Sig: Take 1 tablet by mouth two times a day. Mark Nova MD documented in this encounter [facility] 11-23-2024 Telephone encounter Note Patient scheduled, 11/23/2024. Naida Morrison LPN [facility] 11-23-2024 Miscellaneous Notes Patient scheduled, 11/23/2024. Naida Morrison LPN Patient called said his left knee is really hurting asking if there is anything that can be done to help Patient has apt for 11/27 Please advise documented in this encounter [facility] 11-22-2024 Telephone encounter Note Patient called said his left knee is really hurting asking if there is anything that can be done to help Patient has apt for 11/27 Please advise [facility] Work Phone: 11-16-2024 Instructions Mark Nova MD - 11/16/2024 4:54 PM EDT You received an injection of a potent anti inflammatory and pain medication. Hydrate well. Do not take your usual diclofenac 75 mg twice a day for 2 doses. Do not take medications like ibuprofen or naproxen. documented in this encounter [facility] 11-16-2024 Note HNO ID: [id number] Author: MARK NOVA MD Service: ? Author Type: Physician Type: Progress Notes Filed: 11/16/2024 17:09 Note Text: Toño Killian is a 74 year old male. Patient presents with: Back Pain Recording using [employer] software for draft documentation of the visit was discussed with the patient/authorized telephone services sales representative; all questions welcomed and answered. Patient/authorized telephone services sales representative agreed to proceed Back Pain:- Acute onset of back pain last night while sleeping.- Pain is localized to the lower back, described as sore and intense, rated 8/10.- Pain is radiating on each side of the spine, covering a pretty big area.- Aggravated by reaching up to put a samuels away.- Denies radiation of pain to other areas.- Denies fever.- Bowel movements are okay, with mild constipation noted.- Urination is normal.- Denies any strange long shooting pains experienced previously.- Has not taken any medication for the current pain episode.- Previous Toradol injection for back pain about 6-12 months ago.- Has taken muscle relaxers in the past, which were somewhat helpful.- Under the care of pain coordinator Maude.- Scheduled to start physical therapy soon but expresses fear due to the complexity of his condition.- Recent procedure on the left knee about 3-4 weeks ago. Review of Systems Constitutional: (-) fever Gastrointestinal: (+) constipation Genitourinary: (-) urinary difficulty Musculoskeletal: (+) low back pain Neurological: (-) radiating lower extremity pain ACTIVE PROBLEM LIST Major Depression, Chronic Primary Hypertension Obesity, Class I, Bmi 30-34.9 Heart Murmur Hyperlipidemia Major Depressive Disorder, Recurrent Episode, Moderate (Hcc) Primary Osteoarthritis of Left Knee Left Low Back Pain Current Outpatient Medications Medication Sig diclofenac, EC, (VOLTAREN) 75 mg EC tablet Take 1 tablet by mouth two times a day. atorvastatin (LIPITOR) 20 mg tablet Take 1 tablet by mouth daily at bedtime. For cholesterol. gabapentin (NEURONTIN) 100 mg capsule Take 2 capsules by mouth three times a day for 180 days. hydroCHLOROthiazide 25 mg tablet Take 1 tablet by mouth once daily. lamoTRIgine (LAMICTAL) 100 mg tablet Take 1 tablet by mouth once daily. buPROPion XL (WELLBUTRIN XL) 300 mg 24 hr tablet Take 1 tablet by mouth once daily. DULoxetine (CYMBALTA) 60 mg capsule Take 1 capsule by mouth daily at bedtime. baclofen 10 mg tablet Take 1 tablet by mouth three times a day for 5 days. No current facility-administered medications for this visit. Objective BP 124/74 (BP Site: Left Arm, BP Position: Standing, BP Cuff Size: Large Adult) Pulse 88 Wt 90.6 kg (199 lb 11.8 oz) BMI 36.53 kg/m? Physical Exam Constitutional: General: He is not in acute distress. Appearance: He is not ill-appearing or diaphoretic. Pulmonary: Effort: Pulmonary effort is normal. Abdominal: General: There is no distension. Palpations: Abdomen is soft. Musculoskeletal: Lumbar back: Spasms and tenderness present. No deformity or bony tenderness. Decreased range of motion. Negative right straight leg raise test and negative left straight leg raise test. Right hip: Normal strength. Left hip: Normal strength. Neurological: General: No focal deficit present. Mental Status: He is alert. Sensory: No sensory deficit. Motor: No weakness. Gait: Gait normal. 1. Acute on chronic low back pain (M54.50) - Acute exacerbation of chronic low back pain after twisting injury; pain rated 8/10, localized to bilateral paraspinal region at belt line, described as intense and sore. - No radicular symptoms, bowel or bladder dysfunction, or fever. - Previously received Toradol injection approximately 6-12 months ago with relief. - Administer Toradol injection for acute pain relief. - Start baclofen for muscle spasm; advised patient of potential sedation and to use caution with driving or operating machinery. - Patient under ongoing pain management with Maude and is scheduled to start physical therapy. ASSESSMENT/PLAN: 1. Acute on chronic low back pain - ICD9: 724.2, 338.19, 338.29, ICD10: M54.50, G89.29 - Acute exacerbation of chronic low back pain after twisting injury; pain rated 8/10, localized to bilateral paraspinal region at belt line, described as intense and sore. - No radicular symptoms, bowel or bladder dysfunction, or fever. - Previously received Toradol injection approximately 6-12 months ago with relief. - Administer Toradol injection for acute pain relief. - Start baclofen for muscle spasm; advised patient of potential sedation and to use caution with driving or operating machinery. - Patient under ongoing pain management with Maude and is scheduled to start physical therapy. - KETOROLAC 60 MG/2 ML INTRAMUSCULAR SOLUTION - BACLOFEN 10 MG TABLET - See printed instructions or information to hold diclofenac fo (more content not included)... [facility] 11-16-2024 History of Present illness Narrative Subjective Juan Killian is a 74 year old male. Patient presents with: Back Pain Recording using [employer] software for draft documentation of the visit was discussed with the patient/authorized telephone services sales representative; all questions welcomed and answered. Patient/authorized telephone services sales representative agreed to proceed Back Pain:- Acute onset of back pain last night while sleeping.- Pain is localized to the lower back, described as sore and intense, rated 8/10.- Pain is radiating on each side of the spine, covering a pretty big area.- Aggravated by reaching up to put a samuels away.- Denies radiation of pain to other areas.- Denies fever.- Bowel movements are okay, with mild constipation noted.- Urination is normal.- Denies any strange long shooting pains experienced previously.- Has not taken any medication for the current pain episode.- Previous Toradol injection for back pain about 6-12 months ago.- Has taken muscle relaxers in the past, which were somewhat helpful.- Under the care of pain coordinator Maude.- Scheduled to start physical therapy soon but expresses fear due to the complexity of his condition.- Recent procedure on the left knee about 3-4 weeks ago. Review of Systems Constitutional: (-) fever Gastrointestinal: (+) constipation Genitourinary: (-) urinary difficulty Musculoskeletal: (+) low back pain Neurological: (-) radiating lower extremity pain ACTIVE PROBLEM LIST Major Depression, Chronic Primary Hypertension Obesity, Class I, Bmi 30-34.9 Heart Murmur Hyperlipidemia Major Depressive Disorder, Recurrent Episode, Moderate (Hcc) Primary Osteoarthritis of Left Knee Left Low Back Pain Current Outpatient Medications Medication Sig diclofenac, EC, (VOLTAREN) 75 mg EC tablet Take 1 tablet by mouth two times a day. atorvastatin (LIPITOR) 20 mg tablet Take 1 tablet by mouth daily at bedtime. For cholesterol. gabapentin (NEURONTIN) 100 mg capsule Take 2 capsules by mouth three times a day for 180 days. hydroCHLOROthiazide 25 mg tablet Take 1 tablet by mouth once daily. lamoTRIgine (LAMICTAL) 100 mg tablet Take 1 tablet by mouth once daily. buPROPion XL (WELLBUTRIN XL) 300 mg 24 hr tablet Take 1 tablet by mouth once daily. DULoxetine (CYMBALTA) 60 mg capsule Take 1 capsule by mouth daily at bedtime. baclofen 10 mg tablet Take 1 tablet by mouth three times a day for 5 days. No current facility-administered medications for this visit. Objective BP 124/74 (BP Site: Left Arm, BP Position: Standing, BP Cuff Size: Large Adult) Pulse 88 Wt 90.6 kg (199 lb 11.8 oz) BMI 36.53 kg/m Physical Exam Constitutional: General: He is not in acute distress. Appearance: He is not ill-appearing or diaphoretic. Pulmonary: Effort: Pulmonary effort is normal. Abdominal: General: There is no distension. Palpations: Abdomen is soft. Musculoskeletal: Lumbar back: Spasms and tenderness present. No deformity or bony tenderness. Decreased range of motion. Negative right straight leg raise test and negative left straight leg raise test. Right hip: Normal strength. Left hip: Normal strength. Neurological: General: No focal deficit present. Mental Status: He is alert. Sensory: No sensory deficit. Motor: No weakness. Gait: Gait normal. 1. Acute on chronic low back pain (M54.50) - Acute exacerbation of chronic low back pain after twisting injury; pain rated 8/10, localized to bilateral paraspinal region at belt line, described as intense and sore. - No radicular symptoms, bowel or bladder dysfunction, or fever. - Previously received Toradol injection approximately 6-12 months ago with relief. - Administer Toradol injection for acute pain relief. - Start baclofen for muscle spasm; advised patient of potential sedation and to use caution with driving or operating machinery. - Patient under ongoing pain management with Maude and is scheduled to start physical therapy. ASSESSMENT/PLAN: 1. Acute on chronic low back pain - ICD9: 724.2, 338.19, 338.29, ICD10: M54.50, G89.29 - Acute exacerbation of chronic low back pain after twisting injury; pain rated 8/10, localized to bilateral paraspinal region at belt line, described as intense and sore. - No radicular symptoms, bowel or bladder dysfunction, or fever. - Previously received Toradol injection approximately 6-12 months ago with relief. - Administer Toradol injection for acute pain relief. - Start baclofen for muscle spasm; advised patient of potential sedation and to use caution with driving or operating machinery. - Patient under ongoing pain management with Maude and is scheduled to start physical therapy. - KETOROLAC 60 MG/2 ML INTRAMUSCULAR SOLUTION - BACLOFEN 10 MG TABLET - See printed instructions or information to hold diclofenac for two doses, starting tonight. Mark Nova MD documented in this encounter [facility] 11-10-2024 Note HNO ID: [id number] Author: SANDY LUZ PA-C Service: ? 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 He is here for evaluation of Left knee pain. Patient was seen in [place] urgent care on 10/24/2024. At that time he reported left leg pain specifically in the popliteal fossa. Imaging showed moderate arthritis in the medial compartment. Patient was ordered an ultrasound which was not completed. Medial knee pain with radiation into distal thigh. Mild swelling. Wearing knee sleeve currently for support. Takes voltaren 75mg BID. PAIN EVALUATION 11/10/2024 1149 Pain Level: 8 Pain Location: Knee-Left Description: Stiffness;Dull;Aching Duration Amount of Time: 6 Duration Units: Months Frequency: Continuous Intervention/Comfort measure: Reposition;Relaxation;Other: See comment KNEE BRACE MEDICATIONS Current Outpatient Medications on File Prior to Visit Medication Sig - diclofenac, EC, (VOLTAREN) 75 mg EC tablet Take 1 tablet by mouth two times a day. - atorvastatin (LIPITOR) 20 mg tablet Take 1 tablet by mouth daily at bedtime. For cholesterol. - gabapentin (NEURONTIN) 100 mg capsule Take 2 capsules by mouth three times a day for 180 days. - hydroCHLOROthiazide 25 mg tablet Take 1 tablet by mouth once daily. - lamoTRIgine (LAMICTAL) 100 mg tablet Take 1 tablet by mouth once daily. - buPROPion XL (WELLBUTRIN XL) 300 mg 24 hr tablet Take 1 tablet by mouth once daily. - DULoxetine (CYMBALTA) 60 mg capsule Take 1 capsule by mouth daily at bedtime. No current facility-administered medications on file prior to visit. ALLERGIES ALLERGIES Allergen Reactions - Benadryl [Diphenhyd* Mental Status Change Sends into severe depression PAST MEDICAL HISTORY PAST MEDICAL HISTORY Diagnosis Date - Anxiety 2008 - Depressive type psychosis 2008 - Diastasis of rectus abdominis 08/01/2012 - Heart murmur 10/30/2021 - Hydrocele 2009 - Impaired fasting blood sugar 09/05/2013 - Major depression, chronic 10/30/2021 - Obesity, Class I, BMI 30-34.9 10/30/2021 - Physiological tremor 11/14/2009 - Primary hypertension 10/30/2021 - Sleep apnea 2012 - Tobacco use 08/13/2022 PAST SURGICAL HISTORY PAST SURGICAL HISTORY Procedure Laterality Date - 1970 SOCIAL HISTORY Tobacco: Ex-smoker FAMILY HISTORY Does a similar condition to what you are experiencing run in your family? No REVIEW OF SYSTEMS: All other systems negative. PHYSICAL EXAM: PE: All other systems deferred. GENERAL: Appears healthy, well-nourished, no deformities. HABITUS: Normal Gait: Antalgic to the left Left: Alignment: Varus deformity, Correctable Range of motion is 0 degrees in extension and 120 degrees of flexion. Extension La degrees Pain with ROM: Yes Effusion: Mild Tender to the palpation of Medial femoral condyle and Medial joint line Pain with patellar compression: Yes Stability: Anterior/Posterior stable and Varus/Valgus stable Hip Exam: flexion to 100+ degrees, full extension, internal/external rotation adequate, and no pain with log roll Neurovascular Status: Sensation Intact, Moves foot and ankle up AND down, and 2+ dorsalis pedis Notable medial click/pop with valgus stress Strength: 5 Skin: Normal RADIOGRAPHS (personally reviewed): moderate medial compartment OA of left knee with small effusion MRI: none DIAGNOSIS Encounter Diagnosis ICD-10-CM 1. Primary osteoarthritis of left knee M17.12 PLAN Patient has left knee OA. Discussed ice, bracing, nsaids, and injections. Will move forward with left knee CSI today. Follow up PRN. I spent a total of approximately 35 minutes on the date of the service which included preparing to see the patient, osan-nw-[id number] patient care, completing clinical documentation, obtaining and/or reviewing separately obtained history, performing a medically appropriate examination, counseling and educating the patient/family/caregiver, ordering medications, tests, or procedures, communicating with other HCPs (not separately reported), independently interpreting results (not separately reported), communicating results to the patient/family/caregiver, and care coordination (not separately reported). PROCEDURE: Large Joint Arthro/Inj: L knee joint 11/10/2024 12:49 PM The procedure site was prepped in the usual sterile fashion. Site: L knee joint Medications: 12 mg betamethasone acetate-betamethasone sodium phosphate 6 mg/mL Anesthetics: 3 mL lidocaine (PF) 10 mg/mL (1 %) Outcome: Tolerated well, no immediate complications Post-injection instructions were reviewed with the patient and the patient voiced understanding of these instructions. Informed Consent Consent Obtained: Verbal Outlook Protocol SIGN IN Personnel directly involved with the procedure wore the appropriate PPE. Special Equipme (more content not included)... [facility] 10-24-2024 Instructions Quan Jeffers MD - 10/24/2024 10:55 AM EDT YOU WILL NEED EVALUATION IN THE ED TO ASSURE THERE IS NO BLOOD CLOT documented in this encounter [facility] 10-24-2024 History of Present illness Narrative Radiology Service Progress Note PATIENT NAME: Juan Killian DATE OF SERVICE: October 24, 2024 TIME: 10:38 AM PATIENT IDENTITY VERIFICATION COMPLETED USING TWO (2) IDENTIFIERS: Name and Date of confirmed by patient verbally. FALL SCREENING: Has the patient had 2 falls in the last year or 1 fall with injury or currently using an Ambulatory Assistive Device (Walker, Cane, Wheelchair, Crutches, etc.)? No PATIENT GENDER DATA: Assigned male at PATIENT RELEVANT IMPLANT DATA REVIEWED: Yes PATIENT PRESENTS WITH AN IMPLANTABLE OR ATTACHED DOUBLE END SEWER: No RADIOLOGY DEPARTMENT: General X-ray: Exam(s) Completed: Lower Extremity X-Ray(s): Knee, AP / Lat / Tunne / Merchant Left PERIPHERAL IV DATA: Not applicable SIGNED BY: RT Ninfa(R) October 24, 2024 10:38 AM documented in this encounter [facility] 10-24-2024 Note HNO ID: [id number] Author: MARTINE OWENS RT(Moises) Service: ? Author Type: Cath Lab Nurse Type: Progress Notes Filed: 10/24/2024 10:57 Note Text: Radiology Service Progress Note PATIENT NAME: Juan Killian DATE OF SERVICE: October 24, 2024 TIME: 10:38 AM PATIENT IDENTITY VERIFICATION COMPLETED USING TWO (2) IDENTIFIERS: Name and Date of confirmed by patient verbally. FALL SCREENING: Has the patient had 2 falls in the last year or 1 fall with injury or currently using an Ambulatory Assistive Device (Walker, Cane, Wheelchair, Crutches, etc.)? No PATIENT GENDER DATA: Assigned male at PATIENT RELEVANT IMPLANT DATA REVIEWED: Yes PATIENT PRESENTS WITH AN IMPLANTABLE OR ATTACHED DOUBLE END SEWER: No RADIOLOGY DEPARTMENT: General X-ray: Exam(s) Completed: Lower Extremity X-Ray(s): Knee, AP / Lat / Tunne / Merchant Left PERIPHERAL IV DATA: Not applicable SIGNED BY: RT Ninfa(R) October 24, 2024 10:38 AM [facility] 10-24-2024 Note HNO ID: [id number] Author: QUAN JEFFERS MD Service: ? Author Type: Physician Type: Progress Notes Filed: 10/24/2024 11:04 Note Text: [facility] Toño Killian is a 74 year old male. Patient presents with: left leg pain: X 1 day-behind knee Pt here with left anterior distal thigh pain above knee no injury has had in past seen by pcp now recurrence also some pain in popliteal area no swelling of knee no warmth no redness no calf pain or swelling no hx of Dvt no travel no surgeries hx of left sided LBP workmans comp Review of Systems Constitutional: Negative for fatigue and fever. Musculoskeletal: Positive for myalgias. Negative for arthralgias and joint swelling. Neurological: Negative for weakness and numbness. Objective BP 136/82 Pulse 90 Temp 36.4 ?C (97.5 ?F) (Tympanic) Resp 16 Wt 89.8 kg (197 lb 15.6 oz) SpO2 98% BMI 36.21 kg/m? Physical Exam Vitals and nursing note reviewed. Constitutional: Appearance: Normal appearance. He is not ill-appearing. Cardiovascular: Pulses: Normal pulses. Musculoskeletal: General: Tenderness present. No swelling or signs of injury. Normal range of motion. Skin: Capillary Refill: Capillary refill takes less than 2 seconds. Findings: No erythema or rash. Neurological: Mental Status: He is alert and oriented to person, place, and time. Sensory: No sensory deficit. Motor: No weakness. Coordination: Coordination normal. Deep Tendon Reflexes: Reflexes normal. {ASSESSMENT/PLAN: 1. Left leg pain - ICD9: 729.5, ICD10: M79.605 Will obtain an US assure no DVT pt is low risk - XR KNEE GENERAL 4V AP BOTH/PA BOTH/LAT/MERC LEFT - US DVT LOWER LEFT - US LEG VEIN DVT UNL VAS LAB Initial read of xray appears ok No appt available for US today so will need to send pt to the Ed for jayson Jeffers MD PT DECLINES TO GO TO THE ED ACCEPTS RESPONSIBILITY OF BAD OUTCOME OF FROM A PE WHICH WAS EXPLAINED IN DETAIL History and Record Review External record(s) reviewed: prior outpatient record. Differential Diagnoses - DVT is more likely for the following reason(s): suggested by HANDP - sprain is less likely for the following reason(s): HANDP not suggestive Disposition The patient was discharged. Procedures [facility] 10-24-2024 History of Present illness Narrative [facility] Subjective Juan Killian is a 74 year old male. Patient presents with: left leg pain: X 1 day-behind knee Pt here with left anterior distal thigh pain above knee no injury has had in past seen by pcp now recurrence also some pain in popliteal area no swelling of knee no warmth no redness no calf pain or swelling no hx of Dvt no travel no surgeries hx of left sided LBP workmans comp Review of Systems Constitutional: Negative for fatigue and fever. Musculoskeletal: Positive for myalgias. Negative for arthralgias and joint swelling. Neurological: Negative for weakness and numbness. Objective BP 136/82 Pulse 90 Temp 36.4 C (97.5 F) (Tympanic) Resp 16 Wt 89.8 kg (197 lb 15.6 oz) SpO2 98% BMI 36.21 kg/m Physical Exam Vitals and nursing note reviewed. Constitutional: Appearance: Normal appearance. He is not ill-appearing. Cardiovascular: Pulses: Normal pulses. Musculoskeletal: General: Tenderness present. No swelling or signs of injury. Normal range of motion. Skin: Capillary Refill: Capillary refill takes less than 2 seconds. Findings: No erythema or rash. Neurological: Mental Status: He is alert and oriented to person, place, and time. Sensory: No sensory deficit. Motor: No weakness. Coordination: Coordination normal. Deep Tendon Reflexes: Reflexes normal. {ASSESSMENT/PLAN: 1. Left leg pain - ICD9: 729.5, ICD10: M79.605 Will obtain an US assure no DVT pt is low risk - XR KNEE GENERAL 4V AP BOTH/PA BOTH/LAT/MERC LEFT - US DVT LOWER LEFT - US LEG VEIN DVT UNL VAS LAB Initial read of xray appears ok No appt available for US today so will need to send pt to the Ed for jayson Jeffers MD PT DECLINES TO GO TO THE ED ACCEPTS RESPONSIBILITY OF BAD OUTCOME OF FROM A PE WHICH WAS EXPLAINED IN DETAIL History and Record Review External record(s) reviewed: prior outpatient record. Differential Diagnoses - DVT is more likely for the following reason(s): suggested by H&P - sprain is less likely for the following reason(s): H&P not suggestive Disposition The patient was discharged. Procedures documented in this encounter [facility] 10-12-2024 History of Present illness Narrative Images from the original note were not included. [facility] Today's Date: 10/12/2024 Name: Juan Killian : 1950 Purpose: Follow-up Patient Evaluation - This is an established patient, returning today for continued evaluation and management of the chief complaint noted below Chief complaint: low back pain Referring Clinician: Mark Nova Pertinent Past Medical History: HTN, HLD, depression Pertinent Past Surgeries: none Plan at last visit: (Seen on 08/10/2024 by Maude Townsend CNP) IMPRESSION: 74 year old male presents with complaint(s) of Low back pain as described above. After review of the MRI the patient's pain pattern and his assessment, I am going to order an interlaminar epidural steroid injection from L4-L5 to see if the patient received relief. I also feel due to the patient's lack of exercise physical therapy would benefit this patient as well and he is in agreement to going to physical therapy. Diagnoses: (M54.50) Left low back pain, unspecified chronicity, unspecified whether sciatica present PLAN: Juan Killian would benefit from the following to reach personal goals for decreasing pain, improving function and work participation, and/or improving quality of life: Medications: No Changes - Continue Current Medications Interventional Procedures: Epidural Steroid Injection - Interlaminar Approach (ILESI) under fluoroscopic guidance NONE at L4-5 Digital Performance Analyst Needed: Epidural - YES Anticoagulant - Hold Needed: Lumbar Epidural (HOLD) Anticoagulant - Currently Taking: None Allergies (relevant): None Scheduling - Mobility (Can Patient independently transfer on/off an OR or Procedure table?): YES (May schedule at any location) Scheduling - Additional Info: None Studies: None Functional Mandaeism: Physical Therapy Consultation (Land-Based) Referrals: No additional considerations at present Follow-up: 1 month after injection Depending on response to the above plan, consider: TBD Interval History: Overall pain and functional disability since last visit: Better New Complaints since last visit: No On 09/15/2024 pt had a ILESI L4-L5. Patient reports 96% relief from procedure with pain score of 1/10 Patient reports improved quality of life and increase in ability to perform ADL's. Juan Killian is a 74-year-old male presenting for follow-up regarding back pain. Juan reports significant improvement in back pain following a recent injection, describing a 95-96% reduction in pain. He notes increased mobility and overall well-being. However, he experiences pain when reaching above arm's length, particularly when standing on tiptoe, which he describes as pulling on the nerves. He also reports fleeting pain when rising from a seated position. He is currently taking gabapentin and diclofenac, prescribed by Dr. Mercado, and is running low on diclofenac. He inquires about the continuation of this medication. 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 He requests a note for work to excuse him from reaching above arm's length. He mentions that a previous note advised him to avoid twisting movements. Current Pain Medications: Neuropathics: gabapentin NSAIDS: diclofenac Muscle Relaxants: Topicals: Other Prescription or OTC Pain Medications: Opioids (when applicable): Anti-depressants or Mood-Stabilizers: Cymbalta, Wellbutrin Anti-Coagulants: None Therapies Attended (Current or Most Recent): No Current Therapies 08/10/2024 [facility] SPINE COMBINATION Questionnaire GREENLIGHT Completed Date 08/10/2024 Questionnaire Opiod Risk Tool Completed Date 08/10/2024 Comments 1 - Low Risk No question data found. (All drug screens are appropriate unless indicated otherwise) Notable Events During Course of Treatment: History of Present Illness (HPI): 08/09/2024 - Initial HPI (Obtained by Maude Townsend CNP). DURATION AND ONSET: The pain complaint has been present for approximately 2 months. The pain had a sudden onset. The mechanism of injury is known and is as follows: a fall. RED FLAG SYMPTOMS: denies red flags. PAIN DESCRIPTION: Timing: Intermittent Character: Shooting, Stabbing, Throbbing Primary Location: low back Radiation: down left leg and into left groin Exacerbating factors: twisting and lifting Relieving factors: Sitting with his feet elevated Interferes with: physical activity and work Juan is a 74-year-old male with a history of hypertension, hyperlipidemia, and depression, presenting for evaluation of back pain following a fall. Juan reports that he fell on June 22, 2022, when he slipped on ice in a parking lot. He describes the fall as a karate chop to the blacktop. Two days later, he began experiencing back pain, which progressively worsened to a 10/10 intensity. He describes the pain as stabbing and intermittent, with episodes lasting about 30 minutes. The pain is not constant and does not worsen at night, allowing him to sleep. He does not endorse bowel or bladder difficulties, leg numbness, or tingling. He reports rare leg weakness. He also experiences sharp, stabbing pain across his left groin, which he describes as feeling like a hernia, though he does not have one. This pain is triggered by twisting movements and can be severe enough to knock him down. He reports that the pain is not constant and does not worsen at night, allowing him to sleep. He describes the pain as martinez running down the front of his left thigh, accompanied by a sensation of insects crawling under his skin. He reports that the pain is not constant and does not worsen at night, allowing him to sleep. He reports that the pain is exacerbated by twisting and lifting movements. He recalls an incident where he lifted about 15 pounds of dishes without turning, resulting in a sharp pain shooting from the base of his spinal cord, which he describes as feeling like his spine was being pulled out of his hip. This pain lasted only a few seconds but was enough to make him cautious about lifting more than 15 pounds. He reports that the pain is not constant and does not worsen at night, allowing him to sleep. He has tried various creams and rubs on his back without relief. He is currently taking gabapentin and diclofenac, as well as a muscle relaxer prescribed by Dr. Nova, but reports that these medications have not provided significant relief. He also takes Tylenol for headaches and sometimes uses Tylenol Sinus, which he finds helpful. He is not on a blood thinner and has not undergone physical therapy for his back pain. 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 He reports that his pain interferes with his work and physical activities, though he does not exercise regularly. He walks his dog but does not engage in other physical activities. He has a history of hypertension, hyperlipidemia, and depression, for which he is taking Cymbalta and Wellbutrin. He does not have a history of joint, back, or neck surgery. He reports a heart murmur but does not endorse any other significant medical history. 08/10/2024 AG SPINE COMBINATION Questionnaire GREENLIGHT Completed Date 08/10/2024 Questionnaire Opiod Risk Tool Completed Date 08/10/2024 Comments 1 - Low Risk No question data found. (All drug screens are appropriate unless indicated otherwise) Treatment History: PAIN PROCEDURES: DATE PROCEDURE IMPROVEMENT 09/15/2024 ILESI L4-L5 96% MEDICATIONS Taken TO DATE (for the chief complaint(s)): Neuropathics: Neurontin (Gabapentin) NSAIDS: Voltaren (Diclofenac) Muscle Relaxants: was ordered he didn't feel was affective Topicals: Cudz-Jii-Pxbmxhz (OTC)no relief Other Prescription or OTC Pain Medications: Tylenol (Acetaminophen) Opioids: None Data Reviewed Today: Allergies: ALLERGIES Allergen Reactions Benadryl [Diphenhyd* Mental Status Change Sends into severe depression Social History Tobacco Use Smoking status: Former Current packs/day: 1.00 Average packs/day: 1 pack/day for 3.0 years (3.0 ttl pk-yrs) Types: Cigarettes Smokeless tobacco: Never Tobacco comments: quit 15 years ago. Started age 30. Vaping Use Vaping status: Never Used Substance Use Topics Alcohol use: Not Currently Comment: 1 drink per year Drug use: Not Currently Types: Marijuana Comment: 16-23 years old 09/15/2024 10/12/2024 INTAKE PAIN ASSESSMENT Are you having pain associated with your visit today? Yes, Provider notified Yes, Provider notified Pain Scales Verbal (Numeric Rating or Visual Analog Scale) Verbal (Numeric Rating or Visual Analog Scale) Pain Level 4 0 Pain Location Back-Lower Back-Lower Description Aching Duration Units Months Years Frequency Continuous Intermittent Intervention/Comfort measure Medication;Reposition;Relaxation -- Compliance: PDMP website checked and validated on 10/12/2024 by Maude Townsend APRN.COPY CENTER OPERATOR All prescriptions have been APPROPRIATELY filled. No suspicious activity was identified. Risk Assessment: GI-7: 11/02/2023 12/21/2023 08/10/2024 GI - 7 SCORES Score 0 0 2 (0-4) minimal anxiety, (5-9) mild anxiety, (10-14) moderate anxiety, (15-21) severe anxiety PHQ-9: 11/02/2023 12/21/2023 08/10/2024 PHQ-9 Score 4 2 2 (0-4) minimal depression, (5-9) mild depression, (10-14) moderate depression, (15-19) moderately severe depression, (20-27) severe depression Greenlight Questionnaire GREENLIGHT Completed Date 08/10/2024 Opioid Risk Tool Opiod Risk Tool Date Completed 08/10/2024 Comments 1 - Low Risk GI-7 Anxiety Score 2 Completed Date 08/10/2024 PHQ9P Score 2 Completed Date 08/10/2024 Diagnostic Studies: Relevant Imaging: MRI Spine Report No resulted procedures found. 06/07/2024 10:36 AM - Radiology, [place] In Impression IMPRESSION: No acute osseous abnormalities. Degenerative changes of the lumbar spine resulting in up to mild canal stenosis at L3-L4 and L4-L5, and up to moderate foraminal stenosis at L2-L3, right L3-L4 neural foramen, and right L4-L5 neural foramen. Anatomic Lumbar Variant: None. L4-5 is considered the level of the iliac crest and assume there are 5 lumbar-type vertebrae. Press Pipe Inspector: SANKET Transcribe Date/Time: Jun 07 2024 9:52A Dictated by : BABAK CURRY, This examination was interpreted and the report reviewed and electronically signed by: LINDY REEVES MD on Jun 07 2024 10:34AM EST Results-Findings * * *Final Report* * * DATE OF EXAM: Jun 07 2024 9:32AM [facility] [place] LUMBAR SPINE WO IVCON / PROCEDURE REASON: Spine fracture, lumbar, traumatic * * * * Physician Interpretation * * * * EXAMINATION: CT LUMBAR SPINE WO IVCON CLINICAL HISTORY: Fall, concern for fracture. TECHNIQUE: Spiral, high resolution axial unenhanced images were obtained from the thoracolumbar junction to the sacrum with sagittal and coronal planar reconstructions. MQ: [id number] CT Radiation dose: Integrated Dose-Length Product (DLP) for this visit = 1412 mGy*cm. CT Dose Reduction Employed: Automated exposure control(AEC) and iterative recon COMPARISON: None. RESULT: Counting reference: Lumbosacral junction. For the purposes of this report, L4-5 is considered the level of the iliac crest and assume there are 5 lumbar-type vertebrae. Anatomic variant: None. Switchboard Mechanic (topogram) images: None provided Alignment: Alignment is anatomic. Minimal dextroscoliotic curve. Minimal retrolisthesis of L4 on L5 and L1-L2. Bone marrow /fracture: No evidence of a lytic or blastic process in the visualized spine. No evidence of acute or chronic fracture or traumatic subluxations. Vertebral body heights are maintained. Multilevel disc space height loss, moderate at sequential levels L1-L4, and severe at L5-S1. Endplate degenerative changes with bulky osteophytes. Paraspinal soft tissues: The paraspinal soft tissues planes are maintained. Lower thoracic spine: The visualized lower thoracic bony canal and foramina are patent. L1-L2: Slight retrolisthesis of L1-L2, with posterior disc bulge resulting in mild foraminal stenosis bilaterally. The canal is patent. L2-L3: Posterior disc bulging with ligamentum hypertrophy and facet arthropathic change resulting in moderate bilateral foraminal stenosis. The canal is patent. L3-L4: Posterior disc bulging, ligamentum flavum hypertrophy, facet arthropathic changes resulting in moderate right and mild left foraminal stenosis, and mild canal stenosis. L4-L5: Posterior disc bulging, ligamentum flavum hypertrophy, facet arthropathic changes resulting in moderate right and mild left foraminal stenosis and mild canal stenosis. L5-S1: Posterior disc bulging with posteriorly directed osteophytes, ligamentum hypertrophy, facet arthropathic changes resulting in mild right foraminal stenosis. The canal and left neural foramen is patent. Sacrum and iliac wings: The visualized sacrum and iliac wings are within normal limits. 06/07/2024 8:20 AM - Radiology, Oru In Impression IMPRESSION: No definite radiographic evidence of acute fracture. Press Pipe Inspector: SANKET Transcribe Date/Time: Jun 07 2024 8:15A Dictated by : AARTI HUNT DO This examination was interpreted and the report reviewed and electronically signed by: AARTI HUNT DO on Jun 07 2024 8:18AM EST Results-Findings * * *Final Report* * * DATE OF EXAM: Jun 06 2024 8:49AM WOX [id number] - XR SACRUM/COCCYX 3V AP/LAT / PROCEDURE REASON: Acute bilateral low back pain without sciatica * * * * Physician Interpretation * * * * EXAMINATION: XR SACRUM/COCCYX 3V AP/LAT PATIENT/TECHNOLOGIST PROVIDED HISTORY: Pt fell on ice 2 weeks ago, tailbone pain ever since. CLINICAL INFORMATION: 74 years old Male with Acute bilateral low back pain without sciatica TECHNIQUE: XR SACRUM/COCCYX 3V AP/LAT Laterality: NOT APPLICABLE Number of different views (projections): 3 COMPARISON: None RESULT: No definite radiographic evidence of acute fracture. Sacroiliac joints are symmetric and maintained. Mild degenerative change at the pubic symphysis. Hip joint spaces appear maintained. Degenerative changes in the lumbar spine. Electrodiagnostic Study (EMG): None Recent Labs: Creatinine Date Value Ref Range Status 06/06/2024 0.87 0.73 - 1.22 mg/dL Final No results found for: EGFR No results found for: PCGLUCOSE Current Medications, Past Medical History, Past Surgical History, Family History, Social History and Review of Systems: On today's date, noted above, I have confirmed and edited as necessary, the PFSH and ROS obtained by others. Physical Exam: 10/12/24 0935 Pulse: 77 Resp: 18 SpO2: 96% Physical Exam Vitals reviewed. Constitutional: General: He is not in acute distress. Appearance: He is not ill-appearing. HENT: Head: Normocephalic and atraumatic. Eyes: Conjunctiva/sclera: Conjunctivae normal. Cardiovascular: Pulses: Normal pulses. Pulmonary: Effort: Pulmonary effort is normal. No respiratory distress. Musculoskeletal: Thoracic back: No tenderness or bony tenderness. No scoliosis. Lumbar back: Spasms and tenderness present. Decreased range of motion. Positive right straight leg raise test and positive left straight leg raise test. No scoliosis. Comments: Hip Flexion: Right- 5/5; Left- 5/5 Knee Extension: Right- 5/5; Left- 5/5 Dorsiflexion: Right- 5/5; Left- 5/5 Plantarflexion: Right- 5/5; Left- 5/5 Special Tests- Facet Loading: Right-Negative; Left Positive - SI Compression:Negative ALEXANDR:Right-Negative; Left Skin: General: Skin is warm and dry. Neurological: Mental Status: He is alert and oriented to person, place, and time. Gait: Gait is intact. Tandem walk normal. Deep Tendon Reflexes: Reflexes are normal and symmetric. Reflex Scores: Patellar reflexes are 2+ on the right side and 2+ on the left side. Psychiatric: Mood and Affect: Mood and affect normal. Behavior: Behavior normal. Behavior is cooperative. IMPRESSION: 74 year old male presents with complaint(s) of Low back pain as described above. Patient stating his pain is better managed now after the injection stating that he is still is limited with some of his activities that he feels as long as he avoids things that increase his pain he does well. Diagnoses: (M48.062) Spinal stenosis, lumbar region with neurogenic claudication (primary encounter diagnosis) (M51.362) Degeneration of intervertebral disc of lumbar region with discogenic back pain and lower extremity pain (M54.50) Left low back pain, unspecified chronicity, unspecified whether sciatica present (M47.816) Lumbar spondylosis PLAN: Juan Killian would benefit from the following to reach personal goals for decreasing pain, improving function and work participation, and/or improving quality of life: Medications: No Changes - Continue Current Medications Interventional Procedures: none Studies: None Functional Mandaeism: NONE He Does Well. She Referrals: No additional considerations at present Follow-up: 1 month after injection Depending on response to the above plan, consider: TBD Patient Education, Compliance and Clinic Policies Reviewed and/or Discussed Today: None Attribution: In addition to reviewing the information noted above, some elements copied from my most recent clinical note(s), including the physical exam (completed in entirety today), and the impression and plan sections, have been updated where appropriate. All reflect current medical decision making from today's date. Pain Management [facility] Review of Systems Constitutional: Negative for activity change, chills, fever and unexpected weight change. Genitourinary: Negative for difficulty urinating. Musculoskeletal: Positive for back pain. Negative for arthralgias, gait problem, joint swelling, myalgias, neck pain and neck stiffness. Neurological: Negative for weakness, numbness and headaches. Psychiatric/Behavioral: Negative for dysphoric mood, sleep disturbance and suicidal ideas. The patient is not nervous/anxious. documented in this encounter [facility] 10-12-2024 Note HNO ID: [id number] Author: MAUDE TOWNSEND APRN.JORJE Service: ? Author Type: Nurse Practitioner Type: Progress Notes Filed: 10/12/2024 12:41 Note Text: [facility] Today's Date: 10/12/2024 Name: Juan Killian : 1950 Purpose: Follow-up Patient Evaluation - This is an established patient, returning today for continued evaluation and management of the chief complaint noted below Chief complaint: low back pain Referring Clinician: Mark Nova Pertinent Past Medical History: HTN, HLD, depression Pertinent Past Surgeries: none Plan at last visit: (Seen on 08/10/2024 by Maude Townsend CNP) IMPRESSION: 74 year old male presents with complaint(s) of Low back pain as described above. After review of the MRI the patient's pain pattern and his assessment, I am going to order an interlaminar epidural steroid injection from L4-L5 to see if the patient received relief. I also feel due to the patient's lack of exercise physical therapy would benefit this patient as well and he is in agreement to going to physical therapy. Diagnoses: (M54.50) Left low back pain, unspecified chronicity, unspecified whether sciatica present PLAN: Juan Killian would benefit from the following to reach personal goals for decreasing pain, improving function and work participation, and/or improving quality of life: Medications: No Changes - Continue Current Medications Interventional Procedures: Epidural Steroid Injection - Interlaminar Approach (ILESI) under fluoroscopic guidance NONE at L4-5 Digital Performance Analyst Needed: Epidural - YES Anticoagulant - Hold Needed: Lumbar Epidural (HOLD) Anticoagulant - Currently Taking: None Allergies (relevant): None Scheduling - Mobility (Can Patient independently transfer on/off an OR or Procedure table?): YES (May schedule at any location) Scheduling - Additional Info: None Studies: None Functional Mandaeism: Physical Therapy Consultation (Land-Based) Referrals: No additional considerations at present Follow-up: 1 month after injection Depending on response to the above plan, consider: TBD Interval History: Overall pain and functional disability since last visit: Better New Complaints since last visit: No On 09/15/2024 pt had a ILESI L4-L5. Patient reports 96% relief from procedure with pain score of 1/10 Patient reports improved quality of life and increase in ability to perform ADL's. Juan Killian is a 74-year-old male presenting for follow-up regarding back pain. Juan reports significant improvement in back pain following a recent injection, describing a 95-96% reduction in pain. He notes increased mobility and overall well-being. However, he experiences pain when reaching above arm's length, particularly when standing on tiptoe, which he describes as pulling on the nerves. He also reports fleeting pain when rising from a seated position. He is currently taking gabapentin and diclofenac, prescribed by Dr. Mercado, and is running low on diclofenac. He inquires about the continuation of this medication. 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 He requests a note for work to excuse him from reaching above arm's length. He mentions that a previous note advised him to avoid twisting movements. Current Pain Medications: Neuropathics: gabapentin NSAIDS: diclofenac Muscle Relaxants: Topicals: Other Prescription or OTC Pain Medications: Opioids (when applicable): Anti-depressants or Mood-Stabilizers: Cymbalta, Wellbutrin Anti-Coagulants: None Therapies Attended (Current or Most Recent): No Current Therapies 08/10/2024 AG SPINE COMBINATION Questionnaire GREENLIGHT Completed Date 08/10/2024 Questionnaire Opiod Risk Tool Completed Date 08/10/2024 Comments 1 - Low Risk No question data found. (All drug screens are appropriate unless indicated otherwise) Notable Events During Course of Treatment: History of Present Illness (HPI): 08/09/2024 - Initial HPI (Obtained by Maude Townsend CNP). DURATION AND ONSET: The pain complaint has been present for approximately 2 months. The pain had a sudden onset. The mechanism of injury is known and is as follows: a fall. RED FLAG SYMPTOMS: denies red flags. PAIN DESCRIPTION: Timing: Intermittent Character: Shooting, Stabbing, Throbbing Primary Location: low back Radiation: down left leg and into left groin Exacerbating factors: twisting and lifting Relieving factors: Sitting with his feet elevated Interferes with: physical activity and work Juan is a 74-year-old male with a history of hypertension, hyperlipidemia, and depression, presenting for evaluation of david (more content not included)... [facility] 10-12-2024 Note HNO ID: [id number] Author: YOUSIF STEWART LPN Service: ? Author Type: LICENSED NURSE Type: Progress Notes Filed: 10/12/2024 12:41 Note Text: Review of Systems Constitutional: Negative for activity change, chills, fever and unexpected weight change. Genitourinary: Negative for difficulty urinating. Musculoskeletal: Positive for back pain. Negative for arthralgias, gait problem, joint swelling, myalgias, neck pain and neck stiffness. Neurological: Negative for weakness, numbness and headaches. Psychiatric/Behavioral: Negative for dysphoric mood, sleep disturbance and suicidal ideas. The patient is not nervous/anxious. [facility] 09-25-2024 Telephone encounter Note Patient has been identified by name and date of : Yes, Provider Mark Nova Date 09/25/24 Time 7:23 Patient phones for refill(s): Requested Prescriptions Pending Prescriptions Disp Refills diclofenac, EC, (VOLTAREN) 75 mg EC tablet 60 tablet 1 Sig: Take 1 tablet by mouth two times a day. Date of last office visit in primary care: 08/16/2024 Date of next office visit in primary care: 11/24/2024 Please advise. Thank you. Aram Garcia. [facility] 09-25-2024 Miscellaneous Notes Patient has been identified by name and date of : Yes, Provider Mark Nova Date 09/25/24 Time 7:23 Patient phones for refill(s): Requested Prescriptions Pending Prescriptions Disp Refills diclofenac, EC, (VOLTAREN) 75 mg EC tablet 60 tablet 1 Sig: Take 1 tablet by mouth two times a day. Date of last office visit in primary care: 08/16/2024 Date of next office visit in primary care: 11/24/2024 Please advise. Thank you. Aram Garcia. documented in this encounter [facility] 09-18-2024 Telephone encounter Note Spoke with patient following up from procedure. Patient states they are doing well, no questions or concerns at this time. Sary Durbin LPN [facility] 09-18-2024 Miscellaneous Notes Spoke with patient following up from procedure. Patient states they are doing well, no questions or concerns at this time. Sary Durbin LPN documented in this encounter [facility] 09-15-2024 History of Present illness Narrative [facility] Date: 09/15/2024 Patient name: Juan Killian Physician performing procedure: Lei Clinton MD, PhD Procedure: Interlaminar Epidural Steroid Injection (ILESI) under fluoroscopic guidance Levels Treated: L4-L5 Interlaminar Space, Left bias Injectate: A total of 4cc, consisting of 2cc of Depo-medrol (40mg/cc), 1cc of 1% Lidocaine and the remainder consisting of Normal Saline Improvement after today's procedure: as per nursing report Diagnosis: (M48.062) Spinal stenosis, lumbar region with neurogenic claudication (primary encounter diagnosis) (M54.50) Left low back pain, unspecified chronicity, unspecified whether sciatica present Comments: None HPI: Juan Killian is an 74 year old MALE who presents today for an elective interlaminar epidural steroid injection. Patient otherwise denies fevers, chills, weakness, saddle anesthesia, bowel or bladder incontinence or recent antibiotic or anticoagulant use. PAST MEDICAL HISTORY Diagnosis Date Anxiety 2009 Depressive type psychosis 2009 Diastasis of rectus abdominis 08/01/2012 Heart murmur 10/30/2021 Hydrocele 2009 Impaired fasting blood sugar 09/05/2013 Major depression, chronic 10/30/2021 Obesity, Class I, BMI 30-34.9 10/30/2021 Physiological tremor 11/14/2009 Primary hypertension 10/30/2021 Sleep apnea 2013 Tobacco use 08/13/2022 Problem List Noted Noted By Resolved Resolved By Left low back pain 06/26/2024 Mark Nova MD No Primary osteoarthritis of left knee 06/22/2024 Mark Nova MD No Major depressive disorder, recurrent episode, moderate (HCC) 06/06/2024 Alexia Coleman, DIRECTOR MEDICAL WRITING.COPY CENTER OPERATOR No Hyperlipidemia 08/12/2022 Mark Nova MD No Major depression, chronic 10/30/2021 Mark Nova MD No Primary hypertension 10/30/2021 Mark Nova MD No Obesity, Class I, BMI 30-34.9 10/30/2021 Mark Nova MD No Heart murmur 10/30/2021 Mark Nova MD No Tobacco use 08/13/2022 Mark Nova MD 05/26/2023 Alexia Coleman, DIRECTOR MEDICAL WRITING.COPY CENTER OPERATOR PAST SURGICAL HISTORY Procedure Laterality Date SEPTOPLASTY 1970 Current Outpatient Medications on File Prior to Visit Medication Sig atorvastatin (LIPITOR) 20 mg tablet Take 1 tablet by mouth daily at bedtime. For cholesterol. gabapentin (NEURONTIN) 100 mg capsule Take 2 capsules by mouth three times a day for 180 days. hydroCHLOROthiazide 25 mg tablet Take 1 tablet by mouth once daily. diclofenac, EC, (VOLTAREN) 75 mg EC tablet Take 1 tablet by mouth two times a day. lamoTRIgine (LAMICTAL) 100 mg tablet Take 1 tablet by mouth once daily. buPROPion XL (WELLBUTRIN XL) 300 mg 24 hr tablet Take 1 tablet by mouth once daily. DULoxetine (CYMBALTA) 60 mg capsule Take 1 capsule by mouth daily at bedtime. No current facility-administered medications on file prior to visit. ALLERGIES Allergen Reactions Benadryl [Diphenhyd* Mental Status Change Sends into severe depression FAMILY HISTORY Problem Relation Age of Onset Lung Cancer Mother Colon Cancer Mother Dementia Father Heart Father murmur Hepatitis C Sister Pancreatic Cancer Brother No Known Problems Brother Obesity Brother Social History Tobacco Use Smoking status: Former Current packs/day: 1.00 Average packs/day: 1 pack/day for 3.0 years (3.0 ttl pk-yrs) Types: Cigarettes Smokeless tobacco: Never Tobacco comments: quit 15 years ago. Started age 30. Vaping Use Vaping status: Never Used Substance Use Topics Alcohol use: Not Currently Comment: 1 drink per year Drug use: Not Currently Types: Marijuana Comment: 16-23 years old Review of Systems: Pertinent Positives: MSK: pain in the region being treated Neuro: No weakness or numbness in the region being treated Skin: Negative (No itching) Eyes: Negative (No blurred or double vision) Respiratory: Negative (No Cough, [id number], Dyspnea on exertion, wheezing) Cardiovascular: Negative (No Chest Pain, Tightness, Pressure, Palpitations) Gastrointestinal: Negative (No Abdominal pain, Nausea, Vomiting, Constipation, Diarrhea) Genitourinary: Negative (No dysuria) Hematologic: Negative (No bleeding, bruising) OB: is Denied or Not Applicable Endocrine: Negative (No hot/cold intolerance) Psychiatric: Negative (No depression, anxiety or suicidal ideation) Attestation Information obtained by others were confirmed and edited as necessary on 09/14/2024 by Lei Clinton MD, PhD. Objective Exam: Vitals: As per nursing documentation Constitutional: Normal Appearance, Oriented to Time, Place and Person Head: No lacerations, no external signs of trauma Eyes: Conjunctiva clear. No discharge from the eyes Cardiovascular: Appears well-perfused Pulmonary: Non-labored respirations Abdominal: Non-distended Skin: No visible rashes or ecchymosis Psychiatric: Mood appropriate for given condition Neurological: no focal deficits, gross movements are limited by pain, but otherwise unremarkable Data Reviewed: Nursing note and vitals reviewed. Additional imaging reviewed as appropriate Assessment and Plan: We discussed the current plan and the pathology responsible for the patient's pain. Specific counseling related to the procedure was provided regarding the risks, benefits and alternatives. The patient wishes to proceed with the plan as noted above. Encounter Diagnosis ICD-10-CM 1. Spinal stenosis, lumbar region with neurogenic claudication M48.062 EPI LUMBAR OR SACRAL W/IMAGING lidocaine 10 mg/mL (1 %) 100 mg injection (XYLOCAINE) NaCl (PF) 0.9% 5 mL injection methylPREDNISolone acetate 40 mg injection (DEPO-Medrol) iohexol 300 mg injection (OMNIPAQUE 300) 2. Left low back pain, unspecified chronicity, unspecified whether sciatica present M54.50 EPI LUMBAR OR SACRAL W/IMAGING lidocaine 10 mg/mL (1 %) 100 mg injection (XYLOCAINE) NaCl (PF) 0.9% 5 mL injection methylPREDNISolone acetate 40 mg injection (DEPO-Medrol) iohexol 300 mg injection (OMNIPAQUE 300) Time out to confirm patient name, date of , procedure site, laterality, and allergies performed by physician. Please see nursing note for exact times (time out, procedure start, procedure end). Outlook protocol documentation / Pre-Procedure checklist: Unless stated otherwise in the procedure note, the risks include but are not limited to infection, allergic reaction, increased pain, lack of therapeutic benefit, steroid reaction, nerve damage, paralysis, stroke, epidural hematoma, syncope, headache, respiratory or cardiac arrest, pneumothorax, and scar formation Time Out was led by the physician in the procedure room, with the patient and all staff present and participating The following information was verified: name, date of , procedure site (marked), laterality, anticoagulants and allergies Outlook protocol documentation / Pre-Procedure Checklist: Consent: Verbal and written consent was obtained prior to the procedure. Risks, benefits and alternative treatment options were discussed with the patient. All questions were fully answered. Unless stated otherwise in the procedure note, the risks include but are not limited to infection, allergic reaction, increased pain, lack of therapeutic benefit, steroid reaction, nerve damage, paralysis, stroke, epidural hematoma, syncope, headache, respiratory or cardiac arrest, pneumothorax, and scar formation Once the plan was agreed upon, the patient gave written consent to proceed and was transported into the procedure room Surgical/Procedure pause or Time Out : Time Out was led by the physician in the procedure room, with the patient and all staff present and participating The following information was verified during the Time Out process: Patient name, patient date of , procedure site (marked), laterality, anticoagulants and allergies Anticoagulants: reviewed with patient, notable for: none DESCRIPTION OF PROCEDURE: The patient was brought to the procedure room and positioned prone on the procedure room table. A pillow was placed below the abdomen to decrease lumbar lordosis and a safety strap was placed across the legs. The lumbosacral region was then exposed, prepped, and draped in a sterile fashion using 2% Chloroprep scrub. Skin anesthesia was achieved using 2 mL of Lidocaine 1% using a 25G 1.5inch needle to infiltrate the skin over the respective injection site. The target interspace was visualized under fluoroscopic imaging. A 20 gauge 3 1/2 Tuohy needle was then slowly guided into the epidural space utilizing loss of resistance technique and multi-planar fluoroscopic imaging for needle guidance. After negative aspiration for blood or CSF, contrast in the form of 1mL of Omnipaque 300 was injected and was found to be consistent with epidural spread. There was no evidence of intravascular or intrathecal uptake. After negative aspiration, the above mentioned injectate was then administered. The needle was subsequently withdrawn and minimal bleeding was observed. No specimens were obtained. A dressing was applied and the patient was taken to the recovery area for further observation. Please see the nursing note for exact times (time out, procedure start, procedure end). The patient was noted to have tolerated the procedure well and was discharged after an appropriate period of post-procedure observation in stable condition. The patient was instructed to contact us in the event of worsening pain, fever, weakness, numbness or bladder or bowel incontinence. The patient was further advised to follow-up with the requesting physician within one to two weeks or as per their requested follow-up plan. A post-procedure visit summary with written instructions was offered to the patient at the time of discharge. Lei Clinton MD, PhD Pain Management [facility] Order has been placed in the patient's chart with the following parameters for discharge from the physician: Patient is alert and oriented Vitals: Diastolic/Systolic +/- 20mmHg Respirations: 12-18 Pulse: 60-100 SpO2 is greater than or equal to 90% Patient has no nausea or vomiting Patient has no dizziness Pain level is +/- 2 from initial evaluation Dressing, dry and intact with no evidence of bleeding Criteria has been met, patient is okay to be discharged per the physician. Physician has gone in and evaluated the patient. Dressing dry and intact. No drainage noted. The patient denies nausea, numbness, tingling, weakness, shortness of breath, dizziness, or headache. Pain level 2/10. Vital signs within normal limits. Patient denied needing walked out by clinical staff and denied needing a wheelchair. Patient given discharge instructions and sent to transportation via ambulatory method. Patient left in good condition. Review of Systems Constitutional: Positive for activity change. Negative for chills, fever and unexpected weight change. Genitourinary: Negative for difficulty urinating. Musculoskeletal: Positive for arthralgias, back pain, gait problem and myalgias. Negative for joint swelling, neck pain and neck stiffness. Neurological: Positive for weakness. Negative for numbness and headaches. Psychiatric/Behavioral: Positive for dysphoric mood. Negative for sleep disturbance and suicidal ideas. The patient is nervous/anxious. Procedure to be performed: L4/L5 Interlaminar Epidural Steroid Injection Patient was wheeled on stretcher from pre op bay to procedure room and assisted onto the procedure tablePatient s procedure was performed in an [facility] Procedure room. Pause completed at each level by provider to verify correct level and laterality placement Pressure was applied to patient s injection site(s) and bleeding was minimal. Patient had no complaint of shortness of breath, dizziness, headache, numbness, tingling, weakness or complications from procedure. Patient was assisted from the procedure table onto the stretcher and wheeled into a post op bay. Patient was advised a clinician will be to obtain another set of vitals. Time Out: 821 Confirmed patient name, date of , procedure site, laterality, and allergies Procedure Start: 824 Procedure End: 829 Digital Performance Analyst's Name: Rizwan Are you on a blood thinner: n If yes, is a hold required: n Last dose of blood thinner: n INR Result today: n Do you require a Lovenox bridge:n Are you a diabetic:n Are you/or could you be : n/a Are you taking Xanax for the procedure: n Are you currently on a steroid? n Are you currently on an antibiotic: n documented in this encounter [facility] 09-15-2024 Note HNO ID: [id number] Author: LEI CLINTON MD, PhD Service: ? Author Type: Physician Type: Progress Notes Filed: 09/15/2024 11:22 Note Text: [facility] Date: 09/15/2024 Patient name: Juan Killian Physician performing procedure: Lei Clinton MD, PhD Procedure: Interlaminar Epidural Steroid Injection (ILESI) under fluoroscopic guidance Levels Treated: L4-L5 Interlaminar Space, Left bias Injectate: A total of 4cc, consisting of 2cc of Depo-medrol (40mg/cc), 1cc of 1% Lidocaine and the remainder consisting of Normal Saline Improvement after today's procedure: as per nursing report Diagnosis: (M48.062) Spinal stenosis, lumbar region with neurogenic claudication (primary encounter diagnosis) (M54.50) Left low back pain, unspecified chronicity, unspecified whether sciatica present Comments: None HPI: Juan Killian is an 74 year old MALE who presents today for an elective interlaminar epidural steroid injection. Patient otherwise denies fevers, chills, weakness, saddle anesthesia, bowel or bladder incontinence or recent antibiotic or anticoagulant use. PAST MEDICAL HISTORY Diagnosis Date Anxiety 2008 Depressive type psychosis 2009 Diastasis of rectus abdominis 08/01/2012 Heart murmur 10/30/2021 Hydrocele 2009 Impaired fasting blood sugar 09/05/2013 Major depression, chronic 10/30/2021 Obesity, Class I, BMI 30-34.9 10/30/2021 Physiological tremor 11/14/2009 Primary hypertension 10/30/2021 Sleep apnea 2013 Tobacco use 08/13/2022 Problem List Noted Noted By Resolved Resolved By Left low back pain 06/26/2024 Mark Nova MD No Primary osteoarthritis of left knee 06/22/2024 Mark Nova MD No Major depressive disorder, recurrent episode, moderate (HCC) 06/06/2024 Alexia Coleman, DIRECTOR MEDICAL WRITING.COPY CENTER OPERATOR No Hyperlipidemia 08/12/2022 Mark Nova MD No Major depression, chronic 10/30/2021 Mark Nova MD No Primary hypertension 10/30/2021 Mark Nova MD No Obesity, Class I, BMI 30-34.9 10/30/2021 Mark Nova MD No Heart murmur 10/30/2021 Mark Nova MD No Tobacco use 08/13/2022 Mark Nova MD 05/26/2023 Alexia Coleman, DIRECTOR MEDICAL WRITING.COPY CENTER OPERATOR PAST SURGICAL HISTORY Procedure Laterality Date SEPTOPLASTY 1970 Current Outpatient Medications on File Prior to Visit Medication Sig atorvastatin (LIPITOR) 20 mg tablet Take 1 tablet by mouth daily at bedtime. For cholesterol. gabapentin (NEURONTIN) 100 mg capsule Take 2 capsules by mouth three times a day for 180 days. hydroCHLOROthiazide 25 mg tablet Take 1 tablet by mouth once daily. diclofenac, EC, (VOLTAREN) 75 mg EC tablet Take 1 tablet by mouth two times a day. lamoTRIgine (LAMICTAL) 100 mg tablet Take 1 tablet by mouth once daily. buPROPion XL (WELLBUTRIN XL) 300 mg 24 hr tablet Take 1 tablet by mouth once daily. DULoxetine (CYMBALTA) 60 mg capsule Take 1 capsule by mouth daily at bedtime. No current facility-administered medications on file prior to visit. ALLERGIES Allergen Reactions Benadryl [Diphenhyd* Mental Status Change Sends into severe depression FAMILY HISTORY Problem Relation Age of Onset Lung Cancer Mother Colon Cancer Mother Dementia Father Heart Father murmur Hepatitis C Sister Pancreatic Cancer Brother No Known Problems Brother Obesity Brother Social History Tobacco Use Smoking status: Former Current packs/day: 1.00 Average packs/day: 1 pack/day for 3.0 years (3.0 ttl pk-yrs) Types: Cigarettes Smokeless tobacco: Never Tobacco comments: quit 15 years ago. Started age 30. Vaping Use Vaping status: Never Used Substance Use Topics Alcohol use: Not Currently Comment: 1 drink per year Drug use: Not Currently Types: Marijuana Comment: 16-23 years old Review of Systems: Pertinent Positives: MSK: pain in the region being treated Neuro: No weakness or numbness in the region being treated Skin: Negative (No itching) Eyes: Negative (No blurred or double vision) Respiratory: Negative (No Cough, [id number], Dyspnea on exertion, wheezing) Cardiovascular: Negative (No Chest Pain, Tightness, Pressure, Palpitations) Gastrointestinal: Negative (No Abdominal pain, Nausea, Vomiting, Constipation, Diarrhea) Genitourinary: Negative (No dysuria) Hematologic: Negative (No bleeding, bruising) OB: is Denied or Not Applicable Endocrine: Negative (No hot/cold intolerance) Psychiatric: Negative (No depression, anxiety or suicidal ideation) Attestation Information obtained by others were confirmed and edited as necessary on 09/14/2024 by Lei Clinton MD, PhD. Objective Exam: Vitals: As per nursing documentation Constitutional: Normal Appearance, Oriented to Time, Place and Person Head: No lacerations, no external signs of trauma Eyes: Conjunctiva clear. No discharge from the eyes Cardiovascular: Appears well-per (more content not included)... [facility] 09-15-2024 Note HNO ID: [id number] Author: SARY DURBIN LPN Service: ? Author Type: LICENSED NURSE Type: Progress Notes Filed: 09/15/2024 11:22 Note Text: Order has been placed in the patient's chart with the following parameters for discharge from the physician: Patient is alert and oriented Vitals: Diastolic/Systolic +/- 20mmHg Respirations: 12-18 Pulse: 60-100 SpO2 is greater than or equal to 90% Patient has no nausea or vomiting Patient has no dizziness Pain level is +/- 2 from initial evaluation Dressing, dry and intact with no evidence of bleeding Criteria has been met, patient is okay to be discharged per the physician. Physician has gone in and evaluated the patient. Dressing dry and intact. No drainage noted. The patient denies nausea, numbness, tingling, weakness, shortness of breath, dizziness, or headache. Pain level 2/10. Vital signs within normal limits. Patient denied needing walked out by clinical staff and denied needing a wheelchair. Patient given discharge instructions and sent to transportation via ambulatory method. Patient left in good condition. [facility] 09-15-2024 Instructions Sary Durbin LPN - 09/15/2024 8:33 AM EDT PROCEDURE DISCHARGE INSTRUCTIONS 09/15/2024 Juan Killian 1950 Physician: Lei Clinton MD, PhD Procedure: Epidural Steroid Injection: Lumbar (transforaminal/Interlaminar/Cauda l) Post Procedure Instructions: If sedation not given, no driving for 3 hours after the procedure., Rest the day of the procedure., You may resume normal activities the day after the procedure, as tolerated., Pain should gradually subside over the next 2-3 weeks., Avoid movements that may aggravate pain., Apply cold compresses to injection site if needed., If medically acceptable, take over the counter anti-inflammatories such as ibuprofen or Aleve if needed for post procedure discomfort., No hot baths, hot tubs or hot compresses for 24 hours., and Increased pain the day after the procedure may occur. If you have any of the following signs or symptoms, please call our office at Fever and/or chills Swelling and/or drainage from injection site New pain that is different than your normal pain (other than soreness at the site of the procedure) Stiff neck Shortness of breath Severe increase in pain Motor dysfunctions, such as difficulty walking, bowel or bladder dysfunction and/or incontinence Headache that is severe, light sensitive or develops when changing positions (positional headache) Nausea and/or vomiting accompanied by headache that started 24-48 hours after the procedure If you have any emergent concerns, please call 911 or go to your local emergency room. Please also contact our office to let us know you will be seeking emergency care and why. documented in this encounter [facility] 09-15-2024 Note HNO ID: [id number] Author: JOSIE TAYLOR LPN Service: ? Author Type: LICENSED NURSE Type: Progress Notes Filed: 09/15/2024 11:22 Note Text: Review of Systems Constitutional: Positive for activity change. Negative for chills, fever and unexpected weight change. Genitourinary: Negative for difficulty urinating. Musculoskeletal: Positive for arthralgias, back pain, gait problem and myalgias. Negative for joint swelling, neck pain and neck stiffness. Neurological: Positive for weakness. Negative for numbness and headaches. Psychiatric/Behavioral: Positive for dysphoric mood. Negative for sleep disturbance and suicidal ideas. The patient is nervous/anxious. [facility] 09-15-2024 Note HNO ID: [id number] Author: GLORY CANNON LPN Service: ? Author Type: LICENSED NURSE Type: Progress Notes Filed: 09/15/2024 11:22 Note Text: Procedure to be performed: L4/L5 Interlaminar Epidural Steroid Injection Patient was wheeled on stretcher from pre op bay to procedure room and assisted onto the procedure tablePatient?s procedure was performed in an [facility] Procedure room. Pause completed at each level by provider to verify correct level and laterality placement Pressure was applied to patient?s injection site(s) and bleeding was minimal. Patient had no complaint of shortness of breath, dizziness, headache, numbness, tingling, weakness or complications from procedure. Patient was assisted from the procedure table onto the stretcher and wheeled into a post op bay. Patient was advised a clinician will be to obtain another set of vitals. Time Out: 821 Confirmed patient name, date of , procedure site, laterality, and allergies Procedure Start: 824 Procedure End: 829 [facility] 09-15-2024 Note HNO ID: [id number] Author: JOSIE TAYLOR LPN Service: ? Author Type: LICENSED NURSE Type: Progress Notes Filed: 09/15/2024 11:22 Note Text: Digital Performance Analyst's Name: Rizwan Are you on a blood thinner: n If yes, is a hold required: n Last dose of blood thinner: n INR Result today: n Do you require a Lovenox bridge:n Are you a diabetic:n Are you/or could you be : n/a Are you taking Xanax for the procedure: n Are you currently on a steroid? n Are you currently on an antibiotic: n [facility] 09-06-2024 Telephone encounter Note Pcp rec'd and completed a physician's report of work ability (MEDCO 14) This was faxed back to [facility] pre access [facility] 09-06-2024 Miscellaneous Notes Pcp rec'd and completed a physician's report of work ability (MEDCO 14) This was fax[facility] back to [facility] pre access documented in this encounter [facility] 08-31-2024 Telephone encounter Note 08/31/24- Patient is approved for procedure , he is asking for it to be submit through workers comp . Workers comp said they wanted a C9 and/or referral for injection for them to approve it . Can anyone review this? Lela Hogan [facility] 08-31-2024 Miscellaneous Notes 08/31/24- Patient is approved for procedure , he is asking for it to be submit through workers comp . Workers comp said they wanted a C9 and/or referral for injection for them to approve it . Can anyone review this? Lela Hogan documented in this encounter [facility] 08-31-2024 Telephone encounter Note Pt called in and wanted AVS brought to Medical records so he could pick it up. Took to medical records and let Pt know he would need to stop by the front end manager and let them know his name and birthday to get it for him. Tracy Marrero RN [facility] 08-31-2024 Miscellaneous Notes Pt called in and wanted AVS brought to Medical records so he could pick it up. Took to medical records and let Pt know he would need to stop by the front end manager and let them know his name and birthday to get it for him. Tracy Marrero RN documented in this encounter [facility] 08-17-2024 Telephone encounter Note The message from Noemi has been sent back out to Anthony. Aba Bustillo [facility] 08-17-2024 Miscellaneous Notes The message from Noemi has been sent back out to Anthony. Aba Bustillo Received a request from [employer] on this patient. The request has been scanned into this patient's chart. It will need to be filled out and sent to [facility] to send out the Medical records. Aba Bustillo documented in this encounter [facility] 08-17-2024 Telephone encounter Note Received a request from [employer] on this patient. The request has been scanned into this patient's chart. It will need to be filled out and sent to [facility] to send out the Medical records. Aba Bustillo [facility] 08-16-2024 Note HNO ID: [id number] Author: MARK NOVA MD Service: ? Author Type: Physician Type: Progress Notes Filed: 08/16/2024 13:42 Note Text: This note was created using [employer]. Subjective Patient presents with: Back Pain Recording using [employer] software for draft documentation of the visit was discussed with the patient/authorized telephone services sales representative; all questions welcomed and answered. Patient/authorized telephone services sales representative agreed to proceed Juan is a 74-year-old male with a history of chronic pain, presenting for evaluation of inadequate pain control. Juan reports that his current pain management regimen, which includes diclofenac and gabapentin 100 mg TID, is insufficient to control his pain throughout the workday. He notes that while his pain is manageable in the mornings, it significantly increases by noon, particularly with activities such as lifting trays of glasses, leaning, and twisting. He estimates that he can only rotate his torso approximately 20-23 degrees before experiencing pain. He states, I can only do 15% of the job, I wrote out the other 85% of the job that gives me the pain. He expresses concern about increasing his pain medication, fearing it may mask symptoms and potentially cause further damage to the underlying issue. He is scheduled for a spinal procedure on September 15 and requests an increase in his pain medication to maintain his job until then. He denies experiencing any side effects from his current medication regimen. He also denies any recent illness, fever, or other new symptoms. Juan also reports ongoing arthritis pain in his left leg and mentions missing a recent physical therapy appointment. He has difficulty lifting objects weighing more than 20 pounds due to pain. Recent blood work showed a slight increase in cholesterol and blood glucose levels. He indicated his high consumption of regular soda. Review of Systems Constitutional: Negative for fatigue, fever and unexpected weight change. Respiratory: Negative. Gastrointestinal: Negative for abdominal pain, constipation and diarrhea. Genitourinary: Negative for difficulty urinating. Musculoskeletal: Positive for back pain. Neurological: Negative for weakness and numbness. ACTIVE PROBLEM LIST Major Depression, Chronic Primary Hypertension Obesity, Class I, Bmi 30-34.9 Heart Murmur Hyperlipidemia Major Depressive Disorder, Recurrent Episode, Moderate (Hcc) Primary Osteoarthritis of Left Knee Left Low Back Pain Social History Tobacco Use Smoking status: Former Current packs/day: 1.00 Average packs/day: 1 pack/day for 3.0 years (3.0 ttl pk-yrs) Types: Cigarettes Smokeless tobacco: Never Tobacco comments: quit 15 years ago. Started age 30. Vaping Use Vaping status: Never Used Substance Use Topics Alcohol use: Not Currently Comment: 1 drink per year Drug use: Not Currently Types: Marijuana Comment: 16-23 years old Current Outpatient Medications Medication Sig diclofenac, EC, (VOLTAREN) 75 mg EC tablet Take 1 tablet by mouth two times a day. lamoTRIgine (LAMICTAL) 100 mg tablet Take 1 tablet by mouth once daily. buPROPion XL (WELLBUTRIN XL) 300 mg 24 hr tablet Take 1 tablet by mouth once daily. DULoxetine (CYMBALTA) 60 mg capsule Take 1 capsule by mouth daily at bedtime. gabapentin (NEURONTIN) 100 mg capsule Take 1 capsule by mouth three times a day for 90 days. hydroCHLOROthiazide 25 mg tablet Take 1 tablet by mouth once daily. atorvastatin (LIPITOR) 20 mg tablet Take 1 tablet by mouth daily at bedtime. For cholesterol. No current facility-administered medications for this visit. Objective BP 114/64 (BP Site: Left Arm, BP Position: Sitting, BP Cuff Size: Large Adult) Pulse 72 Resp 12 Wt 85.5 kg (188 lb 7.9 oz) BMI 34.48 kg/m? Physical Exam Constitutional: General: He is not in acute distress. Pulmonary: Effort: Pulmonary effort is normal. Musculoskeletal: Lumbar back: Tenderness present. Decreased range of motion. Negative right straight leg raise test and negative left straight leg raise test. No scoliosis. Neurological: Mental Status: He is alert. Sensory: No sensory deficit. Motor: No weakness. Gait: Gait normal. Assessment and Plan 1. Left low back pain, unspecified chronicity, unspecified whether sciatica present - ICD9: 724.2, ICD10: M54.50 (primary diagnosis) - GABAPENTIN 100 MG CAPSULE. Dose increased to 200 MG TID. Discussed medication dosage, usage, goals of therapy, and side effects. 2. Primary hypertension - ICD9: 401.9, ICD10: I10 - Controlled - Continue current medications - HYDROCHLOROTHIAZIDE 25 MG TABLET 3. Hyperlipidemia, unspecified hyperlipidemia type - ICD9: 272.4, ICD10: E78.5 - Controlled - Continue current medications - Counseled on healthy diet and regular exercise - Discussed need for and benefit of weight loss. BMI 34.48 kg/(m2) Mark Nova MD [facility] 08-16-2024 History of Present illness Narrative This note was created using [employer]. Subjective Patient presents with: Back Pain Recording using [employer] software for draft documentation of the visit was discussed with the patient/authorized telephone services sales representative; all questions welcomed and answered. Patient/authorized telephone services sales representative agreed to proceed Juan is a 74-year-old male with a history of chronic pain, presenting for evaluation of inadequate pain control. Juan reports that his current pain management regimen, which includes diclofenac and gabapentin 100 mg TID, is insufficient to control his pain throughout the workday. He notes that while his pain is manageable in the mornings, it significantly increases by noon, particularly with activities such as lifting trays of glasses, leaning, and twisting. He estimates that he can only rotate his torso approximately 20-23 degrees before experiencing pain. He states, I can only do 15% of the job, I wrote out the other 85% of the job that gives me the pain. He expresses concern about increasing his pain medication, fearing it may mask symptoms and potentially cause further damage to the underlying issue. He is scheduled for a spinal procedure on September 15 and requests an increase in his pain medication to maintain his job until then. He denies experiencing any side effects from his current medication regimen. He also denies any recent illness, fever, or other new symptoms. Juan also reports ongoing arthritis pain in his left leg and mentions missing a recent physical therapy appointment. He has difficulty lifting objects weighing more than 20 pounds due to pain. Recent blood work showed a slight increase in cholesterol and blood glucose levels. He indicated his high consumption of regular soda. Review of Systems Constitutional: Negative for fatigue, fever and unexpected weight change. Respiratory: Negative. Gastrointestinal: Negative for abdominal pain, constipation and diarrhea. Genitourinary: Negative for difficulty urinating. Musculoskeletal: Positive for back pain. Neurological: Negative for weakness and numbness. ACTIVE PROBLEM LIST Major Depression, Chronic Primary Hypertension Obesity, Class I, Bmi 30-34.9 Heart Murmur Hyperlipidemia Major Depressive Disorder, Recurrent Episode, Moderate (Hcc) Primary Osteoarthritis of Left Knee Left Low Back Pain Social History Tobacco Use Smoking status: Former Current packs/day: 1.00 Average packs/day: 1 pack/day for 3.0 years (3.0 ttl pk-yrs) Types: Cigarettes Smokeless tobacco: Never Tobacco comments: quit 15 years ago. Started age 30. Vaping Use Vaping status: Never Used Substance Use Topics Alcohol use: Not Currently Comment: 1 drink per year Drug use: Not Currently Types: Marijuana Comment: 16-23 years old Current Outpatient Medications Medication Sig diclofenac, EC, (VOLTAREN) 75 mg EC tablet Take 1 tablet by mouth two times a day. lamoTRIgine (LAMICTAL) 100 mg tablet Take 1 tablet by mouth once daily. buPROPion XL (WELLBUTRIN XL) 300 mg 24 hr tablet Take 1 tablet by mouth once daily. DULoxetine (CYMBALTA) 60 mg capsule Take 1 capsule by mouth daily at bedtime. gabapentin (NEURONTIN) 100 mg capsule Take 1 capsule by mouth three times a day for 90 days. hydroCHLOROthiazide 25 mg tablet Take 1 tablet by mouth once daily. atorvastatin (LIPITOR) 20 mg tablet Take 1 tablet by mouth daily at bedtime. For cholesterol. No current facility-administered medications for this visit. Objective BP 114/64 (BP Site: Left Arm, BP Position: Sitting, BP Cuff Size: Large Adult) Pulse 72 Resp 12 Wt 85.5 kg (188 lb 7.9 oz) BMI 34.48 kg/m Physical Exam Constitutional: General: He is not in acute distress. Pulmonary: Effort: Pulmonary effort is normal. Musculoskeletal: Lumbar back: Tenderness present. Decreased range of motion. Negative right straight leg raise test and negative left straight leg raise test. No scoliosis. Neurological: Mental Status: He is alert. Sensory: No sensory deficit. Motor: No weakness. Gait: Gait normal. Assessment and Plan 1. Left low back pain, unspecified chronicity, unspecified whether sciatica present - ICD9: 724.2, ICD10: M54.50 (primary diagnosis) - GABAPENTIN 100 MG CAPSULE. Dose increased to 200 MG TID. Discussed medication dosage, usage, goals of therapy, and side effects. 2. Primary hypertension - ICD9: 401.9, ICD10: I10 - Controlled - Continue current medications - HYDROCHLOROTHIAZIDE 25 MG TABLET 3. Hyperlipidemia, unspecified hyperlipidemia type - ICD9: 272.4, ICD10: E78.5 - Controlled - Continue current medications - Counseled on healthy diet and regular exercise - Discussed need for and benefit of weight loss. BMI 34.48 kg/(m^2) Mark Nova MD documented in this encounter [facility] 08-14-2024 Telephone encounter Note Received a voicemail from this patient's sister Mihaela asking for a call back from Maude at [phone]. Mihaela wanted to know what was discussed during this patient's appointment and what Maude thoughts were. We do not have a HIPAA signed by this patient to speak with anyone. I have left Mihaela a voicemail informing her of this and that until this is signed by the patient allowing us to speak with her we will not be able to give her any information. Aba Bustillo [facility] 08-14-2024 Miscellaneous Notes Received a voicemail from this patient's sister Mihaela asking for a call back from Maude at [phone]. Mihaela wanted to know what was discussed during this patient's appointment and what Maude thoughts were. We do not have a HIPAA signed by this patient to speak with anyone. I have left Mihaela a voicemail informing her of this and that until this is signed by the patient allowing us to speak with her we will not be able to give her any information. Aab Bustillo documented in this encounter [facility] 08-10-2024 Telephone encounter Note Procedure(s) being scheduled: Lumbar ILESI 1.Are you diabetic No 2. Are you on any blood thinners? No 3. Are you taking any aspirin? No 4. Are you currently taking any antibiotics? No 5. Do you have any allergies to latex? No 6. Do you have any allergies to seafood or shellfish? No 7. Do you have any allergies to x-ray dye? No 8. Does this procedure require a electric mule driver? Yes If yes, has patient been notified that a electric mule driver is needed and must be present at check in? yes 9. Were the pre-procedure instructions explained and provided to the patient? Yes 10. Do you have a pacemaker? No 11. Do you have an internal stimulator of any kind? No Scarlet Hoffman [facility] 08-10-2024 Miscellaneous Notes Procedure(s) being scheduled: Lumbar ILESI 1.Are you diabetic No 2. Are you on any blood thinners? No 3. Are you taking any aspirin? No 4. Are you currently taking any antibiotics? No 5. Do you have any allergies to latex? No 6. Do you have any allergies to seafood or shellfish? No 7. Do you have any allergies to x-ray dye? No 8. Does this procedure require a electric mule driver? Yes If yes, has patient been notified that a electric mule driver is needed and must be present at check in? yes 9. Were the pre-procedure instructions explained and provided to the patient? Yes 10. Do you have a pacemaker? No 11. Do you have an internal stimulator of any kind? No Scarlet Hoffman documented in this encounter [facility] 08-10-2024 History of Present illness Narrative Images from the original note were not included. [facility] Today's Date: 08/10/2024 Name: Juan iKllian : 1950 Purpose: New Patient Consultation Chief complaint: low back pain Referring Clinician: Mark Nova Pertinent Past Medical History: HTN, HLD, depression Pertinent Past Surgeries: none History of Present Illness (HPI): 08/09/2024 - Initial HPI (Obtained by Maude Townsend CNP). DURATION AND ONSET: The pain complaint has been present for approximately 2 months. The pain had a sudden onset. The mechanism of injury is known and is as follows: a fall. RED FLAG SYMPTOMS: denies red flags. PAIN DESCRIPTION: Timing: Intermittent Character: Shooting, Stabbing, Throbbing Primary Location: low back Radiation: down left leg and into left groin Exacerbating factors: twisting and lifting Relieving factors: Sitting with his feet elevated Interferes with: physical activity and work Juan is a 74-year-old male with a history of hypertension, hyperlipidemia, and depression, presenting for evaluation of back pain following a fall. Juan reports that he fell on June 22, 2022, when he slipped on ice in a parking lot. He describes the fall as a karate chop to the blacktop. Two days later, he began experiencing back pain, which progressively worsened to a 10/10 intensity. He describes the pain as stabbing and intermittent, with episodes lasting about 30 minutes. The pain is not constant and does not worsen at night, allowing him to sleep. He does not endorse bowel or bladder difficulties, leg numbness, or tingling. He reports rare leg weakness. He also experiences sharp, stabbing pain across his left groin, which he describes as feeling like a hernia, though he does not have one. This pain is triggered by twisting movements and can be severe enough to knock him down. He reports that the pain is not constant and does not worsen at night, allowing him to sleep. He describes the pain as martinez running down the front of his left thigh, accompanied by a sensation of insects crawling under his skin. He reports that the pain is not constant and does not worsen at night, allowing him to sleep. He reports that the pain is exacerbated by twisting and lifting movements. He recalls an incident where he lifted about 15 pounds of dishes without turning, resulting in a sharp pain shooting from the base of his spinal cord, which he describes as feeling like his spine was being pulled out of his hip. This pain lasted only a few seconds but was enough to make him cautious about lifting more than 15 pounds. He reports that the pain is not constant and does not worsen at night, allowing him to sleep. He has tried various creams and rubs on his back without relief. He is currently taking gabapentin and diclofenac, as well as a muscle relaxer prescribed by Dr. Nova, but reports that these medications have not provided significant relief. He also takes Tylenol for headaches and sometimes uses Tylenol Sinus, which he finds helpful. He is not on a blood thinner and has not undergone physical therapy for his back pain. 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 He reports that his pain interferes with his work and physical activities, though he does not exercise regularly. He walks his dog but does not engage in other physical activities. He has a history of hypertension, hyperlipidemia, and depression, for which he is taking Cymbalta and Wellbutrin. He does not have a history of joint, back, or neck surgery. He reports a heart murmur but does not endorse any other significant medical history. Current Pain Medications: Neuropathics: gabapentin NSAIDS: diclofenac Muscle Relaxants: Topicals: Other Prescription or OTC Pain Medications: Opioids (when applicable): Anti-depressants or Mood-Stabilizers: Cymbalta, Wellbutrin Anti-Coagulants: None Therapies Attended (Current or Most Recent): No Current Therapies 08/10/2024 [facility] SPINE COMBINATION Questionnaire GREENLIGHT Completed Date 08/10/2024 Questionnaire Opiod Risk Tool Completed Date 08/10/2024 Comments 1 - Low Risk Greenlight Questionnaire GREENLIGHT Completed Date 08/10/2024 Opioid Risk Tool Opiod Risk Tool Date Completed 08/10/2024 Comments 1 - Low Risk GI-7 Anxiety Score 2 Completed Date 08/10/2024 PHQ9P Score 2 Completed Date 08/10/2024 (All drug screens are appropriate unless indicated otherwise) Treatment History: PAIN PROCEDURES: DATE PROCEDURE IMPROVEMENT To date, no interventional pain management procedures performed at this practice. MEDICATIONS Taken TO DATE (for the chief complaint(s)): Neuropathics: Neurontin (Gabapentin) NSAIDS: Voltaren (Diclofenac) Muscle Relaxants: was ordered he didn't feel was affective Topicals: Bkql-Upw-Htzahqw (OTC)no relief Other Prescription or OTC Pain Medications: Tylenol (Acetaminophen) Opioids: None Data Reviewed Today: Allergies: ALLERGIES Allergen Reactions Benadryl [Diphenhyd* Mental Status Change Sends into severe depression Social History Tobacco Use Smoking status: Former Current packs/day: 1.00 Average packs/day: 1 pack/day for 3.0 years (3.0 ttl pk-yrs) Types: Cigarettes Smokeless tobacco: Never Tobacco comments: quit 15 years ago. Started age 30. Vaping Use Vaping status: Never Used Substance Use Topics Alcohol use: Not Currently Comment: 1 drink per year Drug use: Not Currently Types: Marijuana Comment: 16-23 years old 07/12/2024 08/10/2024 INTAKE PAIN ASSESSMENT Are you having pain associated with your visit today? Yes, Provider notified Yes, Provider notified Pain Scales Verbal (Numeric Rating or Visual Analog Scale) Verbal (Numeric Rating or Visual Analog Scale) Pain Level 6 7 Pain Location Back-Lower Leg-Left Description Other: See comment Stiffness;Sore;Aching Duration Amount of Time 2 Duration Units Months Weeks Frequency Continuous Continuous Intervention/Comfort measure Medication;Heat;Cold;Positioning Reposition;Relaxation Comments Tylenol, heat, cold, different positions to get comfortable Compliance: PDMP website checked and validated on 08/10/2024 by Maude Townsend APRN.COPY CENTER OPERATOR All prescriptions have been APPROPRIATELY filled. No suspicious activity was identified. Risk Assessment: GI-7: 11/02/2023 12/21/2023 08/10/2024 GI - 7 SCORES Score 0 0 2 (0-4) minimal anxiety, (5-9) mild anxiety, (10-14) moderate anxiety, (15-21) severe anxiety PHQ-9: 11/02/2023 12/21/2023 08/10/2024 PHQ-9 Score 4 2 2 (0-4) minimal depression, (5-9) mild depression, (10-14) moderate depression, (15-19) moderately severe depression, (20-27) severe depression Greenlight Questionnaire GREENLIGHT Completed Date 08/10/2024 Opioid Risk Tool Opiod Risk Tool Date Completed 08/10/2024 Comments 1 - Low Risk GI-7 Anxiety Score 2 Completed Date 08/10/2024 PHQ9P Score 2 Completed Date 08/10/2024 Diagnostic Studies: Relevant Imaging: MRI Spine Report No resulted procedures found. 06/07/2024 10:36 AM - Radiology, [facility] In Impression IMPRESSION: No acute osseous abnormalities. Degenerative changes of the lumbar spine resulting in up to mild canal stenosis at L3-L4 and L4-L5, and up to moderate foraminal stenosis at L2-L3, right L3-L4 neural foramen, and right L4-L5 neural foramen. Anatomic Lumbar Variant: None. L4-5 is considered the level of the iliac crest and assume there are 5 lumbar-type vertebrae. Press Pipe Inspector: SANKET Transcribe Date/Time: Jun 07 2024 9:52A Dictated by : BABAK CURRY DO This examination was interpreted and the report reviewed and electronically signed by: LINDY REEVES MD on Jun 07 2024 10:34AM EST Results-Findings * * *Final Report* * * DATE OF EXAM: Jun 07 2024 9:32AM [facility] [place] LUMBAR SP[place] WO IVCON / PROCEDURE REASON: Spine fracture, lumbar, traumatic * * * * Physician Interpretation * * * * EXAMINATION: CT LUMBAR SPINE WO IVCON CLINICAL HISTORY: Fall, concern for fracture. TECHNIQUE: Spiral, high resolution axial unenhanced images were obtained from the thoracolumbar junction to the sacrum with sagittal and coronal planar reconstructions. MQ: [id number] CT Radiation dose: Integrated Dose-Length Product (DLP) for this visit = 1412 mGy*cm. CT Dose Reduction Employed: Automated exposure control(AEC) and iterative recon COMPARISON: None. RESULT: Counting reference: Lumbosacral junction. For the purposes of this report, L4-5 is considered the level of the iliac crest and assume there are 5 lumbar-type vertebrae. Anatomic variant: None. Switchboard Mechanic (topogram) images: None provided Alignment: Alignment is anatomic. Minimal dextroscoliotic curve. Minimal retrolisthesis of L4 on L5 and L1-L2. Bone marrow /fracture: No evidence of a lytic or blastic process in the visualized spine. No evidence of acute or chronic fracture or traumatic subluxations. Vertebral body heights are maintained. Multilevel disc space height loss, moderate at sequential levels L1-L4, and severe at L5-S1. Endplate degenerative changes with bulky osteophytes. Paraspinal soft tissues: The paraspinal soft tissues planes are maintained. Lower thoracic spine: The visualized lower thoracic bony canal and foramina are patent. L1-L2: Slight retrolisthesis of L1-L2, with posterior disc bulge resulting in mild foraminal stenosis bilaterally. The canal is patent. L2-L3: Posterior disc bulging with ligamentum hypertrophy and facet arthropathic change resulting in moderate bilateral foraminal stenosis. The canal is patent. L3-L4: Posterior disc bulging, ligamentum flavum hypertrophy, facet arthropathic changes resulting in moderate right and mild left foraminal stenosis, and mild canal stenosis. L4-L5: Posterior disc bulging, ligamentum flavum hypertrophy, facet arthropathic changes resulting in moderate right and mild left foraminal stenosis and mild canal stenosis. L5-S1: Posterior disc bulging with posteriorly directed osteophytes, ligamentum hypertrophy, facet arthropathic changes resulting in mild right foraminal stenosis. The canal and left neural foramen is patent. Sacrum and iliac wings: The visualized sacrum and iliac wings are within normal limits. 06/07/2024 8:20 AM - Radiology, O[facility] In Impression IMPRESSION: No definite radiographic evidence of acute fracture. Press Pipe Inspector: PSCLola Transcribe Date/Time: Jun 07 2024 8:15A Dictated by : AARTI HUNT DO This examination was interpreted and the report reviewed and electronically signed by: AARTI HUNT DO on Jun 07 2024 8:18AM EST Results-Findings * * *Final Report* * * DATE OF EXAM: Jun 06 2024 8:49AM WOX [id number] - XR SACRUM/COCCYX 3V AP/LAT / PROCEDURE REASON: Acute bilateral low back pain without sciatica * * * * Physician Interpretation * * * * EXAMINATION: XR SACRUM/COCCYX 3V AP/LAT PATIENT/TECHNOLOGIST PROVIDED HISTORY: Pt fell on ice 2 weeks ago, tailbone pain ever since. CLINICAL INFORMATION: 74 years old Male with Acute bilateral low back pain without sciatica TECHNIQUE: XR SACRUM/COCCYX 3V AP/LAT Laterality: NOT APPLICABLE Number of different views (projections): 3 COMPARISON: None RESULT: No definite radiographic evidence of acute fracture. Sacroiliac joints are symmetric and maintained. Mild degenerative change at the pubic symphysis. Hip joint spaces appear maintained. Degenerative changes in the lumbar spine. Electrodiagnostic Study (EMG): None Recent Labs: Creatinine Date Value Ref Range Status 06/06/2024 0.87 0.73 - 1.22 mg/dL Final No results found for: EGFR No results found for: PCGLUCOSE Current Medications, Past Medical History, Past Surgical History, Family History, Social History and Review of Systems: On today's date, noted above, I have confirmed and edited as necessary, the PFSH and ROS obtained by others. Physical Exam: 08/10/24 0956 Pulse: 87 Resp: 14 SpO2: 97% Physical Exam Vitals reviewed. Constitutional: General: He is not in acute distress. Appearance: He is not ill-appearing. HENT: Head: Normocephalic and atraumatic. Eyes: Conjunctiva/sclera: Conjunctivae normal. Cardiovascular: Pulses: Normal pulses. Pulmonary: Effort: Pulmonary effort is normal. No respiratory distress. Musculoskeletal: Thoracic back: No tenderness or bony tenderness. No scoliosis. Lumbar back: Spasms and tenderness present. Decreased range of motion. Positive right straight leg raise test and positive left straight leg raise test. No scoliosis. Comments: Hip Flexion: Right- 5/5; Left- 5/5 Knee Extension: Right- 5/5; Left- 5/5 Dorsiflexion: Right- 5/5; Left- 5/5 Plantarflexion: Right- 5/5; Left- 5/5 Special Tests- Facet Loading: Right-Negative; Left Positive - SI Compression:Negative ALEXANDR:Right-Negative; Left Skin: General: Skin is warm and dry. Neurological: Mental Status: He is alert and oriented to person, place, and time. Gait: Gait is intact. Tandem walk normal. Deep Tendon Reflexes: Reflexes are normal and symmetric. Reflex Scores: Patellar reflexes are 2+ on the right side and 2+ on the left side. Psychiatric: Mood and Affect: Mood and affect normal. Behavior: Behavior normal. Behavior is cooperative. IMPRESSION: 74 year old male presents with complaint(s) of Low back pain as described above. After review of the MRI the patient's pain pattern and his assessment, I am going to order an interlaminar epidural steroid injection from L4-L5 to see if the patient received relief. I also feel due to the patient's lack of exercise physical therapy would benefit this patient as well and he is in agreement to going to physical therapy. Diagnoses: (M54.50) Left low back pain, unspecified chronicity, unspecified whether sciatica present PLAN: Juan Killian would benefit from the following to reach personal goals for decreasing pain, improving function and work participation, and/or improving quality of life: Medications: No Changes - Continue Current Medications Interventional Procedures: Epidural Steroid Injection - Interlaminar Approach (ILESI) under fluoroscopic guidance NONE at L4-5 Digital Performance Analyst Needed: Epidural - YES Anticoagulant - Hold Needed: Lumbar Epidural (HOLD) Anticoagulant - Currently Taking: None Allergies (relevant): None Scheduling - Mobility (Can Patient independently transfer on/off an OR or Procedure table?): YES (May schedule at any location) Scheduling - Additional Info: None Studies: None Functional Mandaeism: Physical Therapy Consultation (Land-Based) Referrals: No additional considerations at present Follow-up: 1 month after injection Depending on response to the above plan, consider: TBD Patient Education, Compliance and Clinic Policies Reviewed and/or Discussed Today: None Attribution: In addition to reviewing the information noted above, some elements copied from my most recent clinical note(s), including the physical exam (completed in entirety today), and the impression and plan sections, have been updated where appropriate. All reflect current medical decision making from today's date. Maude Townsend APRN.CNP Pain Management [facility] Review of Systems Constitutional: Negative for activity change, chills, fever and unexpected weight change. Gastrointestinal: Negative for bowel retention or incontinence Genitourinary: Negative for difficulty urinating. Negative for bladder retention or incontinence Musculoskeletal: Positive for back pain, gait problem, myalgias, neck pain and neck stiffness. Negative for arthralgias and joint swelling. Neurological: Negative for weakness, numbness and headaches. Psychiatric/Behavioral: Positive for sleep disturbance. Negative for dysphoric mood and suicidal ideas. The patient is not nervous/anxious. documented in this encounter [facility] 08-10-2024 Note HNO ID: [id number] Author: MAUDE TOWNSEND APRN.JORJE Service: ? Author Type: Nurse Practitioner Type: Progress Notes Filed: 08/10/2024 10:28 Note Text: [facility] Today's Date: 08/10/2024 Name: Juan Killian : 1950 Purpose: New Patient Consultation Chief complaint: low back pain Referring Clinician: Mark Nova Pertinent Past Medical History: HTN, HLD, depression Pertinent Past Surgeries: none History of Present Illness (HPI): 08/09/2024 - Initial HPI (Obtained by Maude Townsend CNP). DURATION AND ONSET: The pain complaint has been present for approximately 2 months. The pain had a sudden onset. The mechanism of injury is known and is as follows: a fall. RED FLAG SYMPTOMS: denies red flags. PAIN DESCRIPTION: Timing: Intermittent Character: Shooting, Stabbing, Throbbing Primary Location: low back Radiation: down left leg and into left groin Exacerbating factors: twisting and lifting Relieving factors: Sitting with his feet elevated Interferes with: physical activity and work Juan is a 74-year-old male with a history of hypertension, hyperlipidemia, and depression, presenting for evaluation of back pain following a fall. Juan reports that he fell on June 22, 2022, when he slipped on ice in a parking lot. He describes the fall as a karate chop to the blacktop. Two days later, he began experiencing back pain, which progressively worsened to a 10/10 intensity. He describes the pain as stabbing and intermittent, with episodes lasting about 30 minutes. The pain is not constant and does not worsen at night,allowing him to sleep. He does not endorse bowel or bladder difficulties, leg numbness, or tingling. He reports rare leg weakness. He also experiences sharp, stabbing pain across his left groin, which he describes as feeling like a hernia, though he does not have one. This pain is triggered by twisting movements and can be severe enough to knock him down. He reports that the pain is not constant and does not worsen at night, allowing him to sleep. He describes the pain as martinez running down the front of his left thigh, accompanied by a sensation of insects crawling under his skin. He reports that the pain is not constant and does not worsen at night, allowing him to sleep. He reports that the pain is exacerbated by twisting and lifting movements. He recalls an incident where he lifted about 15 pounds of dishes without turning, resulting in a sharp pain shooting from the base of his spinal cord, which he describes as feeling like his spine was being pulled out of his hip. This pain lasted only a few seconds but was enough to make him cautious about lifting more than 15 pounds. He reports that the pain is not constant and does not worsen at night, allowing him to sleep. He has tried various creams and rubs on his back without relief. He is currently taking gabapentin and diclofenac, as well as a muscle relaxer prescribed by Dr. Nova, but reports that these medications have not provided significant relief. He also takes Tylenol for headaches and sometimes uses Tylenol Sinus, which he finds helpful. He is not on a blood thinner and has not undergone physical therapy for his back pain. 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 He reports that his pain interferes with his work and physical activities, though he does not exercise regularly. He walks his dog but does not engage in other physical activities. He has a history of hypertension, hyperlipidemia, and depression, for which he is taking Cymbalta and Wellbutrin. He does not have a history of joint, back, or neck surgery. He reports a heart murmur but does not endorse any other significant medical history. Current Pain Medications: Neuropathics: gabapentin NSAIDS: diclofenac Muscle Relaxants: Topicals: Other Prescription or OTC Pain Medications: Opioids (when applicable): Anti-depressants or Mood-Stabilizers: Cymbalta, Wellbutrin Anti-Coagulants: None Therapies Attended (Current or Most Recent): No Current Therapies 08/10/2024 [facility] COMBINATION Questionnaire GREENLIGHT Completed Date 08/10/2024 Questionnaire Opiod Risk Tool Completed Date 08/10/2024 Comments 1 - Low Risk Greenlight Questionnaire GREENLIGHT Completed Date 08/10/2024 Opioid Risk Tool Opiod Risk Tool Date Completed 08/10/2024 Comments 1 - Low Risk GI-7 Anxiety Score 2 Completed Date 08/10/2024 PHQ9P Score 2 Completed Date 08/10/2024 (All drug screens are appropriate unless indicated otherwise) Treatment History: PAIN PROCEDURES: DATE PROCEDURE IMPROVEMENT To date, no interventional pain management procedures performed at this practice. MEDICATIONS Taken TO (more content not included)... [facility] 08-10-2024 Note HNO ID: [id number] Author: BENITA JERONIMO MA Service: ? Author Type: Test Clerk Type: Progress Notes Filed: 08/10/2024 10:28 Note Text: Review of Systems Constitutional: Negative for activity change, chills, fever and unexpected weight change. Gastrointestinal: Negative for bowel retention or incontinence Genitourinary: Negative for difficulty urinating. Negative for bladder retention or incontinence Musculoskeletal: Positive for back pain, gait problem, myalgias, neck pain and neck stiffness. Negative for arthralgias and joint swelling. Neurological: Negative for weakness, numbness and headaches. Psychiatric/Behavioral: Positive for sleep disturbance. Negative for dysphoric mood and suicidal ideas. The patient is not nervous/anxious. [facility] 08-04-2024 Telephone encounter Note Krystal austin from [employer] requesting pt's completed [facility] C-9 form be faxed to them at FAX # [phone]. This triage nurse unable to locate this form. Will send message to provider's office for further assistance. Donna Arora RN [facility] 08-04-2024 Miscellaneous Notes Krystal austin from [facility] requesting pt's completed [facility] C-9 form be faxed to them at FAX # [phone]. This triage nurse unable to locate this form. Will send message to provider's office for further assistance. Donna Arora RN documented in this encounter [facility] 08-01-2024 Telephone encounter Note The following approved medication requests have been transmitted electronically. Requested Prescriptions Signed Prescriptions Disp Refills diclofenac, EC, (VOLTAREN) 75 mg EC tablet 60 tablet 1 Sig: Take 1 tablet by mouth two times a day. Authorizing Provider: MAKR NOVA Refused Prescriptions Disp Refills gabapentin (NEURONTIN) 100 mg capsule 90 capsule 2 Sig: Take 1 capsule by mouth three times a day for 90 days. Refused By: MARK NOVA Reason for Refusal: Patient has requested refill too soon Mark Nova MD [facility] 08-01-2024 Miscellaneous Notes The following approved medication requests have been transmitted electronically. Requested Prescriptions Signed Prescriptions Disp Refills diclofenac, EC, (VOLTAREN) 75 mg EC tablet 60 tablet 1 Sig: Take 1 tablet by mouth two times a day. Authorizing Provider: MARK NOVA Refused Prescriptions Disp Refills gabapentin (NEURONTIN) 100 mg capsule 90 capsule 2 Sig: Take 1 capsule by mouth three times a day for 90 days. Refused By: MARK NOVA Reason for Refusal: Patient has requested refill too soon Mark Nova MD The patient has been identified by name and date of : Yes Caregiver verified no other encounters exist for this prescription request: Yes Caregiver confirmed with patient/requestor that no other refills are due, in the near future, with this provider at this time: Yes The last office visit in the department: 07/12/24 Does the patient have a future office visit with this provider/department: Yes 08/25/24 Requested Prescriptions Pending Prescriptions Disp Refills diclofenac, EC, (VOLTAREN) 75 mg EC tablet 60 tablet 0 Sig: Take 1 tablet by mouth two times a day. gabapentin (NEURONTIN) 100 mg capsule 90 capsule 2 Sig: Take 1 capsule by mouth three times a day for 90 days. Ruth Reeves RN August 01, 2024 9:11 AM Pt reports he does not see the Spine Pain Specialist until 08/10/24. Pt is requesting a refill on pain medication that seems to help some with his pain. Prescription Refill Information The patient has been identified by name and date of : Yes Caregiver verified no other encounters exist for this prescription request: Yes Caregiver confirmed with patient/requestor that no other refills are due, in the near future, with this provider at this time: Yes The last office visit in the department: 07/12/24 Does the patient have a future office visit with this provider/department: Yes 08/25/24 Requested Prescriptions Pending Prescriptions Disp Refills diclofenac, EC, (VOLTAREN) 75 mg EC tablet 60 tablet 0 Sig: Take 1 tablet by mouth two times a day. Cece Shaikh LPN August 01, 2024 9:04 AM documented in this encounter [facility] 08-01-2024 Telephone encounter Note The patient has been identified by name and date of : Yes Caregiver verified no other encounters exist for this prescription request: Yes Caregiver confirmed with patient/requestor that no other refills are due, in the near future, with this provider at this time: Yes The last office visit in the department: 07/12/24 Does the patient have a future office visit with this provider/department: Yes 08/25/24 Requested Prescriptions Pending Prescriptions Disp Refills diclofenac, EC, (VOLTAREN) 75 mg EC tablet 60 tablet 0 Sig: Take 1 tablet by mouth two times a day. gabapentin (NEURONTIN) 100 mg capsule 90 capsule 2 Sig: Take 1 capsule by mouth three times a day for 90 days. Ruth Reeves RN August 01, 2024 9:11 AM [facility] 08-01-2024 Telephone encounter Note Pt reports he does not see the Spine Pain Specialist until 08/10/24. Pt is requesting a refill on pain medication that seems to help some with his pain. Prescription Refill Information The patient has been identified by name and date of : Yes Caregiver verified no other encounters exist for this prescription request: Yes Caregiver confirmed with patient/requestor that no other refills are due, in the near future, with this provider at this time: Yes The last office visit in the department: 07/12/24 Does the patient have a future office visit with this provider/department: Yes 08/25/24 Requested Prescriptions Pending Prescriptions Disp Refills diclofenac, EC, (VOLTAREN) 75 mg EC tablet 60 tablet 0 Sig: Take 1 tablet by mouth two times a day. Cece Shaikh LPN August 01, 2024 9:04 AM [facility] 07-20-2024 Telephone encounter Note Patient notified, letter is ready for pickup after noon today in Medical Records. Naida Morrison LPN [facility] 07-20-2024 Miscellaneous Notes Patient notified, letter is ready for pickup after noon today in Medical Records. Naida Morrison LPN Letter printed. Pt called in asking if the note was completed. I let them know that Dr. Nova had just gotten it today and paperwork needs to have at least 3-5 business days. Patient stopped into office, his company is working with [employer], they want to comply with Dr. Nova's instructions. Needs a letter saying that he CAN NOT lift 50 lbs, he CAN lift 40,30 or 20 lbs. Please send updated weight restrictions please contact Patient to pickup. Please notify Patient when letter is ready for pickup. Naida Morrison LPN documented in this encounter [facility] 07-20-2024 Telephone encounter Note Letter printed. [facility] 07-18-2024 Telephone encounter Note Pt called in asking if the note was completed. I let them know that Dr. Nova had just gotten it today and paperwork needs to have at least 3-5 business days. [facility] 07-18-2024 Telephone encounter Note Patient stopped into office, his company is working with [employer], they want to comply with Dr. Nova's instructions. Needs a letter saying that he CAN NOT lift 50 lbs, he CAN lift 40,30 or 20 lbs. Please send updated weight restrictions please contact Patient to pickup. Please notify Patient when letter is ready for pickup. Naida Morrison LPN [facility] 07-14-2024 Telephone encounter Note Phoned patient went over notes from Dr Nova with understanding. [facility] 07-14-2024 Miscellaneous Notes Phoned patient went over notes from Dr Nova with understanding. There is no weight restriction stated in his letter. Pt reports pcp wrote him a work excuse, and 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 Pt asking office to phone Julianna Siddiqui @ [phone] with pcp reply. documented in this encounter [facility] 07-13-2024 Telephone encounter Note There is no weight restriction stated in his letter. [facility] 07-13-2024 Telephone encounter Note Pt reports pcp wrote him a work excuse, and 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 Pt asking office to phone Julianna Siddiqui @ [phone] with pcp reply. [facility] 07-12-2024 Instructions Mark Nova MD - 07/12/2024 11:45 AM EDT We discussed your low back pain: - You should take Gabapentin 100 mg three times daily to help manage your nerve pain. Please ensure you are taking this as prescribed. - Continue taking Diclofenac 75 mg twice daily as an anti-inflammatory to help with pain and inflammation. - Both medications are important for managing your symptoms. Please take them as directed. 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 - Avoid overexerting yourself or performing tasks that require excessive twisting or heavy lifting. We discussed your upcoming appointments: - You are scheduled to see the pain specialist on September 18 at 9:30 AM. Please continue monitoring your symptoms. If your pain worsens or you experience any new concerning symptoms, contact our office. documented in this encounter [facility] 07-12-2024 Note HNO ID: [id number] Author: MARK NOVA MD Service: ? Author Type: Physician Type: Progress Notes Filed: 07/12/2024 13:00 Note Text: This note was created using [employer]. Subjective Patient presents with: Vomiting Back Pain Juan Killian is a 74 year old male. The patient consented to the use of [employer] software for draft documentation of the visit consistent with [facility]?s Notice of Privacy Practices. Juan is a 74-year-old male, with a history of chronic low back pain, presenting for evaluation of exacerbated low back pain and discussion of work restrictions. Juan reports an exacerbation of chronic low back pain secondary to overexertion at work today. 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 Today, he performed the work of 2-3 people for 2 hours, which involved repetitive twisting and lifting, leading to increased pain. His job had short-staffing issues. The pain became so severe that it induced emesis, prompting him to leave work early. He denies fever or abdominal pain, attributing the emesis to pain. Juan is currently taking gabapentin and diclofenac for pain management. He reported taking an extra tablet daily once in a while for pain, but seemed to be taking medications as needed. He was vague if he took an extra gabapentin or diclofenac. He is unsure of the prescribed dosage and requests clarification. He has a scheduled appointment with a pain specialist on September 18 at 0930. He inquires about the possibility of work restrictions, specifically requesting longer breaks to manage his pain. He currently receives a 10-minute break at 0830, a 30 minute lunch break at 1100, and another 10-minute break between 1300 and 1430. He suggests that extending these breaks to 15 minutes would allow him to recuperate better. Review of Systems Constitutional: Negative for chills and fever. HENT: Negative for congestion. Respiratory: Positive for cough. Negative for shortness of breath and wheezing. Gastrointestinal: Negative for abdominal pain, blood in stool, constipation and diarrhea. Genitourinary: Negative for difficulty urinating and dysuria. Neurological: Negative for weakness and numbness. ACTIVE PROBLEM LIST Major Depression, Chronic Primary Hypertension Obesity, Class I, Bmi 30-34.9 Heart Murmur Hyperlipidemia Major Depressive Disorder, Recurrent Episode, Moderate (Hcc) Primary Osteoarthritis of Left Knee Left Low Back Pain Social History Tobacco Use Smoking status: Former Current packs/day: 1.00 Average packs/day: 1 pack/day for 3.0 years (3.0 ttl pk-yrs) Types: Cigarettes Smokeless tobacco: Never Tobacco comments: quit 15 years ago. Started age 30. Vaping Use Vaping status: Never Used Substance Use Topics Alcohol use: Not Currently Comment: 1 drink per year Drug use: Not Currently Types: Marijuana Comment: 16-23 years old Current Outpatient Medications Medication Sig diclofenac, EC, (VOLTAREN) 75 mg EC tablet Take 1 tablet by mouth two times a day. lamoTRIgine (LAMICTAL) 100 mg tablet Take 1 tablet by mouth once daily. buPROPion XL (WELLBUTRIN XL) 300 mg 24 hr tablet Take 1 tablet by mouth once daily. DULoxetine (CYMBALTA) 60 mg capsule Take 1 capsule by mouth daily at bedtime. gabapentin (NEURONTIN) 100 mg capsule Take 1 capsule by mouth three times a day for 90 days. hydroCHLOROthiazide 25 mg tablet Take 1 tablet by mouth once daily. atorvastatin (LIPITOR) 20 mg tablet Take 1 tablet by mouth daily at bedtime. For cholesterol. No current facility-administered medications for this visit. Objective BP 118/64 (BP Site: Left Arm, BP Position: Sitting, BP Cuff Size: Large Adult) Pulse 76 Temp 37.1 ?C (98.7 ?F) (Temporal) Resp 12 Wt 83.9 kg (184 lb 15.5 oz) BMI 33.83 kg/m? Physical Exam Constitutional: General: He is not in acute distress. Appearance: He is not ill-appearing. HENT: Mouth/Throat: Mouth: Mucous membranes are moist. Eyes: Conjunctiva/sclera: Conjunctivae normal. Cardiovascular: Heart sounds: Normal heart sounds. Pulmonary: Breath sounds: Normal breath sounds. No wheezing, rhonchi or rales. Abdominal: General: There is no distension. Palpations: Abdomen is soft. There is no mass. Tenderness: There is no abdominal tenderness. Musculoskeletal: Lumbar back: No spasms or tenderness. Decreased range of motion. Negative right straight leg raise test and negative left straight leg raise test. Neurological: General: No focal deficit present. Mental Status: He is alert. Sensory: No sensory deficit. Motor: No weakness. Gait: Gait normal. Comments: Using a cane. Assessment and Plan 1. Nausea and vomiting, unspecified vomiting type - ICD9: 787.01, ICD10: R11.2 (primary diagnosis) - due to exacerbation of low back pain. 2. Left low back pain, unspecified chr (more content not included)... [facility] 07-12-2024 History of Present illness Narrative This note was created using [employer]. Subjective Patient presents with: Vomiting Back Pain Juan Killian is a 74 year old male. The patient consented to the use of [employer] software for draft documentation of the visit consistent with [facility] s Notice of Privacy Practices. Juan is a 74-year-old male, with a history of chronic low back pain, presenting for evaluation of exacerbated low back pain and discussion of work restrictions. Juan reports an exacerbation of chronic low back pain secondary to overexertion at work today. 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 Today, he performed the work of 2-3 people for 2 hours, which involved repetitive twisting and lifting, leading to increased pain. His job had short-staffing issues. The pain became so severe that it induced emesis, prompting him to leave work early. He denies fever or abdominal pain, attributing the emesis to pain. Juan is currently taking gabapentin and diclofenac for pain management. He reported taking an extra tablet daily once in a while for pain, but seemed to be taking medications as needed. He was vague if he took an extra gabapentin or diclofenac. He is unsure of the prescribed dosage and requests clarification. He has a scheduled appointment with a pain specialist on September 18 at 0930. He inquires about the possibility of work restrictions, specifically requesting longer breaks to manage his pain. He currently receives a 10-minute break at 0830, a 30 minute lunch break at 1100, and another 10-minute break between 1300 and 1430. He suggests that extending these breaks to 15 minutes would allow him to recuperate better. Review of Systems Constitutional: Negative for chills and fever. HENT: Negative for congestion. Respiratory: Positive for cough. Negative for shortness of breath and wheezing. Gastrointestinal: Negative for abdominal pain, blood in stool, constipation and diarrhea. Genitourinary: Negative for difficulty urinating and dysuria. Neurological: Negative for weakness and numbness. ACTIVE PROBLEM LIST Major Depression, Chronic Primary Hypertension Obesity, Class I, Bmi 30-34.9 Heart Murmur Hyperlipidemia Major Depressive Disorder, Recurrent Episode, Moderate (Hcc) Primary Osteoarthritis of Left Knee Left Low Back Pain Social History Tobacco Use Smoking status: Former Current packs/day: 1.00 Average packs/day: 1 pack/day for 3.0 years (3.0 ttl pk-yrs) Types: Cigarettes Smokeless tobacco: Never Tobacco comments: quit 15 years ago. Started age 30. Vaping Use Vaping status: Never Used Substance Use Topics Alcohol use: Not Currently Comment: 1 drink per year Drug use: Not Currently Types: Marijuana Comment: 16-23 years old Current Outpatient Medications Medication Sig diclofenac, EC, (VOLTAREN) 75 mg EC tablet Take 1 tablet by mouth two times a day. lamoTRIgine (LAMICTAL) 100 mg tablet Take 1 tablet by mouth once daily. buPROPion XL (WELLBUTRIN XL) 300 mg 24 hr tablet Take 1 tablet by mouth once daily. DULoxetine (CYMBALTA) 60 mg capsule Take 1 capsule by mouth daily at bedtime. gabapentin (NEURONTIN) 100 mg capsule Take 1 capsule by mouth three times a day for 90 days. hydroCHLOROthiazide 25 mg tablet Take 1 tablet by mouth once daily. atorvastatin (LIPITOR) 20 mg tablet Take 1 tablet by mouth daily at bedtime. For cholesterol. No current facility-administered medications for this visit. Objective BP 118/64 (BP Site: Left Arm, BP Position: Sitting, BP Cuff Size: Large Adult) Pulse 76 Temp 37.1 C (98.7 F) (Temporal) Resp 12 Wt 83.9 kg (184 lb 15.5 oz) BMI 33.83 kg/m Physical Exam Constitutional: General: He is not in acute distress. Appearance: He is not ill-appearing. HENT: Mouth/Throat: Mouth: Mucous membranes are moist. Eyes: Conjunctiva/sclera: Conjunctivae normal. Cardiovascular: Heart sounds: Normal heart sounds. Pulmonary: Breath sounds: Normal breath sounds. No wheezing, rhonchi or rales. Abdominal: General: There is no distension. Palpations: Abdomen is soft. There is no mass. Tenderness: There is no abdominal tenderness. Musculoskeletal: Lumbar back: No spasms or tenderness. Decreased range of motion. Negative right straight leg raise test and negative left straight leg raise test. Neurological: General: No focal deficit present. Mental Status: He is alert. Sensory: No sensory deficit. Motor: No weakness. Gait: Gait normal. Comments: Using a cane. Assessment and Plan 1. Nausea and vomiting, unspecified vomiting type - ICD9: 787.01, ICD10: R11.2 (primary diagnosis) - due to exacerbation of low back pain. 2. Left low back pain, unspecified chronicity, unspecified whether sciatica present - ICD9: 724.2, ICD10: M54.50 - Medications clarified. He will start taking medications as prescribed. - Excuse letter, restrictions written. 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 Patient states that PCP office can give any information to Worker's Comp company. 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 Patient states that PCP office can give any information to Worker's Comp company. Donna Arora RN documented in this encounter [facility] 06-26-2024 Telephone encounter Note Patient notified. Naida Morrison LPN [facility] 06-26-2024 Miscellaneous Notes Patient notified. Naida Morrison LPN The following approved medication requests have been transmitted electronically. Requested Prescriptions Signed Prescriptions Disp Refills diclofenac, EC, (VOLTAREN) 75 mg EC tablet 60 tablet 0 Sig: Take 1 tablet by mouth two times a day. Authorizing Provider: MARK NOVA MD Juan is calling Mark Nova MD today to request Medication Request. Patient is requesting a pain medication for his back. Patient has been identified by name and birthdate. Duration of symptoms: N/A Person calling: self Call patient at: at home [phone] (home) [phone] (cell) Was an appointment scheduled: No Closing statement: Merry Wagner Gustavo Pss documented in this encounter [facility] 06-26-2024 Telephone encounter Note The following approved medication requests have been transmitted electronically. Requested Prescriptions Signed Prescriptions Disp Refills diclofenac, EC, (VOLTAREN) 75 mg EC tablet 60 tablet 0 Sig: Take 1 tablet by mouth two times a day. Authorizing Provider: MARK NOVA MD [facility] 06-26-2024 Telephone encounter Note Juan is calling Mark Nova MD today to request Medication Request. Patient is requesting a pain medication for his back. Patient has been identified by name and birthdate. Duration of symptoms: N/A Person calling: self Call patient at: at home [phone] (home) [phone] (cell) Was an appointment scheduled: No Closing statement: Merry Wagner Gustavo Pss [facility] Work Phone: 06-22-2024 Telephone encounter Note TC to patient who verbalized understanding of providers message below. Patient is agreeable to seeing Ortho. Please contact patient to assist in scheduling appointment. Thank you. DANIEL Torrez [facility] 06-22-2024 Miscellaneous Notes TC to patient who verbalized understanding of providers message below. Patient is agreeable to seeing Ortho. Please contact patient to assist in scheduling appointment. Thank you. DANIEL Torrez ----- Message from Mark Nova MD sent at 06/22/2024 9:24 AM EDT ----- osteoarthritis knee. No acute injury. Consult orthopedics. ASSESSMENT/PLAN: 1. Primary osteoarthritis of left knee - ICD9: 715.16, ICD10: M17.12 - CONSULT TO ORTHOPAEDICS Mark Nova MD documented in this encounter [facility] 06-22-2024 Telephone encounter Note ----- Message from Mark Nova MD sent at 06/22/2024 9:24 AM EDT ----- osteoarthritis knee. No acute injury. Consult orthopedics. [facility] 06-22-2024 Telephone encounter Note ASSESSMENT/PLAN: 1. Primary osteoarthritis of left knee - ICD9: 715.16, ICD10: M17.12 - CONSULT TO ORTHOPAEDICS Mark Nova MD [facility] 06-20-2024 Note HNO ID: [id number] Author: MARK NOVA MD Service: ? Author Type: Physician Type: Progress Notes Filed: 06/21/2024 01:18 Note Text: This note was created using [employer]. Subjective Patient presents with: Pain Juan Killian is a 74 year old male. His left low back pain was worse again and 01/12. His left leg pain was less but they seem to alternate in severity. Baclofen lost its efficacy. Ibuprofen was not helping. Pain started when he fell on ice mid May. His sacro coocygeal xray was negative. He was seen in the ED as well and CT of the chest and lumbar spine showed no acute process. US for abdominal aortic aneurysm was negative. I was waiting on xray of his femur. His left leg pain was not referred pain. He felt some relief using a cane. Review of Systems Constitutional: Negative for chills, diaphoresis and fever. Respiratory: Negative for shortness of breath. Cardiovascular: Negative. Gastrointestinal: Negative for abdominal pain, constipation and diarrhea. Genitourinary: Negative for difficulty urinating. Musculoskeletal: Positive for arthralgias, back pain and gait problem. Skin: Negative for rash. Neurological: Negative for weakness and numbness. ACTIVE PROBLEM LIST Major Depression, Chronic Primary Hypertension Obesity, Class I, Bmi 30-34.9 Heart Murmur Hyperlipidemia Major Depressive Disorder, Recurrent Episode, Moderate (Hcc) Social History Tobacco Use Smoking status: Former Current packs/day: 1.00 Average packs/day: 1 pack/day for 3.0 years (3.0 ttl pk-yrs) Types: Cigarettes Smokeless tobacco: Never Tobacco comments: quit 15 years ago. Started age 30. Vaping Use Vaping status: Never Used Substance Use Topics Alcohol use: Not Currently Comment: 1 drink per year Drug use: Not Currently Types: Marijuana Comment: 16-23 years old Current Outpatient Medications Medication Sig lamoTRIgine (LAMICTAL) 100 mg tablet Take 1 tablet by mouth once daily. buPROPion XL (WELLBUTRIN XL) 300 mg 24 hr tablet Take 1 tablet by mouth once daily. DULoxetine (CYMBALTA) 60 mg capsule Take 1 capsule by mouth daily at bedtime. baclofen 10 mg tablet Take 1 tablet by mouth three times a day for 7 days. hydroCHLOROthiazide 25 mg tablet Take 1 tablet by mouth once daily. atorvastatin (LIPITOR) 20 mg tablet Take 1 tablet by mouth daily at bedtime. For cholesterol. No current facility-administered medications for this visit. Objective BP 102/62 Pulse 88 Temp 36.8 ?C (98.2 ?F) Ht 157.5 cm (5' 2) Wt 80.2 kg (176 lb 12.9 oz) SpO2 97% BMI 32.34 kg/m? Physical Exam Constitutional: General: He is not in acute distress. Appearance: He is not diaphoretic. Cardiovascular: Heart sounds: Normal heart sounds. Pulmonary: Breath sounds: Normal breath sounds. Abdominal: General: There is no distension. Palpations: Abdomen is soft. There is no mass. Tenderness: There is no abdominal tenderness. There is no right CVA tenderness or left CVA tenderness. Musculoskeletal: Lumbar back: Tenderness present. No deformity, spasms or bony tenderness. Decreased range of motion. Negative right straight leg raise test and negative left straight leg raise test. Right hip: No deformity. Normal range of motion. Left hip: No deformity, tenderness, bony tenderness or crepitus. Normal range of motion. Normal strength. Right upper leg: Normal. Left upper leg: Tenderness present. No swelling, edema or deformity. Left knee: No swelling or deformity. No tenderness. Neurological: Mental Status: He is alert. Sensory: No sensory deficit. Motor: No weakness. Gait: Gait abnormal. Deep Tendon Reflexes: Reflexes normal. Comments: Ambulatory with cane. Psychiatric: Attention and Perception: Attention normal. Mood and Affect: Mood is depressed. Speech: Speech normal. Assessment and Plan 1. Left low back pain, unspecified chronicity, unspecified whether sciatica present - ICD9: 724.2, ICD10: M54.50 Shared medical decision making was done. - CONSULT TO PAIN MGT - GABAPENTIN 100 MG CAPSULE Discussed medication dosage, usage, goals of therapy, and side effects. Mark Nova MD [facility] 06-20-2024 History of Present illness Narrative This note was created using [employer]. Subjective Patient presents with: Pain Juan Killian is a 74 year old male. His left low back pain was worse again and 10/10. His left leg pain was less but they seem to alternate in severity. Baclofen lost its efficacy. Ibuprofen was not helping. Pain started when he fell on ice mid May. His sacro coocygeal xray was negative. He was seen in the ED as well and CT of the chest and lumbar spine showed no acute process. US for abdominal aortic aneurysm was negative. I was waiting on xray of his femur. His left leg pain was not referred pain. He felt some relief using a cane. Review of Systems Constitutional: Negative for chills, diaphoresis and fever. Respiratory: Negative for shortness of breath. Cardiovascular: Negative. Gastrointestinal: Negative for abdominal pain, constipation and diarrhea. Genitourinary: Negative for difficulty urinating. Musculoskeletal: Positive for arthralgias, back pain and gait problem. Skin: Negative for rash. Neurological: Negative for weakness and numbness. ACTIVE PROBLEM LIST Major Depression, Chronic Primary Hypertension Obesity, Class I, Bmi 30-34.9 Heart Murmur Hyperlipidemia Major Depressive Disorder, Recurrent Episode, Moderate (Hcc) Social History Tobacco Use Smoking status: Former Current packs/day: 1.00 Average packs/day: 1 pack/day for 3.0 years (3.0 ttl pk-yrs) Types: Cigarettes Smokeless tobacco: Never Tobacco comments: quit 15 years ago. Started age 30. Vaping Use Vaping status: Never Used Substance Use Topics Alcohol use: Not Currently Comment: 1 drink per year Drug use: Not Currently Types: Marijuana Comment: 16-23 years old Current Outpatient Medications Medication Sig lamoTRIgine (LAMICTAL) 100 mg tablet Take 1 tablet by mouth once daily. buPROPion XL (WELLBUTRIN XL) 300 mg 24 hr tablet Take 1 tablet by mouth once daily. DULoxetine (CYMBALTA) 60 mg capsule Take 1 capsule by mouth daily at bedtime. baclofen 10 mg tablet Take 1 tablet by mouth three times a day for 7 days. hydroCHLOROthiazide 25 mg tablet Take 1 tablet by mouth once daily. atorvastatin (LIPITOR) 20 mg tablet Take 1 tablet by mouth daily at bedtime. For cholesterol. No current facility-administered medications for this visit. Objective BP 102/62 Pulse 88 Temp 36.8 C (98.2 F) Ht 157.5 cm (5' 2) Wt 80.2 kg (176 lb 12.9 oz) SpO2 97% BMI 32.34 kg/m Physical Exam Constitutional: General: He is not in acute distress. Appearance: He is not diaphoretic. Cardiovascular: Heart sounds: Normal heart sounds. Pulmonary: Breath sounds: Normal breath sounds. Abdominal: General: There is no distension. Palpations: Abdomen is soft. There is no mass. Tenderness: There is no abdominal tenderness. There is no right CVA tenderness or left CVA tenderness. Musculoskeletal: Lumbar back: Tenderness present. No deformity, spasms or bony tenderness. Decreased range of motion. Negative right straight leg raise test and negative left straight leg raise test. Right hip: No deformity. Normal range of motion. Left hip: No deformity, tenderness, bony tenderness or crepitus. Normal range of motion. Normal strength. Right upper leg: Normal. Left upper leg: Tenderness present. No swelling, edema or deformity. Left knee: No swelling or deformity. No tenderness. Neurological: Mental Status: He is alert. Sensory: No sensory deficit. Motor: No weakness. Gait: Gait abnormal. Deep Tendon Reflexes: Reflexes normal. Comments: Ambulatory with cane. Psychiatric: Attention and Perception: Attention normal. Mood and Affect: Mood is depressed. Speech: Speech normal. Assessment and Plan 1. Left low back pain, unspecified chronicity, unspecified whether sciatica present - ICD9: 724.2, ICD10: M54.50 Shared medical decision making was done. - CONSULT TO PAIN MGT - GABAPENTIN 100 MG CAPSULE Discussed medication dosage, usage, goals of therapy, and side effects. Mark Nova MD documented in this encounter [facility] 06-20-2024 Instructions Melina Britt, [facility] - 06/20/2024 8:31 AM EDT TREATMENT PLAN: Continue Cymbalta 60 mg at bedtime to address depressive symptoms. Continue Wellbutrin 300 mg in the morning to manage mood and motivation. Continue Lamictal 100 mg once daily to address depressive symptoms. Follow up in 6 months as scheduled. Schedule an appointment this week with his PCP to discuss his pain concerns. For those experiencing a suicidal crisis: --call the National Suicide Prevention Lifeline at 98 (339-299-1589) --text the Crisis Text Line (text HOME to 619990) --call 684 and let them know you are having a mental health crisis or go to your nearest Emergency Room for stabilization. --You can also call Mobile Crisis at [phone]. -- You may call the department appointment line at [phone] to schedule your appointment. -- Please call my nurse at [phone] or send me a message in [employer] with any questions or concerns between appointments. documented in this encounter [facility] 06-20-2024 Note HNO ID: [id number] Author: MELINA BRITT APRN.JORJE Service: ? Author Type: Nurse Practitioner Type: Progress Notes Filed: 06/20/2024 08:31 Note Text: FOLLOW UP - PSYCHIATRIC PROGRESS NOTE PATIENT: Juan Killian DATE: June 20, 2024 Visit Type:In person All information is from Patient report except when noted. This evaluation is NOT intended for forensic, disability or child custody purposes. CC: Presenting today for follow up regarding psychiatric medication management. HPI: Treatment Plan from Last Visit on 12/21/2023: TREATMENT PLAN: Continue psychiatric medications at the same dose. Reviewed medications in detail. Provided information in writing per patient request. Encouraged patient to utilize topical anti-histamine to manage any itching on the hand. He reports adjusting more to the Lamictal at the 100 mg dose. Lab work has been ordered by PCP for the patient to complete prior to the next appointment. Continue engagement in coping skills. Follow up in 6 months Today Juan shares that he fell on ice 5 weeks ago. Has been struggling with pain in left leg. He didn't go to the ED the day of the fall but then gradually his pain became worse. Reports that he continues to experience pain in his back and left leg. Has noticed just some minor benefit from the baclofen. Patient thought that he had an appointment scheduled this week with this PCP but he doesn't till November. Was encouraged to schedule an appointment today. Sleeping on the floor is no longer helping him manage the back pain. His mood is still good. He is still going to work. Discussed how he is going to try to work as long as he can. Shares that it is good for his mental health. Discusses that he needs to get a new couch as it is not helpful for his pain. Enjoys spending time with his dog. Shares that he is no longer experiencing itching or rashes related to Lamictal. Appears that his body has gotten used to the medication. Consistent in taking his psychiatric medications and reports getting the same level of benefit without any new side effects. The lab work was reviewed and it was WNL. Interval Progress: Slightly worse due to the pain. PATIENT DATA: Generalized Anxiety Disorder Scale (GI-7) 09/07/2023 11/02/2023 12/21/2023 GI - 7 SCORES Score 1 0 0 (0-4) minimal anxiety, (5-9) mild anxiety, (10-14) moderate anxiety, (15-21) severe anxiety Patient Health Questionnaire (PHQ-9) 09/07/2023 11/02/2023 12/21/2023 PHQ-9 Score 1 4 2 (0-4) minimal depression, (5-9) mild depression, (10-14) moderate depression, (15-19) moderately severe depression, (20-27) severe depression PAST MEDICAL HISTORY Diagnosis Date Anxiety 2009 Depressive type psychosis 2008 Diastasis of rectus abdominis 08/01/2012 Heart murmur 10/30/2021 Hydrocele 2009 Impaired fasting blood sugar 09/05/2013 Major depression, chronic 10/30/2021 Obesity, Class I, BMI 30-34.9 10/30/2021 Physiological tremor 11/14/2009 Primary hypertension 10/30/2021 Sleep apnea 2012 Tobacco use 08/13/2022 PAST SURGICAL HISTORY Procedure Laterality Date SEPTOPLASTY 1970 ALLERGIES Allergen Reactions Benadryl [Diphenhyd* Mental Status Change Sends into severe depression Current Outpatient Medications on File Prior to Visit Medication Sig baclofen 10 mg tablet Take 1 tablet by mouth three times a day for 7 days. buPROPion XL (WELLBUTRIN XL) 300 mg 24 hr tablet Take 1 tablet by mouth once daily. hydroCHLOROthiazide 25 mg tablet Take 1 tablet by mouth once daily. atorvastatin (LIPITOR) 20 mg tablet Take 1 tablet by mouth daily at bedtime. For cholesterol. lamoTRIgine (LAMICTAL) 100 mg tablet Take 1 tablet by mouth once daily. DULoxetine (CYMBALTA) 60 mg capsule Take 1 capsule by mouth daily at bedtime. No current facility-administered medications on file prior to visit. ROS: See HPI PFSH: See HPI VITAL SIGNS: 06/20/24 0756 BP: 140/78 Pulse: 75 Resp: 16 SpO2: 99% Weight: 80.2 kg (176 lb 12.8 oz) Last 3 Encounter BP Readings: Date: BP: 06/20/2024 140/78 06/16/2024 114/62 06/07/2024 111/56 MENTAL STATUS EXAMINATION: Appearance: Casually dressed and groomed Behavior: Behaves appropriately during the encounter Social relatedness: Euthymic Speech/Language: The patient demonstrates appropriate tone, prosody, jacobo, phonetics, and syntax Mood: euthymic Affect: Full and appropriate to topic Orientation: Person, Place, Time and Situation Associations: Intact and linear Hallucinations: None Delusions: None Suicidal Ideation: No suicidal ideation, intent or plan. Homicidal Ideation: No homicidal ideation, intent or plan. Insight: Appropriate Judgment: Appropriate DATA REVIEWED: Psychiatric scales, Electronic medical record, and Labs DIAGNOSIS: Recurrent major depressive disorder, in full remission (hcc) (primary encounter diagnosis) Encounter for long-term (cu (more content not included)... [facility] 06-20-2024 History of Present illness Narrative Images from the original note were not included. FOLLOW UP - PSYCHIATRIC PROGRESS NOTE PATIENT: Juan Killian DATE: June 20, 2024 Visit Type:In person All information is from Patient report except when noted. This evaluation is NOT intended for forensic, disability or child custody purposes. CC: Presenting today for follow up regarding psychiatric medication management. HPI: Treatment Plan from Last Visit on 12/21/2023: TREATMENT PLAN: Continue psychiatric medications at the same dose. Reviewed medications in detail. Provided information in writing per patient request. Encouraged patient to utilize topical anti-histamine to manage any itching on the hand. He reports adjusting more to the Lamictal at the 100 mg dose. Lab work has been ordered by PCP for the patient to complete prior to the next appointment. Continue engagement in coping skills. Follow up in 6 months Today Juan shares that he fell on ice 5 weeks ago. Has been struggling with pain in left leg. He didn't go to the ED the day of the fall but then gradually his pain became worse. Reports that he continues to experience pain in his back and left leg. Has noticed just some minor benefit from the baclofen. Patient thought that he had an appointment scheduled this week with this PCP but he doesn't till November. Was encouraged to schedule an appointment today. Sleeping on the floor is no longer helping him manage the back pain. His mood is still good. He is still going to work. Discussed how he is going to try to work as long as he can. Shares that it is good for his mental health. Discusses that he needs to get a new couch as it is not helpful for his pain. Enjoys spending time with his dog. Shares that he is no longer experiencing itching or rashes related to Lamictal. Appears that his body has gotten used to the medication. Consistent in taking his psychiatric medications and reports getting the same level of benefit without any new side effects. The lab work was reviewed and it was WNL. Interval Progress: Slightly worse due to the pain. PATIENT DATA: Generalized Anxiety Disorder Scale (GI-7) 09/07/2023 11/02/2023 12/21/2023 GI - 7 SCORES Score 1 0 0 (0-4) minimal anxiety, (5-9) mild anxiety, (10-14) moderate anxiety, (15-21) severe anxiety Patient Health Questionnaire (PHQ-9) 09/07/2023 11/02/2023 12/21/2023 PHQ-9 Score 1 4 2 (0-4) minimal depression, (5-9) mild depression, (10-14) moderate depression, (15-19) moderately severe depression, (20-27) severe depression PAST MEDICAL HISTORY Diagnosis Date Anxiety 2009 Depressive type psychosis 2009 Diastasis of rectus abdominis 08/01/2012 Heart murmur 10/30/2021 Hydrocele 2010 Impaired fasting blood sugar 09/05/2013 Major depression, chronic 10/30/2021 Obesity, Class I, BMI 30-34.9 10/30/2021 Physiological tremor 11/14/2009 Primary hypertension 10/30/2021 Sleep apnea 2012 Tobacco use 08/13/2022 PAST SURGICAL HISTORY Procedure Laterality Date SEPTOPLASTY 1971 ALLERGIES Allergen Reactions Benadryl [Diphenhyd* Mental Status Change Sends into severe depression Current Outpatient Medications on File Prior to Visit Medication Sig baclofen 10 mg tablet Take 1 tablet by mouth three times a day for 7 days. buPROPion XL (WELLBUTRIN XL) 300 mg 24 hr tablet Take 1 tablet by mouth once daily. hydroCHLOROthiazide 25 mg tablet Take 1 tablet by mouth once daily. atorvastatin (LIPITOR) 20 mg tablet Take 1 tablet by mouth daily at bedtime. For cholesterol. lamoTRIgine (LAMICTAL) 100 mg tablet Take 1 tablet by mouth once daily. DULoxetine (CYMBALTA) 60 mg capsule Take 1 capsule by mouth daily at bedtime. No current facility-administered medications on file prior to visit. ROS: See HPI PFSH: See HPI VITAL SIGNS: 06/20/24 0756 BP: 140/78 Pulse: 75 Resp: 16 SpO2: 99% Weight: 80.2 kg (176 lb 12.8 oz) Last 3 Encounter BP Readings: Date: BP: 06/20/2024 140/78 06/16/2024 114/62 06/07/2024 111/56 MENTAL STATUS EXAMINATION: Appearance: Casually dressed and groomed Behavior: Behaves appropriately during the encounter Social relatedness: Euthymic Speech/Language: The patient demonstrates appropriate tone, prosody, jacobo, phonetics, and syntax Mood: euthymic Affect: Full and appropriate to topic Orientation: Person, Place, Time and Situation Associations: Intact and linear Hallucinations: None Delusions: None Suicidal Ideation: No suicidal ideation, intent or plan. Homicidal Ideation: No homicidal ideation, intent or plan. Insight: Appropriate Judgment: Appropriate DATA REVIEWED: Psychiatric scales, Electronic medical record, and Labs DIAGNOSIS: Recurrent major depressive disorder, in full remission (hcc) (primary encounter diagnosis) Encounter for long-term (current) use of medications GAF: -80-71 If symptoms are present, they are transient and expectable reactions to psychosocial stressors TREATMENT PLAN: Continue Cymbalta 60 mg at bedtime to address depressive symptoms. Continue Wellbutrin 300 mg in the morning to manage mood and motivation. Continue Lamictal 100 mg once daily to address depressive symptoms. Follow up in 6 months as scheduled. Schedule an appointment this week with his PCP to discuss his pain concerns. MEDICATION CHANGES: Current medication regimen unchanged. Prescriptions given - Reviewed Lamictal titration & risk of severe rash. Instructed to call [facility] if this occurs. Patient denies any history of experiencing seizures. Aware that Wellbutrin can lower seizure threshold and is contraindicated in someone who has a seizure disorder. Risks and benefits of the medication, including any black box warnings, were discussed with the patient. Patient is aware to reach out with any questions, concerns, or worsening of symptoms prior to the next appointment. Patient educated on risks of substance use in combination with medications and advised that any substance use along with medications may alter their effectiveness. Follow Up: See Treatment Plan Medical Decision Making: Problems: Moderate: 1 stable chronic illness, reviewed recent lab work and notes Risk: Moderate: Drug management Medical Decision Making Level: 4 - Moderate ADD ON PSYCHOTHERAPY CODE : No SIGNATURE: Melina Britt APRN.CNP PATIENT NAME: Juan Killian DATE: June 20, 2024 TIME: 8:06 AM documented in this encounter [facility] 06-16-2024 Progress note Formatting of t his note might be different from the original. Patient was notified Mihaela Carnes MA [facility] 06-16-2024 Miscellaneous Notes Patient was notified Mihaela Carnes MA documented in this encounter [facility] 06-16-2024 History of Present illness Narrative Radiology Service Progress Note PATIENT NAME: Juan Killian DATE OF SERVICE: June 16, 2024 TIME: 1:46 PM PATIENT IDENTITY VERIFICATION COMPLETED USING TWO (2) IDENTIFIERS: Name and Date of confirmed by patient verbally. FALL SCREENING: Has the patient had 2 falls in the last year or 1 fall with injury or currently using an Ambulatory Assistive Device (Walker, Cane, Wheelchair, Crutches, etc.)? No PATIENT GENDER DATA: Assigned male at PATIENT RELEVANT IMPLANT DATA REVIEWED: Not Applicable PATIENT PRESENTS WITH AN IMPLANTABLE OR ATTACHED DOUBLE END SEWER: No RADIOLOGY DEPARTMENT: General X-ray: Exam(s) Completed: Lower Extremity X-Ray(s): Femur, Left PERIPHERAL IV DATA: Not applicable SIGNED BY: RT Mckenzie(Moises) June 16, 2024 1:46 PM documented in this encounter [facility] 06-16-2024 Note HNO ID: [id number] Author: CAROLINE CAST RT(Moises) Service: Radiology Author Type: Technologist Type: Progress Notes Filed: 06/16/2024 13:59 Note Text: Radiology Service Progress Note PATIENT NAME: Juan Killian DATE OF SERVICE: June 16, 2024 TIME: 1:46 PM PATIENT IDENTITY VERIFICATION COMPLETED USING TWO (2) IDENTIFIERS: Name and Date of confirmed by patient verbally. FALL SCREENING: Has the patient had 2 falls in the last year or 1 fall with injury or currently using an Ambulatory Assistive Device (Walker, Cane, Wheelchair, Crutches, etc.)? No PATIENT GENDER DATA: Assigned male at PATIENT RELEVANT IMPLANT DATA REVIEWED: Not Applicable PATIENT PRESENTS WITH AN IMPLANTABLE OR ATTACHED DOUBLE END SEWER: No RADIOLOGY DEPARTMENT: General X-ray: Exam(s) Completed: Lower Extremity X-Ray(s): Femur, Left PERIPHERAL IV DATA: Not applicable SIGNED BY: RT Mckenzie(R) June 16, 2024 1:46 PM [facility] 06-16-2024 Note HNO ID: [id number] Author: MARK NOVA MD Service: ? Author Type: Physician Type: Progress Notes Filed: 06/16/2024 13:51 Note Text: This note was created using [employer]. Subjective Patient presents with: ED Follow-up: [facility] 06/07/2024 after fall; continues with pain to left leg and tailbone Juan Killian is a 74 year old male. His back and tailbone pain was much better. His US of the aorta was negative for abdominal aortic aneurysm, and CT of his lumbar spine showed no acute injury. He was now experiencing moderate to severe sharp pain of his left thigh above the knee. This was aggravated by walking. Review of Systems Constitutional: Negative for fever. Cardiovascular: Negative for leg swelling. Musculoskeletal: Negative for gait problem and joint swelling. Skin: Negative for color change. Neurological: Negative for weakness and numbness. ACTIVE PROBLEM LIST Major Depression, Chronic Primary Hypertension Obesity, Class I, Bmi 30-34.9 Heart Murmur Hyperlipidemia Major Depressive Disorder, Recurrent Episode, Moderate (Hcc) Social History Tobacco Use Smoking status: Former Current packs/day: 1.00 Average packs/day: 1 pack/day for 3.0 years (3.0 ttl pk-yrs) Types: Cigarettes Smokeless tobacco: Never Tobacco comments: quit 15 years ago. Started age 30. Vaping Use Vaping status: Never Used Substance Use Topics Alcohol use: Not Currently Comment: 1 drink per year Drug use: Not Currently Types: Marijuana Comment: 16-23 years old Current Outpatient Medications Medication Sig buPROPion XL (WELLBUTRIN XL) 300 mg 24 hr tablet Take 1 tablet by mouth once daily. hydroCHLOROthiazide 25 mg tablet Take 1 tablet by mouth once daily. atorvastatin (LIPITOR) 20 mg tablet Take 1 tablet by mouth daily at bedtime. For cholesterol. lamoTRIgine (LAMICTAL) 100 mg tablet Take 1 tablet by mouth once daily. DULoxetine (CYMBALTA) 60 mg capsule Take 1 capsule by mouth daily at bedtime. No current facility-administered medications for this visit. Objective BP 114/62 Pulse 73 Temp 36.8 ?C (98.2 ?F) Resp 18 Wt 80.1 kg (176 lb 9.4 oz) SpO2 95% BMI 31.68 kg/m? Physical Exam Constitutional: General: He is not in acute distress. Appearance: He is not ill-appearing. Cardiovascular: Pulses: Normal pulses. Musculoskeletal: Right shoulder: No tenderness. Left shoulder: No tenderness. Cervical back: No tenderness. Lumbar back: No deformity, spasms or tenderness. Negative right straight leg raise test and negative left straight leg raise test. Right hip: No tenderness or crepitus. Normal range of motion. Left hip: No tenderness or crepitus. Normal range of motion. Left upper leg: Tenderness present. No swelling, deformity or bony tenderness. Left knee: Normal. No deformity or effusion. No tenderness. Left lower leg: No swelling or tenderness. Neurological: Mental Status: He is alert. Sensory: No sensory deficit. Motor: No weakness. Gait: Gait normal. ER results reviewed. Assessment and Plan 1. Acute pain of left thigh - ICD9: 729.5, ICD10: M79.652 Likely muscular. - XR FEMUR GENERAL 2V AP/LAT LEFT - BACLOFEN 10 MG TABLET Mark Nova MD [facility] 06-16-2024 History of Present illness Narrative This note was created using NoteWriter. Subjective Patient presents with: ED Follow-up: [facility] 06/07/2024 after fall; continues with pain to left leg and tailbone Juan M Maria D is a 74 year old male. His back and tailbone pain was much better. His US of the aorta was negative for abdominal aortic aneurysm, and CT of his lumbar spine showed no acute injury. He was now experiencing moderate to severe sharp pain of his left thigh above the knee. This was aggravated by walking. Review of Systems Constitutional: Negative for fever. Cardiovascular: Negative for leg swelling. Musculoskeletal: Negative for gait problem and joint swelling. Skin: Negative for color change. Neurological: Negative for weakness and numbness. ACTIVE PROBLEM LIST Major Depression, Chronic Primary Hypertension Obesity, Class I, Bmi 30-34.9 Heart Murmur Hyperlipidemia Major Depressive Disorder, Recurrent Episode, Moderate (Hcc) Social History Tobacco Use Smoking status: Former Current packs/day: 1.00 Average packs/day: 1 pack/day for 3.0 years (3.0 ttl pk-yrs) Types: Cigarettes Smokeless tobacco: Never Tobacco comments: quit 15 years ago. Started age 30. Vaping Use Vaping status: Never Used Substance Use Topics Alcohol use: Not Currently Comment: 1 drink per year Drug use: Not Currently Types: Marijuana Comment: 16-23 years old Current Outpatient Medications Medication Sig buPROPion XL (WELLBUTRIN XL) 300 mg 24 hr tablet Take 1 tablet by mouth once daily. hydroCHLOROthiazide 25 mg tablet Take 1 tablet by mouth once daily. atorvastatin (LIPITOR) 20 mg tablet Take 1 tablet by mouth daily at bedtime. For cholesterol. lamoTRIgine (LAMICTAL) 100 mg tablet Take 1 tablet by mouth once daily. DULoxetine (CYMBALTA) 60 mg capsule Take 1 capsule by mouth daily at bedtime. No current facility-administered medications for this visit. Objective BP 114/62 Pulse 73 Temp 36.8 C (98.2 F) Resp 18 Wt 80.1 kg (176 lb 9.4 oz) SpO2 95% BMI 31.68 kg/m Physical Exam Constitutional: General: He is not in acute distress. Appearance: He is not ill-appearing. Cardiovascular: Pulses: Normal pulses. Musculoskeletal: Right shoulder: No tenderness. Left shoulder: No tenderness. Cervical back: No tenderness. Lumbar back: No deformity, spasms or tenderness. Negative right straight leg raise test and negative left straight leg raise test. Right hip: No tenderness or crepitus. Normal range of motion. Left hip: No tenderness or crepitus. Normal range of motion. Left upper leg: Tenderness present. No swelling, deformity or bony tenderness. Left knee: Normal. No deformity or effusion. No tenderness. Left lower leg: No swelling or tenderness. Neurological: Mental Status: He is alert. Sensory: No sensory deficit. Motor: No weakness. Gait: Gait normal. ER results reviewed. Assessment and Plan 1. Acute pain of left thigh - ICD9: 729.5, ICD10: M79.652 Likely muscular. - XR FEMUR GENERAL 2V AP/LAT LEFT - BACLOFEN 10 MG TABLET Mark Nova MD documented in this encounter [facility] 06-16-2024 History of Present illness Narrative Radiology Service Progress Note PATIENT NAME: Juan Killian DATE OF SERVICE: June 16, 2024 TIME: 2:16 PM PATIENT IDENTITY VERIFICATION COMPLETED USING TWO (2) IDENTIFIERS: Name and Date of confirmed by patient verbally. FALL SCREENING: Has the patient had 2 falls in the last year or 1 fall with injury or currently using an Ambulatory Assistive Device (Walker, Cane, Wheelchair, Crutches, etc.)? No PATIENT GENDER DATA: Assigned male at PATIENT RELEVANT IMPLANT DATA REVIEWED: Not Applicable PATIENT PRESENTS WITH AN IMPLANTABLE OR ATTACHED DOUBLE END SEWER: No RADIOLOGY DEPARTMENT: Ultrasound PERIPHERAL IV DATA: Not applicable SIGNED BY: Krystal Frias RDMS RVT June 16, 2024 2:16 PM documented in this encounter [facility] 06-16-2024 Note HNO ID: [id number] Author: KRYSTAL FRIAS RDMS Service: ? Author Type: Power Washer Type: Progress Notes Filed: 06/16/2024 14:16 Note Text: Radiology Service Progress Note PATIENT NAME: Juan Killian DATE OF SERVICE: June 16, 2024 TIME: 2:16 PM PATIENT IDENTITY VERIFICATION COMPLETED USING TWO (2) IDENTIFIERS: Name and Date of confirmed by patient verbally. FALL SCREENING: Has the patient had 2 falls in the last year or 1 fall with injury or currently using an Ambulatory Assistive Device (Walker, Cane, Wheelchair, Crutches, etc.)? No PATIENT GENDER DATA: Assigned male at PATIENT RELEVANT IMPLANT DATA REVIEWED: Not Applicable PATIENT PRESENTS WITH AN IMPLANTABLE OR ATTACHED DOUBLE END SEWER: No RADIOLOGY DEPARTMENT: Ultrasound PERIPHERAL IV DATA: Not applicable SIGNED BY: Krystal Frias RDMS RVT June 16, 2024 2:16 PM [facility] 06-07-2024 Note HNO ID: [id number] Author: DEVON THOMAS MD Service: ? Author Type: Physician Type: Progress Notes Filed: 06/07/2024 14:46 Note Text: Patient presents with: Low Back Pain: right side injection yesterday HPI: Back pain: Duration: slipped on ice and fell 2-3 weeks ago and landed on the right hip. He started having pain the next day which has progressively worsened since. He was seen by his PCP for this 2 days ago had imaging and a Toradol shot. He had a wellness visit with primary care yesterday. Pain was so intense he almost called the ambulance last night. Character: 01/12 the last 3 days, radiating ache Location: point at left sacrum Radiation: some into the right lumbosacral junction, sometimes between the upper shoulder blades. No radiation to the legs Aggravating: sitting, lying down, bending Relieving: Pain relievers: taking 400mg ibuprofen per dose up to 1200mg/day, linament, pain patch Associated: mild constipation, bruise right hip Pertinent negatives: Denies numbness or weakness, fever, loss of bladder or bowel control, blood in stool, chest pain, shortness of breath, palpitations, cough, blood in stool, muscle spasms. Imaging: Had x-ray of sacrum 2 days ago final report is not complete MEDICATIONS: buPROPion XL (WELLBUTRIN XL) 300 mg 24 hr tablet Take 1 tablet by mouth once daily. hydroCHLOROthiazide 25 mg tablet Take 1 tablet by mouth once daily. atorvastatin (LIPITOR) 20 mg tablet Take 1 tablet by mouth daily at bedtime. For cholesterol. lamoTRIgine (LAMICTAL) 100 mg tablet Take 1 tablet by mouth once daily. DULoxetine (CYMBALTA) 60 mg capsule Take 1 capsule by mouth daily at bedtime. ALLERGIES: ALLERGIES Allergen Reactions Benadryl [Diphenhyd* Mental Status Change Sends into severe depression VITALS: BP 122/86 Pulse 86 Temp 37 ?C (98.6 ?F) Resp 16 Wt 83.5 kg (184 lb 1.4 oz) SpO2 98% BMI 33.03 kg/m? PHYSICAL EXAM: GEN: somewhat nervous but otherwise pleasant, alert, no acute distress, standing for comfort HEENT: PERRL, EOMI, MMM HEART: regular rate, regular rhythm, systolic murmurs LUNGS: clear to auscultation, no wheezes or crackles, no increased WOB ABD: Soft, non-distended, non-tender, no masses BACK: Normal curvature of spine. Discomfort at left sacral border. No coccyx pain. No midline tenderness. No paraspinal tenderness. Normal gait and lower extremity strength. ASSESSMENT/PLAN: 1. Acute left-sided low back pain without sciatica - ICD9: 724.2, ICD10: M54.50 Pain out of proportion to exam. I see no severe abnormality on plain film of the sacrum and coccyx. I requested radiologist read to be completed this morning. CT imaging may be indicated to rule out compression fracture or pelvic source of pain such as retrocardiac bleed or dissection. He will drive himself to [facility]; report called. Devon Thomas MD [facility] 06-07-2024 History of Present illness Narrative Patient presents with: Low Back Pain: right side injection yesterday HPI: Back pain: Duration: slipped on ice and fell 2-3 weeks ago and landed on the right hip. He started having pain the next day which has progressively worsened since. He was seen by his PCP for this 2 days ago had imaging and a Toradol shot. He had a wellness visit with primary care yesterday. Pain was so intense he almost called the ambulance last night. Character: 01/12 the last 3 days, radiating ache Location: point at right sacrum Radiation: some into the right lumbosacral junction, sometimes between the upper shoulder blades. No radiation to the legs Aggravating: sitting, lying down, bending Relieving: Pain relievers: taking 400mg ibuprofen per dose up to 1200mg/day, linament, pain patch Associated: mild constipation, bruise right hip Pertinent negatives: Denies numbness or weakness, fever, loss of bladder or bowel control, blood in stool, chest pain, shortness of breath, palpitations, cough, blood in stool, muscle spasms. Imaging: Had x-ray of sacrum 2 days ago final report is not complete MEDICATIONS: buPROPion XL (WELLBUTRIN XL) 300 mg 24 hr tablet Take 1 tablet by mouth once daily. hydroCHLOROthiazide 25 mg tablet Take 1 tablet by mouth once daily. atorvastatin (LIPITOR) 20 mg tablet Take 1 tablet by mouth daily at bedtime. For cholesterol. lamoTRIgine (LAMICTAL) 100 mg tablet Take 1 tablet by mouth once daily. DULoxetine (CYMBALTA) 60 mg capsule Take 1 capsule by mouth daily at bedtime. ALLERGIES: ALLERGIES Allergen Reactions Benadryl [Diphenhyd* Mental Status Change Sends into severe depression VITALS: BP 122/86 Pulse 86 Temp 37 C (98.6 F) Resp 16 Wt 83.5 kg (184 lb 1.4 oz) SpO2 98% BMI 33.03 kg/m PHYSICAL EXAM: GEN: somewhat nervous but otherwise pleasant, alert, no acute distress, standing for comfort HEENT: PERRL, EOMI, MMM HEART: regular rate, regular rhythm, no murmurs LUNGS: clear to auscultation, no wheezes or crackles, no increased WOB ABD: Soft, non-distended, non-tender, no masses BACK: Normal curvature of spine. Discomfort at left sacral border. No coccyx pain. No midline tenderness. No paraspinal tenderness. Normal gait and lower extremity strength. ASSESSMENT/PLAN: 1. Acute left-sided low back pain without sciatica - ICD9: 724.2, ICD10: M54.50 Pain out of proportion to exam. I see no severe abnormality on plain film of the sacrum and coccyx. I requested radiologist read to be completed this morning. CT imaging may be indicated to rule out compression fracture or pelvic source of pain such as retrocardiac bleed or dissection. He will drive himself to [facility]; report called. Devon Thomas MD documented in this encounter [facility] 06-07-2024 Telephone encounter Note Patient calling to say still having back pain that he was seen for yesterday, no worse about the same. Still waiting on x-ray reports but [facility]. [facility] 06-07-2024 Miscellaneous Notes Patient calling to say still having back pain that he was seen for yesterday, no worse about the same. Still waiting on x-ray reports but [facility] to [facility]. documented in this encounter [facility] 06-06-2024 History of Present illness Narrative Radiology Service Progress Note PATIENT NAME: Juan Killian DATE OF SERVICE: June 06, 2024 TIME: 8:29 AM PATIENT IDENTITY VERIFICATION COMPLETED USING TWO (2) IDENTIFIERS: Name and Date of confirmed by patient verbally. FALL SCREENING: Has the patient had 2 falls in the last year or 1 fall with injury or currently using an Ambulatory Assistive Device (Walker, Cane, Wheelchair, Crutches, etc.)? No PATIENT GENDER DATA: Assigned male at PATIENT RELEVANT IMPLANT DATA REVIEWED: Yes PATIENT PRESENTS WITH AN IMPLANTABLE OR ATTACHED DOUBLE END SEWER: No RADIOLOGY DEPARTMENT: General X-ray: Exam(s) Completed: Spine X-Ray(s): Sacrum/Coccyx PERIPHERAL IV DATA: Not applicable SIGNED BY: RT Ninfa(R) June 06, 2024 8:29 AM documented in this encounter [facility] 06-06-2024 Note HNO ID: [id number] Author: MARTINE OWENS RT(R) Service: ? Author Type: Cath Lab Nurse Type: Progress Notes Filed: 06/06/2024 08:49 Note Text: Radiology Service Progress Note PATIENT NAME: Juan Killian DATE OF SERVICE: June 06, 2024 TIME: 8:29 AM PATIENT IDENTITY VERIFICATION COMPLETED USING TWO (2) IDENTIFIERS: Name and Date of confirmed by patient verbally. FALL SCREENING: Has the patient had 2 falls in the last year or 1 fall with injury or currently using an Ambulatory Assistive Device (Walker, Cane, Wheelchair, Crutches, etc.)? No PATIENT GENDER DATA: Assigned male at PATIENT RELEVANT IMPLANT DATA REVIEWED: Yes PATIENT PRESENTS WITH AN IMPLANTABLE OR ATTACHED DOUBLE END SEWER: No RADIOLOGY DEPARTMENT: General X-ray: Exam(s) Completed: Spine X-Ray(s): Sacrum/Coccyx PERIPHERAL IV DATA: Not applicable SIGNED BY: RT Ninfa(R) June 06, 2024 8:29 AM [facility] 06-06-2024 Instructions Alexia Coleman, DIRECTOR MEDICAL WRITING.[facility] - 06/06/2024 8:11 AM EST Screening schedule The following prevention plan is recommended: Abdominal Aortic Aneurysm Screening Never done Pneumococcal Vaccine: 50+(1 of 1 - PCV) Never done DTaP,Tdap,Td Vaccine(1 - Tdap) due on 02/07/2016 Shingrix Vaccine(2 of 2) due on 04/02/2018 WHAT YOU CAN DO TO PREVENT FALLS Many falls can be prevented. By making some changes, you can lower your chances of falling. Four things YOU can do to prevent falls for you* and your caregiver 1. Begin a regular exercise program Exercise is one of the most important ways to lower your chances of falling. It makes you stronger and helps you feel better. Exercises that improve balance and coordination (like Tez Chi) are the most helpful. Lack of exercise leads to weakness and increases your chances of falling. Ask your doctor or health care provider about the best type of exercise program for you. 2. Have your health care provider review your medicines Have your doctor or pharmacist review all the medicines you take, even debj-rut-ohxiisi medicines. As you get older, the way medicines work in your body can change. Some medicines, or combinations of medicines, can make you sleepy or dizzy and can cause you to fall. 3. Have your vision checked Have your eyes checked by an eye doctor at least once a year. You may be wearing the wrong glasses or have a condition like glaucoma or cataracts that limits your vision. Poor vision can increase your chances of falling. 4. Make your home safer About half of all falls happen at home. To make your home safer: Remove things you can trip over (like papers, books, clothes, and shoes) from stairs and places where you walk. Remove small throw rugs or use double-sided tape to keep the rugs from slipping. Keep items you use often in cabinets you can reach easily without using a step stool. Have grab bars put in next to your toilet and in the tub or shower. Use non-slip mats in the bathtub and on shower floors. Improve the lighting in your home. As you get older, you need brighter lights to see well. Hang light-weight curtains or shades to reduce glare. Have handrails and lights put in on all staircases. Wear shoes both inside and outside the house. Avoid going barefoot or wearing slippers. For more information, contact: Centers for Disease Control and Prevention www.cdc.gov/injury * This information may not apply if you have certain medical conditions. documented in this encounter [facility] 06-06-2024 Note HNO ID: [id number] Author: ALEXIA COLEMAN APRN.CNP Service: ? Author Type: Nurse Practitioner Type: Progress Notes Filed: 06/06/2024 08:48 Note Text: Juan Killian is a 74 year old male here for a Medicare wellness visit. Medicare Health Risk Assessment General Health Very good Exercise: Minutes/Day 30 min Exercise: Days/Week 7 days Alcohol: Daily Use Never Alcohol: Drinks/Day Patient does not drink Alcohol: 6 or more drinks Never Feel off balance No Concerns: Teeth/Dentures No Concerns: Sexual function No Troubled by feelings None of the above Frequency: Eating healthy diet Nearly every day ADLs requiring help None of the above Safety precautions in home/vehicle Yes Smoke, vape, chews tobacco No Difficulty hearing No Difficulty seeing No Current Providers Specialists: I have reviewed specialist-related care of the patient in the medical record. Current care team: Patient Care Team: Mark Nova MD as PCP - General (Internal Medicine) Alexia Coleman APRN.JORJE as Conference Producer (Internal Medicine) Melina Britt APRN-psychiatry [facility] Medical/Family history review Reviewed and updated problem list, medical/surgical/family/social history, medications, and allergies. Opioid use review Opioid Medications (last 90 days) No data to display Anxiety/Depression screening PHQ-2 Score: 0 (Lower risk for depression) Recommendation: no further intervention at this time Cognitive screening Mini Cog Score: 5 Cognitive screening reviewed and No further action needed (score 3-5). Functional Observation Was the patient's Timed Up AND Go test unsteady or >= 12 seconds? No Advance Care Planning Patient was not able to provide a surrogate decision maker or written advance directives Measurements BP 134/71 Pulse 95 Resp 16 Ht 159 cm (5' 2.6) Wt 83 kg (182 lb 15.7 oz) BMI 32.83 kg/m? Vision Screening: Follows with optometry/ophthalmology Assessment/Plan Medicare annual wellness visit, subsequent (Z00.00) - Counseled on healthy diet and regular exercise - Fall avoidance information provided - Personalized prevention plan provided - Discussed need for and benefit of weight loss. BMI 32.83 kg/(m2) Additional Concerns The following concerns were also discussed with the patient: HTN-Medication changes:No Taking all medications as prescribed: Yes Side effects: No Home BP's: No Denies: headache, chest pain, palpitations, dyspnea, and peripheral edema. Last 3 Encounter BP Readings: Date: BP: 06/06/2024 134/71 06/05/2024 130/74 02/01/2024 130/78 Anxiety/depression: Patient is currently taking Cymbalta, Wellbutrin, Lamictal; medications managed by psychiatry Feels medication is working well: yes Persistent/bothersome symptoms: none Side effects: None Denies suicidal thoughts or plan. Taking statin as prescribed. Denies side effects. BP 134/71 Pulse 95 Resp 16 Ht 159 cm (5' 2.6) Wt 83 kg (182 lb 15.7 oz) BMI 32.83 kg/m? Physical Exam Vitals reviewed. Constitutional: Appearance: Normal appearance. Cardiovascular: Rate and Rhythm: Normal rate and regular rhythm. Heart sounds: Murmur heard. Pulmonary: Effort: Pulmonary effort is normal. Breath sounds: No wheezing, rhonchi or rales. Skin: General: Skin is warm and dry. Neurological: Mental Status: He is alert. Psychiatric: Mood and Affect: Mood normal. ASSESSMENT/PLAN: 1. Medicare annual wellness visit, subsequent - ICD9: V70.0, ICD10: Z00.00 (primary diagnosis) See medicare wellness plan 2. Major depressive disorder, recurrent episode, moderate (HCC) - ICD9: 296.32, ICD10: F33.1 Stable on medication. Follow-up with psychiatry as scheduled 3. Hyperlipidemia, unspecified hyperlipidemia type - ICD9: 272.4, ICD10: E78.5 - Control undetermined, due for labs - Continue current medications - LIPID PANEL, NONFASTING 4. Primary hypertension - ICD9: 401.9, ICD10: I10 - Controlled - Continue current medications - Recommend home blood pressure monitoring, to bring results to next visit - Encouraged sodium restriction, DASH or Mediterranean diet 5. Screening for abdominal aortic aneurysm - ICD9: V81.2, ICD10: Z13.6 - US SCREENING FOR AAA Alexia Coleman APRN.COPY CENTER OPERATOR Medical Decision Making: Problems: Moderate: 2+ stable chronic illnesses Data: Unique test result(s) reviewed: 1 Unique test(s) ordered: 1 Risk: Low: Low risk from testing/treatment Moderate: Drug management Medical Decision Making Level: 4 - Moderate [facility] 06-06-2024 History of Present illness Narrative Images from the original note were not included. Juan Killian is a 74 year old male here for a Medicare wellness visit. Medicare Health Risk Assessment General Health Very good Exercise: Minutes/Day 30 min Exercise: Days/Week 7 days Alcohol: Daily Use Never Alcohol: Drinks/Day Patient does not drink Alcohol: 6 or more drinks Never Feel off balance No Concerns: Teeth/Dentures No Concerns: Sexual function No Troubled by feelings None of the above Frequency: Eating healthy diet Nearly every day ADLs requiring help None of the above Safety precautions in home/vehicle Yes Smoke, vape, chews tobacco No Difficulty hearing No Difficulty seeing No Current Providers Specialists: I have reviewed specialist-related care of the patient in the medical record. Current care team: Patient Care Team: Mark Nova MD as PCP - General (Internal Medicine) Alexia Coleman APRN.JORJE as Conference Producer (Internal Medicine) Melina Britt APRN-psychiatry [facility] Medical/Family history review Reviewed and updated problem list, medical/surgical/family/social history, medications, and allergies. Opioid use review Opioid Medications (last 90 days) No data to display Anxiety/Depression screening PHQ-2 Score: 0 (Lower risk for depression) Recommendation: no further intervention at this time Cognitive screening Mini Cog Score: 5 Cognitive screening reviewed and No further action needed (score 3-5). Functional Observation Was the patient's Timed Up & Go test unsteady or >= 12 seconds? No Advance Care Planning Patient was not able to provide a surrogate decision maker or written advance directives Measurements BP 134/71 Pulse 95 Resp 16 Ht 159 cm (5' 2.6) Wt 83 kg (182 lb 15.7 oz) BMI 32.83 kg/m Vision Screening: Follows with optometry/ophthalmology Assessment/Plan Medicare annual wellness visit, subsequent (Z00.00) - Counseled on healthy diet and regular exercise - Fall avoidance information provided - Personalized prevention plan provided - Discussed need for and benefit of weight loss. BMI 32.83 kg/(m^2) Additional Concerns The following concerns were also discussed with the patient: HTN-Medication changes:No Taking all medications as prescribed: Yes Side effects: No Home BP's: No Denies: headache, chest pain, palpitations, dyspnea, and peripheral edema. Last 3 Encounter BP Readings: Date: BP: 06/06/2024 134/71 06/05/2024 130/74 02/01/2024 130/78 Anxiety/depression: Patient is currently taking Cymbalta, Wellbutrin, Lamictal; medications managed by psychiatry Feels medication is working well: yes Persistent/bothersome symptoms: none Side effects: None Denies suicidal thoughts or plan. Taking statin as prescribed. Denies side effects. BP 134/71 Pulse 95 Resp 16 Ht 159 cm (5' 2.6) Wt 83 kg (182 lb 15.7 oz) BMI 32.83 kg/m Physical Exam Vitals reviewed. Constitutional: Appearance: Normal appearance. Cardiovascular: Rate and Rhythm: Normal rate and regular rhythm. Heart sounds: Murmur heard. Pulmonary: Effort: Pulmonary effort is normal. Breath sounds: No wheezing, rhonchi or rales. Skin: General: Skin is warm and dry. Neurological: Mental Status: He is alert. Psychiatric: Mood and Affect: Mood normal. ASSESSMENT/PLAN: 1. Medicare annual wellness visit, subsequent - ICD9: V70.0, ICD10: Z00.00 (primary diagnosis) See medicare wellness plan 2. Major depressive disorder, recurrent episode, moderate (HCC) - ICD9: 296.32, ICD10: F33.1 Stable on medication. Follow-up with psychiatry as scheduled 3. Hyperlipidemia, unspecified hyperlipidemia type - ICD9: 272.4, ICD10: E78.5 - Control undetermined, due for labs - Continue current medications - LIPID PANEL, NONFASTING 4. Primary hypertension - ICD9: 401.9, ICD10: I10 - Controlled - Continue current medications - Recommend home blood pressure monitoring, to bring results to next visit - Encouraged sodium restriction, DASH or Mediterranean diet 5. Screening for abdominal aortic aneurysm - ICD9: V81.2, ICD10: Z13.6 - US SCREENING FOR AAA Alexia Coleman APRN.CNP Medical Decision Making: Problems: Moderate: 2+ stable chronic illnesses Data: Unique test result(s) reviewed: 1 Unique test(s) ordered: 1 Risk: Low: Low risk from testing/treatment Moderate: Drug management Medical Decision Making Level: 4 - Moderate documented in this encounter [facility] 06-05-2024 Note HNO ID: [id number] Author: MARK NOVA MD Service: ? Author Type: Physician Type: Progress Notes Filed: 06/05/2024 19:37 Note Text: This note was created using [employer]. Subjective Patient presents with: Candis Killian is a 74 year old male. 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 He landed on his right buttock, right hip, and right upper back. He continued to work but pain has worsened with time, associated with general stiffness and insomnia. He was taking ibuprofen 1000 to 1200 mg daily and applying pain patches with decreasing relief. He denied head injury. He gave a history of a welt on his right hip. He had a pain patch in the right upper back, and 2 pain patches left sacral area. Review of Systems Constitutional: Negative for appetite change, fatigue and fever. HENT: Negative. Respiratory: Negative for cough, chest tightness and shortness of breath. Cardiovascular: Negative for chest pain and palpitations. Gastrointestinal: Negative for abdominal pain, nausea and vomiting. Genitourinary: Negative for difficulty urinating and dysuria. ACTIVE PROBLEM LIST Major Depression, Chronic Primary Hypertension Obesity, Class I, Bmi 30-34.9 Heart Murmur Hyperlipidemia Social History Tobacco Use Smoking status: Former Current packs/day: 1.00 Average packs/day: 1 pack/day for 3.0 years (3.0 ttl pk-yrs) Types: Cigarettes Smokeless tobacco: Never Tobacco comments: quit 15 years ago. Started age 30. Vaping Use Vaping status: Never Used Substance Use Topics Alcohol use: Yes Comment: 1 drink per year Drug use: Not Currently Types: Marijuana Comment: 16-23 years old Current Outpatient Medications Medication Sig buPROPion XL (WELLBUTRIN XL) 300 mg 24 hr tablet Take 1 tablet by mouth once daily. hydroCHLOROthiazide 25 mg tablet Take 1 tablet by mouth once daily. atorvastatin (LIPITOR) 20 mg tablet Take 1 tablet by mouth daily at bedtime. For cholesterol. lamoTRIgine (LAMICTAL) 100 mg tablet Take 1 tablet by mouth once daily. DULoxetine (CYMBALTA) 60 mg capsule Take 1 capsule by mouth daily at bedtime. No current facility-administered medications for this visit. Objective BP 130/74 (BP Site: Left Arm, BP Position: Sitting, BP Cuff Size: Large Adult) Pulse 76 Temp 36.9 ?C (98.4 ?F) (Temporal) Resp 16 Wt 83.2 kg (183 lb 6.8 oz) BMI 30.52 kg/m? Physical Exam Constitutional: General: He is not in acute distress. Appearance: He is not ill-appearing or diaphoretic. HENT: Head: Atraumatic. Pulmonary: Breath sounds: Normal breath sounds. Chest: Chest wall: No tenderness. Abdominal: Palpations: Abdomen is soft. Tenderness: There is no abdominal tenderness. Musculoskeletal: Right shoulder: Tenderness present. No deformity or bony tenderness. Normal range of motion. Left shoulder: Normal. Right upper arm: Normal. Left upper arm: Normal. Right elbow: Normal. Left elbow: Normal. Cervical back: Neck supple. No rigidity or tenderness. Thoracic back: No deformity or tenderness. Normal range of motion. Lumbar back: Bony tenderness present. No deformity, signs of trauma or tenderness. Negative right straight leg raise test and negative left straight leg raise test. Right hip: No deformity, tenderness or crepitus. Normal range of motion. Normal strength. Left hip: No deformity, tenderness or crepitus. Normal range of motion. Normal strength. Right upper leg: Normal. Right knee: Normal. Left knee: Normal. Comments: 1) Right medial upper scapular soft tissue tenderness. 2) Sacral tenderness. No coccygeal tenderness. Skin: Findings: No bruising, erythema or rash. Neurological: Mental Status: He is alert. Sensory: No sensory deficit. Motor: No weakness. Gait: Gait abnormal. Assessment and Plan 1. Fall, initial encounter - ICD9: E888.9, ICD10: W19.XXXA (primary diagnosis) 2. Multiple contusions - ICD9: 924.8, ICD10: T07.XXXA - KETOROLAC 60 MG/2 ML INTRAMUSCULAR SOLUTION Discussed medication dosage, usage, goals of therapy, and side effects. 3. Acute bilateral low back pain without sciatica - ICD9: 724.2, 338.19, ICD10: M54.50 Mainly in sacral area. - KETOROLAC 60 MG/2 ML INTRAMUSCULAR SOLUTION - XR SACRUM/COCCYX 3V AP/LAT Mark Nova MD [facility] 06-05-2024 History of Present illness Narrative This note was created using [employer]. Subjective Patient presents with: Fall Juan Killain is a 74 year old male. 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 He landed on his right buttock, right hip, and right upper back. He continued to work but pain has worsened with time, associated with general stiffness and insomnia. He was taking ibuprofen 1000 to 1200 mg daily and applying pain patches with decreasing relief. He denied head injury. He gave a history of a welt on his right hip. He had a pain patch in the right upper back, and 2 pain patches left sacral area. Review of Systems Constitutional: Negative for appetite change, fatigue and fever. HENT: Negative. Respiratory: Negative for cough, chest tightness and shortness of breath. Cardiovascular: Negative for chest pain and palpitations. Gastrointestinal: Negative for abdominal pain, nausea and vomiting. Genitourinary: Negative for difficulty urinating and dysuria. ACTIVE PROBLEM LIST Major Depression, Chronic Primary Hypertension Obesity, Class I, Bmi 30-34.9 Heart Murmur Hyperlipidemia Social History Tobacco Use Smoking status: Former Current packs/day: 1.00 Average packs/day: 1 pack/day for 3.0 years (3.0 ttl pk-yrs) Types: Cigarettes Smokeless tobacco: Never Tobacco comments: quit 15 years ago. Started age 30. Vaping Use Vaping status: Never Used Substance Use Topics Alcohol use: Yes Comment: 1 drink per year Drug use: Not Currently Types: Marijuana Comment: 16-23 years old Current Outpatient Medications Medication Sig buPROPion XL (WELLBUTRIN XL) 300 mg 24 hr tablet Take 1 tablet by mouth once daily. hydroCHLOROthiazide 25 mg tablet Take 1 tablet by mouth once daily. atorvastatin (LIPITOR) 20 mg tablet Take 1 tablet by mouth daily at bedtime. For cholesterol. lamoTRIgine (LAMICTAL) 100 mg tablet Take 1 tablet by mouth once daily. DULoxetine (CYMBALTA) 60 mg capsule Take 1 capsule by mouth daily at bedtime. No current facility-administered medications for this visit. Objective BP 130/74 (BP Site: Left Arm, BP Position: Sitting, BP Cuff Size: Large Adult) Pulse 76 Temp 36.9 C (98.4 F) (Temporal) Resp 16 Wt 83.2 kg (183 lb 6.8 oz) BMI 30.52 kg/m Physical Exam Constitutional: General: He is not in acute distress. Appearance: He is not ill-appearing or diaphoretic. HENT: Head: Atraumatic. Pulmonary: Breath sounds: Normal breath sounds. Chest: Chest wall: No tenderness. Abdominal: Palpations: Abdomen is soft. Tenderness: There is no abdominal tenderness. Musculoskeletal: Right shoulder: Tenderness present. No deformity or bony tenderness. Normal range of motion. Left shoulder: Normal. Right upper arm: Normal. Left upper arm: Normal. Right elbow: Normal. Left elbow: Normal. Cervical back: Neck supple. No rigidity or tenderness. Thoracic back: No deformity or tenderness. Normal range of motion. Lumbar back: Bony tenderness present. No deformity, signs of trauma or tenderness. Negative right straight leg raise test and negative left straight leg raise test. Right hip: No deformity, tenderness or crepitus. Normal range of motion. Normal strength. Left hip: No deformity, tenderness or crepitus. Normal range of motion. Normal strength. Right upper leg: Normal. Right knee: Normal. Left knee: Normal. Comments: 1) Right medial upper scapular soft tissue tenderness. 2) Sacral tenderness. No coccygeal tenderness. Skin: Findings: No bruising, erythema or rash. Neurological: Mental Status: He is alert. Sensory: No sensory deficit. Motor: No weakness. Gait: Gait abnormal. Assessment and Plan 1. Fall, initial encounter - ICD9: E888.9, ICD10: W19.XXXA (primary diagnosis) 2. Multiple contusions - ICD9: 924.8, ICD10: T07.XXXA - KETOROLAC 60 MG/2 ML INTRAMUSCULAR SOLUTION Discussed medication dosage, usage, goals of therapy, and side effects. 3. Acute bilateral low back pain without sciatica - ICD9: 724.2, 338.19, ICD10: M54.50 Mainly in sacral area. - KETOROLAC 60 MG/2 ML INTRAMUSCULAR SOLUTION - XR SACRUM/COCCYX 3V AP/LAT Mark Nova MD documented in this encounter [facility] 06-05-2024 Instructions Mark Nova MD - 06/05/2024 7:18 PM EST FASTING BLOOD WORK ORDERED. documented in this encounter [facility] 04-28-2024 Telephone encounter Note The following approved medication requests have been transmitted electronically. Requested Prescriptions Signed Prescriptions Disp Refills buPROPion XL (WELLBUTRIN XL) 300 mg 24 hr tablet 90 tablet 1 Sig: Take 1 tablet by mouth once daily. Authorizing Provider: MARK NOVA hydroCHLOROthiazide 25 mg tablet 90 tablet 1 Sig: Take 1 tablet by mouth once daily. Authorizing Provider: MARK NOVA atorvastatin (LIPITOR) 20 mg tablet 90 tablet 1 Sig: Take 1 tablet by mouth daily at bedtime. For cholesterol. Authorizing Provider: MARK NOVA lamoTRIgine (LAMICTAL) 100 mg tablet 90 tablet 1 Sig: Take 1 tablet by mouth once daily. Authorizing Provider: MARK NOVA MD [facility] 04-28-2024 Miscellaneous Notes The following approved medication requests have been transmitted electronically. Requested Prescriptions Signed Prescriptions Disp Refills buPROPion XL (WELLBUTRIN XL) 300 mg 24 hr tablet 90 tablet 1 Sig: Take 1 tablet by mouth once daily. Authorizing Provider: MARK NOVA hydroCHLOROthiazide 25 mg tablet 90 tablet 1 Sig: Take 1 tablet by mouth once daily. Authorizing Provider: MARK NOVA atorvastatin (LIPITOR) 20 mg tablet 90 tablet 1 Sig: Take 1 tablet by mouth daily at bedtime. For cholesterol. Authorizing Provider: MARK NOVA lamoTRIgine (LAMICTAL) 100 mg tablet 90 tablet 1 Sig: Take 1 tablet by mouth once daily. Authorizing Provider: MARK NOVA MD Prescription Refill Information The patient has been identified by name and date of : Yes Caregiver verified no other encounters exist for this prescription request: Yes Caregiver confirmed with patient/requestor that no other refills are due, in the near future, with this provider at this time: Yes The last office visit in the department: 11-25-23 Does the patient have a future office visit with this provider/department: Yes Requested Prescriptions Pending Prescriptions Disp Refills buPROPion XL (WELLBUTRIN XL) 300 mg 24 hr tablet 90 tablet 1 Sig: Take 1 tablet by mouth once daily. hydroCHLOROthiazide 25 mg tablet 90 tablet 3 Sig: Take 1 tablet by mouth once daily. atorvastatin (LIPITOR) 20 mg tablet 90 tablet 3 Sig: Take 1 tablet by mouth daily at bedtime. For cholesterol. lamoTRIgine (LAMICTAL) 100 mg tablet 90 tablet 1 Sig: Take 1 tablet by mouth once daily. Patient is running low on all medications and would like called in today. Abi Eckert April 28, 2024 4:11 PM documented in this encounter [facility] 04-28-2024 Telephone encounter Note Prescription Refill Information The patient has been identified by name and date of : Yes Caregiver verified no other encounters exist for this prescription request: Yes Caregiver confirmed with patient/requestor that no other refills are due, in the near future, with this provider at this time: Yes The last office visit in the department: 11-25-23 Does the patient have a future office visit with this provider/department: Yes Requested Prescriptions Pending Prescriptions Disp Refills buPROPion XL (WELLBUTRIN XL) 300 mg 24 hr tablet 90 tablet 1 Sig: Take 1 tablet by mouth once daily. hydroCHLOROthiazide 25 mg tablet 90 tablet 3 Sig: Take 1 tablet by mouth once daily. atorvastatin (LIPITOR) 20 mg tablet 90 tablet 3 Sig: Take 1 tablet by mouth daily at bedtime. For cholesterol. lamoTRIgine (LAMICTAL) 100 mg tablet 90 tablet 1 Sig: Take 1 tablet by mouth once daily. Patient is running low on all medications and would like called in today. Abi Eckert April 28, 2024 4:11 PM [facility] 04-27-2024 Telephone encounter Note Pt called in asking about getting his medications refilled. I let Pt know he has refills on them. I removed [facility] from his pharmacy list for the future. I told Pt to call [facility] and have them transfer all of his prescriptions to [facility]. [facility] 04-27-2024 Miscellaneous Notes Pt called in asking about getting his medications refilled. I let Pt know he has refills on them. I removed [facility] from his pharmacy list for the future. I told Pt to call [facility] and have them transfer all of his prescriptions to [facility]. 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 Monica Conteh LPN [facility] 03-09-2024 Miscellaneous Notes Message left notifying patient of Jury Duty 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 Monica Conteh LPN documented in this encounter [facility] 03-08-2024 Telephone encounter Note Patient arriving tomorrow, 03/09/24, to citrus picker jury duty excuse letter. Please notify provider if letter is still needing to be signed. [facility] 03-08-2024 Miscellaneous Notes Patient arriving tomorrow, 03/09/24, to citrus picker jury duty excuse letter. Please notify provider if letter is still needing to be signed. Please provide the patient with a letter to excuse him from Jury Duty. I can sign the letter tomorrow when I am in the office. Patient would like called when letter is ready for him to citrus picker. Patient did not remember that he had called already for this note. Pt would like letter for Jury duty. He states he has memory issues and cannot serve. Please advise. documented in this encounter [facility] 03-06-2024 Telephone encounter Note Please provide the patient with a letter to excuse him from Jury Duty. I can sign the letter tomorrow when I am in the office. [facility] 03-05-2024 Telephone encounter Note Reason for call: Patient calling with request for health information: patient requesting health information about wether or not there are any messages from PCP regarding Jury duty note. Patient denies any new or worsening symptoms of which a provider is not aware: Yes. Patient calling to check if provider left any messages for patient regarding his request for a note to excuse him from Jury Duty. Outcome: Advised patient as of today I do not see any new messages however he may reach out again when office is open tomorrow morning to speak directly to office. Patient verbalized understanding. [facility] 03-05-2024 Miscellaneous Notes Reason for call: Patient calling with request for health information: patient requesting health information about wether or not there are any messages from PCP regarding Jury duty note. Patient denies any new or worsening symptoms of which a provider is not aware: Yes. Patient calling to check if provider left any messages for patient regarding his request for a note to excuse him from Jury Duty. Outcome: Advised patient as of today I do not see any new messages however he may reach out again when office is open tomorrow morning to speak directly to office. Patient verbalized understanding. documented in this encounter [facility] 03-03-2024 Telephone encounter Note Patient would like called when letter is ready for him to citrus picker. Patient did not remember that he had called already for this note. [facility] 03-03-2024 Telephone encounter Note Pt would like letter for Jury duty. He states he has memory issues and cannot serve. Please advise. [facility] Work Phone: 02-17-2024 Telephone encounter Note [facility] pharmacy selected for future. Naida Morrison LPN [facility] 02-17-2024 Miscellaneous Notes [facility] pharmacy selected for future. Naida Morrison LPN Patient called in to alert [facility] providers of change of pharmacy to [facility] in [facility]. He would like all future prescriptions to be sent there. documented in this encounter [facility] 02-16-2024 Telephone encounter Note Patient called in to alert CC providers of change of pharmacy to [facility] in [facility]. He would like all future prescriptions to be sent there. [facility] 02-01-2024 Note HNO ID: [id number] Author: TRENT JONES PA-C Service: ? 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 Subjective Juan Killian is a 73 year old male. HPI Presents with right ear pain and hearing loss over the past 4 to 5 hours. He had a similar thing happen last year and had cerumen impaction in the left ear. Denies headache. No cough or runny nose. No sore throat. No fever. No recent swimming. No drainage out of the ear. Review of Systems HENT: Positive for ear pain and hearing loss. Negative for congestion, ear discharge, rhinorrhea, sinus pain, sneezing and sore throat. Cardiovascular: Negative. Gastrointestinal: Negative. Genitourinary: Negative. Musculoskeletal: Negative. All other systems reviewed and are negative. PAST MEDICAL HISTORY Diagnosis Date Anxiety 2008 Depressive type psychosis 2008 Diastasis of rectus abdominis 08/01/2012 Heart murmur 10/30/2021 Hydrocele 2009 Impaired fasting blood sugar 09/05/2013 Major depression, chronic 10/30/2021 Obesity, Class I, BMI 30-34.9 10/30/2021 Physiological tremor 11/14/2009 Primary hypertension 10/30/2021 Sleep apnea 2013 Tobacco use 08/13/2022 Current Outpatient Medications Medication Sig Dispense Refill lamoTRIgine (LAMICTAL) 100 mg tablet Take 1 tablet by mouth once daily. 90 tablet 1 buPROPion XL (WELLBUTRIN XL) 300 mg 24 hr tablet Take 1 tablet by mouth once daily. 90 tablet 1 DULoxetine (CYMBALTA) 60 mg capsule Take 1 capsule by mouth daily at bedtime. 90 capsule 1 hydroCHLOROthiazide 25 mg tablet Take 1 tablet by mouth once daily. 90 tablet 3 atorvastatin (LIPITOR) 20 mg tablet Take 1 tablet by mouth daily at bedtime. For cholesterol. 90 tablet 3 No current facility-administered medications for this visit. PAST SURGICAL HISTORY Procedure Laterality Date SEPTOPLASTY 1970 FAMILY HISTORY Problem Relation Age of Onset Lung Cancer Mother Colon Cancer Mother Dementia Father Heart Father murmur Hepatitis C Sister Pancreatic Cancer Brother No Known Problems Brother Obesity Brother Social History Tobacco Use Smoking status: Former Current packs/day: 1.00 Average packs/day: 1 pack/day for 3.0 years (3.0 ttl pk-yrs) Types: Cigarettes Smokeless tobacco: Never Tobacco comments: quit 15 years ago. Started age 30. Vaping Use Vaping status: Never Used Substance Use Topics Alcohol use: Yes Comment: 1 drink per year Drug use: Not Currently Types: Marijuana Comment: 16-23 years old Objective BP 130/78 Pulse 85 Temp 36.9 ?C (98.5 ?F) (Tympanic) Resp 16 Wt 84.6 kg (186 lb 8.2 oz) SpO2 96% BMI 31.04 kg/m? Physical Exam Vitals reviewed. Constitutional: Appearance: Normal appearance. HENT: Head: Normocephalic and atraumatic. Right Ear: There is impacted cerumen. Left Ear: Tympanic membrane, ear canal and external ear normal. Nose: Nose normal. Mouth/Throat: Mouth: Mucous membranes are moist. Pharynx: Oropharynx is clear. Skin: General: Skin is warm and dry. Neurological: General: No focal deficit present. Mental Status: He is alert and oriented to person, place, and time. Assessment and Plan ASSESSMENT/PLAN: 1. Hearing loss due to cerumen impaction, right - ICD9: 389.8, 380.4, ICD10: H61.21 Patient cerumen impaction flushed by nursing staff. Upon reexamination he is able to hear and feels improved. No TM perforation on reexamination. Trent Jones PA-C [facility] 02-01-2024 History of Present illness Narrative This note was created using [employer]. Subjective Juan Killian is a 73 year old male. HPI Presents with right ear pain and hearing loss over the past 4 to 5 hours. He had a similar thing happen last year and had cerumen impaction in the left ear. Denies headache. No cough or runny nose. No sore throat. No fever. No recent swimming. No drainage out of the ear. Review of Systems HENT: Positive for ear pain and hearing loss. Negative for congestion, ear discharge, rhinorrhea, sinus pain, sneezing and sore throat. Cardiovascular: Negative. Gastrointestinal: Negative. Genitourinary: Negative. Musculoskeletal: Negative. All other systems reviewed and are negative. PAST MEDICAL HISTORY Diagnosis Date Anxiety 2009 Depressive type psychosis 2009 Diastasis of rectus abdominis 08/01/2012 Heart murmur 10/30/2021 Hydrocele 2010 Impaired fasting blood sugar 09/05/2013 Major depression, chronic 10/30/2021 Obesity, Class I, BMI 30-34.9 10/30/2021 Physiological tremor 11/14/2009 Primary hypertension 10/30/2021 Sleep apnea 2013 Tobacco use 08/13/2022 Current Outpatient Medications Medication Sig Dispense Refill lamoTRIgine (LAMICTAL) 100 mg tablet Take 1 tablet by mouth once daily. 90 tablet 1 buPROPion XL (WELLBUTRIN XL) 300 mg 24 hr tablet Take 1 tablet by mouth once daily. 90 tablet 1 DULoxetine (CYMBALTA) 60 mg capsule Take 1 capsule by mouth daily at bedtime. 90 capsule 1 hydroCHLOROthiazide 25 mg tablet Take 1 tablet by mouth once daily. 90 tablet 3 atorvastatin (LIPITOR) 20 mg tablet Take 1 tablet by mouth daily at bedtime. For cholesterol. 90 tablet 3 No current facility-administered medications for this visit. PAST SURGICAL HISTORY Procedure Laterality Date SEPTOPLASTY 1970 FAMILY HISTORY Problem Relation Age of Onset Lung Cancer Mother Colon Cancer Mother Dementia Father Heart Father murmur Hepatitis C Sister Pancreatic Cancer Brother No Known Problems Brother Obesity Brother Social History Tobacco Use Smoking status: Former Current packs/day: 1.00 Average packs/day: 1 pack/day for 3.0 years (3.0 ttl pk-yrs) Types: Cigarettes Smokeless tobacco: Never Tobacco comments: quit 15 years ago. Started age 30. Vaping Use Vaping status: Never Used Substance Use Topics Alcohol use: Yes Comment: 1 drink per year Drug use: Not Currently Types: Marijuana Comment: 16-23 years old Objective BP 130/78 Pulse 85 Temp 36.9 C (98.5 F) (Tympanic) Resp 16 Wt 84.6 kg (186 lb 8.2 oz) SpO2 96% BMI 31.04 kg/m Physical Exam Vitals reviewed. Constitutional: Appearance: Normal appearance. HENT: Head: Normocephalic and atraumatic. Right Ear: There is impacted cerumen. Left Ear: Tympanic membrane, ear canal and external ear normal. Nose: Nose normal. Mouth/Throat: Mouth: Mucous membranes are moist. Pharynx: Oropharynx is clear. Skin: General: Skin is warm and dry. Neurological: General: No focal deficit present. Mental Status: He is alert and oriented to person, place, and time. Assessment and Plan ASSESSMENT/PLAN: 1. Hearing loss due to cerumen impaction, right - ICD9: 389.8, 380.4, ICD10: H61.21 Patient cerumen impaction flushed by nursing staff. Upon reexamination he is able to hear and feels improved. No TM perforation on reexamination. Trent Jones PA-C documented in this encounter [facility] 12-21-2023 Instructions Melina Britt APRN.JORJE - 12/21/2023 8:34 AM EDT Heather Martinez, It was good to talk with you today. Below is a summary of the plan that we discussed during your appointment for reference. Of course, if you have any questions or concerns do not hesitate to reach out to me via a message or call. Melina Linton APRN.CNP PLAN AND FOLLOW UP: TREATMENT PLAN: Continue psychiatric medications at the same dose. Encouraged patient to utilize topical anti-histamine to manage any itching on the hand. He reports adjusting more to the Lamictal at the 100 mg dose. Lab work has been ordered by PCP for the patient to complete prior to the next appointment. Continue engagement in coping skills. For those experiencing a suicidal crisis: --call the National Suicide Prevention Lifeline at 988 (101.852.8613) --text the Crisis Text Line (text HOME to 060953) --call 420 and let them know you are having a mental health crisis or go to your nearest Emergency Room for stabilization. --You can also call Mobile Crisis at [phone]. Next appointment: --Schedule in 6 months or sooner if needed -- You may call the department appointment line at [phone] to schedule your appointment. -- Please call my nurse at [phone] or send me a message in [employer] with any questions or concerns between appointments. documented in this encounter [facility] 12-21-2023 History of Present illness Narrative Images from the original note were not included. FOLLOW UP - PSYCHIATRIC PROGRESS NOTE PATIENT: Juan Killian DATE: December 21, 2023 Visit Type:In person All information is from Patient report except when noted. This evaluation is NOT intended for forensic, disability or child custody purposes. CC: Presenting today for follow up regarding psychiatric medication management. HPI: Treatment Plan from Last Visit on 11/02/2023: TREATMENT PLAN: 1) Utilize hydrocortizone cream to help with itching side effect possibly related to Lamictal. Reports that it has been decreasing. 2) Considering the benefit that the patient has noticed from Lamictal with his mood, he would like to continue Lamictal at the current dose of 100 mg. 3) Decrease Cymbalta to 60 mg due to lack of efficacy in managing depressive symptoms and possibly contributing to excessive morning drowsiness. 4) Continue Wellbutrin at the same dose. 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 He likes his co-workers. Works 7 am to 3:30 pm. Likes first shift. This allows him to do outdoor stuff. He is able to do the physical labor and he is happy about that. Enjoys the socialization aspect of work. Has noticed the decrease in Cymbalta helping improving morning drowsiness. Denies noticing any worsening in symptoms from the decrease in dose. Denies rash related side effects from Lamictal. The itching he was experiencing has significantly reduced as his body has gotten accustomed to Lamictal. Lamictal continues to help with his depression. Discussed some coping skills for the winter as most of his coping skills are outdoors. Also has to take his dog everywhere. He has been eating at work for breakfast and lunch. Denies any changes in with his sleep. Interval Progress: Improved PATIENT DATA: Generalized Anxiety Disorder Scale (GI-7) 09/07/2023 11/02/2023 12/21/2023 GI - 7 SCORES Score 1 0 0 (0-4) minimal anxiety, (5-9) mild anxiety, (10-14) moderate anxiety, (15-21) severe anxiety Patient Health Questionnaire (PHQ-9) 09/07/2023 11/02/2023 12/21/2023 PHQ-9 Score 1 4 2 (0-4) minimal depression, (5-9) mild depression, (10-14) moderate depression, (15-19) moderately severe depression, (20-27) severe depression PAST MEDICAL HISTORY Diagnosis Date Anxiety 2009 Depressive type psychosis 2009 Diastasis of rectus abdominis 08/01/2012 Heart murmur 10/30/2021 Hydrocele 2009 Impaired fasting blood sugar 09/05/2013 Major depression, chronic 10/30/2021 Obesity, Class I, BMI 30-34.9 10/30/2021 Physiological tremor 11/14/2009 Primary hypertension 10/30/2021 Sleep apnea 2012 Tobacco use 08/13/2022 PAST SURGICAL HISTORY Procedure Laterality Date SEPTOPLASTY 1971 ALLERGIES Allergen Reactions Benadryl [Diphenhyd* Mental Status Change Sends into severe depression Current Outpatient Medications on File Prior to Visit Medication Sig DULoxetine (CYMBALTA) 60 mg capsule Take 1 capsule by mouth daily at bedtime. buPROPion XL (WELLBUTRIN XL) 300 mg 24 hr tablet Take 1 tablet by mouth once daily. lamoTRIgine (LAMICTAL) 100 mg tablet Take 1 tablet by mouth once daily. hydroCHLOROthiazide 25 mg tablet Take 1 tablet by mouth once daily. atorvastatin (LIPITOR) 20 mg tablet Take 1 tablet by mouth daily at bedtime. For cholesterol. No current facility-administered medications on file prior to visit. ROS: See HPI PFSH: See HPI VITAL SIGNS: 12/21/23 0804 BP: 118/62 Pulse: 76 Resp: 20 Weight: 86.7 kg (191 lb 3.2 oz) Last 3 Encounter BP Readings: Date: BP: 11/25/2023 114/64 11/02/2023 122/84 09/07/2023 126/68 MENTAL STATUS EXAMINATION: Appearance: Well dressed, well groomed Behavior: Behaves appropriately during the encounter Social relatedness: Euthymic Speech/Language: The patient demonstrates appropriate tone, prosody, jacobo, phonetics, and syntax Mood: euthymic Affect: Full and appropriate to topic Orientation: Person, Place, Time and Situation Associations: Intact and linear Hallucinations: None Delusions: None Suicidal Ideation: No suicidal ideation, intent or plan. Homicidal Ideation: No homicidal ideation, intent or plan. Insight: Appropriate Judgment: Appropriate DATA REVIEWED: Psychiatric scales, Electronic medical record, Labs DIAGNOSIS: Recurrent major depressive disorder, in full remission (hcc) (primary encounter diagnosis) Itching due to drug GAF: -90-81 Absent or minimal symptoms, good functioning in all areas, interested and involved in a wide range of activities, no more than everyday problems. TREATMENT PLAN: Continue psychiatric medications at the same dose. Reviewed medications in detail. Provided information in writing per patient request. Encouraged patient to utilize topical anti-histamine to manage any itching on the hand. He reports adjusting more to the Lamictal at the 100 mg dose. Lab work has been ordered by PCP for the patient to complete prior to the next appointment. Continue engagement in coping skills. MEDICATION CHANGES: - Reviewed Lamictal titration & risk of severe rash. Instructed to call [facility] if this occurs. Risks and benefits of the medication, including any black box warnings, were discussed with the patient. Patient is aware to reach out with any questions, concerns, or worsening of symptoms prior to the next appointment. Patient educated on risks of substance use in combination with medications and advised that any substance use along with medications may alter their effectiveness. Denies history of epilepsy. Follow Up: 6 months I spent a total of 30 minutes on the date of the service which included preparing to see the patient, [id number] patient care, completing clinical documentation, and counseling and educating the patient/family/caregiver, ordering medications/labs, and communicating with other healthcare providers. ADD ON PSYCHOTHERAPY CODE : No SIGNATURE: Melina Britt APRN.JORJE PATIENT NAME: Juan Killian DATE: December 21, 2023 TIME: 8:16 AM documented in this encounter [facility] 11-25-2023 History of Present illness Narrative This note was created using [employer]. Subjective Juan Killian is a 73 year old male. He felt well. His hypertension and lipids were controlled. He was lifting a box 1 month ago when his right shoulder gave way. It has been painful with certain movements still then but improving. He took Advil as needed. Review of Systems Constitutional: Negative for fatigue and unexpected weight change. Respiratory: Negative for chest tightness and shortness of breath. Cardiovascular: Negative for chest pain, palpitations and leg swelling. Neurological: Negative for dizziness and headaches. ACTIVE PROBLEM LIST Major Depression, Chronic Primary Hypertension Obesity, Class I, Bmi 30-34.9 Heart Murmur Hyperlipidemia Social History Tobacco Use Smoking status: Former Current packs/day: 1.00 Average packs/day: 1 pack/day for 3.0 years (3.0 ttl pk-yrs) Types: Cigarettes Smokeless tobacco: Never Tobacco comments: quit 15 years ago. Started age 30. Vaping Use Vaping status: Never Used Substance Use Topics Alcohol use: Yes Comment: 1 drink per year Drug use: Not Currently Types: Marijuana Comment: 16-23 years old Current Outpatient Medications Medication Sig hydrocortisone 0.5 % cream Apply to affected area three times a day as needed (for itching). DULoxetine (CYMBALTA) 60 mg capsule Take 1 capsule by mouth daily at bedtime. buPROPion XL (WELLBUTRIN XL) 300 mg 24 hr tablet Take 1 tablet by mouth once daily. lamoTRIgine (LAMICTAL) 100 mg tablet Take 1 tablet by mouth once daily. hydroCHLOROthiazide 25 mg tablet Take 1 tablet by mouth once daily. atorvastatin (LIPITOR) 20 mg tablet Take 1 tablet by mouth daily at bedtime. For cholesterol. No current facility-administered medications for this visit. Objective BP 114/64 (BP Site: Left Arm, BP Position: Sitting, BP Cuff Size: Large Adult) Pulse 80 Temp 36.4 C (97.6 F) (Temporal) Resp 16 Wt 84.4 kg (186 lb 1.1 oz) BMI 30.96 kg/m Physical Exam Constitutional: General: He is not in acute distress. Cardiovascular: Rate and Rhythm: Normal rate and regular rhythm. Heart sounds: S1 normal and S2 normal. Murmur heard. Systolic murmur is present with a grade of 1/6. Comments: Faint aortic murmur. Pulmonary: Breath sounds: Normal breath sounds. Musculoskeletal: Right shoulder: Tenderness present. No swelling, deformity, bony tenderness or crepitus. Decreased range of motion. Normal strength. Left shoulder: Normal. Right lower leg: No edema. Left lower leg: No edema. Neurological: Mental Status: He is alert. Gait: Gait normal. Psychiatric: Mood and Affect: Mood normal. Assessment and Plan 1. Primary hypertension - ICD9: 401.9, ICD10: I10 (primary diagnosis) - Controlled - Continue current medications 2. Encounter for screening examination for other mental health and behavioral disorders - ICD9: V79.8, ICD10: Z13.39 Negative. - ANXIETY SCREENING 3. Hyperlipidemia, unspecified hyperlipidemia type - ICD9: 272.4, ICD10: E78.5 - Controlled - Continue current medications - Counseled on healthy diet and regular exercise - COMPREHENSIVE METABOLIC PANEL - LIPID PANEL BASIC 4. Sprain of right rotator cuff capsule, initial encounter - ICD9: 840.4, ICD10: S43.421A - Physical therapy offered and declined. Continue gentle ROM exercises, NSAID as needed, and avoid repetitious overhead movements. Mark Nova MD documented in this encounter [facility] 11-02-2023 History of Present illness Narrative Images from the original note were not included. FOLLOW UP - PSYCHIATRIC PROGRESS NOTE PATIENT: Juan Killian DATE: November 02, 2023 Visit Type:In person All information is from Patient report except when noted. This evaluation is NOT intended for forensic, disability or child custody purposes. CC: Presenting today for follow up regarding psychiatric medication management. HPI: Treatment Plan from Last Visit on 09/07/2023: Continue Lamictal at the 100 mg dose. Continue Cymbalta and Wellbutrin at the same dose. Consider reduction in Cymbalta dose at the next visit if patient continues to report improvement in mood from the Lamictal. Today Juan shares that I am enjoying my residential. Has been enjoying the summer. Patient and brother have toured the water venues in the area. I try not to watch the news. Does try to watch Olympics. Shares that depression is improving with Lamictal. Has been experiencing some itching but reports that it is resolving. Discussed utilizing a topical cream like Hydrocortisone to manage symptoms. Had a couple really good days where he felt happy and present. Denies any deep depressive episodes. Discussed possibly decreasing Cymbalta as he has noticed improvement from Lamictal. Unsure if the Cymbalta is helping with nerve pain. Does not feel that it adequately supported his depressive symptoms. Wonders if the Cymbalta is making him too sleepy. Interval Progress: Slightly improved PATIENT DATA: Generalized Anxiety Disorder Scale (GI-7) 08/03/2023 09/07/2023 11/02/2023 GI - 7 SCORES Score 2 1 0 (0-4) minimal anxiety, (5-9) mild anxiety, (10-14) moderate anxiety, (15-21) severe anxiety Patient Health Questionnaire (PHQ-9) 08/03/2023 09/07/2023 11/02/2023 PHQ-9 Score 6 1 4 (0-4) minimal depression, (5-9) mild depression, (10-14) moderate depression, (15-19) moderately severe depression, (20-27) severe depression PAST MEDICAL HISTORY Diagnosis Date Anxiety 2009 Depressive type psychosis 2009 Diastasis of rectus abdominis 08/01/2012 Heart murmur 10/30/2021 Hydrocele 2009 Impaired fasting blood sugar 09/05/2013 Major depression, chronic 10/30/2021 Obesity, Class I, BMI 30-34.9 10/30/2021 Physiological tremor 11/14/2009 Primary hypertension 10/30/2021 Sleep apnea 2012 Tobacco use 08/13/2022 PAST SURGICAL HISTORY Procedure Laterality Date SEPTOPLASTY 1970 ALLERGIES Allergen Reactions Benadryl [Diphenhyd* Mental Status Change Sends into severe depression Current Outpatient Medications on File Prior to Visit Medication Sig lamoTRIgine (LAMICTAL) 100 mg tablet TAKE 1 TABLET BY MOUTH EVERY DAY ARIPiprazole (ABILIFY) 5 mg tablet Take 0.5 tablets by mouth once daily. atorvastatin (LIPITOR) 20 mg tablet Take 1 tablet by mouth daily at bedtime. For cholesterol. DULoxetine (CYMBALTA) 60 mg capsule Take 1 capsule by mouth daily at bedtime. Take with 30 mg dose. DULoxetine (CYMBALTA) 30 mg capsule Take 1 capsule by mouth once daily. Take with 60 mg dose. buPROPion XL (WELLBUTRIN XL) 300 mg 24 hr tablet Take 1 tablet by mouth once daily. hydroCHLOROthiazide 25 mg tablet Take 1 tablet by mouth once daily. No current facility-administered medications on file prior to visit. ROS: All other systems negative. PFSH: See HPI VITAL SIGNS: 11/02/23 1326 BP: 122/84 Pulse: 88 Resp: 16 Weight: 84.4 kg (186 lb) Last 3 Encounter BP Readings: Date: BP: 09/07/2023 126/68 08/03/2023 122/64 06/29/2023 124/62 MENTAL STATUS EXAMINATION: Mental Status Exam General/Sensorium: Alert Orientation: AAOx3 Appearance: Appears well groomed and stated age and casually dressed Eye contact: Fair Demeanor: Appropriately interactive Motor activity: Calm Speech: Articulate with appropriate rhythm and volume Mood: Euthymic Affect: Congruent with mood Thought process: Linear, logical, and goal-directed Associations: Normal Thought content: Focused on history, symptoms, and management Suicidal ideation: SI: no Plan: no Intent: no Homicidal ideation: HI: no Plan: no Intent: no Abnormal/psychotic thoughts: Absent Perceptions: He does not appear internally stimulated. Intelligence: Average Attention: Intact Memory: Short-term: Impaired Long-term: Impaired Language: Intact Fund of knowledge: Fair Insight: Fair Judgment: Improving Gait: Steady Station: Sitting DATA REVIEWED: Psychiatric scales, Electronic medical record, and labs DIAGNOSIS: MDD, recurrent, in partial remission GAF: -70-61 Some mild symptoms or some difficulty in social, occupational, or school functioning, but generally functioning pretty well. TREATMENT PLAN: 1) Utilize hydrocortizone cream to help with itching side effect possibly related to Lamictal. Reports that it has been decreasing. 2) Considering the benefit that the patient has noticed from Lamictal with his mood, he would like to continue Lamictal at the current dose of 100 mg. 3) Decrease Cymbalta to 60 mg due to lack of efficacy in managing depressive symptoms and possibly contributing to excessive morning drowsiness. 4) Continue Wellbutrin at the same dose. MEDICATION CHANGES: Current medication regimen unchanged. - Reviewed Lamictal titration & risk of severe rash. Instructed to call [facility] if this occurs. Risks and benefits of the medication, including any black box warnings, were discussed with the patient. Patient is aware to reach out with any questions, concerns, or worsening of symptoms prior to the next appointment. Patient educated on risks of substance use in combination with medications and advised that any substance use along with medications may alter their effectiveness. Follow Up: As scheduled on December 20 I spent a total of 36 minutes on the date of the service which included preparing to see the patient, [id number] patient care, completing clinical documentation, and counseling and educating the patient/family/caregiver, ordering medications/labs. ADD ON PSYCHOTHERAPY CODE : No SIGNATURE: Melina Britt APRN.COPY CENTER OPERATOR PATIENT NAME: Juan Killian DATE: November 02, 2023 TIME: 1:35 PM documented in this encounter [facility] 10-06-2023 Telephone encounter Note Prescription Refill Information The patient has been identified by name and date of : Yes Caregiver verified no other encounters exist for this prescription request: Yes Caregiver confirmed with patient/requestor that no other refills are due, in the near future, with this provider at this time: Yes The last office visit in the department: 05/26/2023 Does the patient have a future office visit with this provider/department: Yes Requested Prescriptions Pending Prescriptions Disp Refills hydroCHLOROthiazide 25 mg tablet 90 tablet 3 Sig: Take 1 tablet by mouth once daily. Lisa Ricketts October 06, 2023 11:09 AM [facility] 10-06-2023 Miscellaneous Notes Prescription Refill Information The patient has been identified by name and date of : Yes Caregiver verified no other encounters exist for this prescription request: Yes Caregiver confirmed with patient/requestor that no other refills are due, in the near future, with this provider at this time: Yes The last office visit in the department: 05/26/2023 Does the patient have a future office visit with this provider/department: Yes Requested Prescriptions Pending Prescriptions Disp Refills hydroCHLOROthiazide 25 mg tablet 90 tablet 3 Sig: Take 1 tablet by mouth once daily. Lisa Ricketts October 06, 2023 11:09 AM documented in this encounter [facility] 09-07-2023 History of Present illness Narrative Images from the original note were not included. FOLLOW UP - PSYCHIATRIC PROGRESS NOTE PATIENT: Juan Killian DATE: September 07, 2023 Visit Type:In person All information is from Patient report except when noted. This evaluation is NOT intended for forensic, disability or child custody purposes. Some elements were copied from the previous note which have been updated where appropriate and reflect current decision making from today September 07, 2023. CC: Presenting today for follow up regarding psychiatric medication management. HPI: Treatment Plan from Last Visit on 08/03/2023: Decrease Abilify to 2.5 mg for 30 days and then stop due to lack of efficacy, excessive drowsiness and fatigue. After completing 2 weeks of 75 mg Lamictal, increase Lamictal to 100 mg once daily. Continue Wellbutrin and Cymbalta at the same dose. Today Juan shares that I am doing okay. Shares that he retired from work. [place] like it was time to slow down. 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 He knows that he needs to bring in some income but doesn't have to work 40 hours. 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 Shares that he atleast needs to bring in $1000 to help financially. Thinking about getting a job at the [employer] if that is an option. Has been able to tolerate the discontinuation of Abilify. Last took it 4 days ago. Increases Lamictal to 100 mg 4 days ago. Denies any side effects. Noticed some decrease in mood for a couple days after stopping Abilify and then it improved. Discussed possibly decreasing Cymbalta if he continues to notice improvement from Lamictal. Unsure if the Cymbalta is helping with nerve pain. Does not feel that it adequately supported his depressive symptoms. Discussed a desire to visit a horse farm in [place] but was sad to find out that it was not open to public. Shares that sleep is better now that he is not working. He feels more relaxed. Interval Progress: Slightly improved PATIENT DATA: Generalized Anxiety Disorder Scale (GI-7) 08/03/2023 09/07/2023 GI - 7 SCORES Score 2 1 (0-4) minimal anxiety, (5-9) mild anxiety, (10-14) moderate anxiety, (15-21) severe anxiety Patient Health Questionnaire (PHQ-9) 08/03/2023 09/07/2023 PHQ-9 Score 6 1 (0-4) minimal depression, (5-9) mild depression, (10-14) moderate depression, (15-19) moderately severe depression, (20-27) severe depression PAST MEDICAL HISTORY Diagnosis Date Anxiety 2009 Depressive type psychosis 2009 Diastasis of rectus abdominis 08/01/2012 Heart murmur 10/30/2021 Hydrocele 2010 Impaired fasting blood sugar 09/05/2013 Major depression, chronic 10/30/2021 Obesity, Class I, BMI 30-34.9 10/30/2021 Physiological tremor 11/14/2009 Primary hypertension 10/30/2021 Sleep apnea 2012 Tobacco use 08/13/2022 PAST SURGICAL HISTORY Procedure Laterality Date SEPTOPLASTY 1971 ALLERGIES Allergen Reactions Benadryl [Diphenhyd* Mental Status Change Sends into severe depression Current Outpatient Medications on File Prior to Visit Medication Sig lamoTRIgine (LAMICTAL) 100 mg tablet TAKE 1 TABLET BY MOUTH EVERY DAY ARIPiprazole (ABILIFY) 5 mg tablet Take 0.5 tablets by mouth once daily. atorvastatin (LIPITOR) 20 mg tablet Take 1 tablet by mouth daily at bedtime. For cholesterol. DULoxetine (CYMBALTA) 60 mg capsule Take 1 capsule by mouth daily at bedtime. Take with 30 mg dose. DULoxetine (CYMBALTA) 30 mg capsule Take 1 capsule by mouth once daily. Take with 60 mg dose. buPROPion XL (WELLBUTRIN XL) 300 mg 24 hr tablet Take 1 tablet by mouth once daily. hydroCHLOROthiazide 25 mg tablet Take 1 tablet by mouth once daily. No current facility-administered medications on file prior to visit. ROS: All other systems negative. PFSH: See HPI VITAL SIGNS: 09/07/23 1116 BP: 126/68 Pulse: 84 Weight: 84.8 kg (187 lb) Last 3 Encounter BP Readings: Date: BP: 09/07/2023 126/68 08/03/2023 122/64 06/29/2023 124/62 MENTAL STATUS EXAMINATION: Mental Status Exam General/Sensorium: Alert Orientation: AAOx3 Appearance: Appears well groomed and stated age and casually dressed Eye contact: Fair Demeanor: Appropriately interactive Motor activity: Calm Speech: Articulate with appropriate rhythm and volume Mood: Euthymic Affect: Congruent with mood Thought process: Linear, logical, and goal-directed Associations: Normal Thought content: Focused on history, symptoms, and management Suicidal ideation: SI: no Plan: no Intent: no Homicidal ideation: HI: no Plan: no Intent: no Abnormal/psychotic thoughts: Absent Perceptions: He does not appear internally stimulated. Intelligence: Average Attention: Intact Memory: Short-term: Impaired Long-term: Impaired Language: Intact Fund of knowledge: Fair Insight: Fair Judgment: Improving Gait: Steady Station: Sitting DATA REVIEWED: Psychiatric scales, Electronic medical record, and labs DIAGNOSIS: MDD, recurrent, in partial remission GAF: -70-61 Some mild symptoms or some difficulty in social, occupational, or school functioning, but generally functioning pretty well. TREATMENT PLAN: Continue Lamictal at the 100 mg dose. Continue Cymbalta and Wellbutrin at the same dose. Consider reduction in Cymbalta dose at the next visit if patient continues to report improvement in mood from the Lamictal. MEDICATION CHANGES: Current medication regimen unchanged. - Reviewed Lamictal titration & risk of severe rash. Instructed to call [facility] if this occurs. Risks and benefits of the medication, including any black box warnings, were discussed with the patient. Patient is aware to reach out with any questions, concerns, or worsening of symptoms prior to the next appointment. Patient educated on risks of substance use in combination with medications and advised that any substance use along with medications may alter their effectiveness. Follow Up: 2 months I spent a total of 28 minutes on the date of the service which included preparing to see the patient, [id number] patient care, completing clinical documentation, and counseling and educating the patient/family/caregiver, ordering medications/labs. ADD ON PSYCHOTHERAPY CODE : No SIGNATURE: Melina Britt APRN.CNP PATIENT NAME: Juan Killian DATE: September 07, 2023 TIME: 11:30 AM documented in this encounter [facility] 08-03-2023 History of Present illness Narrative Images from the original note were not included. FOLLOW UP - PSYCHIATRIC PROGRESS NOTE PATIENT: Juan Killian DATE: August 03, 2023 Visit Type:In person All information is from Patient report except when noted. This evaluation is NOT intended for forensic, disability or child custody purposes. Some elements were copied from the previous note which have been updated where appropriate and reflect current decision making from today August 03, 2023. CC: Presenting today for follow up regarding psychiatric medication management. HPI: Treatment Plan from Last Visit on 06/29/2023: 1. Start Lamictal to address depressive symptoms. 2. Continue Cymbalta, Wellbutrin, and Abilify at the same dose. 3. If patient is able to tolerate Lamictal and notices improvement in his mood, consider decreasing and discontinuing Abilify due to patient reporting lack of benefit at the current dose. 4. Contact previous provider in [place] as patient struggled with providing accurate history of diagnosis and treatment. Today Juan shares that he has been noticing that he is smiling and an occasional laughter escapes me too. That's pretty cool. Shares that he always acts goofy and other people have not said anything. Denies suicidal thoughts. Reports decrease in negative thoughts in the past month. Denies any side effects from the Lamictal. Takes Lamictal at bedtime. Shares that he is still sleeping too much. Attributes it to the Abilify versus sleeping to escape his thoughts. Takes Abilify at night. Started Lamictal 75 mg on the . Discussed completing 2 weeks and then increasing the dose to 100 mg. 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 Struggles with cleaning at home. If he has someone coming to his house, then he is able to clean. His dog also doesn't like the vacuum white work cleaner. His brother and nephew help watch the dog while he works. Looks forward to an upcoming vacation. Would like to visit a [employer] horse [place]. 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 For cholesterol. DULoxetine (CYMBALTA) 60 mg capsule Take 1 capsule by mouth daily at bedtime. Take with 30 mg dose. DULoxetine (CYMBALTA) 30 mg capsule Take 1 capsule by mouth once daily. Take with 60 mg dose. buPROPion XL (WELLBUTRIN XL) 300 mg 24 hr tablet Take 1 tablet by mouth once daily. ARIPiprazole (ABILIFY) 5 mg tablet Take 1 tablet by mouth once daily. lamoTRIgine (LAMICTAL) 25 mg tablet Take 1 tablet by mouth once daily for 14 days, THEN 2 tablets once daily for 14 days, THEN 3 tablets once daily for 14 days. (Patient taking differently: THEN 3 tablets once daily) hydroCHLOROthiazide 25 mg tablet Take 1 tablet by mouth once daily. No current facility-administered medications on file prior to visit. ROS: All other systems negative. PFSH: See HPI VITAL SIGNS: 08/03/23 0949 BP: 122/64 Pulse: 80 Weight: 83.5 kg (184 lb) Last 3 Encounter BP Readings: Date: BP: 08/03/2023 122/64 06/29/2023 124/62 05/26/2023 124/77 MENTAL STATUS EXAMINATION: Mental Status Exam General/Sensorium: Alert Orientation: AAOx3 Appearance: Appears well groomed and stated age and casually dressed Eye contact: Fair Demeanor: Appropriately interactive Motor activity: Calm Speech: Articulate with appropriate rhythm and volume Mood: Euthymic Affect: Congruent with mood Thought process: Linear, logical, and goal-directed Associations: Normal Thought content: Focused on history, symptoms, and management Suicidal ideation: SI: no Plan: no Intent: no Homicidal ideation: HI: no Plan: no Intent: no Abnormal/psychotic thoughts: Absent Perceptions: He does not appear internally stimulated. Intelligence: Average Attention: Intact Memory: Short-term: Impaired Long-term: Impaired Language: Intact Fund of knowledge: Fair Insight: Fair Judgment: Improving Gait: Steady Station: Sitting DATA REVIEWED: Psychiatric scales, Electronic medical record, and home care consultant notes DIAGNOSIS: MDD, recurrent, in partial remission GAF: -60-51 Moderate symptoms or moderate difficulty in social, occupational or school functioning. TREATMENT PLAN: Decrease Abilify to 2.5 mg for 30 days and then stop due to lack of efficacy, excessive drowsiness and fatigue. After completing 2 weeks of 75 mg Lamictal, increase Lamictal to 100 mg once daily. Continue Wellbutrin and Cymbalta at the same dose. MEDICATION CHANGES: - Reviewed Lamictal titration & risk of severe rash. Instructed to call [facility] if this occurs. See above Risks and benefits of the medication, including any black box warnings, were discussed with the patient. Patient is aware to reach out with any questions, concerns, or worsening of symptoms prior to the next appointment. Patient educated on risks of substance use in combination with medications and advised that any substance use along with medications may alter their effectiveness. Follow Up: September 06 at 11:30 am. I spent a total of 36 minutes on the date of the service which included preparing to see the patient, [id number] patient care, completing clinical documentation, and counseling and educating the patient/family/caregiver, ordering medications/labs. ADD ON PSYCHOTHERAPY CODE : No SIGNATURE: Melina Britt APRN.CNP PATIENT NAME: Juan Killian DATE: August 03, 2023 TIME: 10:13 AM documented in this encounter [facility] 07-07-2023 Miscellaneous Notes Patient has been identified by name and date of : Yes, Provider Dr. Nova Date 07-07-23 Time 10:10 am Patient phones for refill(s): Requested Prescriptions Pending Prescriptions Disp Refills atorvastatin (LIPITOR) 20 mg tablet 90 tablet 3 Sig: Take 1 tablet by mouth daily at bedtime. For cholesterol. Date of last office visit in primary care: 05/26/2023 Date of next office visit in primary care: 11/24/2023 Please advise. Thank you. Love Lr. documented in this encounter [facility] 05-28-2023 Miscellaneous Notes Behavioral Health Social Work Progress Note Patient identified for [facility] from: PCP Reason for referral: [facility] Behavioral Health Resources: Psychiatry med management [facility] encounter type: Telephone Encounter Attempts to Outreach: 2 attempts Referral made: Psychiatry - Internal Psychiatry-Internal referral type: Medication Management Final Disposition: Care established with Patient Discharged?: Yes therapist returned patient's voicemail messages. He reports that he was already put in contact with [facility]'s office and has an appointment scheduled. Patient reports no further needs at this time. MAYNOR Diaz May 28, 2023 documented in this encounter [facility] 05-26-2023 Miscellaneous Notes Behavioral Health Social Work Progress Note Patient identified for [facility] from: PCP Reason for referral: [facility] Behavioral Health Resources: Psychiatry med management [facility] encounter type: Telephone Encounter Attempts to Outreach: 1 attempt Referral made: Psychiatry - Internal Psychiatry-Internal referral type: Medication Management Patient Discharged?: No Patient reported that caregiver was able to meet their needs today?: N/A Phone call was placed to patient. Message was left with brief nature of call and requesting a call back. Pt does not have MyChart. Awaiting return call. MAYNOR Diaz May 26, 2023 documented in this encounter [facility] 05-26-2023 Instructions Alexia Coleman, DIRECTOR MEDICAL WRITING.COPY CENTER OPERATOR - 05/26/2023 10:05 AM EST Screening schedule The following prevention plan is recommended: Abdominal Aortic Aneurysm Screening Never done Pneumococcal Vaccine: 65+(1 of 2 - PCV) Never done BP Controlled (<130/80) Never done DTaP,Tdap,Td Vaccine(1 - Tdap) due on 02/07/2016 Shingrix Vaccine(2 of 2) due on 04/02/2018 Advance Directive Discussion due on 04/05/2023 WHAT YOU CAN DO TO PREVENT FALLS Many falls can be prevented. By making some changes, you can lower your chances of falling. Four things YOU can do to prevent falls for you* and your caregiver 1. Begin a regular exercise program Exercise is one of the most important ways to lower your chances of falling. It makes you stronger and helps you feel better. Exercises that improve balance and coordination (like Tez Chi) are the most helpful. Lack of exercise leads to weakness and increases your chances of falling. Ask your doctor or health care provider about the best type of exercise program for you. 2. Have your health care provider review your medicines Have your doctor or pharmacist review all the medicines you take, even [id number] medicines. As you get older, the way medicines work in your body can change. Some medicines, or combinations of medicines, can make you sleepy or dizzy and can cause you to fall. 3. Have your vision checked Have your eyes checked by an eye doctor at least once a year. You may be wearing the wrong glasses or have a condition like glaucoma or cataracts that limits your vision. Poor vision can increase your chances of falling. 4. Make your home safer About half of all falls happen at home. To make your home safer: Remove things you can trip over (like papers, books, clothes, and shoes) from stairs and places where you walk. Remove small throw rugs or use double-sided tape to keep the rugs from slipping. Keep items you use often in cabinets you can reach easily without using a step stool. Have grab bars put in next to your toilet and in the tub or shower. Use non-slip mats in the bathtub and on shower floors. Improve the lighting in your home. As you get older, you need brighter lights to see well. Hang light-weight curtains or shades to reduce glare. Have handrails and lights put in on all staircases. Wear shoes both inside and outside the house. Avoid going barefoot or wearing slippers. For more information, contact: Centers for Disease Control and Prevention www.cdc.gov/injury * This information may not apply if you have certain medical conditions. documented in this encounter [facility] 05-26-2023 History of Present illness Narrative Juan Killian is a 73 year old male here for a Medicare wellness visit. Medicare Health Risk Assessment General Health Very good Exercise: Minutes/Day 0 min Exercise: Days/Week 0 days Alcohol: Daily Use Never Alcohol: Drinks/Day Patient does not drink Alcohol: 6 or more drinks Never Feel off balance No Concerns: Teeth/Dentures Yes Concerns: Sexual function No Troubled by feelings None of the above Frequency: Eating healthy diet More than half the days ADLs requiring help None of the above Safety precautions in home/vehicle Yes Smoke, vape, chews tobacco No Difficulty hearing No Difficulty seeing Yes Current Providers Specialists: I have reviewed specialist-related care of the patient in the medical record. Current care team: Patient Care Team: Mark Nova MD as PCP - General (Internal Medicine) Outside specialists seen: Psychiatrist, [facility] Medical/Family history review Reviewed and updated problem list, medical/surgical/family/social history, medications, and allergies. Opioid use review Opioid Medications (last 90 days) Some values may be hidden. Unless noted otherwise, only the newest values recorded on each date are displayed. Opioid Medications No data to display. Depression screening Depression Screening PHQ-2 Score 10/30/2021 0 Depression screening tool completed and reviewed. Based on score and interview, patient is already diagnosed with depression. Screening tool discussed with patient, and I recommended continuing current plan of care. Cognitive screening Mini Cog Score: 5 Cognitive screening reviewed and no further action needed (score 3-5) Functional Observation Was the patient's Timed Up & Go test unsteady or ? 12 seconds? No Advance Care Planning Patient did not wish or was not able to name a surrogate decision maker or provide an advance care plan Measurements BP 124/77 Pulse 66 Resp 16 Ht 5' 5 (1.65m) Wt 182 lb (82.6kg) BMI 30.29 kg/(m^2). Additional screenings: No results found. Assessment/Plan Medicare annual wellness visit, subsequent (Z00.00) - Counseled on healthy diet and regular exercise - Fall avoidance information provided - Personalized prevention plan provided - Discussed need for and benefit of weight loss. BMI 30.29 kg/(m^2) Additional Concerns The following concerns were also discussed with the patient: HTN-Medication changes:No Taking all medications as prescribed: Side effects: No Home BP's: No Denies: headache, chest pain, palpitations, dyspnea, and peripheral edema. Last 3 Encounter BP Readings: Date: BP: 05/26/2023 124/77 02/27/2023 139/89 08/12/2022 126/74 Major depression: he is under the care of a psychiatrist in [place], insurance will no longer cover this. Requesting referral to local psychiatrist. Patient is currently taking Abilify, Wellbutrin and Cymbalta Feels medication is working well: yes Persistent/bothersome symptoms: none Side effects: None Denies suicidal thoughts or plan. BP 124/77 Pulse 66 Resp 16 Ht 165.1 cm (5' 5) Wt 82.6 kg (182 lb) BMI 30.29 kg/m Physical Exam Vitals reviewed. Constitutional: Appearance: Normal appearance. Cardiovascular: Rate and Rhythm: Normal rate and regular rhythm. Heart sounds: Murmur heard. Systolic murmur is present with a grade of 2/6. Pulmonary: Effort: Pulmonary effort is normal. Breath sounds: Normal breath sounds and air entry. No wheezing, rhonchi or rales. Musculoskeletal: Right lower leg: No edema. Left lower leg: No edema. Skin: General: Skin is warm and dry. Neurological: Mental Status: He is alert. Psychiatric: Attention and Perception: Attention normal. Mood and Affect: Mood and affect normal. Speech: Speech normal. Behavior: Behavior normal. Behavior is cooperative. Thought Content: Thought content normal. Cognition and Memory: Cognition normal. ASSESSMENT/PLAN: 1. Medicare annual wellness visit, subsequent - ICD9: V70.0, ICD10: Z00.00 (primary diagnosis) See Medicare wellness plan 2. Major depression, chronic - ICD9: 296.20, ICD10: F32.9 Stable. Patient requesting to schedule with local psychiatrist, [facility] consult placed to facilitate appointment with [facility] - CONSULT TO PRIMARY CARE BEHAVIORAL HEALTH ADULT 3. Primary hypertension - ICD9: 401.9, ICD10: I10 - Controlled - Continue current medications - Recommend home blood pressure monitoring, to bring results to next visit - Encouraged sodium restriction, DASH or Mediterranean diet - COMP METABOLIC PANEL - CBC 4. Hyperlipidemia, unspecified hyperlipidemia type - ICD9: 272.4, ICD10: E78.5 - Control undetermined, due for labs - Continue current medications - LIPID PANEL BASIC - COMP METABOLIC PANEL 5. Heart murmur - ICD9: 785.2, ICD10: R01.1 stable Alexia Coleman APRN.COPY CENTER OPERATOR documented in this encounter [facility] 08-13-2022 History of Past i llness Narrative Problem Noted Date Diagnosed Date Resolved Date Tobacco use 08/13/2022 05/26/2023 documented as of this encounter (statuses as of 05/26/2023) [facility] History of Past illness Narrative* Problem Noted Date Diagnosed Date Resolved Date Tobacco use 08/13/2022 05/26/2023 documented as of this encounter (statuses as of 05/26/2023) [facility] History of Past illness Narrative* Problem Noted Date Diagnosed Date Resolved Date Tobacco use 08/13/2022 05/26/2023 documented as of this encounter (statuses as of 05/28/2023) [facility] History of Past illness Narrative* Problem Noted Date Diagnosed Date Resolved Date Tobacco use 08/13/2022 05/26/2023 documented as of this encounter (statuses as of 07/07/2023) [facility] Instructions* Patient Instructions* Mark Nova MD - 08/12/2022 11:45 AM EDT FASTING BLOOD WORK IN December. [facility] in [facility] History of Present illness Narrative* Mark Nova MD - 08/12/2022 11:33 AM EDT This note was created using [employer]. Subjective Juan Killian is a 72 year old male. He was doing well. He was asking about referral to psychiatry, as he had been going to his psychiatrist in [place], primarily for refill of his medications. His depression had been well controlled and he stopped counseling 3 or more years ago. Review of Systems Constitutional: Negative for fever and unexpected weight change. Respiratory: Negative for cough and shortness of breath. Cardiovascular: Negative for chest pain, palpitations and leg swelling. Psychiatric/Behavioral: Negative for dysphoric mood and sleep disturbance. The patient is not nervous/anxious. ACTIVE PROBLEM LIST Major Depression, Chronic Primary Hypertension Obesity, Class I, Bmi 30-34.9 Heart Murmur Hyperlipidemia Tobacco Use Social History Tobacco Use Smoking status: Every Day Packs/day: 1.00 Years: 3.00 Pack years: 3.00 Types: Cigarettes Smokeless tobacco: Never Tobacco comments: quit 15 years ago. Started age 30. Vaping Use Vaping Use: Never used Substance Use Topics Alcohol use: Yes Comment: 1 drink per year Drug use: Not Currently Types: Marijuana Comment: 16-23 years old Objective BP 126/74 (BP Site: Left Arm, BP Position: Sitting, BP Cuff Size: Large Adult) Pulse 68 Resp 16 Wt 85.3 kg (188 lb) BMI 33.30 kg/m Physical Exam Constitutional: General: He is not in acute distress. Appearance: He is not ill-appearing. Cardiovascular: Rate and Rhythm: Normal rate and regular rhythm. Heart sounds: Murmur heard. Systolic murmur is present with a grade of 1/6. Pulmonary: Breath sounds: Normal breath sounds. Musculoskeletal: Right lower leg: No edema. Left lower leg: No edema. Neurological: Mental Status: He is alert. Psychiatric: Mood and Affect: Mood normal. Behavior: Behavior normal. CP PHQ9 08/12/2022 Little interest or pleasure 0 - Not at all Feeling down, depressed, hopeless 0 - Not at all Trouble falling or staying asleep, sleeping too much 0 - Not at all Feeling tired, having little energy 0 - Not at all Poor appetite or overeating 0 - Not at all Feeling bad about yourself, failure or you have let yourself/family down 0 - Not at all Trouble concentrating on things 0 - Not at all Moving or speaking so slowly, or fidgety or restless 0 - Not at all Thoughts that you would be better off , or of hurting yourself in some way 0 - Not at all How difficult have these problems made things Not difficult at all Interpretation of Total Score 0-No Depression GI-7 ANXIETY SCALE 08/12/2022 FEELING NERVOUS,ANXIOUS,OR ON EDGE 0 Not at all sure NOT BEING ABLE TO STOP OR CONTROL WORRYING 0 Not at all sure WORRYING TOO MUCH ABOUT DIFFERENT THINGS 0 Not at all sure TROUBLE RELAXING 0 Not at all sure BEING SO RESTLESS THAT IT'S HARD TO SIT STILL 0 Not at all sure BEING EASILY ANNOYED OR IRRITABLE 0 Not at all sure FEELING AFRAID IF SOMETHING AWFUL MIGHT HAPPEN 0 Not at all sure GAD7 SCORE 0 IF YOU CHECKED OFF ANY PROBLEMS Not difficult at all Assessment and Plan 1. Major depression, chronic - ICD9: 296.20, ICD10: F32.9 (primary diagnosis) Shared medical decision making was done. Options were to refer to psychiatry or for me to continue his medications as long as his condition remained stable. We agreed I will refill his medications when due which will be later this summer/early fall. 2. Primary hypertension - ICD9: 401.9, ICD10: I10 - good control - HYDROCHLOROTHIAZIDE 25 MG TABLET - CBC 3. Hyperlipidemia, unspecified hyperlipidemia type - ICD9: 272.4, ICD10: E78.5 - to be determined upon return of lab results - COMP METABOLIC PANEL - LIPID PANEL BASIC Mark Nova MD documented in this encounter[facility] Miscellaneous Notes* Telephone Encounter - Vickie Montelongo LPN - 07/22/2022 11:53 AM EDT Last seen CMO & PRESIDENT 01/30/22 Next appt with pcp 08/12/22. Pt has a refill of the hydrochlorthiazide. Pharmacy notified. The lipitor would be needed. * Telephone Encounter - Love Andrew Pss - 07/22/2022 10:37 AM EDT Patient has been identified by name and date of : Yes Requested Prescriptions Pending Prescriptions Disp Refills atorvastatin (LIPITOR) 20 mg tablet 90 tablet 3 Sig: Take 1 tablet by mouth daily at bedtime. For cholesterol. hydroCHLOROthiazide 25 mg tablet 90 tablet 3 Sig: Take 1 tablet by mouth once daily. RX INSTRUCTIONS: Patient aware RX will be sent to pharmacy. No need to notify patient. Love Andrew Pss documented in this encounterUniversity [facility]23 Miscellaneous Notes* Telephone Encounter - Heather Sloan RN - 04/27/2022 12:09 PM EST Patient has been identified by name and date of : Yes, Provider Avtar Date 04/27/22 Time 1210 Patient phones for refill(s): Requested Prescriptions Pending Prescriptions Disp Refills hydroCHLOROthiazide (HYDRODIURIL, ESIDRIX) 25 mg tablet 90 tablet 1 Sig: Take 1 tablet by mouth once daily. Date of last office visit with pcp: Date of last office visit in primary care: 01/30/22 Last 2 Encounter Wt Readings: Date: Wt: 01/30/2022 90.3 kg (199 lb) 12/19/2021 88.5 kg (195 lb 3.2 oz) Previous labs/tests for medication: Blood Pressure: BUN (mg/dL) Date Value 12/06/2021 20 Sodium (mmol/L) Date Value 12/06/2021 136 Last 1 Encounter BP Readings: Date: BP: 01/30/2022 122/76 Please advise. Thank you. Heather Sloan RN documented in this encounterUniversity [facility]als [facility] System10-[facility]22 History of Present illness Narrative* Alexia Regalado APRN.JORJE - 01/30/2022 8:30 AM EDT CC: Patient presents with: F/U 3 Month HPI Juan Killian is a 71 year old male who presents today for above. His visit today is for follow-up. Patient was last seen for this approximately 3 months ago. Medication changes: No Taking all medications as prescribed: Yes Side effects: No Home BP's: No Denies: headache, chest pain, palpitations, dyspnea, and peripheral edema. Last 4 Encounter BP Readings: Date: BP: 01/30/2022 122/76 12/19/2021 112/74 10/30/2021 130/74 Last 3 Encounter Wt Readings: Date: Wt: 01/30/2022 90.3 kg (199 lb) 12/19/2021 88.5 kg (195 lb 3.2 oz) 10/30/2021 89.2 kg (196 lb 9.6 oz) Exercise: denies regular aerobic exercise. Diet: Watch for salt, fat, cholesterol: No REVIEW OF SYSTEMS See HPI PAST MEDICAL HISTORY Diagnosis Date Anxiety 2009 Depressive type psychosis 2008 Diastasis of rectus abdominis 08/01/2012 Heart murmur 10/30/2021 Hydrocele 2009 Impaired fasting blood sugar 09/05/2013 Major depression, chronic 10/30/2021 Obesity, Class I, BMI 30-34.9 10/30/2021 Physiological tremor 11/14/2009 Primary hypertension 10/30/2021 Sleep apnea 2012 PAST SURGICAL HISTORY Procedure Laterality Date SEPTOPLASTY 1970 ALLERGIES Benadryl [Diphenhydramine] MEDICATIONS ARIPiprazole (ABILIFY) 2 mg tablet Take 2 mg by mouth once daily. 5 mg per day buPROPion XL (WELLBUTRIN XL) 300 mg 24 hr tablet Take 300 mg by mouth. DULoxetine (CYMBALTA) 30 mg capsule Take 30 mg by mouth once daily. DULoxetine (CYMBALTA) 60 mg capsule Take 60 mg by mouth once daily. hydroCHLOROthiazide (HYDRODIURIL, ESIDRIX) 25 mg tablet Take 1 tablet by mouth once daily. FAMILY HISTORY Problem Relation Age of Onset Lung Cancer Mother Colon Cancer Mother Dementia Father Heart Father murmur Hepatitis C Sister Pancreatic Cancer Brother No Known Problems Brother Obesity Brother Social History Tobacco Use Smoking status: Every Day Packs/day: 1.00 Years: 3.00 Pack years: 3.00 Types: Cigarettes Smokeless tobacco: Never Tobacco comments: quit 15 years ago. Started age 30. Vaping Use Vaping Use: Never used Substance Use Topics Alcohol use: Yes Comment: 1 drink per year Drug use: Not Currently Types: Marijuana Comment: 16-23 years old PHYSICAL EXAM BP 137/78 Pulse 67 Resp 16 Wt 90.3 kg (199 lb) BMI 35.25 kg/m General Appearance: well appearing, in no acute distress, alert Lungs: Lungs clear to auscultation. No wheezing, rhonchi, rales. Heart: RRR without murmur, gallop, or rubs. No ectopy Health maintenance reviewed with patient: ABDOMINAL AORTIC ANEURYSM SCREENING Never done PNEUMOCOCCAL: 65+(1 - PCV) Never done HEPATITIS C SCREENING Never done DTAP,TDAP,TD(1 - Tdap) due on 02/07/2016 SHINGRIX VACCINE(2 of 2) due on 04/02/2018 INFLUENZA(1) due on 10/02/2022 COVID-19 VACCINE(4 - Booster for Pfizer series) due on 01/30/2023 ANNUAL PCP TEAM CHRONIC DISEASE VISIT due on 10/30/2022 BP CONTROLLED (<130/80) due on 12/19/2022 COLORECTAL CANCER SCREENING due on 11/18/2024 DIABETES SCREEN due on 12/06/2024 LIPID SCREEN due on 12/06/2026 ADVANCE DIRECTIVE DISCUSSION Completed DATA REVIEWED: Most recent labs ASSESSMENT/PLAN: 1. Primary hypertension - ICD9: 401.9, ICD10: I10 (primary diagnosis) - good control - Continue current medication(s) - Recommended regular aerobic exercise. - Recommend home blood pressure monitoring, to bring results in on next visit - Goal of BP <130/80 2. Hyperlipidemia, unspecified hyperlipidemia type - ICD9: 272.4, ICD10: E78.5 The 10-year ASCVD risk score (Marbin DK, et al., 2019) is: 24.3% Values used to calculate the score: Age: 71 years Sex: Male Is Non- : No Diabetic: No Tobacco smoker: Yes Systolic Blood Pressure: 122 mmHg Is BP treated: Yes HDL Cholesterol: 44 mg/dL Total Cholesterol: 212 mg/dL - newly addressed - Begin treatment with atorvastatin (Lipitor) 20 mg - Encouraged following a low fat, low cholesterol diet. - Check fasting lipid panel and ALT in 12 weeks. - LIPID PANEL BASIC Prescription instructions reviewed with patient as applicable. Potential red flag symptoms discussed with the patient. Reviewed appropriate action plan to take if red flag symptoms occur. Patient agreeable to treatment plan. Alexia Regalado APRN.CNP documented in [place] encounterPat[place] [id number] Miscellaneous Notes* Telephone Encounter - Radha Michaels - 12/20/2021 2:48 PM EDT Patient given results and verbalized understanding of instructions given. Radha Michaels * Telephone Encounter - Radha Michaels - 12/20/2021 9:43 AM EDT Left message for patient to return call. Radha Michaels * Telephone Encounter - Krystal He APRN.CNP - 12/20/2021 8:15 AM EDT COVID 19 positive. Follow current CDC guidelines Patient is outside of the date for antivirals Supportive measures Follow up with PCP documented in this encounterUniversity Hospitals Health System09-16-2022 History of Present illness Narrative* Trent Jones PA-C - 12/19/2021 3:43 PM EDT This note was created using [employer]. Subjective Juan Killian is a 71 year old male. HPI Patient presents with chief complaint of cough and congestion over the past 6 days. He took a home COVID test today that was positive. He states he was exposed to COVID at work. He has been going into work this week. No chest pain or shortness of breath. He feels like his cough is actually improving. No fevers or chills. No chest pain or shortness of breath. He is vaccinated for COVID. He has nothad it previously. Review of Systems Constitutional: Positive for fatigue. HENT: Positive for congestion, postnasal drip and sore throat. Respiratory: Positive for cough. Negative for chest tightness, shortness of breath and wheezing. Cardiovascular: Negative. Gastrointestinal: Negative. Genitourinary: Negative. Musculoskeletal: Negative. Neurological: Positive for headaches. All other systems reviewed and are negative. PAST MEDICAL HISTORY Diagnosis Date Anxiety 2009 Depressive type psychosis 2009 Diastasis of rectus abdominis 08/01/2012 Heart murmur 10/30/2021 Hydrocele 2009 Impaired fasting blood sugar 09/05/2013 Major depression, chronic 10/30/2021 Obesity, Class I, BMI 30-34.9 10/30/2021 Physiological tremor 11/14/2009 Primary hypertension 10/30/2021 Sleep apnea 2012 Current Outpatient Medications Medication Sig Dispense Refill ARIPiprazole (ABILIFY) 2 mg tablet Take 2 mg by mouth once daily. buPROPion XL (WELLBUTRIN XL) 300 mg 24 hr tablet Take 300 mg by mouth. DULoxetine (CYMBALTA) 30 mg capsule Take 30 mg by mouth once daily. DULoxetine (CYMBALTA) 60 mg capsule Take 60 mg by mouth once daily. hydroCHLOROthiazide (HYDRODIURIL, ESIDRIX) 25 mg tablet Take 1 tablet by mouth once daily. 90 tablet 1 No current facility-administered medications for this visit. PAST SURGICAL HISTORY Procedure Laterality Date SEPTOPLASTY 1971 FAMILY HISTORY Problem Relation Age of Onset Lung Cancer Mother Colon Cancer Mother Dementia Father Heart Father murmur Hepatitis C Sister Pancreatic Cancer Brother No Known Problems Brother Obesity Brother Social History Tobacco Use Smoking status: Every Day Packs/day: 1.00 Years: 3.00 Pack years: 3.00 Types: Cigarettes Smokeless tobacco: Never Tobacco comments: quit 15 years ago. Started age 30. Vaping Use Vaping Use: Never used Substance Use Topics Alcohol use: Yes Comment: 1 drink per year Drug use: Not Currently Types: Marijuana Comment: 16-23 years old Objective BP 112/74 Pulse 89 Temp 36.2 C (97.1 F) Resp 18 Wt 88.5 kg (195 lb 3.2 oz) SpO2 98% BMI34.58 kg/m Physical Exam Vitals reviewed. Constitutional: Appearance: Normal appearance. HENT: Head: Normocephalic and atraumatic. Right Ear: Tympanic membrane, ear canal and external ear normal. Left Ear: Tympanic membrane, ear canal and external ear normal. Nose: Congestion present. Mouth/Throat: Mouth: Mucous membranes are moist. Pharynx: Oropharynx is clear. Cardiovascular: Rate and Rhythm: Normal rate and regular rhythm. Heart sounds: Normal heart sounds. Pulmonary: Effort: Pulmonary effort is normal. Breath sounds: Normal breath sounds. Musculoskeletal: Cervical back: Neck supple. Skin: General: Skin is warm and dry. Neurological: Mental Status: He is alert. Assessment and Plan ASSESSMENT/PLAN: 1. COVID-19 - ICD9: 079.89, ICD10: U07.1 Patient passed the point where antivirals would be prescribed. He is having improving symptoms. Discussed he could use the Robitussin that he purchased [id number] as needed. Discussed quarantine and masking. Patient agreeable. - 2019 CORONAVIRUS Trent Jones PA-C documented in this encounterUniversity Hospitals Health System08-08-2022 Miscellaneous Notes* Telephone Encounter - Naida Morrison LPN - 11/10/2021 1:05 PM EDT Below message left on identified vm. Naida Morrison LPN * Telephone Encounter - Naida Morrison LPN - 11/10/2021 1:03 PM EDT ----- Message from Mark Nova MD sent at 11/09/2021 3:13 PM EDT ----- Test results are okay. documented in this encounterUniversity Hospitals Health System07-28-2022 Instructions* Patient Instructions* Mark Nova MD - 10/30/2021 4:26 PM EDT Advance Directive Forms Advanced Directives Forms ([place]) o FORMS: [email or web address] o INFORMATIONAL BROCHURE: [email or web address] Advance Directives (non-[place]) o FORMS: [email or web address] [email or web address] Please bring completed forms to your next appointment or email them to . Patient Resources How to Get Started Talking with Loved Ones about your Wishes at the End of Life [email or web address]-[email or web address] How to Navigate Conversations with your Care Team around your Preferences [email or web address] Recombinant shingles vaccine (Shingrix) is recommended; 2 doses 2-6 months apart. Please read information, check with your insurance, and schedule vaccination at your local pharmacy. A prescription is not required. If you are certain you have coverage to receive this vaccine in the office, we can schedule this for you. documented in this encounterUniversity Hospitals Health System07-28-2022 History of Present illness Narrative* Mark Nova MD - 10/30/2021 4:11 PM EDT This note was created using [employer]. Subjective Patient presents with: Medicare Wellness Exam New Patient Juan Killian is a 71 year old male. He provided his history and labs from 2019. He moved here from [place] 1.5 years ago and had not seen primary care. He goes to psychiatry in [place] and will continue to follow with Dr. Griffith for mental health. He had longstanding hypertension treated with hydrochlorothiazide. He had a heart murmur from a leaky valve and an abnormal EKG. He had a negative stress test afew years ago. Review of Systems Constitutional: Negative. HENT: Negative. Eyes: Negative. Respiratory: Negative. Cardiovascular: Negative. Gastrointestinal: Negative. Genitourinary: Negative. Musculoskeletal: Positive for back pain. Skin: Negative. Neurological: Negative. Psychiatric/Behavioral: Negative. ACTIVE PROBLEM LIST Major Depression, Chronic Primary Hypertension Obesity, Class I, Bmi 30-34.9 Heart Murmur Current Outpatient Medications Medication Sig ARIPiprazole (ABILIFY) 2 mg tablet Take 2 mg by mouth once daily. buPROPion XL (WELLBUTRIN XL) 300 mg 24 hr tablet Take 300 mg by mouth. DULoxetine (CYMBALTA) 30 mg capsule Take 30 mg by mouth once daily. DULoxetine (CYMBALTA) 60 mg capsule Take 60 mg by mouth once daily. hydroCHLOROthiazide (HYDRODIURIL, ESIDRIX) 25 mg tablet Take 25 mg by mouth once daily. No current facility-administered medications for this visit. Objective BP 130/74 (BP Site: Right Arm, BP Position: Sitting, BP Cuff Size: Large Adult) Pulse 76 Temp 36.2 C (97.2 F) (Temporal Artery) Resp 16 Ht 160 cm (5' 3) Wt 89.2 kg (196 lb 9.6 oz) BMI 34.83 kg/m Physical Exam Constitutional: Appearance: He is obese. HENT: Head: Normocephalic. Eyes: Extraocular Movements: Extraocular movements intact. Conjunctiva/sclera: Conjunctivae normal. Neck: Vascular: No carotid bruit. Cardiovascular: Pulses: Normal pulses. Heart sounds: S1 normal and S2 normal. Murmur heard. Systolic murmur is present with a grade of 1/6. Comments: 1/6 MALIKA at the base. Abdominal: Palpations: Abdomen is soft. There is no mass. Hernia: No hernia is present. Comments: Diastasis recti Musculoskeletal: General: Normal range of motion. Cervical back: Neck supple. No tenderness. Right lower leg: No edema. Left lower leg: No edema. Lymphadenopathy: Cervical: No cervical adenopathy. Skin: Findings: No rash. Neurological: General: No focal deficit present. Mental Status: He is alert. Cranial Nerves: No cranial nerve deficit. Sensory: No sensory deficit. Motor: No weakness. Gait: Gait normal. Psychiatric: Mood and Affect: Mood normal. Behavior: Behavior normal. EKG RESULTS: normal sinus rhythm and RBBB Assessment and Plan 1. Encounter for Medicare annual wellness exam - ICD9: V70.0, ICD10: Z00.00 (primary diagnosis) See wellness note. 2. Major depression, chronic - ICD9: 296.20, ICD10: F32.9 Controlled. 3. Primary hypertension - ICD9: 401.9, ICD10: I10 - fair control - Continue current medication(s) - Encouraged dietary sodium restriction/DASH diet - Discussed need and benefit for weight loss. - Reviewed risks of HTN and principles of treatment - Goal of BP <130/80 - Recommended no refined sugar, low refined starch, healthy oil intake (olive oil), healthy protein(fish) along the lines of the Mediterranean diet. - HYDROCHLOROTHIAZIDE 25 MG TABLET - ECG COMPLETE - CBC - COMP METABOLIC PANEL - LIPID PANEL BASIC 4. Obesity, Class I, BMI 30-34.9 - ICD9: 278.00, ICD10: E66.9 Newly diagnosed - Behavioral intervention 5. Heart murmur - ICD9: 785.2, ICD10: R01.1 Chronic. Request records. - ECG COMPLETE 6. Screening for colon cancer - ICD9: V76.51, ICD10: Z12.11 - COLOGUARD Mark Nova MD * Mark Nova MD - 10/30/2021 3:53 PM EDT Medicare Yearly Visit Medical B eligibilty date 04/05/2017 Date of last exam NA PAST MEDICAL HISTORY Diagnosis Date Heart murmur 10/30/2021 Major depression, chronic 10/30/2021 Obesity, Class I, BMI 30-34.9 10/30/2021 Primary hypertension 10/30/2021 PAST SURGICAL HISTORY Procedure Laterality Date SEPTOPLASTY 1970 ALLERGIES: Benadryl [Diphenhydramine] Medications reviewed: Yes FAMILY HISTORY Problem Relation Age of Onset Lung Cancer Mother Colon Cancer Mother Dementia Father Heart Father murmur Hepatitis C Sister Pancreatic Cancer Brother No Known Problems Brother Obesity Brother SOCIAL HISTORY: Social History Tobacco Use Smoking status: Current Every Day Smoker Packs/day: 1.00 Years: 3.00 Pack years: 3.00 Types: Cigarettes Smokeless tobacco: Never Used Tobacco comment: quit 15 years ago. Started age 30. Vaping Use Vaping Use: Never used Substance Use Topics Alcohol use: Yes Comment: 1 drink per year Drug use: Not Currently Types: Marijuana Comment: 16-23 years old Juan likes to exercise by walking his dog daily. He watches his diet for sodium, low fat and lowcholesterol generally not very much. List of current specialists seen: Psychiatry. Dr. Quan Griffith, [facility]. End of Live Planning discussed including patients advanced directive wishes: None made. He does notwant to be kept alive if he is a vegetable. PHQ-2 / Depression screen He in the past two weeks denies having felt down, depressed, hopeless or with little interest or pleasure in doing things. PHQ-2 Score: 0 Functional Ability/Safety Screen 1. Was the patient's timed Up and Go test unsteady or longer than 30 seconds? No 2. Does the patient need help with the phone, transportation, shopping,preparing meals, housework, laundry, medications or managing money? No 3. Does your home have rugs in the hallway, lack of grab bars in the bathroom, lack of handrails onthe stairs or have poor lighting? No Hearing Evaluation: normal PHYSICAL EXAM BP 130/74 (BP Site: Right Arm, BP Position: Sitting, BP Cuff Size: Large Adult) Pulse 76 Temp 36.2 C (97.2 F) (Temporal Artery) Resp 16 Ht 160 cm (5' 3) Wt 89.2 kg (196 lb 9.6 oz) BMI 34.83 kg/m Alert and oriented X 3: YES Body mass index is 34.83 kg/m . Visual acuity: OD: 20/50 OS: 20/ 70 OU: 20/40 The Mini Cog(c): Word recall=2/3 + Clock drawing=2/2=4/5. (<3 is positive). ASSESSMENT/PLAN: 71 year old male The following prevention plan was discussed during the office visit and provided to the patient: - Weight Loss - Glaucoma screening - Colorectal Cancer screening Cologuard - Lipid panel - Fasting Blood sugar - Counseling for Weight Loss and Exercise - Advanced Care Planning discussion. Mark Nova MD documented in this encounterPark[facility]* Diagnosis Encounter for Medicare annual wellness exam- Primary Routine general medical examination at a health care facility Major depression, chronic Major depressive disorder, single episode, unspecified Primary hypertension Unspecified essential hypertension Obesity, Class I, BMI 30-34.9 Obesity, unspecified Heart murmur Undiagnosed cardiac murmurs Screening for colon cancer Special screening for malignant neoplasms, colon documented in this encounter [facility] note* Diagnosis COVID-19- Primary documented in this encounter [facility] note* Diagnosis Primary hypertension- Primary Unspecified essential hypertension Hyperlipidemia, unspecified hyperlipidemia type documented in this encounter [facility] note* Diagnosis Primary hypertension Unspecified essential hypertension documented in this encounter [facility] note* Diagnosis Major depression, chronic- Primary Major depressive disorder, single episode, unspecified Primary hypertension Unspecified essential hypertension Hyperlipidemia, unspecified hyperlipidemia type Tobacco use Tobacco use disorder documented in this encounter [facility] note* Diagnosis Medicare annual wellness visit, subsequent- Primary Routine general medical examination at a health care facility Major depression, chronic Major depressive disorder, single episode, unspecified Primary hypertension Unspecified essential hypertension Hyperlipidemia, unspecified hyperlipidemia type Heart murmur Undiagnosed cardiac murmurs [facility]* Diagnosis Recurrent major depressive disorder, in partial remission (HCC)- Primary documented in this encounter [facility] note* Diagnosis Recurrent major depressive disorder, in partial remission (HCC)- Primary [facility]* Diagnosis Primary hypertension Unspecified essential hypertension documented in this encounter [facility] note* Diagnosis Itching due to drug- Primary Unspecified pruritic disorder Recurrent major depressive disorder, in partial remission (HCC) documented in this encounter [facility] note* Diagnosis Primary hypertension- Primary Unspecified essential hypertension Encounter for screening examination for other mental health and behavioral disorders Hyperlipidemia, unspecified hyperlipidemia type Sprain of right rotator cuff capsule, initial encounter documented in this encounter [facility] note* Diagnosis Recurrent major depressive disorder, in full remission (HCC)- Primary Itching due to drug Unspecified pruritic disorder documented in this encounter [facility] note* Diagnosis Hearing loss due to cerumen impaction, right- Primary documented in this encounter [facility] note* Diagnosis Primary hypertension Unspecified essential hypertension [facility]* Diagnosis Fall, initial encounter- Primary Multiple contusions Contusion of multiple sites, not elsewhere classified Acute bilateral low back pain without sciatica documented in this encounter [facility] note* Diagnosis Medicare annual wellness visit, subsequent- Primary Routine general medical examination at a health care facility Major depressive disorder, recurrent episode, moderate (HCC) Major depressive disorder, recurrent episode, moderate Hyperlipidemia, unspecified hyperlipidemia type Primary hypertension Unspecified essential hypertension Screening for abdominal aortic aneurysm Screening for other and unspecified cardiovascular conditions documented [facility]* Diagnosis Acute bilateral low back pain without sciatica documented in this encounter [facility] note* Diagnosis Acute left-sided low back pain without sciatica- Primary documented in this encounter [facility] note* Diagnosis Acute pain of left thigh- Primary documented in this encounter [facility] note* Diagnosis Acute pain of left thigh [facility]* Diagnosis Screening for abdominal aortic aneurysm Screening for other and unspecified cardiovascular conditions documented in this encounter [facility] note* Diagnosis Recurrent major depressive disorder, in full remission (HCC)- Primary Encounter for long-term (current) use of medications Encounter for long-term (current) use of other medications documented in this encounter [facility] note* Diagnosis Left low back pain, unspecified chronicity, unspecified whether sciatica present- Primary documented in this encounter [facility] note* Diagnosis Left low back pain, unspecified chronicity, unspecified whether sciatica present- Primary documented in this encounter [facility] note* Diagnosis Nausea and vomiting, unspecified vomiting type- Primary Left low back pain, unspecified chronicity, unspecified whether sciatica present documented in this encounter [facility] note* Diagnosis Left low back pain, unspecified chronicity, unspecified whether sciatica present documented in this encounter [facility] note* Diagnosis Spinal stenosis, lumbar region with neurogenic claudication- Primary Left low back pain, unspecified chronicity, unspecified whether sciatica present Degeneration of intervertebral disc of lumbar region with discogenic back pain and lower extremity pain Lumbar spondylosis Lumbosacral spondylosis without myelopathy documented in this encounter [facility] note* Diagnosis Left low back pain, unspecified chronicity, unspecified whether sciatica present- Primary Primary hypertension Unspecified essential hypertension Hyperlipidemia, unspecified hyperlipidemia type [facility]* Diagnosis Primary osteoarthritis of left knee- Primary Primary localized osteoarthrosis, lower leg [facility]* Diagnosis Spinal stenosis, lumbar region with neurogenic claudication- Primary Left low back pain, unspecified chronicity, unspecified whether sciatica present [facility]* Diagnosis Left low back pain, unspecified chronicity, unspecified whether sciatica present [facility] Diagnosis Spinal stenosis, lumbar region with neurogenic claudication- Primary Degeneration of intervertebral disc of lumbar region with discogenic back pain and lower extremity pain Left low back pain, unspecified chronicity, unspecified whether sciatica present Lumbar spondylosis Lumbosacral spondylosis without myelopathy [facility]* Diagnosis Left leg pain- Primary Pain in limb [facility]* Diagnosis Acute on chronic low back pain- Primary documented in this encounter [facility] note* Diagnosis Primary osteoarthritis of left knee- Primary Primary localized osteoarthrosis, lower leg Left low back pain, unspecified chronicity, unspecified whether sciatica present Encounter for issue of other medical certificate documented in this encounter [facility] note* Diagnosis Chronic pain of left knee- Primary Pain in joint, lower leg Osteoarthritis of knee, unspecified documented in this encounter [facility] note* Diagnosis Recurrent major depressive disorder, in full remission Encounter for long-term (current) use of medications Encounter for long-term (current) use of other medications documented in this encounter [facility] note* Diagnosis Acute bilateral low back pain without sciatica Muscle spasm Spasm of muscle Body mass index (BMI) 30.0-30.9, adult documented in this encounter [facility] for referral (narrative)* Outpatient Procedure (Routine) - Closed Specialty Diagnoses / Procedures Referred By Fermin perry Referred To [facility] Diagn[facility] Primary hypertension Heart murmur Procedures ECG COMPLETE ECG ROUTINE ECG W/LEAST 12 LDS W/I&R Mark Nova MD [address] [place] [address] [facility] [place] [address] [place] [id number] Referral ID Status Reason Start Date Expiration Date V isits Requested Visits Authorized [id number] Closed Auto-Generate d Referral 10/30/2021 10/30/2022 1 1 [facility] for visit Narrative* Diagnostic Procedure Only (Routine) - Closed Specialty Diagnoses / Procedures Referred By Fermin perry Referred To Contact [facility] Diagnoses Acute bilateral low back pain without sciatica Procedures XR SACRUM/COCCYX 3V AP/LAT RADEX SACRUM & COCCYX MINIMUM 2 VIEWS Mark Nova MD [address] [place] [address] Phone: tel: fax: [place] [id number] Referral ID Status Reason Start Date Expiration Date V isits Requested Visits Authorized [id number] Closed Auto-Generate d Referral 06/05/2024 07/05/2025 1 1 [facility] for visit Narrative* Diagnostic Procedure Only (Routine) - Closed Specialty Diagnoses / Procedures Referred By Contac t Referred To Contact [facility] Diagnoses Acute pain of left thigh Procedures XR FEMUR GENERAL 2V AP/LAT LEFT RADIOLOGIC EXAMINATION FEMUR MINIMUM 2 VIEWS Mark Nova MD [address] [place] [address] Phone: tel: fax: [place] [address] Referral ID Status Reason Start Date Expiration Date V isits Requested Visits Authorized [id number] Closed Auto-Generate d Referral 06/16/2024 07/16/2025 1 1 [facility] for visit Narrative* Diagnostic Procedure Only (Urgent) - Closed Specialty Diagnoses / Procedures Referred By Contac t Referred To Contact [facility] Diagnoses Left leg pain Procedures XR KNEE GENERAL 4V AP BOTH/PA BOTH/LAT/MERC LEFT RADIOLOGIC EXAM KNEE COMPLETE 4/[place] [address] [address] Phone: tel: fax: [place] [address] Referral ID Status Reason Start Date Expiration Date V isits Requested Visits Authorized [id number] Closed Auto-Generate d Referral 10/24/2024 11/23/2025 1 1 [facility] Concerns Infection Onset Date Last Indicated Resolved Time COVID-19 Rule-Out 12/19/2021 12/19/2021 Infection Onset Date Last Indicated Resolved Time COVID-19 Rule-Out 12/19/2021 12/19/2021 12/20/2021 4:12 AM EDT COVID-19 Confirmed 12/19/2021 12/19/2021 Reason for Referral Specialty Diagnoses / Procedures Referred By Contac t Referred To Contact Diagnoses Major depression, chronic Procedures CONSULT TO [facility] ADULT OFFICE/OUTPATIENT NEW HIGH MDM 60 MINUTES Alexia Coleman, DIRECTOR MEDICAL WRITING.COPY CENTER OPERATOR [address] [place] [address] Referral ID Status Reason Start Date Expiration Date Visits Requested Visits Authorized [id number] Pending Review PCP Requested Referral 05/26/2023 08/24/2023 1 1 Summary Purpose Family History No Family History Records FoundNo Family History Records FoundNo Family History Records FoundNo Family History Records Found Advance Directives No Advanced Directives Records FoundNo Advanced Directives Records FoundNo Advanced Directives Records FoundNo Advanced Directives Records Found Additional Source Comments Source Comments (unrecognize d section and content) In the event this informatio n is protected by the Federal Confidentiality of Alcohol and Drug Abuse Patient Records regulations: The Federal rules restrict any use of the information to criminally investigate or prosecute any alcohol or drug abuse patient.[facility] the event this information is protected by the Federal Confidentiality of Alcohol and Drug Abuse Patient Records regulations: The Federal rules restrict any use of the information to criminally investigate or prosecute any alcohol or drug abuse patient.[facility] the event this information is protected by the Federal Confidentiality of Alcohol and Drug Abuse Patient Records regulations: The Federal rules restrict any use of the information to criminally investigate or prosecute any alcohol or drug abuse patient.[facility] SystemIn the event this information is protected by the Federal Confidentiality of Alcohol and Drug Abuse Patient Records regulations: The Federal rules restrict any use of the information to criminally investigate or prosecute any alcohol or drug abuse patient.[facility] SystemIn the event this information is protected by the Federal Confidentiality of Alcohol and Drug Abuse Patient Records regulations: The Federal rules restrict any use of the information to criminally investigate or prosecute any alcohol or drug abuse patient.[facility] SystemIn the event this information is protected by the Federal Confidentiality of Alcohol and Drug Abuse Patient Records regulations: The Federal rules restrict any use of the information to criminally investigate or prosecute any alcohol or drug abuse patient.[facility] SystemIn the event this information is protected by the Federal Confidentiality of Alcohol and Drug Abuse Patient Records regulations: The Federal rules restrict any use of the information to criminally investigate or prosecute any alcohol or drug abuse patient.[facility] SystemIn the event this information is protected by the Federal Confidentiality of Alcohol and Drug Abuse Patient Records regulations: The Federal rules restrict any use of the information to criminally investigate or prosecute any alcohol or drug abuse patient.[facility] SystemIn the event this information is protected by the Federal Confidentiality of Alcohol and Drug Abuse Patient Records regulations: The Federal rules restrict any use of the information to criminally investigate or prosecute any alcohol or drug abuse patient.[facility] SystemIn the event this information is protected by the Federal Confidentiality of Alcohol and Drug Abuse Patient Records regulations: The Federal rules restrict any use of the information to criminally investigate or prosecute any alcohol or drug abuse patient.[facility] SystemIn the event this information is protected by the Federal Confidentiality of Alcohol and Drug Abuse Patient Records regulations: The Federal rules restrict any use of the information to criminally investigate or prosecute any alcohol or drug abuse patient.[facility] SystemIn the event this information is protected by the Federal Confidentiality of Alcohol and Drug Abuse Patient Records regulations: The Federal rules restrict any use of the information to criminally investigate or prosecute any alcohol or drug abuse patient.[facility] SystemIn the event this information is protected by the Federal Confidentiality of Alcohol and Drug Abuse Patient Records regulations: The Federal rules restrict any use of the information to criminally investigate or prosecute any alcohol or drug abuse patient.[facility] SystemIn the event this information is protected by the Federal Confidentiality of Alcohol and Drug Abuse Patient Records regulations: The Federal rules restrict any use of the information to criminally investigate or prosecute any alcohol or drug abuse patient.[facility] SystemIn the event this information is protected by the Federal Confidentiality of Alcohol and Drug Abuse Patient Records regulations: The Federal rules restrict any use of the information to criminally investigate or prosecute any alcohol or drug abuse patient.[facility] SystemIn the event this information is protected by the Federal Confidentiality of Alcohol and Drug Abuse Patient Records regulations: The Federal rules restrict any use of the information to criminally investigate or prosecute any alcohol or drug abuse patient.[facility] SystemIn the event this information is protected by the Federal Confidentiality of Alcohol and Drug Abuse Patient Records regulations: The Federal rules restrict any use of the information to criminally investigate or prosecute any alcohol or drug abuse patient.[facility] SystemIn the event this information is protected by the Federal Confidentiality of Alcohol and Drug Abuse Patient Records regulations: The Federal rules restrict any use of the information to criminally investigate or prosecute any alcohol or drug abuse patient.[facility] SystemIn the event this information is protected by the Federal Confidentiality of Alcohol and Drug Abuse Patient Records regulations: The Federal rules restrict any use of the information to criminally investigate or prosecute any alcohol or drug abuse patient.[facility] SystemIn the event this information is protected by the Federal Confidentiality of Alcohol and Drug Abuse Patient Records regulations: The Federal rules restrict any use of the information to criminally investigate or prosecute any alcohol or drug abuse patient.[facility] SystemIn the event this information is protected by the Federal Confidentiality of Alcohol and Drug Abuse Patient Records regulations: The Federal rules restrict any use of the information to criminally investigate or prosecute any alcohol or drug abuse patient.[facility] SystemIn the event this information is protected by the Federal Confidentiality of Alcohol and Drug Abuse Patient Records regulations: The Federal rules restrict any use of the information to criminally investigate or prosecute any alcohol or drug abuse patient.[facility] SystemIn the event this information is protected by the Federal Confidentiality of Alcohol and Drug Abuse Patient Records regulations: The Federal rules restrict any use of the information to criminally investigate or prosecute any alcohol or drug abuse patient.[facility] SystemIn the event this information is protected by the Federal Confidentiality of Alcohol and Drug Abuse Patient Records regulations: The Federal rules restrict any use of the information to criminally investigate or prosecute any alcohol or drug abuse patient.[facility] SystemIn the event this information is protected by the Federal Confidentiality of Alcohol and Drug Abuse Patient Records regulations: The Federal rules restrict any use of the information to criminally investigate or prosecute any alcohol or drug abuse patient.[facility] SystemIn the event this information is protected by the Federal Confidentiality of Alcohol and Drug Abuse Patient Records regulations: The Federal rules restrict any use of the information to criminally investigate or prosecute any alcohol or drug abuse patient.[facility] SystemIn the event this information is protected by the Federal Confidentiality of Alcohol and Drug Abuse Patient Records regulations: The Federal rules restrict any use of the information to criminally investigate or prosecute any alcohol or drug abuse patient.[facility] SystemIn the event this information is protected by the Federal Confidentiality of Alcohol and Drug Abuse Patient Records regulations: The Federal rules restrict any use of the information to criminally investigate or prosecute any alcohol or drug abuse patient.[facility] SystemIn the event this information is protected by the Federal Confidentiality of Alcohol and Drug Abuse Patient Records regulations: The Federal rules restrict any use of the information to criminally investigate or prosecute any alcohol or drug abuse patient.[facility] SystemIn the event this information is protected by the Federal Confidentiality of Alcohol and Drug Abuse Patient Records regulations: The Federal rules restrict any use of the information to criminally investigate or prosecute any alcohol or drug abuse patient.[facility] SystemIn the event this information is protected by the Federal Confidentiality of Alcohol and Drug Abuse Patient Records regulations: The Federal rules restrict any use of the information to criminally investigate or prosecute any alcohol or drug abuse patient.[facility] SystemIn the event this information is protected by the Federal Confidentiality of Alcohol and Drug Abuse Patient Records regulations: The Federal rules restrict any use of the information to criminally investigate or prosecute any alcohol or drug abuse patient.[facility] SystemIn the event this information is protected by the Federal Confidentiality of Alcohol and Drug Abuse Patient Records regulations: The Federal rules restrict any use of the information to criminally investigate or prosecute any alcohol or drug abuse patient.[facility] SystemIn the event this information is protected by the Federal Confidentiality of Alcohol and Drug Abuse Patient Records regulations: The Federal rules restrict any use of the information to criminally investigate or prosecute any alcohol or drug abuse patient.[facility] SystemIn the event this information is protected by the Federal Confidentiality of Alcohol and Drug Abuse Patient Records regulations: The Federal rules restrict any use of the information to criminally investigate or prosecute any alcohol or drug abuse patient.[facility] SystemIn the event this information is protected by the Federal Confidentiality of Alcohol and Drug Abuse Patient Records regulations: The Federal rules restrict any use of the information to criminally investigate or prosecute any alcohol or drug abuse patient.[facility] SystemIn the event this information is protected by the Federal Confidentiality of Alcohol and Drug Abuse Patient Records regulations: The Federal rules restrict any use of the information to criminally investigate or prosecute any alcohol or drug abuse patient.[facility] SystemIn the event this information is protected by the Federal Confidentiality of Alcohol and Drug Abuse Patient Records regulations: The Federal rules restrict any use of the information to criminally investigate or prosecute any alcohol or drug abuse patient.[facility] SystemIn the event this information is protected by the Federal Confidentiality of Alcohol and Drug Abuse Patient Records regulations: The Federal rules restrict any use of the information to criminally investigate or prosecute any alcohol or drug abuse patient.[facility] SystemIn the event this information is protected by the Federal Confidentiality of Alcohol and Drug Abuse Patient Records regulations: The Federal rules restrict any use of the information to criminally investigate or prosecute any alcohol or drug abuse patient.[facility] SystemIn the event this information is protected by the Federal Confidentiality of Alcohol and Drug Abuse Patient Records regulations: The Federal rules restrict any use of the information to criminally investigate or prosecute any alcohol or drug abuse patient.[facility] SystemIn the event this information is protected by the Federal Confidentiality of Alcohol and Drug Abuse Patient Records regulations: The Federal rules restrict any use of the information to criminally investigate or prosecute any alcohol or drug abuse patient.[facility] SystemIn the event this information is protected by the Federal Confidentiality of Alcohol and Drug Abuse Patient Records regulations: The Federal rules restrict any use of the information to criminally investigate or prosecute any alcohol or drug abuse patient.[facility] SystemIn the event this information is protected by the Federal Confidentiality of Alcohol and Drug Abuse Patient Records regulations: The Federal rules restrict any use of the information to criminally investigate or prosecute any alcohol or drug abuse patient.[facility] SystemIn the event this information is protected by the Federal Confidentiality of Alcohol and Drug Abuse Patient Records regulations: The Federal rules restrict any use of the information to criminally investigate or prosecute any alcohol or drug abuse patient.[facility] SystemIn the event this information is protected by the Federal Confidentiality of Alcohol and Drug Abuse Patient Records regulations: The Federal rules restrict any use of the information to criminally investigate or prosecute any alcohol or drug abuse patient.[facility] SystemIn the event this information is protected by the Federal Confidentiality of Alcohol and Drug Abuse Patient Records regulations: The Federal rules restrict any use of the information to criminally investigate or prosecute any alcohol or drug abuse patient.[facility] SystemIn the event this information is protected by the Federal Confidentiality of Alcohol and Drug Abuse Patient Records regulations: The Federal rules restrict any use of the information to criminally investigate or prosecute any alcohol or drug abuse patient.[facility] SystemIn the event this information is protected by the Federal Confidentiality of Alcohol and Drug Abuse Patient Records regulations: The Federal rules restrict any use of the information to criminally investigate or prosecute any alcohol or drug abuse patient.[facility] SystemIn the event this information is protected by the Federal Confidentiality of Alcohol and Drug Abuse Patient Records regulations: The Federal rules restrict any use of the information to criminally investigate or prosecute any alcohol or drug abuse patient.[facility] SystemIn the event this information is protected by the Federal Confidentiality of Alcohol and Drug Abuse Patient Records regulations: The Federal rules restrict any use of the information to criminally investigate or prosecute any alcohol or drug abuse patient.[facility] SystemIn the event this information is protected by the Federal Confidentiality of Alcohol and Drug Abuse Patient Records regulations: The Federal rules restrict any use of the information to criminally investigate or prosecute any alcohol or drug abuse patient.[facility] SystemIn the event this information is protected by the Federal Confidentiality of Alcohol and Drug Abuse Patient Records regulations: The Federal rules restrict any use of the information to criminally investigate or prosecute any alcohol or drug abuse patient.[facility] SystemIn the event this information is protected by the Federal Confidentiality of Alcohol and Drug Abuse Patient Records regulations: The Federal rules restrict any use of the information to criminally investigate or prosecute any alcohol or drug abuse patient.[facility] SystemIn the event this information is protected by the Federal Confidentiality of Alcohol and Drug Abuse Patient Records regulations: The Federal rules restrict any use of the information to criminally investigate or prosecute any alcohol or drug abuse patient.[facility] SystemIn the event this information is protected by the Federal Confidentiality of Alcohol and Drug Abuse Patient Records regulations: The Federal rules restrict any use of the information to criminally investigate or prosecute any alcohol or drug abuse patient.[facility] SystemIn the event this information is protected by the Federal Confidentiality of Alcohol and Drug Abuse Patient Records regulations: The Federal rules restrict any use of the information to criminally investigate or prosecute any alcohol or drug abuse patient.[facility] SystemIn the event this information is protected by the Federal Confidentiality of Alcohol and Drug Abuse Patient Records regulations: The Federal rules restrict any use of the information to criminally investigate or prosecute any alcohol or drug abuse patient.[facility] SystemIn the event this information is protected by the Federal Confidentiality of Alcohol and Drug Abuse Patient Records regulations: The Federal rules restrict any use of the information to criminally investigate or prosecute any alcohol or drug abuse patient.[facility] SystemIn the event this information is protected by the Federal Confidentiality of Alcohol and Drug Abuse Patient Records regulations: The Federal rules restrict any use of the information to criminally investigate or prosecute any alcohol or drug abuse patient.[facility] SystemIn the event this information is protected by the Federal Confidentiality of Alcohol and Drug Abuse Patient Records regulations: The Federal rules restrict any use of the information to criminally investigate or prosecute any alcohol or drug abuse patient.[facility] SystemIn the event this information is protected by the Federal Confidentiality of Alcohol and Drug Abuse Patient Records regulations: The Federal rules restrict any use of the information to criminally investigate or prosecute any alcohol or drug abuse patient.[facility] SystemIn the event this information is protected by the Federal Confidentiality of Alcohol and Drug Abuse Patient Records regulations: The Federal rules restrict any use of the information to criminally investigate or prosecute any alcohol or drug abuse patient.[facility] SystemIn the event this information is protected by the Federal Confidentiality of Alcohol and Drug Abuse Patient Records regulations: The Federal rules restrict any use of the information to criminally investigate or prosecute any alcohol or drug abuse patient.[facility] SystemIn the event this information is protected by the Federal Confidentiality of Alcohol and Drug Abuse Patient Records regulations: The Federal rules restrict any use of the information to criminally investigate or prosecute any alcohol or drug abuse patient.[facility] SystemIn the event this information is protected by the Federal Confidentiality of Alcohol and Drug Abuse Patient Records regulations: The Federal rules restrict any use of the information to criminally investigate or prosecute any alcohol or drug abuse patient.[facility] SystemIn the event this information is protected by the Federal Confidentiality of Alcohol and Drug Abuse Patient Records regulations: The Federal rules restrict any use of the information to criminally investigate or prosecute any alcohol or drug abuse patient.[facility] SystemIn the event this information is protected by the Federal Confidentiality of Alcohol and Drug Abuse Patient Records regulations: The Federal rules restrict any use of the information to criminally investigate or prosecute any alcohol or drug abuse patient.[facility] SystemIn the event this information is protected by the Federal Confidentiality of Alcohol and Drug Abuse Patient Records regulations: The Federal rules restrict any use of the information to criminally investigate or prosecute any alcohol or drug abuse patient.[facility] Reason for Visit (unrecogniz ed section and content) Reason Comments Follow Up Depression Specialty Diagnoses / Procedures Referred By Fermin perry Referred To Contact Diagnoses Recurrent major depressive disorder, in full remission Encounter for long-term (current) use of medications Procedures OFFICE/OUTPATIENT NEW HIGH MDM 60 MINUTES Melina Britt, DIRECTOR MEDICAL WRITING.COPY CENTER OPERATOR [address] [place] [address] Phone: tel: fax: Referral ID Status Reason Start Date Expiration Date V isits Requested Visits Authorized [id number] Closed PCP Requested Referral 06/20/2024 06/20/2025 1 1 Reason Comments Medicare Wellness Exam New Patient Reason Comments Results Reason Comments Covid19 Concern + rapid x this AM, n ausea, cough, congestion, ST x1 week Reason Comments F/U 3 Month Reason Onset Date Comments Refill Request 04/27/2022 Reason Comments Refill Request Reason Comments 9 month follow-up Reason Comments Medicare Wellness Exam Reason Comments bh consult Reason Comments Follow Up Reason Comments Med Change Request Reason Comments Follow Up Depression Reason Comments F/U 6 months Reason Comments Follow Up depression Specialty Diagnoses / Procedures Referred By Fermin perry Referred To Contact Psychiatry / ADULT PSYCHIATRY Diagnoses follow up Procedures [facility] ADULT Melina Britt, DIRECTOR MEDICAL WRITING.COPY CENTER OPERATOR [address] [place] [address] Melina Britt, DIRECTOR MEDICAL WRITING.COPY CENTER OPERATOR [address] [place] [address] Referral ID Status Reason Start Date Expiration Date V isits Requested Visits Authorized [id number] New Request 12/21/2023 03/20/2024 1 1 Reason Comments Ear Pain Right ear pain x 4 h ours Reason Comments Medication Problem Patient just calling to alert change of pharmacy Reason Comments Information Reason Comments Excuse Letter Jury Duty Reason Comments Medication Question Reason Onset Date Comments Refill Request 04/28/2024 Reason Comments Fall Reason Comments Clinical Update Reason Comments Low Back Pain right side injection yesterday Reason Comments ED Follow-up [facility] 06/07/2024 a fter fall; continues with pain to left leg and tailbone Reason Comments Radiology US Specialty Diagnoses / Procedures Referred By Contac t Referred To Contact [facility] IMAGING Diagnoses Screening for abdominal aortic aneurysm Procedures US SCREENING FOR AAA US ABDOMINAL AORTA REAL TIME SCREEN STUDY AAA Alexia Coleman, DIRECTOR MEDICAL WRITING.COPY CENTER OPERATOR [address] [place] [address] Phone: tel: fax: [place] [phone] Referral ID Status Reason Start Date Expiration Date V isits Requested Visits Authorized [id number] Closed Auto-Generate d Referral 06/06/2024 07/06/2025 1 1 Reason Comments Pain Reason Comments Medication Request Reason Comments Worker's Compensation: Update Reason Comments Vomiting Back Pain Reason Comments Patient Question Reason Onset Date Comments Refill Request 08/01/2024 Reason Comments Injection Questions Reason Comments Follow Up Leg Pain Left Back Pain Specialty Diagnoses / Procedures Referred By Contac t Referred To Contact Pain Management Diagnoses Left low back pain, unspecified chronicity, unspecified whether sciatica present Procedures CONSULT TO PAIN MGT OFFICE/OUTPATIENT NEW HIGH MDM 60 MINUTES Mark Nova MD [address] [place] [address] Phone: tel: fax: Referral ID Status Reason Start Date Expiration Date V isits Requested Visits Authorized [id number] Closed PCP Requested Referral 06/20/2024 06/20/2025 1 1 Reason Comments Patient Update Reason Comments C9 Form Request Reason Comments Back Pain Reason Comments Patient Update Bwc (Worker's Comp) Reason Comments Procedure ILESI L4/5 Specialty Diagnoses / Procedures Referred By Contac t Referred To Contact Pain Management / PAIN MANAGEMENT Diagnoses Spinal stenosis, lumbar region with neurogenic claudication Epidural Steroid Injection - Interlaminar Approach (ILESI) under fluoroscopic guidance NONE at L4-5; no restrictions Procedures NJX DX/THER SBST INTRLMNR LMBR/SAC W/IMG GDN PROCEDURE Maude Townsend APRN.COPY CENTER OPERATOR [address] [place] [address] Phone: tel: fax: Lei Clinton MD, PhD [address] [place] [address] Phone: tel: fax: Referral ID Status Reason Start Date Expiration Date Visits Re quested Visits Authorized [id number] Closed 09/15/2024 03/14/2025 1 1 Reason Comments Forms BWC Reason Onset Date Comments Refill Request 09/25/2024 Reason Comments Follow Up ILESI effective 95% Back Pain Reason Comments left leg pain X 1 day-behind knee Reason Comments Patient Question Left knee pain Reason Comments Same Day Appointment left knee pain Reason Comments Left Knee Pain Reason Comments Patient Update RFA Reason Comments Back Pain Low back flare, no r ecent falls or injury Left Knee Pain Chronic Care Teams (unrecognized sec tion and content) Chief Design Engineer Relationship Specialty Start Date End Date Mark Nova MD [address] [place] [address] PCP - General Internal Medicine 10/30/21 Chief Design Engineer Relationship Specialty Start Date End Date Mark Nova MD [address] [place] [address] PCP - General Internal Medicine 10/30/21 Chief Design Engineer Relationship Specialty Start Date End Date Mark Nova MD [address], [place] [address] PCP - General Internal Medicine 10/30/21 Chief Design Engineer Relationship Specialty Start Date End Date Mark Nova MD [address], [place] [id number] PCP - General Internal Medicine 10/30/21 Chief Design Engineer Relationship Specialty Start Date End Date Mark Nova MD [address] [facility] [place] [address] PCP - General Internal Medicine 10/30/21 Chief Design Engineer Relationship Specialty Start Date End Date Mark Nova MD [address] [facility] [place] [address] PCP - General Internal Medicine 10/30/21 Chief Design Engineer Relationship Specialty Start Date End Date Mark Nova MD [address] [place] [address] PCP - General Internal Medicine 10/30/21 Chief Design Engineer Relationship Specialty Start Date End Date Mark Nova MD [address] [place] [address] PCP - General Internal Medicine 10/30/21 Chief Design Engineer Relationship Specialty Start Date End Date Mark Nova MD [address] [place] [address] PCP - General Internal Medicine 10/30/21 Chief Design Engineer Relationship Specialty Start Date End Date Mark Nova MD [address] [facility] [place] [address] PCP - General Internal Medicine 10/30/21 Chief Design Engineer Relationship Specialty Start Date End Date Mark Nova MD [address] [place] [address] PCP - General Internal Medicine 10/30/21 Chief Design Engineer Relationship Specialty Start Date End Date Mark Nova MD [address] [place] [address] PCP - General Internal Medicine 10/30/21 Chief Design Engineer Relationship Specialty Start Date End Date Mark Nova MD [address] [place] [address] PCP - General Internal Medicine 10/30/21 Chief Design Engineer Relationship Specialty Start Date End Date Mark Nova MD [address] [place] [address] PCP - General Internal Medicine 10/30/21 Chief Design Engineer Relationship Specialty Start Date End Date Mark Nova MD [address] [place] [address] PCP - General Internal Medicine 10/30/21 Chief Design Engineer Relationship Specialty Start Date End Date Mark Nova MD [address] [place] [address] PCP - General Internal Medicine 10/30/21 Chief Design Engineer Relationship Specialty Start Date End Date Mark Nova MD [address] [place] [address] PCP - General Internal Medicine 10/30/21 Alexia Coleman APRN.COPY CENTER OPERATOR [address] [place] [address] Conference Producer Internal Medicine 03/13/24 Chief Design Engineer Relationship Specialty Start Date End Date Mark Nova MD [address] [place] [address] PCP - General Internal Medicine 10/30/21 Alexia Coleman DIRECTOR MEDICAL WRITING.COPY CENTER OPERATOR [address] [place] [address] Conference Producer Internal Medicine 03/13/24 Chief Design Engineer Relationship Specialty Start Date End Date Mark Nova MD [address] [place] [address] PCP - General Internal Medicine 10/30/21 Alexia Coleman, DIRECTOR MEDICAL WRITING.COPY CENTER OPERATOR [address] [place] [address] Conference Producer Internal Medicine 03/13/24 Chief Design Engineer Relationship Specialty Start Date End Date Mark Nova MD [address] [place] [address] PCP - General Internal Medicine 10/30/21 Alexia Coleman, DIRECTOR MEDICAL WRITING.COPY CENTER OPERATOR [address] [place] [address] Conference Producer Internal Medicine 03/13/24 Chief Design Engineer Relationship Specialty Start Date End Date Mark Nova MD [address] [place] [address] PCP - General Internal Medicine 10/30/21 Alexia Coleamn, DIRECTOR MEDICAL WRITING.COPY CENTER OPERATOR [address] [place] [address] Conference Producer Internal Medicine 03/13/24 Chief Design Engineer Relationship Specialty Start Date End Date Mark Nova MD [address] [place] [address] PCP - General Internal Medicine 10/30/21 Alexia Coleman, DIRECTOR MEDICAL WRITING.COPY CENTER OPERATOR [address] [facility] [place] [address] Conference Producer Internal Medicine 03/13/24 Chief Design Engineer Relationship Specialty Start Date End Date Mark Nova MD [address] [facility] [place] [address] PCP - General Internal Medicine 10/30/21 Alexia Coleman, DIRECTOR MEDICAL WRITING.COPY CENTER OPERATOR [address] [facility] [place] [address] Conference Producer Internal Medicine 03/13/24 Chief Design Engineer Relationship Specialty Start Date End Date Mark Nova MD [address] [place] [address] PCP - General Internal Medicine 10/30/21 Alexia Coleman, DIRECTOR MEDICAL WRITING.COPY CENTER OPERATOR [address] [place] [address] Conference Producer Internal Medicine 03/13/24 Chief Design Engineer Relationship Specialty Start Date End Date Mark Nova MD [address] [place] [address] PCP - General Internal Medicine 10/30/21 Alexia Coleman, DIRECTOR MEDICAL WRITING.COPY CENTER OPERATOR [address] [place] [address] Conference Producer Internal Medicine 03/13/24 Chief Design Engineer Relationship Specialty Start Date End Date Mark Nova MD [address] [place] [address] PCP - General Internal Medicine 10/30/21 Alexia Coleman, DIRECTOR MEDICAL WRITING.COPY CENTER OPERATOR [address] [place] [address] Conference Producer Internal Medicine 03/13/24 Chief Design Engineer Relationship Specialty Start Date End Date Mark Nova MD [address] [place] [address] PCP - General Internal Medicine 10/30/21 Alexia Coleman, DIRECTOR MEDICAL WRITING.COPY CENTER OPERATOR [address] [facility] [place] [address] Conference Producer Internal Medicine 03/13/24 Chief Design Engineer Relationship Specialty Start Date End Date Mark Nova MD [address] [place] [address] PCP - General Internal Medicine 10/30/21 Alexia Coleman, DIRECTOR MEDICAL WRITING.COPY CENTER OPERATOR [address] [facility] [place] [address] Conference Producer Internal Medicine 03/13/24 Chief Design Engineer Relationship Specialty Start Date End Date Mark Nova MD [address] [facility] [place] [address] PCP - General Internal Medicine 10/30/21 Alexia Coleman, DIRECTOR MEDICAL WRITING.COPY CENTER OPERATOR [address] [facility] [place] [address] Conference Producer Internal Medicine 03/13/24 Chief Design Engineer Relationship Specialty Start Date End Date Mark Nova MD [address] [facility] [place] [address] PCP - General Internal Medicine 10/30/21 Alexia Coleman, DIRECTOR MEDICAL WRITING.COPY CENTER OPERATOR [address] [place] [address] Conference Producer Internal Medicine 03/13/24 Chief Design Engineer Relationship Specialty Start Date End Date Mark Nova MD [address] [place] [address] PCP - General Internal Medicine 10/30/21 Alexia Coleman, DIRECTOR MEDICAL WRITING.COPY CENTER OPERATOR [address] [facility] [place] [address] Conference Producer Internal Medicine 03/13/24 Chief Design Engineer Relationship Specialty Start Date End Date Mark Nova MD [address] [facility] [place] [address] PCP - General Internal Medicine 10/30/21 Alexia Coleman, DIRECTOR MEDICAL WRITING.COPY CENTER OPERATOR [address] [facility] [place] [address] Conference Producer Internal Medicine 03/13/24 Chief Design Engineer Relationship Specialty Start Date End Date Mark Nova MD [address] [facility] [place] [address] PCP - General Internal Medicine 10/30/21 Alexia Coleman, DIRECTOR MEDICAL WRITING.COPY CENTER OPERATOR [address] [facility] [place] [address] Conference Producer Internal Medicine 03/13/24 Chief Design Engineer Relationship Specialty Start Date End Date Mark Nova MD [address] [place] [address] PCP - General Internal Medicine 10/30/21 Alexia Coleman, DIRECTOR MEDICAL WRITING.COPY CENTER OPERATOR [address] [facility] [place] [address] Conference Producer Internal Medicine 03/13/24 Chief Design Engineer Relationship Specialty Start Date End Date Mark Nova MD [address] [facility] [place] [address] PCP - General Internal Medicine 10/30/21 Alexia Coleman, DIRECTOR MEDICAL WRITING.COPY CENTER OPERATOR [address] [facility] [place] [address] Conference Producer Internal Medicine 03/13/24 Chief Design Engineer Relationship Specialty Start Date End Date Mark Nova MD [address] [facility] [place] [address] PCP - General Internal Medicine 10/30/21 Alexia Coleman, DIRECTOR MEDICAL WRITING.COPY CENTER OPERATOR [address] [facility] [place] [address] Conference Producer Internal Medicine 03/13/24 Chief Design Engineer Relationship Specialty Start Date End Date Mark Nova MD [address] [facility] [place] [address] PCP - General Internal Medicine 10/30/21 Alexia Coleman, DIRECTOR MEDICAL WRITING.COPY CENTER OPERATOR [address] [facility] [place] [address] Conference Producer Internal Medicine 03/13/24 Chief Design Engineer Relationship Specialty Start Date End Date Mark Nova MD [address] [facility] [place] [address] PCP - General Internal Medicine 10/30/21 Alexia Coleman, DIRECTOR MEDICAL WRITING.COPY CENTER OPERATOR [address] [facility] [place] [address] Conference Producer Internal Medicine 03/13/24 Chief Design Engineer Relationship Specialty Start Date End Date Mark Nova MD [address] [facility] [place] [address] PCP - General Internal Medicine 10/30/21 Alexia Coleman, DIRECTOR MEDICAL WRITING.COPY CENTER OPERATOR [address] [facility] [place] [address] Conference Producer Internal Medicine 03/13/24 Chief Design Engineer Relationship Specialty Start Date End Date Mark Nova MD [address] [place] [address] PCP - General Internal Medicine 10/30/21 Alexia Coleman, DIRECTOR MEDICAL WRITING.COPY CENTER OPERATOR [address] [facility] [place] [address] Conference Producer Internal Medicine 03/13/24 Chief Design Engineer Relationship Specialty Start Date End Date Mark Nova MD [address] [facility] [place] [address] PCP - General Internal Medicine 10/30/21 Alexia Coleman, DIRECTOR MEDICAL WRITING.COPY CENTER OPERATOR [address] [facility] [place] [address] Conference Producer Internal Medicine 03/13/24 Chief Design Engineer Relationship Specialty Start Date End Date Mark Nova MD [address] [facility] [place] [address] PCP - General Internal Medicine 10/30/21 Alexia Coleman, DIRECTOR MEDICAL WRITING.COPY CENTER OPERATOR [address], [place] [address] Conference Producer Internal Medicine 03/13/24 Chief Design Engineer Relationship Specialty Start Date End Date Mark Nova MD [address], [place] [id number] PCP - General Internal Medicine 10/30/21 Alexia Coleman, DIRECTOR MEDICAL WRITING.COPY CENTER OPERATOR [address], [place] [address] Conference Producer Internal Medicine 03/13/24 (unrecognized sect ion and content) No Status Records FoundNo Status Records FoundNo Status Records FoundNo Status Records Found INFORMATION SOURCE (unrecogn ized section and content) DATE CREATED AUTHOR 06/09/2024 [facility] DATE CREATED AUTHOR AUTHOR'S ORGANIZ ATION 01/13/2025 [facility] DATE CREATED AUTHOR AUTHOR'S ORGANIZ ATION 01/26/2025 [facility] DATE CREATED AUTHOR AUTHOR'S ORGANIZ ATION 01/30/2025 [facility] FOR RECORDS PERTAINING TO PATIENTS WHO ARE OR HAVE BEEN ENROLLED IN A CHEMICAL DEPENDENCY/SUBSTANCEABUSE PROGRAM, SOME INFORMATION MAY BE OMITTED. This clinical summary was aggregated from multiple sources. Caution should be exercised in using it in the provision of clinical care. This summary normalizes information from multiple sources, and as a consequence, information in this document may materially change the coding, format and clinical context of patient data. In addition, data may be omitted in some cases. CLINICAL DECISIONS SHOULD BE BASED ON THE PRIMARY CLINICAL RECORDS. [employer] provides no warranty or guarantee of the accuracy or completeness of information in this document.
[2025-02-24 10:37] VITALS: BP 119/97; PULSE 74; RESP 14; TEMP 36.6; O2SAT 99
== END 2025-02-24 10:45 | disposition home or self-care (01) ==
LOC: ED 10:34
PROVIDERS: Emergency Provider Surgery; PCP Internal Medicine; Visit Provider Surgery
DX: M79.652 Pain in left thigh (principal); I10 Essential (primary) hypertension; Z87.891 Personal history of nicotine dependence; F32.A Depression, unspecified; G89.29 Other chronic pain; Z79.899 Other long term (current) drug therapy
CPT/HCPCS: 93971; 96372; 99282